=== PATIENT | male | born 1935 | race Caucasian/White ===

== ENCOUNTER 2020-02-13 20:36 | Inpatient (IN) | payer MEDICARE, BC ==
--- NOTE | 2020-02-13 21:15 | EDM.PDOC ---
ED HPI GENERAL MEDICAL PROBLEM - General Chief Complaint: Gastrointestinal Problem Stated Complaint: ABD PAIN,CONSTIPATED Time Seen by Provider: 02/13/20 21:15 Source of Information: Reports: Patient History Limitations: Reports: No Limitations - History of Present Illness INITIAL COMMENTS - FREE TEXT/NARRATIVE: pt has not had a bm for 4 days. Pt feels very distended. He did try a fleets enema and this was not succeassful. He is uncomfortable. Onset: Gradual Duration: Day(s): Location: Reports: Abdomen Associated Symptoms: Reports: Loss of Appetite, Other ( distended abdoman. ) abd pain Pain Score (Numeric/FACES): 8 - Related Data Allergies Allergy/AdvReac Type Severity Reaction Status Date / Time No Known Allergies Allergy Verified 02/13/20 21:04 Home Meds: Home Meds Doxazosin Mesylate [Cardura] 8 mg PO DAILY 10/03/14 [History] Finasteride [Proscar] 5 mg PO DAILY 10/03/14 [History] Fluticasone/Salmeterol [Advair 100-50 Diskus] 1 puff INH BID PRN 10/03/14 [ History] Lactulose [Generlac] 2 tbs PO DAILY PRN 10/03/14 [History] Levothyroxine Sodium [Synthroid] 112 mcg PO DAILY 10/03/14 [History] Multivitamins 1 each PO DAILY 10/03/14 [History] Omeprazole [Prilosec] 20 mg PO DAILY 10/03/14 [History] polyethylene glycoL 3350 [Miralax] 17 gm PO DAILY 10/03/14 [History] Past Medical History Cardiovascular History: Reports: High Cholesterol Respiratory History: Reports: Asthma Gastrointestinal History: Reports: GERD Genitourinary History: Reports: Prostate Disorder Musculoskeletal History: Reports: Other (See Below) Other Musculoskeletal History: bilaterl hip pain Endocrine/Metabolic History: Reports: Other (See Below) Other Endocrine/Metabolic History: thyroid disease - Infectious Disease History Infectious Disease History: Reports: Chicken Pox, Measles, Mumps - Past Surgical History HEENT Surgical History: Reports: Tonsillectomy Musculoskeletal Surgical History: Reports: Knee Replacement ED ROS GENERAL - Review of Systems Review Of Systems: See Below Constitutional: Reports: Decreased Appetite HEENT: Reports: No Symptoms Respiratory: Reports: No Symptoms Cardiovascular: Reports: No Symptoms Endocrine: Reports: No Symptoms GI/Abdominal: Reports: Abdominal Pain, Constipation, Decreased Appetite : Reports: No Symptoms Musculoskeletal: Reports: No Symptoms Neurological: Reports: No Symptoms ED EXAM, GI/ABD - Physical Exam Exam: See Below Text/Narrative:: pt arrived with a very distended abdoman. He is not vomiting. He has not had a bm for 4 days. He does have a chronic problem with constipation. Exam Limited By: No Limitations General Appearance: Alert, Moderate Distress Ears: Normal TMs Nose: Normal Inspection Throat/Mouth: Normal Inspection Head: Atraumatic Respiratory/Chest: No Respiratory Distress Cardiovascular: Regular Rate, Rhythm GI/Abdominal Exam: Other (marked distention) (Male) Exam: Deferred Rectal (Males) Exam: Other ( no stool present in rectum. No mass noted. ) Back Exam: Normal Inspection Extremities: Normal Inspection Neurological: Alert, Oriented, Normal Cognition Psychiatric: Normal Affect Course - Vital Signs Last Recorded V/S: Last Vital Signs Temp 36.8 C 02/19/20 07:00 Pulse 88 02/19/20 07:00 Resp 20 02/19/20 07:00 BP 122/58 L 02/19/20 07:00 Pulse Ox 89 L 02/19/20 07:00 - Orders/Labs/Meds Orders: Medication Orders Acetaminophen (Tylenol) 650 mg PO QID [facility] Last Admin: 02/19/20 05:45 Dose: Not Given Admin: 02/18/20 21:59 Dose: 650 mg Admin: 02/18/20 16:05 Dose: 650 mg Admin: 02/18/20 10:01 Dose: 650 mg Admin: 02/18/20 06:24 Dose: 650 mg Admin: 02/17/20 21:09 Dose: 650 mg Admin: 02/17/20 16:24 Dose: 650 mg Admin: 02/17/20 10:10 Dose: 650 mg Admin: 02/17/20 06:08 Dose: 650 mg Admin: 02/16/20 21:05 Dose: 650 mg Admin: 02/16/20 16:24 Dose: 650 mg Admin: 02/16/20 09:58 Dose: 650 mg Albuterol/Ipratropium (Duoneb 3.0-0.5 Mg/3 Ml) 3 ml INH QIDRT [facility] Last Admin: 02/19/20 06:59 Dose: 3 ml Admin: 02/18/20 22:12 Dose: 3 ml Admin: 02/18/20 15:01 Dose: 3 ml Admin: 02/18/20 11:20 Dose: 3 ml Admin: 02/18/20 07:41 Dose: 3 ml Admin: 02/17/20 20:03 Dose: 3 ml Admin: 02/17/20 14:29 Dose: 3 ml Admin: 02/17/20 10:36 Dose: 3 ml Admin: 02/17/20 07:02 Dose: 3 ml Admin: 02/16/20 21:05 Dose: 3 ml Admin: 02/16/20 14:35 Dose: 3 ml Admin: 02/16/20 10:35 Dose: 3 ml Admin: 02/16/20 06:59 Dose: 3 ml Admin: 02/15/20 21:49 Dose: 3 ml Admin: 02/15/20 14:31 Dose: 3 ml Admin: 02/15/20 10:54 Dose: 3 ml Admin: 02/15/20 07:18 Dose: 3 ml Admin: 02/14/20 20:13 Dose: 3 ml Albuterol/Ipratropium (Duoneb 3.0-0.5 Mg/3 Ml) 3 ml INH ASDIRECTED PRN PRN Reason: BREATHING Benzocaine/Menthol (Cepacol Sore Throat) 1 lozenge MUCMEM ASDIRECTED PRN PRN Reason: Sore Throat Last Admin: 02/15/20 07:00 Dose: 1 pack Bisacodyl (Dulcolax) 10 mg PO BID [facility] Last Admin: 02/18/20 22:00 Dose: Admin: 02/18/20 08:23 Dose: 10 mg Admin: 02/17/20 20:04 Dose: 10 mg Admin: 02/17/20 09:37 Dose: 10 mg Diphenhydramine HCl (Benadryl) 25 mg IVPUSH Q6H PRN PRN Reason: ITCHING Last Admin: 02/19/20 00:17 Dose: 25 mg Admin: 02/16/20 23:15 Dose: 25 mg Docusate Sodium (Colace) 100 mg PO BID [facility] Last Admin: 02/18/20 22:01 Dose: Admin: 02/18/20 08:23 Dose: 100 mg Admin: 02/17/20 20:04 Dose: 100 mg Admin: 02/17/20 09:37 Dose: 100 mg Doxazosin Mesylate (Cardura) 8 mg PO DAILY [facility] Last Admin: 02/18/20 08:22 Dose: 8 mg Admin: 02/17/20 08:35 Dose: 8 mg Admin: 02/16/20 09:42 Dose: 8 mg Admin: 02/15/20 08:04 Dose: 8 mg Admin: 02/14/20 10:13 Dose: Not Given Finasteride (Proscar) 5 mg PO DAILY [facility] Last Admin: 02/18/20 08:23 Dose: 5 mg Admin: 02/17/20 08:35 Dose: 5 mg Admin: 02/16/20 09:44 Dose: 5 mg Admin: 02/15/20 08:04 Dose: 5 mg Admin: 02/14/20 10:13 Dose: Not Given Haloperidol Lactate (Haldol) 2.5 mg IVPUSH Q2H PRN PRN Reason: Anxiety Last Admin: 02/18/20 02:38 Dose: 2.5 mg Admin: 02/18/20 01:52 Dose: 2.5 mg Admin: 02/17/20 05:17 Dose: 2.5 mg Admin: 02/16/20 04:13 Dose: 2.5 mg Admin: 02/16/20 01:41 Dose: 2.5 mg Hydromorphone HCl (Dilaudid) 0.5 mg IVPUSH Q1H PRN PRN Reason: Pain Last Admin: 02/19/20 02:59 Dose: 0.5 mg Admin: 02/17/20 08:35 Dose: 0.5 mg Admin: 02/17/20 02:03 Dose: 0.5 mg Admin: 02/16/20 23:46 Dose: 0.5 mg Admin: 02/16/20 21:05 Dose: 0.5 mg Admin: 02/16/20 19:47 Dose: 0.5 mg Admin: 02/16/20 03:22 Dose: 0.5 mg Admin: 02/16/20 02:21 Dose: 0.5 mg Admin: 02/16/20 01:12 Dose: 0.5 mg Admin: 02/16/20 00:15 Dose: 0.5 mg Hydroxyzine HCl (Vistaril) 100 mg IM Q4H PRN PRN Reason: PAIN Dextrose/Lactated Ringer's (Dextrose 5%-Lactated Ringers) 1,000 mls @ 100 mls/ hr IV ASDIRECTED [facility] Levothyroxine Sodium (Levothyroxine) 112 mcg PO ACBREAKFAST [facility] Last Admin: 02/18/20 08:18 Dose: 112 mcg Admin: 02/17/20 07:10 Dose: 112 mcg Admin: 02/16/20 09:43 Dose: 112 mcg Admin: 02/15/20 08:04 Dose: 112 mcg Admin: 02/14/20 07:40 Dose: Not Given Lorazepam (Ativan) 0.5 mg IVPUSH Q4H PRN PRN Reason: Nausea Last Admin: 02/19/20 01:46 Dose: 0.5 mg Admin: 02/15/20 19:12 Dose: 0.5 mg Melatonin (Melatonin) 9 mg PO BEDTIME [facility] Last Admin: 02/18/20 21:58 Dose: 9 mg Admin: 02/17/20 20:04 Dose: 9 mg Ondansetron HCl (Zofran) 4 mg IV Q4H PRN PRN Reason: Nausea/Vomiting Pantoprazole Sodium (Protonix) 40 mg PO BEDTIME [facility] Last Admin: 02/18/20 21:59 Dose: 40 mg Sodium Chloride (Saline Flush) 10 ml FLUSH ASDIRECTED PRN PRN Reason: Keep Vein Open Labs: Laboratory Tests 02/13/20 02/13/20 02/13/20 Range/Units 21:30 21:33 21:33 WBC 9.2 (4.5-11.0) K/uL RBC 4.92 (4.30-5.90) M/uL Hgb 13.9 (12.0-15.0) g/dL Hct 43.4 (40.0-54.0) % MCV 88 (80-98) fL MCH 28 (27-31) pg MCHC 32 (32-36) % Plt Count 209 (150-400) K/uL Neut % (Auto) 77 H (36-66) % Lymph % (Auto) 11 L (24-44) % Parker % (Auto) 10 H (2-6) % Eos % (Auto) 2 (2-4) % Baso % (Auto) 0 (0-1) % Sodium 140 (140-148) mmol/L Potassium 4.2 (3.6-5.2) mmol/L Chloride 103 (100-108) mmol/L Carbon Dioxide 29 (21-32) mmol/L Anion Gap 8.0 (5.0-14.0) mmol/L BUN 15 (7-18) mg/dL Creatinine 1.3 (0.8-1.3) mg/dL Est Cr Clr Drug Dosing 41.65 mL/min Estimated GFR (MDRD) 53 L (>60) Glucose 93 (74-106) mg/dL Calcium 8.8 (8.5-10.1) mg/dL Total Bilirubin 0.5 (0.2-1.0) mg/dL AST 17 (15-37) U/L ALT 26 (12-78) U/L Alkaline Phosphatase 77 (46-116) U/L C-Reactive Protein 0.57 H (0.0-0.3) mg/dL Total Protein 6.6 (6.4-8.2) g/dL Albumin 3.4 (3.4-5.0) g/dL Globulin 3.2 (2.3-3.5) g/dL Albumin/Globulin Ratio 1.1 L (1.2-2.2) Meds: Medications Generic Name Dose Route Start Last Admin Trade Name Freq PRN Reason Stop Dose Admin Acetaminophen 650 mg 02/16/20 10:00 02/19/20 05:45 Tylenol PO Not Given QID [facility] Albuterol/Ipratropium 3 ml 02/14/20 21:00 02/19/20 06:59 Duoneb 3.0-0.5 Mg/3 Ml INH 3 ml QIDRT [facility] Administration Albuterol/Ipratropium 3 ml 02/14/20 15:05 Duoneb 3.0-0.5 Mg/3 Ml INH ASDIRECTED PRN BREATHING Benzocaine/Menthol 1 lozenge 02/15/20 06:30 02/15/20 07:00 Cepacol Sore Throat MUCMEM 1 pack ASDIRECTED PRN Administration Sore Throat Bisacodyl 10 mg 02/17/20 09:00 02/18/20 22:00 Dulcolax PO Not Given BID [facility] Diphenhydramine HCl 25 mg 02/14/20 17:19 05/26/20 00:17 Benadryl IVPUSH 25 mg Q6H PRN Administration ITCHING Docusate Sodium 100 mg 02/17/20 09:00 02/18/20 22:01 Colace PO Not Given BID [facility] Doxazosin Mesylate 8 mg 02/14/20 09:00 02/18/20 08:22 Cardura PO 8 mg DAILY [facility] Administration Finasteride 5 mg 02/14/20 09:00 02/18/20 08:23 Proscar PO 5 mg DAILY [facility] Administration Haloperidol Lactate 2.5 mg 02/15/20 23:37 02/18/20 02:38 Haldol IVPUSH 2.5 mg Q2H PRN Administration Anxiety Hydromorphone HCl 0.5 mg 02/15/20 23:33 02/19/20 02:59 Dilaudid IVPUSH 0.5 mg Q1H PRN Administration Pain Hydroxyzine HCl 100 mg 02/14/20 15:07 Vistaril IM Q4H PRN PAIN Dextrose/Lactated Ringer's 1,000 mls @ 100 mls/hr 02/19/20 07:15 Dextrose 5%-Lactated Ringers IV ASDIRECTED [facility] Levothyroxine Sodium 112 mcg 02/14/20 07:30 02/18/20 08:18 Levothyroxine PO 112 mcg ACBREAKFAST [facility] Administration Lorazepam 0.5 mg 02/14/20 16:00 02/19/20 01:46 Ativan IVPUSH 0.5 mg Q4H PRN Administration Nausea Melatonin 9 mg 02/17/20 21:00 02/18/20 21:58 Melatonin PO 9 mg BEDTIME [facility] Administration Ondansetron HCl 4 mg 02/14/20 01:16 Zofran IV Q4H PRN Nausea/Vomiting Pantoprazole Sodium 40 mg 02/18/20 21:00 02/18/20 21:59 Protonix PO 40 mg BEDTIME [facility] Administration Sodium Chloride 10 ml 02/14/20 01:16 Saline Flush FLUSH ASDIRECTED PRN Keep Vein Open Discontinued Medications Generic Name Dose Route Start Last Admin Trade Name Freq PRN Reason Stop Dose Admin Acetaminophen 650 mg 02/14/20 01:16 Tylenol PO Q4H PRN Pain (Mild 1-3)/fever Albuterol 2.5 mg 02/14/20 01:16 Proventil Neb Soln NEB Q4H PRN Shortness Of Breath/wheezing Albuterol/Ipratropium 3 ml 02/14/20 12:00 02/14/20 12:06 Duoneb 3.0-0.5 Mg/3 Ml INH 02/14/20 12:01 Not Given ONETIME ONE Bupivacaine HCl Confirm 02/16/20 07:35 02/16/20 07:50 Marcaine 0.5% Administered 02/16/20 07:36 17.5 ml Dose Administration 50 ml .ROUTE .STK-MED ONE Ropivacaine 50 ml/ 0 ml 02/16/20 08:00 Dexamethasone 8 mg/ NERVRT Epinephrine HCl 0.4 mg/ Sodium ASDIRECTED [facility] Chloride 27.6 ml Dexamethasone Confirm 02/14/20 09:16 Dexamethasone Administered 02/14/20 09:17 Dose 4 mg .ROUTE .STK-MED ONE Fentanyl Confirm 02/14/20 09:24 Sublimaze Administered 02/14/20 09:25 Dose 250 mcg .ROUTE .STK-MED ONE Fentanyl Confirm 02/14/20 09:28 Sublimaze Administered 02/14/20 09:29 Dose 100 mcg .ROUTE .STK-MED ONE Fentanyl Confirm 02/15/20 12:18 Sublimaze Administered 02/15/20 12:19 Dose 100 mcg .ROUTE .STK-MED ONE Furosemide 20 mg 02/16/20 06:15 02/16/20 06:24 Lasix IVPUSH 02/16/20 06:16 20 mg NOW STA Administration Furosemide 20 mg 02/16/20 16:00 02/16/20 16:23 Lasix IVPUSH 02/16/20 16:01 20 mg ONETIME ONE Administration Furosemide 20 mg 02/17/20 09:00 02/17/20 17:42 Lasix IVPUSH 02/17/20 18:01 20 mg Q9H [facility] Administration Furosemide 20 mg 02/18/20 09:00 02/18/20 18:16 Lasix IVPUSH 02/18/20 18:01 Not Given Q9H [facility] Glycopyrrolate Confirm 02/14/20 09:16 Robinul Administered 02/14/20 09:17 Dose 1 mg .ROUTE .STK-MED ONE Haloperidol Lactate 2.5 mg 02/15/20 21:31 02/15/20 23:35 Haldol IVPUSH 2.5 mg Q3H PRN Administration Anxiety Hydromorphone HCl 0.5 mg 02/13/20 23:37 02/13/20 23:45 Dilaudid IVPUSH 02/13/20 23:38 0.5 mg ONETIME ONE Administration Hydromorphone HCl 0.5 mg 02/14/20 00:35 02/14/20 00:41 Dilaudid IVPUSH 02/14/20 00:36 0.5 mg ONETIME ONE Administration Hydromorphone HCl 0.5 mg 02/14/20 01:16 02/14/20 05:26 Dilaudid IVPUSH 0.5 mg Q2H PRN Administration Pain Sodium Chloride 1,000 mls @ 999 mls/hr 02/13/20 22:00 02/13/20 22:02 Normal Saline IV 999 mls/hr ASDIRECTED [facility] Administration Sodium Chloride 80 mls @ 3 mls/sec 02/13/20 22:15 02/13/20 22:12 Normal Saline IV 3 mls/sec ASDIRECTED [facility] Administration Sodium Chloride 1,000 mls @ 999 mls/hr 02/13/20 23:45 02/14/20 00:44 Normal Saline IV 999 mls/hr ASDIRECTED [facility] Administration Lactated Ringer's 1,000 mls @ 125 mls/hr 02/14/20 01:16 02/14/20 07:57 Ringers, Lactated IV 125 mls/hr ASDIRECTED [facility] Administration Meropenem 500 mg/ Sodium 50 mls @ 100 mls/hr 02/14/20 12:00 02/14/20 12:06 Chloride IV 02/14/20 12:29 Not Given ONETIME ONE Fentanyl 2,500 mcg/ Sodium 250 mls @ 0 mls/hr 02/14/20 11:00 02/15/20 22:30 Chloride EPIDUR 0 ml/hr TITRATE ROMINA 0 mls/hr Titration Protocol Titrate Sodium Chloride Confirm 02/14/20 09:28 Normal Saline Administered 02/14/20 09:29 Dose 10 mls @ as directed .ROUTE .STK-MED ONE Lactated Ringer's Confirm 02/14/20 11:31 Ringers, Lactated Administered 02/14/20 11:32 Dose 1,000 mls @ as directed .ROUTE .STK-MED ONE Lactated Ringer's 1,000 mls @ 100 mls/hr 02/14/20 15:00 02/15/20 00:08 Ringers, Lactated IV 02/15/20 12:00 100 mls/hr ASDIRECTED [facility] Administration Dextrose/Lactated Ringer's 1,000 mls @ 100 mls/hr 02/14/20 15:15 02/15/20 00: 08 Dextrose 5%-Lactated Ringers IV 02/15/20 11:59 100 mls/hr ASDIRECTED [facility] Administration Cefoxitin Sodium 2 gm/ Sodium 50 mls @ 100 mls/hr 02/14/20 16:00 02/15/20 21: 49 Chloride IV 02/15/20 22:29 100 mls/hr Q6H [facility] Administration Dextrose/Lactated Ringer's 1,000 mls @ 150 mls/hr 02/15/20 12:00 02/16/20 04: 48 Dextrose 5%-Lactated Ringers IV 150 mls/hr ASDIRECTED [facility] Administration Sodium Chloride Confirm 02/15/20 12:18 Normal Saline Administered 02/15/20 12:19 Dose 10 mls @ as directed .ROUTE .STK-MED ONE Acetaminophen 1,000 mg/ Premix 100 mls @ 400 mls/hr 02/15/20 23:33 02/15/20 23:46 IV 02/15/20 23:47 400 mls/hr NOW ONE Administration Dextrose/Lactated Ringer's 1,000 mls @ 80 mls/hr 02/16/20 09:45 02/17/20 01: 52 Dextrose 5%-Lactated Ringers IV 80 mls/hr ASDIRECTED [facility] Administration Potassium Phosphate 15 mmole/ 255 mls @ 85 mls/hr 02/16/20 10:00 02/16/20 16: 25 Sodium Chloride IV 02/16/20 18:59 85 mls/hr Q3H [facility] Administration Potassium Phosphate 15 mmole/ 255 mls @ 85 mls/hr 02/17/20 09:00 02/17/20 15: 47 Sodium Chloride IV 02/17/20 17:59 85 mls/hr Q3H [facility] Administration Dextrose/Lactated Ringer's 1,000 mls @ 50 mls/hr 02/17/20 19:00 02/19/20 01: 49 Dextrose 5%-Lactated Ringers IV 50 mls/hr ASDIRECTED [facility] Administration Potassium Phosphate 15 mmole/ 255 mls @ 125 mls/hr 02/18/20 10:00 02/18/20 12 :01 Sodium Chloride IV 02/18/20 13:59 125 mls/hr Q2H [facility] Administration Iopamidol 150 ml 02/13/20 22:15 02/13/20 22:12 Isovue-300 (61%) IV 150 ml . DIRECTED ROMINA Administration Lidocaine/Epinephrine Confirm 02/16/20 07:36 02/16/20 07:50 Xylocaine 1% With Epinephrine 1:100,000 Administered 02/16/20 07:37 17.5 ml Dose Administration 50 ml .ROUTE .STK-MED ONE Lorazepam 0.5 mg 02/14/20 01:16 02/14/20 05:26 Ativan IVPUSH 0.5 mg Q2H PRN Administration Nausea Meropenem Confirm 02/14/20 10:08 02/14/20 11:48 Merrem Administered 02/14/20 10:09 500 mg Dose Administration 500 mg .ROUTE .STK-MED ONE Meropenem Confirm 02/16/20 06:29 02/16/20 07:50 Merrem Administered 02/16/20 06:30 500 mg Dose Administration 500 mg .ROUTE .STK-MED ONE Naloxone HCl 0.1 mg 02/14/20 11:00 02/15/20 20:00 Narcan IVPUSH 0.2 mg Q5M PRN Administration RESP RATE LESS THAN 6/MINUTE Naloxone HCl 0.4 mg 02/14/20 17:19 02/15/20 12:38 Narcan IV 0.4 mg ASDIRECTED PRN Administration ITCHING Naloxone HCl 0.2 mg 02/15/20 14:08 02/15/20 14:18 Narcan IVPUSH 0.2 mg ONETIME PRN Administration Agitation Naloxone HCl 0.4 mg 02/15/20 16:50 02/15/20 17:00 Narcan IVPUSH 02/15/20 16:51 0.4 mg ONETIME PRN Administration Agitation Naloxone HCl 0.8 mg 02/15/20 16:54 02/15/20 19:11 Narcan IV 0.8 mg ASDIRECTED PRN Administration ITCHING Neostigmine Methylsulfate Confirm 02/14/20 09:16 Neostigmine Administered 02/14/20 09:17 Dose 5 mg .ROUTE .STK-MED ONE Scopolamine Patch 1 each 02/14/20 16:00 02/16/20 09:43 Check TOP Not Given DAILY ROMINA Ondansetron HCl 4 mg 02/14/20 00:06 02/14/20 00:21 Zofran IVPUSH 02/14/20 00:07 4 mg ONETIME ONE Administration Ondansetron HCl Confirm 02/14/20 09:16 Zofran Administered 02/14/20 09:17 Dose 4 mg .ROUTE .STK-MED ONE Pantoprazole Sodium 40 mg 02/14/20 21:00 02/17/20 20:03 Protonix Iv IVPUSH 40 mg Q24H [facility] Administration Pantoprazole Sodium 40 mg 02/14/20 01:45 02/14/20 01:59 Protonix Iv IVPUSH 02/14/20 01:46 40 mg ONETIME ONE Administration Propofol Confirm 02/14/20 09:16 Diprivan 20 Ml Administered 02/14/20 09:17 Dose 200 mg .ROUTE .STK-MED ONE Propofol Confirm 02/16/20 06:46 Diprivan 20 Ml Administered 02/16/20 06:47 Dose 200 mg .ROUTE .STK-MED ONE Rocuronium [place] Confirm 02/14/20 09:16 Zemuron Administered 02/14/20 09:17 Dose 50 mg .ROUTE .STK-MED ONE Rocuronium [place] Confirm 02/14/20 12:09 Zemuron Administered 02/14/20 12:10 Dose 50 mg .ROUTE .STK-MED ONE Fluticasone/Salmeterol 1 puff 02/14/20 07:30 02/14/20 09:32 Fluticasone-Salmeterol 55-14 Mcg Powder Inh INH 1 puff BIDRT [facility]INA Administration Scopolamine Confirm 02/14/20 10:22 Transderm-Scop Administered 02/14/20 10:23 Dose 1.5 mg .ROUTE .STK-MED ONE Sodium Chloride 10 ml 02/13/20 22:03 02/13/20 22:12 Saline Flush FLUSH 10 ml ASDIRECTED PRN Administration Keep Vein Open Succinylcholine Chloride Confirm 02/14/20 09:16 Quelicin Administered 02/14/20 09:17 Dose 200 mg .ROUTE .[facility] ONE - Re-Assessments/Exams Free Text/Narrative Re-Assessment/Exam: 02/13/20 23:13 pt had a flat and upright of the abdoman which shows marked distention of the transverse colon. He had some distention of the stomach with some fluid present in the stomach. A cat scan of the abdoman was done which showed a napkin ring type lesion in the tranverse colon. It also showed a fluid filled stomach. There were some questionable lesions in the liver. 02/14/20 00:36 pt had a ng tube inserted and he shortly developed a bp in te 90s. He became very diaphoretic and his pain increased markedly. He appeared more distended. A repeat cat scan of the abdoman was done to rule out a perforation. The cat scan was neg. for any acute change 02/14/20 01:00 02/19/20 07:47 Departure - Departure Time of Disposition: 23:16 Disposition: Admitted As Inpatient 67 Condition: Fair Clinical Impression: Colonic mass, Partial gastric outlet obstruction, Renal cyst - Discharge Information Sepsis Event Note - Evaluation Sepsis Screening Result: No Definite Risk - Focused Exam Date Exam was Performed: 02/19/20 Time Exam was Performed: 07:48
[2020-02-13] MEDS ORDERED: Sodium Chloride 0.9% 1,000 ML IV SCH ×2 (22:00→23:45)
[2020-02-13] MEDS ORDERED: Sodium Chloride 0.9% 10 ML Syringe FLUSH PRN (22:03)
[2020-02-13] MEDS ORDERED: Iopamidol 612 MG/ML 150 ML Bottle IV SCH (22:15)
[2020-02-13] MEDS ORDERED: Sodium Chloride 0.9% 80 ML IV SCH (22:15)
--- NOTE | 2020-02-13 22:28 | CRLCR ---
INDICATION: Distended abdomen TECHNIQUE: Chest and Abdominal radiograph 5 views COMPARISON: 12/16/2017 FINDINGS: CHEST: Severe degradation of image quality noted due to body habitus. Mediastinum: The mediastinum is normal in appearance. The heart silhouette is normal in size and morphology. Severe elevation of left hemidiaphragm is noted which may be due to diaphragmatic paralysis or weakness. Lung: Left basilar atelectasis is present. No sign of pleural effusion seen. No pneumothorax is identified. ABDOMEN: Bowel: Severe gaseous distension the stomach is present. Mild gaseous distention of the transverse colon is noted. Soft tissue: No evidence of pneumoperitoneum present. No suspicious calcifications noted. Bone: Unremarkable for age. IMPRESSION: 1. Severe gaseous distension the stomach is present. Gastric outlet obstruction should be considered. Dictated by Moreno Dennis MD @ 02/13/2020 10:26:44 PM Dictated by: Moreno Dennis MD @ 02/13/2020 22:26:52 (Electronically Signed)
--- NOTE | 2020-02-13 22:42 | CRLCT ---
INDICATION: Distended abdomen TECHNIQUE: CT Abdomen and pelvis with i.v. contrast. Coronal and sagittal reformats were obtained. CONTRAST: 150 mL Isovue 300 COMPARISON: 12/19/2017, radiograph today FINDINGS: Lower chest: Moderate to severe elevation of the left hemidiaphragm is present with mild compressive atelectasis of the left lung base. Liver: There is a hypodense lesion in the left medial segment of the liver measuring 1.4 cm on image 32 and 2 small hypodense lesions in the right lobe of the liver are noted in image 52. There is a hypodense lesion in the right lobe of the liver on image 65 measuring 1.7 cm. Spleen: Unremarkable. Pancreas: Unremarkable. Gallbladder: Unremarkable. Kidney: There is a 5 cm cyst in the mid zone of the right kidney. Mild left renal pelviectasis is present and likely related to the degree of bladder distention. Adrenal: Unremarkable. Bowel: Severe gaseous distention of the cecum and proximal transverse colon is noted with the cecum measuring 11.2 cm in diameter. On coronal image 24, there is a concentric napkin ring lesion in the transverse colon with shouldering present. Mild to moderate fluid distention of the stomach is noted with gradual transition point seen. Severe diverticulosis of the descending and sigmoid colon is seen. The appendix is not identified. Vascular: Unremarkable. Lymph: Unremarkable. Peritoneum: Unremarkable. No pneumoperitoneum is seen. No significant ascites is noted. Pelvis: Mild enlargement of the prostate gland is present. Soft tissue: Unremarkable. Bone: Unremarkable for age. IMPRESSIONS: 1. Severe gaseous distention of the cecum and proximal transverse colon is noted with the cecum measuring 11.2 cm in diameter. On coronal image 24, there is a concentric napkin ring lesion in the transverse colon with shouldering present. 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 2. Multiple ill-defined hypodense liver lesions are present, likely due to metastatic disease. Dictated by Moreno Dennis MD @ 02/13/2020 10:41:25 PM Please note that all CT scans at this facility use dose modulation, iterative reconstruction, and/or weight-based dosing when appropriate to reduce radiation dose to as low as reasonably achievable. Dictated by: Moreno Dennis MD @ 02/13/2020 22:41:30 (Electronically Signed)
[2020-02-13] MEDS ORDERED: HYDROmorphone 0.5 MG/0.5 ML Syringe IVPUSH ONE (23:37)
--- NOTE | 2020-02-13 23:54 | PCM.HP.2 ---
H&P History of Present Illness - General Date of Service: 02/13/20 Admit Problem/Dx: Admission Diagnosis/Problem Admission Diagnosis/Problem Obstruction of colon Source of Information: Patient, Provider, RN Notes Reviewed History Limitations: Reports: No Limitations - History of Present Illness Initial Comments - Free Text/Narative: Mr. Cohen is an 84-year-old gentleman who was admitted through the emergency department with abdominal pain and distention. He reported a 3-day history of progressive abdominal distention and pain, felt as though were secondary to constipation and that he had not had a bowel movement in 4 days. White blood cell count is within normal range and only a modest elevation in CRP. Abdominal flatplate upright x-ray showed distention of the stomach as well as marked distention of the cecum and transverse colon. CT scan of the abdomen shows severe distention of the cecum and proximal transverse colon with a apple core lesion consistent with malignancy. In addition there are lesions noted in the liver that could also be consistent with metastatic disease. He was noted to have gaseous and fluid distention of the stomach which tapered to a transition point. NG tube was placed and he quickly became very diaphoretic with hypotension and bradycardia consistent with a vagal episode. Repeat CT scan was obtained because of increased distention and marked increase in pain. Repeat CT scans showed no significant change from the original scan obtained earlier in the emergency department abd pain Pain Score (Numeric/FACES): 8 - Related Data Allergies/Adverse Reactions: Allergies Allergy/AdvReac Type Severity Reaction Status Date / Time No Known Allergies Allergy Verified 02/13/20 21:04 Home Medications: Home Meds Doxazosin Mesylate [Cardura] 8 mg PO DAILY 10/03/14 [History] Finasteride [Proscar] 5 mg PO DAILY 10/03/14 [History] Fluticasone/Salmeterol [Advair 100-50 Diskus] 1 puff INH BID PRN 10/03/14 [ History] Lactulose [Generlac] 2 tbs PO DAILY PRN 10/03/14 [History] Levothyroxine Sodium [Synthroid] 112 mcg PO DAILY 10/03/14 [History] Multivitamins 1 each PO DAILY 10/03/14 [History] Omeprazole [Prilosec] 20 mg PO DAILY 10/03/14 [History] polyethylene glycoL 3350 [Miralax] 17 gm PO DAILY 10/03/14 [History] Past Medical History HEENT History: Reports: Impaired Vision, Other (See Below) Other HEENT History: glasses Cardiovascular History: Reports: High Cholesterol Respiratory History: Reports: Asthma Other Respiratory History: wood smoke Gastrointestinal History: Reports: GERD Genitourinary History: Reports: Prostate Disorder Musculoskeletal History: Reports: Other (See Below) Other Musculoskeletal History: bilaterl hip pain Endocrine/Metabolic History: Reports: Other (See Below) Other Endocrine/Metabolic History: thyroid disease - Infectious Disease History Infectious Disease History: Reports: Chicken Pox, Measles, Mumps - Past Surgical History HEENT Surgical History: Reports: Tonsillectomy Musculoskeletal Surgical History: Reports: Knee Replacement Social & Family History - Tobacco Use Smoking Status *Q: Never Smoker - Caffeine Use Caffeine Use: Reports: Coffee, Soda - Recreational Drug Use Recreational Drug Use: No H&P Review of Systems - Review of Systems: Review Of Systems: See Below General: Reports: Weakness, Fatigue, Decreased Appetite. Denies: Fever, Chills HEENT: Reports: No Symptoms Pulmonary: Reports: No Symptoms Cardiovascular: Reports: No Symptoms Gastrointestinal: Reports: Abdominal Pain, Constipation, Distension, Nausea. Denies: Diarrhea, Difficulty Swallowing, Hematemesis, Hematochezia, Melena, Vomiting Genitourinary: Reports: No Symptoms Musculoskeletal: Reports: No Symptoms Skin: Reports: No Symptoms Psychiatric: Reports: No Symptoms Neurological: Reports: No Symptoms Hematologic/Lymphatic: Reports: No Symptoms Immunologic: Reports: No Symptoms Exam - Exam Exam: See Below - Vital Signs Vital Signs: Last Vital Signs Temp 96.9 F 02/13/20 21:00 Pulse 84 02/13/20 21:00 Resp 16 02/13/20 21:00 BP 174/89 H 02/13/20 21:00 Pulse Ox 94 L 02/13/20 21:00 Weight: 218 lb 4.122 oz - Exam Quality Assessment: DVT Prophylaxis General: Alert, Oriented, Cooperative, Severe Distress HEENT: Conjunctiva Clear, Hearing Intact, Normal Nasal Septum, Posterior Pharynx Clear, Pupils Equal. No: Mucosa Moist & [place] Neck: Supple, Trachea Midline, +2 Carotid Pulse wo Bruit Lungs: Clear to Auscultation, Normal Respiratory Effort Cardiovascular: Regular Rate, Regular Rhythm, Normal S1, Normal S2. No: Systolic Murmur, Diastolic Murmur GI/Abdominal Exam: No Organomegaly, Distended, Guarding, Tender. No: Rigid, Rebound Back Exam: Normal Inspection, Full Range of Motion Extremities: Non-Tender, No Pedal Edema Skin: Warm, Dry, Intact Neurological: Cranial Nerves Intact, Strength Equal Bilateral, Normal Speech, Normal Tone, Sensation Intact. No: Focal Deficit Neuro Extensive - Mental Status: Alert, Oriented x3, Normal Mood/Affect, Normal Cognition, Memory Intact - Patient Data Lab Results Last 24 hrs: Laboratory Results - last 24 hr 02/13/20 02/13/20 02/13/20 Range/Units 21:30 21:33 21:33 WBC 9.2 (4.5-11.0) K/uL RBC 4.92 (4.30-5.90) M/uL Hgb 13.9 (12.0-15.0) g/dL Hct 43.4 (40.0-54.0) % MCV 88 (80-98) fL MCH 28 (27-31) pg MCHC 32 (32-36) % Plt Count 209 (150-400) K/uL Neut % (Auto) 77 H (36-66) % Lymph % (Auto) 11 L (24-44) % [place] % (Auto) 10 H (2-6) % Eos % (Auto) 2 (2-4) % Baso % (Auto) 0 (0-1) % Sodium 140 (140-148) mmol/L Potassium 4.2 (3.6-5.2) mmol/L Chloride 103 (100-108) mmol/L Carbon Dioxide 29 (21-32) mmol/L Anion Gap 8.0 (5.0-14.0) mmol/L BUN 15 (7-18) mg/dL Creatinine 1.3 (0.8-1.3) mg/dL Est Cr Clr Drug Dosing 41.65 mL/min Estimated GFR (MDRD) 53 L (>60) Glucose 93 (74-106) mg/dL Calcium 8.8 (8.5-10.1) mg/dL Total Bilirubin 0.5 (0.2-1.0) mg/dL AST 17 (15-37) U/L ALT 26 (12-78) U/L Alkaline Phosphatase 77 (46-116) U/L C-Reactive Protein 0.57 H (0.0-0.3) mg/dL Total Protein 6.6 (6.4-8.2) g/dL Albumin 3.4 (3.4-5.0) g/dL Globulin 3.2 (2.3-3.5) g/dL Albumin/Globulin Ratio 1.1 L (1.2-2.2) Result Diagrams: 02/13/20 21:33 02/13/20 21:33 Sepsis Event Note - Evaluation Sepsis Screening Result: No Definite Risk - Focused Exam Vital Signs: Vital Signs Temp Pulse Resp BP Pulse Ox 02/13/20 21:00 96.9 F 84 16 174/89 H 94 L 02/13/20 20:56 96.9 F 84 16 174/89 H 94 L Date Exam was Performed: 02/14/20 Time Exam was Performed: 01:12 *Q Meaningful Use (ADM) - VTE *Q VTE Pharmacological Contraindications *Q: Patient Scheduled Surgery - VTE Risk Assess *Q Each Risk Factor Represents 1 Point: Obesity ( BMI > 25 kg/m2) Total Score 1 Point Risk Factors: 1 Each Risk Factor Represents 2 Points: None Total Score 2 Point Risk Factors: 0 Each Risk Factor Represents 3 Points: Age 75 Years or Greater Total Score 3 Point Risk Factors: 3 Each Risk Factor Represents 5 Points: None Total Score 5 Point Risk Factors: 0 Venous Thromboembolism Risk Factor Score *Q: 4 Problem List Initiated/Reviewed/Updated: Yes Orders Last 24hrs: Active Orders 24 hr Category Date Time Status Patient Status Manage Transfer [TRANSFER] Routine ADT 02/13/20 23:46 Ordered Iopamidol [Isovue-300 (61%)] Med 02/13/20 22:15 Active 150 ml IV . DIRECTED Sodium Chloride 0.9% [Normal Saline] 1,000 ml Med 02/13/20 22:00 Active IV ASDIRECTED Sodium Chloride 0.9% [Normal Saline] 80 ml Med 02/13/20 22:15 Active IV ASDIRECTED Sodium Chloride 0.9% [Saline Flush] Med 02/13/20 22:03 Active 10 ml FLUSH ASDIRECTED PRN NG [Nasogastric Orogastric Tube Insertion] [OM.PC] Oth 02/13/20 23:09 Ordered Routine Resuscitation Status Routine Resus Stat 02/13/20 23:49 Ordered Medication Orders Sodium Chloride (Normal Saline) 1,000 mls @ 999 mls/hr IV ASDIRECTED [facility] Last Admin: 02/13/20 22:02 Dose: 999 mls/hr Sodium Chloride (Normal Saline) 80 mls @ 3 mls/sec IV ASDIRECTED [facility] Last Admin: 02/13/20 22:12 Dose: 3 mls/sec Iopamidol (Isovue-300 (61%)) 150 ml IV . DIRECTED [facility] Last Admin: 02/13/20 22:12 Dose: 150 ml Sodium Chloride (Saline Flush) 10 ml FLUSH ASDIRECTED PRN PRN Reason: Keep Vein Open Last Admin: 02/13/20 22:12 Dose: 10 ml Assessment/Plan Comment:: ASSESSMENT AND PLAN TRANSVERSE COLON OBSTRUCTION-CT scan shows evidence of obstructing lesion, probable underlying malignancy. Also evidence of probable liver mets. In addition he is noted to have gastric distention with fluid and air. Developed increased pain after NG tube placement and a follow-up CT scan was obtained. Second CT scan showed no significant change from the first scan. -NG tube to low intermittent suction -IV fluids for hydration -Pain and nausea medication as needed -Surgical consult Dr. Cantrell -N.p.o. BPH -Continue outpatient medications HYPOTHYROIDISM -Continue outpatient thyroid replacement MAINTENANCE ISSUES -DVT prophylaxis; SCUDs -GI prophylaxis; Protonix 40 mg IV every 24 hours -Goss catheter; not indicated -Nutrition; n.p.o. -Nicotine dependence; not required CODE STATUS-FULL CODE ADMISSION STATUS-patient will be admitted to inpatient status, expect at least a 2 night hospital stay for evaluation and management of problems as outlined above. At the time of this admission I do not reasonably expected evaluation and management of this problem will require more than a 96 hour hospital stay. DISPOSITION-anticipate discharge to home after the hospital stay. PRIMARY CARE PROVIDER-Dr. Cavanaugh - Mortality Measure Prognosis:: Good
[2020-02-14] MEDS ORDERED: Ondansetron 4 MG/2 ML SDV IVPUSH ONE (00:06)
[2020-02-14] MEDS ORDERED: HYDROmorphone 0.5 MG/0.5 ML Syringe IVPUSH ONE (00:35)
--- NOTE | 2020-02-14 00:43 | CRLCR ---
INDICATION: Increased distention and abdomen pain TECHNIQUE: Abdomen/Pelvis radiograph 2 view COMPARISON: 02/13/2020 FINDINGS: Severe degradation of image quality noted due to body habitus. Bowel: Severe gases and stool distention the cecum and proximal transverse colon noted without significant change. Soft tissue: No evidence of pneumoperitoneum present. No suspicious calcifications noted. Excreted contrast is seen within the renal collecting systems and bladder. Bone: Unremarkable for age. IMPRESSION: 1. Severe gases and stool distention the cecum and proximal transverse colon noted without significant change. Findings likely due to an obstructing colonic malignancy within the mid transverse colon seen on recent CT. Dictated by Moreno Dennis MD @ 02/14/2020 12:41:26 AM Dictated by: Moreno Dennis MD @ 02/14/2020 00:41:28 (Electronically Signed)
--- NOTE | 2020-02-14 00:55 | CRLCT ---
INDICATION: Increased abdominal pain and distention TECHNIQUE: CT Abdomen and pelvis without i.v. contrast. Coronal and sagittal reformats were obtained. COMPARISON: 02/13/2020 FINDINGS: Lower chest: Elevation of left hemidiaphragm and compressive atelectasis of the left lung base noted without significant interval change. Liver: The hypodense liver lesion seen on prior examination are less conspicuous on delayed phase imaging. Spleen: Unremarkable. Pancreas: Unremarkable. Gallbladder: Several tiny layering gallstones are noted. Kidney: Right renal and left perirenal cysts are present without interval change. Adrenal: Unremarkable. Bowel: On image 53, there is a concentric napkin ring lesion measuring 5 cm in length within the distal transverse colon causing severe obstruction of the colon with the cecum measuring 11.7 cm in length, not significantly changed from prior exam. The appendix is not identified. Vascular: Unremarkable. Lymph: On image 44, there is several small pericolonic lymph nodes present measuring up to 1.2 cm, likely harboring metastatic disease. Peritoneum: No pneumoperitoneum is seen. No significant ascites is noted. Pelvis: Excreted contrast is seen within a moderately distended bladder. Mild enlargement of the prostate gland is noted. Soft tissue: Unremarkable. Bone: Unremarkable for age. IMPRESSIONS: 1. On image 53, there is a concentric napkin ring lesion measuring 5 cm in length within the distal transverse colon causing severe obstruction of the colon with the cecum measuring 11.7 cm in length, not significantly changed from prior exam. 2. The suspected metastatic liver lesions are not as well demonstrated as on prior portal venous phase scan. 3. On image 44, there is several small pericolonic lymph nodes present measuring up to 1.2 cm, likely harboring metastatic disease. Dictated by Moreno Dennis MD @ 02/14/2020 12:53:36 AM Please note that all CT scans at this facility use dose modulation, iterative reconstruction, and/or weight-based dosing when appropriate to reduce radiation dose to as low as reasonably achievable. Dictated by: Moreno Dennis MD @ 02/14/2020 00:54:10 (Electronically Signed)
[2020-02-14] MEDS ORDERED: HYDROmorphone 0.5 MG/0.5 ML Syringe IVPUSH PRN (01:16)
[2020-02-14] MEDS ORDERED: Non-Formulary Medication 1 Each (Fluticasone/Salmeterol [Advair 100-50] 1 PUFF) INH PRN (01:16)
[2020-02-14] MEDS ORDERED: Acetaminophen 325 MG Tab PO PRN (01:16)
[2020-02-14] MEDS ORDERED: Albuterol 0.083% 2.5 MG/3 ML Neb Soln NEB PRN (01:16)
[2020-02-14] MEDS ORDERED: Sodium Chloride 0.9% 10 ML Syringe FLUSH PRN (01:16)
[2020-02-14] MEDS: LORazepam 2 MG/ML SDV IVPUSH PRN ×2 (01:29→05:26)
[2020-02-14] MEDS: Lactated Ringers 1,000 ML IV SCH ×3 (01:35→18:13)
[2020-02-14] MEDS ORDERED: Pantoprazole 40 MG Vial IVPUSH ONE (01:45)
[2020-02-14] MEDS ORDERED: Fluticasone-Salmeterol 55-14 MCG Powder Inhalent INH SCH (07:30)
[2020-02-14] MEDS: Levothyroxine 112 MCG Tab PO SCH (07:40)
[2020-02-14] MEDS ORDERED: Dexamethasone 4 MG/ML SDV ONE (09:16)
[2020-02-14] MEDS ORDERED: Glycopyrrolate 0.2 MG/ML 5 ML MDV ONE (09:16)
[2020-02-14] MEDS ORDERED: Ondansetron 4 MG/2 ML SDV ONE (09:16)
[2020-02-14] MEDS ORDERED: Propofol 200 MG/20 ML SDV ONE (09:16)
[2020-02-14] MEDS ORDERED: Rocuronium 50 MG/5 ML Vial ONE ×2 (09:16→12:09)
[2020-02-14] MEDS ORDERED: Succinylcholine 200 MG/10 ML MDV ONE (09:16)
[2020-02-14] MEDS ORDERED: Neostigmine Methylsulfate 1 MG/ML 5 ML Syringe ONE (09:16)
[2020-02-14] MEDS ORDERED: fentaNYL 250 MCG/5 ML SDV ONE (09:24)
[2020-02-14] MEDS ORDERED: fentaNYL 100 MCG/2 ML SDV ONE (09:28)
[2020-02-14] MEDS ORDERED: Sodium Chloride 0.9% 10 ML ONE (09:28)
[2020-02-14] MEDS ORDERED: Meropenem 500 MG SDV ONE (10:08)
[2020-02-14] MEDS: Doxazosin 4 MG Tab PO SCH (10:13)
[2020-02-14] MEDS: Finasteride 5 MG Tab PO SCH (10:13)
[2020-02-14] MEDS: Meropenem 500 MG in Sodium Chloride 0.9% 50 ML IV ONE ×2 (10:13→12:06)
[2020-02-14] MEDS: Albuterol/Ipratropium 3.0-0.5 MG/3 ML Neb Soln INH ONE ×2 (10:16→12:06)
[2020-02-14] MEDS ORDERED: Scopolamine 1.5 MG Transdermal Patch ONE (10:22)
[2020-02-14] MEDS ORDERED: Naloxone 0.4 MG/ML SDV IVPUSH PRN (11:00)
[2020-02-14] MEDS ORDERED: Lactated Ringers 1,000 ML ONE (11:31)
[2020-02-14] MEDS ORDERED: Albuterol/Ipratropium 3.0-0.5 MG/3 ML Neb Soln INH PRN (15:05)
[2020-02-14] MEDS ORDERED: hydrOXYzine HCL 100 MG/2 ML SDV IM PRN (15:07)
[2020-02-14] MEDS: Dextrose 5%-Lactated Ringers 1,000 ML IV SCH (15:34)
[2020-02-14] MEDS: cefOXitin 2 GM in Sodium Chloride 0.9% 50 ML IV SCH ×2 (15:48→21:12)
[2020-02-14] MEDS: fentaNYL 2,500 MCG in Sodium Chloride 0.9% 200 ML EPIDUR SCH (15:51)
[2020-02-14] MEDS: SCOPOLAMINE PATCH CHECK TOP SCH (16:38)
[2020-02-14] MEDS ORDERED: Naloxone 0.4 MG/ML SDV IV PRN (17:19)
[2020-02-14] MEDS: Pantoprazole 40 MG Vial IVPUSH SCH (20:13)
[2020-02-14] MEDS: Albuterol/Ipratropium 3.0-0.5 MG/3 ML Neb Soln INH SCH (20:13)
[2020-02-15] MEDS: Dextrose 5%-Lactated Ringers 1,000 ML IV SCH ×4 (00:08→23:41)
[2020-02-15] MEDS: Lactated Ringers 1,000 ML IV SCH (00:08)
[2020-02-15] MEDS: cefOXitin 2 GM in Sodium Chloride 0.9% 50 ML IV SCH ×4 (04:13→21:49)
[2020-02-15] MEDS ORDERED: Benzocaine/Cetylpyridinium/Menthol Lozenge MUCMEM PRN (06:30)
[2020-02-15] MEDS: Albuterol/Ipratropium 3.0-0.5 MG/3 ML Neb Soln INH SCH ×4 (07:18→21:49)
[2020-02-15] MEDS: Doxazosin 4 MG Tab PO SCH (08:04)
[2020-02-15] MEDS: Finasteride 5 MG Tab PO SCH (08:04)
[2020-02-15] MEDS: Levothyroxine 112 MCG Tab PO SCH (08:04)
[2020-02-15] MEDS: SCOPOLAMINE PATCH CHECK TOP SCH (08:04)
[2020-02-15] MEDS ORDERED: Sodium Chloride 0.9% 10 ML ONE (12:18)
[2020-02-15] MEDS ORDERED: fentaNYL 100 MCG/2 ML SDV ONE (12:18)
[2020-02-15] MEDS ORDERED: Naloxone 0.4 MG/ML SDV IVPUSH PRN ×2 (14:08→16:50)
[2020-02-15] MEDS ORDERED: Naloxone 0.4 MG/ML SDV IV PRN (16:54)
[2020-02-15] MEDS: LORazepam 2 MG/ML SDV IVPUSH PRN (19:12)
[2020-02-15] MEDS: fentaNYL 2,500 MCG in Sodium Chloride 0.9% 200 ML EPIDUR SCH (19:59)
[2020-02-15] MEDS: Haloperidol Lactate 5 MG/ML SDV IVPUSH PRN ×2 (21:37→23:35)
[2020-02-15] MEDS: Pantoprazole 40 MG Vial IVPUSH SCH (21:49)
--- NOTE | 2020-02-15 22:35 | ANES ---
DATE OF SERVICE: 02/15/2020 TIME: 12:25. I was called to the intensive care unit by the nurses to evaluate Mr. Cohen for pain control. They just had him up to the chair and he was experiencing quite a bit of pain. I did have him do his incentive spirometer and he could hardly go without having pretty significant pain. His epidural was at 6 and they have been slowly increasing it today, it was at 7. I went ahead and gave him 100 mcg fentanyl bolus and 10 mL of normal saline and then I turned his rate up to 10 mL/hour. I then went ahead and told them to go ahead and add 0.4 mg of Narcan to each bag of IV fluid after that so he does not get too sleepy. We will continue to monitor him throughout his stay. Gorge Alicea CRNA /[id number]
[2020-02-15] MEDS ORDERED: Acetaminophen 1,000 MG in Premix Bag 1 BAG IV ONE (23:33)
[2020-02-16] MEDS: HYDROmorphone 0.5 MG/0.5 ML Syringe IVPUSH PRN ×7 (00:15→23:46)
[2020-02-16] MEDS: Haloperidol Lactate 5 MG/ML SDV IVPUSH PRN ×2 (01:41→04:13)
[2020-02-16] MEDS: Dextrose 5%-Lactated Ringers 1,000 ML IV SCH ×2 (04:48→13:29)
[2020-02-16] MEDS ORDERED: Furosemide 20 MG/2 ML VIAL IVPUSH STA (06:15)
[2020-02-16] MEDS ORDERED: Meropenem 500 MG SDV ONE (06:29)
[2020-02-16] MEDS ORDERED: Propofol 200 MG/20 ML SDV ONE (06:46)
[2020-02-16] MEDS: Albuterol/Ipratropium 3.0-0.5 MG/3 ML Neb Soln INH SCH ×4 (06:59→21:05)
[2020-02-16] MEDS ORDERED: Bupivacaine 0.5% 50 ML MDV ONE (07:35)
[2020-02-16] MEDS ORDERED: Lidocaine 1% with EPINEPHrine 1:100,000 50 ML MDV ONE (07:36)
[2020-02-16] MEDS ORDERED: Ropivacaine 50 ML, dexAMETHasone 8 MG, EPINEPHrine 0.4 MG, Sodium Chloride 0.9% 27.6 ML NERVRT SCH ×4 (08:00)
[2020-02-16] MEDS: Doxazosin 4 MG Tab PO SCH (09:42)
[2020-02-16] MEDS: SCOPOLAMINE PATCH CHECK TOP SCH (09:43)
[2020-02-16] MEDS: Levothyroxine 112 MCG Tab PO SCH (09:43)
[2020-02-16] MEDS: Finasteride 5 MG Tab PO SCH (09:44)
[2020-02-16] MEDS: Potassium Phosphates 15 MMOLE in Sodium Chloride 0.9% 250 ML IV SCH ×3 (09:58→16:25)
[2020-02-16] MEDS: Acetaminophen 325 MG Tab PO SCH ×3 (09:58→21:05)
[2020-02-16] MEDS ORDERED: Furosemide 20 MG/2 ML VIAL IVPUSH ONE (16:00)
[2020-02-16] MEDS: Pantoprazole 40 MG Vial IVPUSH SCH (21:05)
[2020-02-16] MEDS: diphenhydrAMINE 50 MG/ML SDV IVPUSH PRN (23:15)
[2020-02-17] MEDS: Dextrose 5%-Lactated Ringers 1,000 ML IV SCH (01:52)
[2020-02-17] MEDS: HYDROmorphone 0.5 MG/0.5 ML Syringe IVPUSH PRN ×2 (02:03→08:35)
[2020-02-17] MEDS: Haloperidol Lactate 5 MG/ML SDV IVPUSH PRN (05:17)
[2020-02-17] MEDS: Acetaminophen 325 MG Tab PO SCH ×4 (06:08→21:09)
[2020-02-17] MEDS: Albuterol/Ipratropium 3.0-0.5 MG/3 ML Neb Soln INH SCH ×4 (07:02→20:03)
[2020-02-17] MEDS: Levothyroxine 112 MCG Tab PO SCH (07:10)
[2020-02-17] MEDS: Doxazosin 4 MG Tab PO SCH (08:35)
[2020-02-17] MEDS: Finasteride 5 MG Tab PO SCH (08:35)
[2020-02-17] MEDS: Furosemide 20 MG/2 ML VIAL IVPUSH SCH ×2 (09:37→17:42)
[2020-02-17] MEDS: Bisacodyl 5 MG Tab PO SCH ×2 (09:37→20:04)
[2020-02-17] MEDS: Docusate Sodium 100 MG Cap PO SCH ×2 (09:37→20:04)
[2020-02-17] MEDS: Potassium Phosphates 15 MMOLE in Sodium Chloride 0.9% 250 ML IV SCH ×3 (09:40→15:47)
[2020-02-17] MEDS: Pantoprazole 40 MG Vial IVPUSH SCH (20:03)
[2020-02-17] MEDS: Melatonin 3 MG Tab PO SCH (20:04)
[2020-02-18] MEDS: Haloperidol Lactate 5 MG/ML SDV IVPUSH PRN ×2 (01:52→02:38)
[2020-02-18] MEDS: Dextrose 5%-Lactated Ringers 1,000 ML IV SCH (02:38)
[2020-02-18] MEDS: Acetaminophen 325 MG Tab PO SCH ×4 (06:24→21:59)
[2020-02-18] MEDS: Albuterol/Ipratropium 3.0-0.5 MG/3 ML Neb Soln INH SCH ×4 (07:41→22:12)
[2020-02-18] MEDS: Levothyroxine 112 MCG Tab PO SCH (08:18)
[2020-02-18] MEDS: Doxazosin 4 MG Tab PO SCH (08:22)
[2020-02-18] MEDS: Finasteride 5 MG Tab PO SCH (08:23)
[2020-02-18] MEDS: Docusate Sodium 100 MG Cap PO SCH ×3 (08:23→22:01)
[2020-02-18] MEDS: Bisacodyl 5 MG Tab PO SCH ×3 (08:23→22:00)
[2020-02-18] MEDS: Furosemide 20 MG/2 ML VIAL IVPUSH SCH ×2 (08:23→18:16)
[2020-02-18] MEDS: Potassium Phosphates 15 MMOLE in Sodium Chloride 0.9% 250 ML IV SCH ×2 (09:47→12:01)
--- NOTE | 2020-02-18 12:59 | HP ---
HISTORY OF PRESENT ILLNESS: The patient is an 84-year-old, admitted overnight with large bowel obstruction. 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 He also appears to have multiple liver metastases. Plan will be to proceed with an exploratory laparotomy with extended right colectomy. We anticipate delayed primary anastomosis and we will most likely do some biopsies of liver. If by some chance these liver lesions all appear to be resectable, it might be reasonable to do that, if these amount to more wedge resection type approaches rather than more formal resection. Potential risks of the procedure including bleeding, infection, leaks from GI tract closures, as well as possible cardiopulmonary, septic, or hemorrhagic complications leading to were discussed. The patient wishes to proceed. If there is no significant infection ongoing, we will proceed with a general anesthetic/ epidural and he will be given preoperative Advair and DuoNebs with his underlying asthma. We will check a CEA level this morning as well and type and cross for 2 units of packed RBCs. Otilio Cantrell MD /[id number] MTDD
--- NOTE | 2020-02-18 13:11 | PN ---
DATE OF SERVICE: 02/16/2020 The patient has been afebrile with stable vital signs. He became quite confused overnight, and the epidural infusion was turned off. He did require some Haldol and, this morning, he appears to be beginning to clear a little bit. We will leave the epidural out and go with IV and oral pain medicine as tolerated. Otherwise, his BNP is up a little bit. He will receive some Lasix this morning and is having a nice diuresis thus far. Potassium and phosphate are marginally low, and those will be supplemented. Otherwise, he will undergo the delayed primary closure. With the confusion, I do not think we will place a central line, as that would put him at risk for air embolism if he were to disconnect that. Otherwise, we will discontinue his scopolamine patch, as that could be contributing to the confusion, and try getting him up in chair and help clear his head today with increased activity and communication. Otilio Cantrell MD /[id number] MTDD
--- NOTE | 2020-02-18 13:36 | PN ---
DATE OF SERVICE: 02/15/2020 The patient has been afebrile with stable vital signs. He was a little bit slow waking up but appears to be doing well at this point. O2 sats on 3 L nasal cannula are in the 95% range. Urine output has been good around 30 mL an hour. The preoperative creatinine was 1.3, is 1.4 this morning, so we are doing okay there. We will back down the IV rate a little bit later in the day. BNP is fairly low. Otherwise, we will plan to proceed with a delayed primary closure of abdominal incision tomorrow. The Gram stain on the pericolonic abscess shows some gram-positive cocci likely be covered by the meropenem _. Otherwise, we will await for sensitivity to continue present antibiotics and maximize activity and work with pulmonary toilet. Otilio Cantrell MD /[id number] MTDAdria
--- NOTE | 2020-02-18 14:37 | PN ---
DATE OF SERVICE: 02/18/2020 The patient has been afebrile with stable vital signs. Been quite confused, typically at night, and difficult to orient, otherwise grossly somewhat conversant today. No flatus or bowel movement today as well as keep him on more or less n.p.o. and sips of clear liquids. We will try to get the Goss catheter out today. BNP is down to 1200. We will give him some 2 doses of Lasix again today. He is normally on Synthroid, and we will check a TSH to make sure that is not some how contributing to his mental status as far as confusional state. Otilio Cantrell MD /[id number] MTDD
--- NOTE | 2020-02-18 15:05 | PN ---
DATE OF SERVICE: 02/17/2020 The patient has been afebrile with stable vital signs. He also had a somewhat higher pulse pressure today along with a BNP that has gone up to around 1800. Given this, we will give him some Lasix this morning and repeat that this evening. Otherwise, his mental status has cleared remarkably at this point and he could carry on a good conversation. He thinks he had a little bit of flatus, we will begin some bowel stimulation today. Otherwise, potassium and phosphate are marginally low, these will be supplemented and maximize activity and work with pulmonary toilet. The drainage output is becoming serous and we will remove those so as to avoid valuable protein losses. We will continue the present diet with some clear liquids with Ensure clear b.i.d. and advance that once the bowels begin moving. Otilio Cantrell MD /[id number]
[2020-02-18] MEDS: Melatonin 3 MG Tab PO SCH (21:58)
[2020-02-18] MEDS: Pantoprazole 40 MG Tab.CR PO SCH (21:59)
[2020-02-19] MEDS: diphenhydrAMINE 50 MG/ML SDV IVPUSH PRN ×2 (00:17→21:31)
[2020-02-19] MEDS: LORazepam 2 MG/ML SDV IVPUSH PRN (01:46)
[2020-02-19] MEDS: Dextrose 5%-Lactated Ringers 1,000 ML IV SCH (01:49)
[2020-02-19] MEDS: HYDROmorphone 0.5 MG/0.5 ML Syringe IVPUSH PRN (02:59)
[2020-02-19] MEDS: Acetaminophen 325 MG Tab PO SCH ×4 (05:45→21:32)
[2020-02-19] MEDS: Albuterol/Ipratropium 3.0-0.5 MG/3 ML Neb Soln INH SCH ×4 (06:59→21:32)
[2020-02-19] MEDS ORDERED: Dextrose 5%-Lactated Ringers 1,000 ML IV SCH (07:15)
[2020-02-19] MEDS: Ondansetron 4 MG/2 ML SDV IV PRN ×3 (08:00→22:49)
[2020-02-19] MEDS: Docusate Sodium 100 MG Cap PO SCH ×2 (08:05→21:44)
[2020-02-19] MEDS: Bisacodyl 5 MG Tab PO SCH ×2 (08:05→21:32)
[2020-02-19] MEDS: Levothyroxine 112 MCG Tab PO SCH (08:05)
[2020-02-19] MEDS: Doxazosin 4 MG Tab PO SCH ×2 (08:06→08:44)
[2020-02-19] MEDS: Finasteride 5 MG Tab PO SCH (08:06)
--- NOTE | 2020-02-19 09:21 | CR ---
Abdomen 2V AP Flat Upright CLINICAL HISTORY: Rule out ileus FINDINGS: No free air is identified. There is moderate diffuse gaseous distention of small bowel. There is some air in the colon. There is elevation of the left hemidiaphragm. IMPRESSION: Diffuse gaseous distention most consistent with ileus. Clinical correlation necessary
--- NOTE | 2020-02-19 12:17 | PN ---
DATE OF SERVICE: 02/19/2020 SUBJECTIVE: Walter developed a postop ileus, had some emesis. G-tube did put out 600 mL. Goss catheter was replaced due to inability to urinate and 700 was returned immediately with replacement. Afebrile, vital signs have been stable. LABS: White count is up at 11.6, hemoglobin is 13.3, creatinine 1.4, estimated GFR is 48. REVIEW OF SYSTEMS: Remainder of review of systems negative for any pertinent positives and negatives. OBJECTIVE: GENERAL: Walter Cohen is an 84-year-old male. VITAL SIGNS: TPR at 0700 is 98.2, 88, 20, blood pressure 122/58. HEENT: Negative. NECK: Supple. HEART: Regular rate and rhythm. LUNGS: Clear. ABDOMEN: Dressing is dry and intact. Abdominal binder is on. Gastrostomy tube to drainage. EXTREMITIES: Without peripheral edema. ASSESSMENT: Exploratory laparotomy with: 1. Total abdominal colectomy and ileorectal anastomosis. 2. Drainage of pericolonic abscess. 3. Resection of peritoneal implants and omentum x2. 4. Resection of abdominal wall metastatic tumor. 5. Partial left hepatic lobectomy, section 3. 6. Placement of gastrostomy tube. 7. Placement of Interceed mesh x2. POSTOPERATIVE DIAGNOSES: 1. Obstructing transverse colon carcinoma with: a. Peritoneal implants in omentum x2 (6 cm, 4 cm). b. Multiple liver metastases. c. Metastatic implant abdominal wall, 6 cm, and pericolonic abscess. d. Pericolonic abscess. e. Marked distention, decompensation of sigmoid colon. Date of surgery: 02/14/2020. Surgeon: Otilio Cantrell MD. Delayed primary closure for open abdominal incision, 02/16/2020. Surgeon: Otilio Cantrell MD. PLAN: 1. Place central PICC line. Call Otilio Cantrell MD, when PICC line has been placed. 2. Start TPN therapy. 3. Increase IV to 100 mL per hour. 4. Check CBC, CMP, mag, phos, BNP in a.m. Continue use of incentive spirometer. We will evaluate p.r.n. or in a.m. Michelle Casanova PA-C /[id number]
[2020-02-19] MEDS: 1: AA 5%/Calcium/D15W/Lytes 1,000 ML with MVI, Adult with Vitamin K 10 ML, Chromium/Copp IV SCH ×3 (16:13)
[2020-02-19] MEDS: Pantoprazole 40 MG Tab.CR PO SCH (21:32)
[2020-02-19] MEDS: Melatonin 3 MG Tab PO SCH (21:32)
[2020-02-20] MEDS: Ondansetron 4 MG/2 ML SDV IV PRN (02:37)
[2020-02-20] MEDS: 1: AA 5%/Calcium/D15W/Lytes 1,000 ML with MVI, Adult with Vitamin K 10 ML, Chromium/Copp IV SCH ×6 (04:15→16:56)
[2020-02-20] MEDS: Acetaminophen 325 MG Tab PO SCH ×4 (06:56→21:45)
[2020-02-20] MEDS ORDERED: Central Total Parenteral Nutrition Bag SCH (07:30)
[2020-02-20] MEDS: Albuterol/Ipratropium 3.0-0.5 MG/3 ML Neb Soln INH SCH ×4 (07:32→21:46)
[2020-02-20] MEDS: Levothyroxine 112 MCG Tab PO SCH (07:50)
[2020-02-20] MEDS: Doxazosin 4 MG Tab PO SCH (08:00)
[2020-02-20] MEDS: Finasteride 5 MG Tab PO SCH (08:00)
[2020-02-20] MEDS: Docusate Sodium 100 MG Cap PO SCH ×2 (08:00→21:44)
[2020-02-20] MEDS: Bisacodyl 5 MG Tab PO SCH ×2 (08:01→21:45)
[2020-02-20] MEDS: Azithromycin 125 MG in Sodium Chloride 0.9% 100 ML IV SCH ×2 (08:37→21:45)
[2020-02-20] MEDS ORDERED: Potassium Chloride Riders 40 MEQ in Premix Bag 1 BAG IV ONE (09:00)
--- NOTE | 2020-02-20 11:15 | PN ---
DATE OF SERVICE: 02/20/2020 SUBJECTIVE: Walter states his pain is controlled. He did have a 350 mL emesis. G tube put out 750. Oral intake is sips of liquid and ice chips only, and he add 290 mL in. Goss catheter urine output 750. He has been afebrile. Vital signs have been stable. REVIEW OF SYSTEMS: Remainder of review of systems negative for any pertinent positives and negatives. OBJECTIVE: GENERAL: Walter Cohen is an 84-year-old male. He is alert and orientated, sitting up in the chair. VITAL SIGNS: TPR at 0625, 96.9, 80, 16, blood pressure 129/58. HEENT: Negative. NECK: Supple. HEART: Regular rate and rhythm. LUNGS: Clear. ABDOMEN: There is some clear yellow leakage out of right ANDREA drain site. Incision itself is clean and dry. Jesús intact. EXTREMITIES: Without peripheral edema. ASSESSMENT: Exploratory laparotomy with: 1. Total abdominal colectomy and ileorectal anastomosis. 2. Drainage of pericolonic abscess. 3. Resection of peritoneal implants in omentum x2. 4. Resection of abdominal wall metastatic tumor. 5. Partial left hepatic lobectomy, section 3. 6. Placement of gastrostomy tube. 7. Placement of Interceed mesh x2. POSTOPERATIVE DIAGNOSES: 1. Obstructing transverse colon carcinoma with: a. Peritoneal implants in omentum x2 (6 cm, 4 cm). b. Multiple liver metastasis. c. Metastatic implant abdominal wall 6 cm and pericolonic abscess. d. Pericolonic abscess. e. Marked distention and decompensation of sigmoid colon. 2. Date of surgery: 02/14/2020. Surgeon: Otilio Cantrell MD. 3. Delayed primary closure for open abdominal incision on 02/16/2020. Surgeon: Otilio Cantrell MD. PLAN: 1. Continue n.p.o. with sips of clear liquids with medication and ice chips. 2. Home health care consultation. 3. Continue same TPN rate and content. 4. Check CBC, CMP, mag, phos, and BNP in a.m. 5. Zithromax 125 mg IV q.12 hours scheduled. 6. KCl 40 mEq IV to mix in as little IV solution as possible to avoid fluid overload. 7. Discontinue Haldol. 8. Reminder to build up with rolled gauze under gastrostomy tube to prevent it from getting kinked off. 9. We will evaluate p.r.n. or in a.m. Michelle Casanova PA-C /[id number]
--- NOTE | 2020-02-20 15:26 | OR ---
DATE OF PROCEDURE: 02/16/2020 SURGEON: Otilio Cantrell MD PREOPERATIVE DIAGNOSIS: Open abdominal incision. POSTOPERATIVE DIAGNOSIS: Open abdominal incision. OPERATIVE PROCEDURE: Delayed primary closure of abdominal incision. ANESTHESIA: Local plus IV sedation. INDICATIONS FOR PROCEDURE: The patient is status post a complicated intraabdominal procedure with some contamination of the abdominal wall. Given this, the skin and subcutaneous tissue were packed open for a planned delayed primary closure at this time. Potential risks including bleeding and infection were reviewed, and the patient wishes to proceed. DETAILS OF PROCEDURE: The patient was taken to the operating room and placed in a supine position. IV sedation was administered, after which the abdominal dressing was taken down, the wound inspected and found to be clean. The wound was then prepped and draped and anesthetized with 1% lidocaine mixed with Marcaine and irrigated with meropenem-containing saline solution. Bilateral transversus abdominis plane blocks were then placed using ultrasound guidance. The incision was then closed with 2 layers of 3-0 and 4-0 Vicryl stitch deep and cale for the skin. Dressing was applied. The patient was taken to the recovery room in satisfactory condition. Otilio Cantrell MD /[id number]
[2020-02-20] MEDS: Dextrose 5%-Lactated Ringers 1,000 ML IV SCH (20:18)
[2020-02-20] MEDS: Melatonin 3 MG Tab PO SCH (21:44)
[2020-02-20] MEDS: Pantoprazole 40 MG Tab.CR PO SCH (21:45)
[2020-02-20] MEDS: diphenhydrAMINE 50 MG/ML SDV IVPUSH PRN (21:49)
[2020-02-21] MEDS: Ondansetron 4 MG/2 ML SDV IV PRN (02:33)
[2020-02-21] MEDS: 1: AA 5%/Calcium/D15W/Lytes 1,000 ML with MVI, Adult with Vitamin K 10 ML, Chromium/Copp IV SCH ×6 (04:31→17:07)
[2020-02-21] MEDS: LORazepam 2 MG/ML SDV IVPUSH PRN (06:09)
[2020-02-21] MEDS: Acetaminophen 325 MG Tab PO SCH ×4 (06:31→23:45)
[2020-02-21] MEDS: Albuterol/Ipratropium 3.0-0.5 MG/3 ML Neb Soln INH SCH ×4 (06:57→21:24)
[2020-02-21] MEDS: Levothyroxine 112 MCG Tab PO SCH (07:11)
[2020-02-21] MEDS ORDERED: Central Total Parenteral Nutrition Bag SCH (08:00)
[2020-02-21] MEDS: Finasteride 5 MG Tab PO SCH (08:05)
[2020-02-21] MEDS: Bisacodyl 5 MG Tab PO SCH ×2 (08:05→21:24)
[2020-02-21] MEDS: Azithromycin 125 MG in Sodium Chloride 0.9% 100 ML IV SCH ×2 (08:05→21:23)
[2020-02-21] MEDS: Doxazosin 4 MG Tab PO SCH (08:05)
[2020-02-21] MEDS: Docusate Sodium 100 MG Cap PO SCH ×2 (08:05→21:24)
[2020-02-21] MEDS: Magnesium Sulfate/Water 2 GM in Premix Bag 1 BAG IV SCH ×3 (09:33→21:41)
--- NOTE | 2020-02-21 11:02 | CR ---
Abdomen 2V AP Flat Upright CLINICAL HISTORY: Ileus FINDINGS: There is persistent small bowel distention of a few scattered air-fluid levels. There is also gas throughout the colon with mild distention. This has improved when compared to the 02/19/2020 study. IMPRESSION: Postoperative ileus. There may be some minimal improvement.
--- NOTE | 2020-02-21 11:49 | PN ---
DATE OF SERVICE: 02/21/2020 SUBJECTIVE: Walter is tolerating his TPN without any problems. One episode of nausea, but no emesis. Afebrile. Pain has been controlled. Oral intake, ice chips and sips of water with medications, 590. Urine output via Goss catheter is 1130, gastrostomy tube 575, and he has an ileostomy bag over his former ANDREA drain site and past 24 hours had drained 100 mL of a clear drainage and only drops within the last 12 hours. Walter reports that he did pass flatus once. He also reports he has an empty feeling in the top part of his stomach and is requesting some Tums. Remainder of review of systems negative for any pertinent positives and negatives. OBJECTIVE: GENERAL: Walter Cohen is a pleasant 84-year-old male. He is alert and orientated. VITAL SIGNS: TPR at 0730; 96.9, 91,16. Blood pressure 111/60. HEENT: Negative. NECK: Supple. HEART: Regular rate and rhythm. LUNGS: Clear. ABDOMEN: Dressing dry and intact. There is a small amount of clear yellow drainage in the ileostomy bag. Gastrostomy tube is in place, and it is not kinked. Dressing dry and intact. EXTREMITIES: Without peripheral edema. ASSESSMENT: 1. Postop ileus. 2. Exploratory laparotomy with: a. Total abdominal colectomy and ileorectal anastomosis. b. Drainage of pericolonic abscess. c. Resection of peritoneal implants in omentum x2. d. Resection of abdominal wall metastatic tumor. e. Partial left hepatic lobectomy, section 3. f. Placement of gastrostomy tube. g. Placement of Interceed mesh x2. POSTOPERATIVE DIAGNOSES: 1. Obstructing transverse colon carcinoma with: a. Peritoneal implants in omentum x2; 6 cm, 4 cm. b. Multiple liver metastases. c. Metastatic implant abdominal wall 6 cm and pericolonic abscess. d. Pericolonic abscess. e. Marked distention and decompensation of sigmoid colon. f. Date of surgery: 02/14/2020. Surgeon: Otilio Cantrell MD. 2. Delayed primary closure for open abdominal incision, 02/16/2020. Surgeon: Otilio Cantrell MD. PLAN: 1. Continue same TPN rate and content. 2. Check CBC, CMP, phos, BNP, and CBC. 3. Magnesium 2 g IV q.6 hours x72 hours. 4. Tums at bedside every 2 hours p.r.n. heartburn. 5. We will evaluate p.r.n. or in a.m. Michelle Casanova PA-C /[id number]
[2020-02-21] MEDS: Calcium Carbonate 500 MG Tab.Chew PO PRN ×2 (16:03→19:41)
[2020-02-21] MEDS: Pantoprazole 40 MG Tab.CR PO SCH (21:24)
[2020-02-21] MEDS: Melatonin 3 MG Tab PO SCH (21:24)
[2020-02-22] MEDS: Calcium Carbonate 500 MG Tab.Chew PO PRN ×3 (02:45→21:51)
[2020-02-22] MEDS: diphenhydrAMINE 50 MG/ML SDV IVPUSH PRN (02:46)
[2020-02-22] MEDS: Magnesium Sulfate/Water 2 GM in Premix Bag 1 BAG IV SCH ×4 (05:26→23:12)
[2020-02-22] MEDS: Ondansetron 4 MG/2 ML SDV IV PRN ×2 (05:33→20:00)
[2020-02-22] MEDS: 1: AA 5%/Calcium/D15W/Lytes 1,000 ML with MVI, Adult with Vitamin K 10 ML, Chromium/Copp IV SCH ×9 (05:40→22:09)
[2020-02-22] MEDS: Albuterol/Ipratropium 3.0-0.5 MG/3 ML Neb Soln INH SCH ×4 (07:00→21:44)
[2020-02-22] MEDS ORDERED: Central Total Parenteral Nutrition Bag SCH (08:00)
[2020-02-22] MEDS: Finasteride 5 MG Tab PO SCH (08:23)
[2020-02-22] MEDS: Levothyroxine 112 MCG Tab PO SCH (08:23)
[2020-02-22] MEDS: Docusate Sodium 100 MG Cap PO SCH ×2 (08:24→21:40)
[2020-02-22] MEDS: Bisacodyl 5 MG Tab PO SCH ×2 (08:24→21:40)
[2020-02-22] MEDS: Doxazosin 4 MG Tab PO SCH (08:24)
[2020-02-22] MEDS: Azithromycin 125 MG in Sodium Chloride 0.9% 100 ML IV SCH ×2 (08:27→21:51)
--- NOTE | 2020-02-22 11:03 | PN ---
DATE OF SERVICE: 02/22/2020 SUBJECTIVE: Walter had a small loose stool yesterday and a large loose stool early this a.m. He is still having some bouts of nausea, states it will come and go. Afebrile. Vital signs have been stable. Oral intakes have been just sips of clear liquids. He had 720 in. Goss catheter output was 1175. Gastric tube put out 450. REVIEW OF SYSTEMS: Remainder of review of systems negative for any pertinent positives and negatives. OBJECTIVE: GENERAL: Walter Cohen is a pleasant 84-year-old male, alert, orientated. VITAL SIGNS: TPR at 0700, 95, 82, 16. Blood pressure 121/67. HEENT: Negative. NECK: Supple. HEART: Regular rate and rhythm. LUNGS: Clear. ABDOMEN: Dressings dry and intact. Gastrostomy tube to dependent drainage at bedside. He still has a colostomy bag on for the drainage from the ANDREA drain site, and there is minimal drainage in that. EXTREMITIES: Without peripheral edema. ASSESSMENT: 1. Postoperative ileus. 2. TPN nutritional therapy. 3. Exploratory laparotomy with: a. Total abdominal colectomy and ileorectal anastomosis. b. Drainage of pericolonic abscess. c. Resection of peritoneal implants in omentum x2. d. Resection of abdominal wall metastatic tumor. e. Partial left hepatic lobectomy section 3. f. Placement of gastrostomy tube. g. Placement of Interceed mesh x2. POSTOPERATIVE DIAGNOSES: 1. Obstructing transverse colon carcinoma with: a. Peritoneal implants in omentum x2, 6 cm and 4 cm. b. Multiple liver metastases. c. Metastatic implant abdominal wall 6 cm and pericolonic abscess. d. Pericolonic abscess. e. Marked distention, decompression of sigmoid colon. 2. Date of surgery, 02/14/2020. Surgeon: Otilio Cantrell MD. 3. Delayed primary closure for open abdominal incision, 02/16/2020. Surgeon: Otilio Cantrell MD. PLAN: 1. Full liquid diet. 2. Clamp gastrostomy tube 5 hours, unclamp 1 hour, to coordinate the clamping with meals and to unclamp if needed for nausea. 3. Abdominal flat and upright x-ray in a.m. 0400 on 02/23/2020. 4. Continue same TPN content. Decrease rate to 40 mL per hour. 5. Discontinue Goss catheter on 02/23/2020 at 0500. 6. Continue use of incentive spirometer. 7. We will evaluate p.r.n. or in a.m. Michelle Casanova PA-C /[id number]
[2020-02-22] MEDS: Acetaminophen 325 MG Tab PO SCH ×4 (11:56→23:27)
[2020-02-22] MEDS: Melatonin 3 MG Tab PO SCH (21:45)
[2020-02-22] MEDS: Pantoprazole 40 MG Tab.CR PO SCH (21:45)
[2020-02-23] MEDS: Ondansetron 4 MG/2 ML SDV IV PRN (01:51)
[2020-02-23] MEDS: diphenhydrAMINE 50 MG/ML SDV IVPUSH PRN (01:57)
[2020-02-23] MEDS: 1: AA 5%/Calcium/D15W/Lytes 1,000 ML with MVI, Adult with Vitamin K 10 ML, Chromium/Copp IV SCH ×3 (03:08)
[2020-02-23] MEDS: Magnesium Sulfate/Water 2 GM in Premix Bag 1 BAG IV SCH ×4 (03:15→21:18)
[2020-02-23] MEDS: Acetaminophen 325 MG Tab PO SCH ×4 (05:26→21:05)
--- NOTE | 2020-02-23 05:27 | CRLCR ---
INDICATION: Post-op ileus status post colectomy TECHNIQUE: Abdomen 2 view. COMPARISON: 02/21/2020 FINDINGS: Bowel: Air distended small bowel loops in the upper abdomen with air-fluid levels not significant change compared to 02/21/2020. Soft tissues: No sign of free air. No sign of soft tissue mass. No suspicious calcifications. Bones: Unremarkable for age. IMPRESSION: Air distended small bowel loops in the upper abdomen with air fluid levels no significant change compared to 02/13/2020. Findings consistent with the patient`s known ileus. Small-bowel obstruction cannot be excluded. Dictated by Brain Beltrán MD @ 02/23/2020 5:26:28 AM Dictated by: Brain Beltrán MD @ 02/23/2020 05:26:36 (Electronically Signed)
[2020-02-23] MEDS ORDERED: 1: AA 5%/Calcium/D15W/Lytes 1,000 ML with MVI, Adult with Vitamin K 10 ML, Chromium/Copp IV SCH ×3 (07:00)
[2020-02-23] MEDS: Albuterol/Ipratropium 3.0-0.5 MG/3 ML Neb Soln INH SCH ×4 (07:17→21:09)
[2020-02-23] MEDS: Levothyroxine 112 MCG Tab PO SCH (08:09)
[2020-02-23] MEDS: Finasteride 5 MG Tab PO SCH (08:09)
[2020-02-23] MEDS: Docusate Sodium 100 MG Cap PO SCH ×2 (08:10→21:05)
[2020-02-23] MEDS: Bisacodyl 5 MG Tab PO SCH ×2 (08:10→21:05)
[2020-02-23] MEDS: Azithromycin 125 MG in Sodium Chloride 0.9% 100 ML IV SCH ×2 (08:10→21:13)
[2020-02-23] MEDS: Doxazosin 4 MG Tab PO SCH (08:11)
[2020-02-23] MEDS ORDERED: Levothyroxine 25 MCG Tab PO ONE (11:30)
[2020-02-23] MEDS: Pantoprazole 40 MG Tab.CR PO SCH (21:05)
[2020-02-23] MEDS: Melatonin 3 MG Tab PO SCH (21:06)
[2020-02-24] MEDS: diphenhydrAMINE 50 MG/ML SDV IVPUSH PRN ×2 (01:33→22:31)
[2020-02-24] MEDS ORDERED: Lidocaine 2% Jelly 10 ML Urojet MUCMEM ONE (02:50)
[2020-02-24] MEDS: Dextrose 5%-Lactated Ringers 1,000 ML IV SCH (02:55)
[2020-02-24] MEDS: Magnesium Sulfate/Water 2 GM in Premix Bag 1 BAG IV SCH (03:50)
[2020-02-24] MEDS: Acetaminophen 325 MG Tab PO SCH ×4 (05:40→21:18)
[2020-02-24] MEDS: 1: AA 5%/Calcium/D15W/Lytes 1,000 ML with MVI, Adult with Vitamin K 10 ML, Chromium/Copp IV SCH ×3 (05:51)
[2020-02-24] MEDS: Albuterol/Ipratropium 3.0-0.5 MG/3 ML Neb Soln INH SCH ×3 (08:00→16:31)
[2020-02-24] MEDS: Azithromycin 125 MG in Sodium Chloride 0.9% 100 ML IV SCH ×2 (08:04→21:20)
[2020-02-24] MEDS: Doxazosin 4 MG Tab PO SCH (08:05)
[2020-02-24] MEDS: Finasteride 5 MG Tab PO SCH (08:05)
[2020-02-24] MEDS: Bisacodyl 5 MG Tab PO SCH ×2 (08:16→21:16)
[2020-02-24] MEDS: Docusate Sodium 100 MG Cap PO SCH ×2 (08:16→21:16)
[2020-02-24] MEDS ORDERED: Tamsulosin 0.4 MG Cap.ER PO ONE (09:00)
--- NOTE | 2020-02-24 10:42 | PN ---
DATE OF SERVICE: 02/24/2020 The patient has been afebrile with stable vital signs. He did retain urine last night and was complaining of full bladder and on bladder scan had up to around 600 mL. Goss catheter was inserted. He feels better now. He is already on Cardura and Proscar, and we will add Flomax one dose this morning, then at bedtime, starting tonight, to see if we can get his bladder to empty better, leave the Goss in for now, probably try getting that out Tuesday. Otherwise, oral intake remains somewhat marginal around 675, so we will keep the TPN going at 40 mL/h, and we will go up to more of a solid diet and the patient was instructed to be sure to have the nurses record all the oral intake, so we know when we are ready to get him off the TPN and subsequently home. Otherwise, continue to maximize activity and work with pulmonary toilet. He is not complaining much of nausea and has little out of the G-tube, so we will try the G-tube clamped for 5 hours, unclamped for 1 hour around the clock, and if that works we will try leaving the G-tube clamped starting tomorrow. Otilio Cantrell MD /[id number] MTDD
--- NOTE | 2020-02-24 11:27 | PN ---
DATE OF SERVICE: 02/23/2020 The patient has been afebrile with stable vital signs. His oral intake has been around 760 mL. G-tube output has only been around 160, but he had emesis earlier in the day yesterday. Overall, the abdominal x-ray appears to be gradually improving, but still has way to go. He is moving his bowels fairly frequently. We will continue on the present full liquid diet and continue giving the Zithromax to augment GI tract motility. I think for now we will leave the G-tube unclamped as it is not putting out much and clamping that seemed to have resulted in some increased nausea. Of note, his TSH was somewhat elevated during the hospitalization. We will move up his Synthroid dose to 150 mcg a day. However, labs show white count 9,300, hemoglobin 11.7. Electrolytes are unremarkable. Albumin is somewhat low at 2.2, and I think we will give him some albumin over the next 2 days to bring that up a little bit, that may help with the GI function as well. Otilio Cantrell MD /[id number]
[2020-02-24] MEDS: Tamsulosin 0.4 MG Cap.ER PO SCH (21:18)
[2020-02-24] MEDS: Melatonin 3 MG Tab PO SCH (21:19)
[2020-02-24] MEDS: Pantoprazole 40 MG Tab.CR PO SCH (21:19)
[2020-02-25] MEDS: 1: AA 5%/Calcium/D15W/Lytes 1,000 ML with MVI, Adult with Vitamin K 10 ML, Chromium/Copp IV SCH ×3 (05:32)
[2020-02-25] MEDS: Acetaminophen 325 MG Tab PO SCH ×4 (05:40→21:18)
[2020-02-25] MEDS ORDERED: Central Total Parenteral Nutrition Bag SCH (07:15)
--- NOTE | 2020-02-25 08:47 | PN ---
DATE OF SERVICE: 02/25/2020 SUBJECTIVE: Walter was unable to urinate over the weekend. Goss was replaced. He was started on Flomax. He still has an ileus according to his abdominal flat and upright x-ray. Continues on a soft diet. Vital signs have been stable. He continues TPN at 40 mL/h. He has no questions or concerns. REVIEW OF SYSTEMS: Remainder of review of systems negative for any pertinent positives and negatives. OBJECTIVE: GENERAL: Walter Cohen is an 84-year-old male. He is alert and orientated. VITAL SIGNS: TPR at 0712 is 97.2; 62; 20; blood pressure 116/58. HEENT: Negative. NECK: Supple. HEART: Regular rate and rhythm. LUNGS: Clear. ABDOMEN: Dressings dry and intact. Aquacel dressings on. Gastrostomy tube is intact and clamped. EXTREMITIES: Without peripheral edema. ASSESSMENT: 1. Postop ileus. 2. Postop urinary retention history. 3. Exploratory laparotomy with: a. Total abdominal colectomy and ileorectal anastomosis. b. Drainage of pericolonic abscess. c. Drainage of peritoneal implants in omentum x2. d. Resection of abdominal wall metastatic tumor. e. Partial left hepatic lobectomy, section 3. f. Placement of gastrostomy tube. g. Placement of Interceed mesh. POSTOPERATIVE DIAGNOSES: 1. Obstructing transverse colon carcinoma with: a. Peritoneal implants in omentum x2, 6 cm, 4 cm. b. Multiple liver metastasis. c. Metastatic implant abdominal wall 6 cm and pericolonic abscess. d. Pericolonic abscess. e. Marked distention and decompensation of sigmoid colon. f. Date of surgery: 02/14/2020. Surgeon: Otilio Cantrell MD. 2. Delayed primary closure for open abdominal incision on 02/16/2020. Surgeon: Otilio Cantrell MD. PLAN: 1. Remove Goss catheter today. 2. Continue same TPN rate and content. When this bag has been completely infused, discontinue. 3. Continue Zithromax and bowel stimulation due to ileus. 4. Continue use of incentive spirometer. 5. We will evaluate p.r.n. or in a.m. Michelle Casanova PA-C /[id number]
[2020-02-25] MEDS: Doxazosin 4 MG Tab PO SCH (09:05)
[2020-02-25] MEDS: Finasteride 5 MG Tab PO SCH (09:05)
[2020-02-25] MEDS ORDERED: Azithromycin 250 MG Tab PO SCH (09:15)
--- NOTE | 2020-02-25 10:02 | CR ---
Abdomen 2V AP Flat Upright CLINICAL HISTORY: Follow-up ileus FINDINGS: There is persistent diffuse small bowel distention with scattered air-fluid levels. Pattern is similar to the 02/23/2020 study. There is chronic elevation left hemidiaphragm. IMPRESSION: Persistent small bowel distention with scattered air-fluid levels similar to prior study. This is most consistent with postoperative ileus.
[2020-02-25] MEDS: Docusate Sodium 100 MG Cap PO SCH (10:19)
[2020-02-25] MEDS: Bisacodyl 5 MG Tab PO SCH (10:19)
[2020-02-25] MEDS: Azithromycin 125 MG in Sodium Chloride 0.9% 100 ML IV SCH (10:19)
[2020-02-25] MEDS: Lactobacillus Rhamnosus GG (Probiotic) Cap PO SCH ×2 (10:24→21:19)
[2020-02-25] MEDS: Azithromycin 250 MG Tab PO SCH ×2 (10:24→21:18)
[2020-02-25] MEDS ORDERED: Lidocaine 2% Jelly 10 ML Urojet MUCMEM ONE (20:45)
[2020-02-25] MEDS: Tamsulosin 0.4 MG Cap.ER PO SCH (21:18)
[2020-02-25] MEDS: Pantoprazole 40 MG Tab.CR PO SCH (21:18)
[2020-02-25] MEDS: Melatonin 3 MG Tab PO SCH (21:19)
[2020-02-25] MEDS: diphenhydrAMINE 50 MG/ML SDV IVPUSH PRN (21:23)
[2020-02-26] MEDS: Acetaminophen 325 MG Tab PO SCH (06:03)
[2020-02-26 07:20] VITALS: PULSE 79
[2020-02-26] MEDS ORDERED: Simethicone 80 MG Tab.Chew PO PRN (07:47)
[2020-02-26] MEDS: Doxazosin 4 MG Tab PO SCH (08:16)
[2020-02-26] MEDS: Lactobacillus Rhamnosus GG (Probiotic) Cap PO SCH (08:16)
[2020-02-26] MEDS: Finasteride 5 MG Tab PO SCH (08:20)
[2020-02-26] MEDS: Azithromycin 250 MG Tab PO SCH (08:20)
[2020-02-26 08:21] VITALS: BP 111/58
--- NOTE | 2020-02-26 15:34 | DISCH ---
ADMISSION DIAGNOSIS: Obstructing transverse colon carcinoma. DISCHARGE DIAGNOSES: Exploratory laparotomy with, 1. Total abdominal colectomy and ileorectal anastomosis. 2. Drainage of pericolonic abscess. 3. Drainage of peritoneal implants and omentum x2. 4. Resection of abdominal wall metastatic tumor. 5. Partial left hepatic lobectomy, section III. 6. Placement of gastrostomy tube. 7. Placement of Interceed mesh. POSTOPERATIVE DIAGNOSES: 1. Obstructing transverse colon carcinoma with. a. Peritoneal implants in omentum x2, 6 cm and 4 cm. b. Multiple liver metastases. c. Metastatic implant, abdominal wall, 6 cm, pericolonic abscess. d. Pericolonic abscess. e. Marked distention and decompensation of the sigmoid colon. Date of surgery, 02/14/2020; surgeon, Otilio Cantrell MD. 2. Delayed primary closure for open abdominal incision, 02/16/2020. Surgeon, Otilio Cantrell MD. 3. Postoperative ileus. 4. Postoperative urinary retention. HISTORY: Walter Cohen is an 84-year-old male, who presented to the emergency room with abdominal pain. After preoperative evaluation and discussion of possible risks and possible complications, he wished to proceed with surgical procedure. HOSPITAL COURSE: Walter had his surgery on 02/14/2020. He had no operative complications. He had delayed primary closure on 02/16/2020. He did develop a postoperative ileus and was started on Zithromax, and he did receive TPN for nutritional supplementation. With the bowel stimulation, Walter started having bowel movements. The postop ileus was slow to resolve, but did resolve at the time of discharge. He did have some problems with nausea, which was treated with Zofran. Also, he has a gastrostomy tube, which was open to drainage and then clamped 5 hours and off 1 hour, and was opened p.r.n. for any nausea. Bowel movements started on 02/22/2020, and have been loose, but maintained. On 02/26/2020, Walter was able to be discharged to home. His is at home, and he will be getting home health care. Walter had postop urinary retention. The catheter trial was twice, and he failed to urinate each time, so will be going home with a Goss catheter. PHYSICAL EXAMINATION: GENERAL: Walter Cohen is a pleasant 84-year-old male, alert and orientated. VITAL SIGNS: Height is 5 feet 7.5 inches and weight is 205 pounds. BMI is 31. TPR at 0700; 96.6, 79, 18, and blood pressure 104/59. HEENT: Negative. NECK: Supple. HEART: Regular rate and rhythm. LUNGS: Clear. ABDOMEN: Aquacel dressing is on and will be replaced before discharge. Gastrostomy tube is intact. EXTREMITIES: Without peripheral edema and Goss catheter in place. FOLLOWUP APPOINTMENTS: 1. With Michelle Casanova PA-C, on 02/29/2020, at 9 a.m. PICC line to be flushed at time of Tuesday's appointment with Michelle Casanova PA-C. 2. Otilio Cantrell MD, followup on 03/05/2020, at 11 a.m. He is to have a CT scan of abdomen and pelvis with IV contrast only, stat read. To see Dr. Cantrell after CT scan in clinic. DISCHARGE MEDICATIONS: New Prescriptions; 1. Tylenol 650 oral every 4 hours p.r.n. pain. 2. Zithromax 250 mg oral daily for 30 days. 3. Tums 1000 mg oral every 2 hours p.r.n. heartburn. 4. Culturelle two capsules oral twice daily. 5. Levothyroxine 150 mcg oral daily, #90. 6. Zofran ODT 4 mg every 4 hours p.r.n. nausea, #30. 7. Simethicone, Gas-X, 160 mg every 2 hours p.r.n. gas and bloating. 8. Flomax 0.4 mg p.o. daily. He is to resume home medications of; 1. Cardura 8 mg daily. 2. Proscar 5 mg oral daily. 3. Advair 100/50 one inhalation twice daily p.r.n. shortness of breath. 4. Multivitamin one daily. 5. Prilosec 20 mg oral daily. To stop taking his, 1. Lactulose. 2. Synthroid 112 mcg daily. 3. MiraLAX. DISCHARGE DIET: Regular diet as tolerated. Drink 8 to 10 glasses of water a day. ACTIVITY: No lifting greater than 10 pounds for 4 weeks. Other activity: Walk at least 6 times daily inside your home. Driving, do not drive for 1 week. Shower/Bathing: May shower. DISCHARGE INSTRUCTIONS: 1. Notify provider if any fever, increased pain, nausea, or vomiting. Keep site clean and dry. Wound incision care. To leave Aquacel dressing on until Tuesday appointment. 2. Keep gauze around gastrostomy tube. 3. Abdominal binder if tolerated. Special Instructions: 1. Keep gastrostomy tube clamped and unclamp if you feel nauseated or bloated. Stand either by the waste basket, toilet, sink, mud or drain to relieve the pressure in your abdomen and then re-clamp. You can unclamp as many times a day as you need to. 2. Remove Goss catheter night. 3. Any questions, call the clinic Surgery Department at [phone] during clinic hours or hospital at [phone] and ask for surgery nurse, Dr. Cantrell or Michelle. 4. Use incentive spirometer 10 times every hour while awake.
--- NOTE | 2020-02-28 09:21 | OR ---
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 2. Peritoneal implants in omentum x2. 3. Multiple liver metastases bilaterally. 4. Metastatic implant in periumbilical abdominal wall. 5. Pericolonic abscess. 6. Marked dilation and decompensation of sigmoid colon. OPERATIVE PROCEDURES: Exploratory laparotomy with: 1. Total abdominal colectomy with ileorectal anastomosis (02120). 2. Drainage of pericolonic abscess (41661). 3. Resection of peritoneal implants in omentum x2 (96141, 43814). 4. Wide excision of abdominal wall metastatic tumor (23948). 5. Partial left hepatic lobectomy (15623). 6. Placement of tube gastrostomy (04810). 7. Placement of Interceed mesh x2 to limit recurrent adhesion formation between pelvic and abdominal wall and underlying viscera. ANESTHESIA: General plus epidural. FACILITY MAINTENANCE TECHNICIAN: Michelle Casanova PA-C INDICATIONS FOR PROCEDURE: This is an 84-year-old presenting with what appeared to be an obstructing colon carcinoma with marked distention of the proximal bowel. This also was associated with what appeared to be bilateral liver metastases. Plan is to proceed with exploratory laparotomy with colon resection. At a minimum, this would involve an extended right colectomy and intraoperatively, if it appears appropriate to resect some or all of the liver metastases, that might be entertained. Potential risks of the procedure including bleeding, infection, injury to underlying viscera, leaks from GI tract closures, possibility that the tumor may not be resectable, as well as the possibility of cardiopulmonary, septic, or hemorrhagic complications leading to were discussed, and the patient wishes to proceed. DETAILS OF PROCEDURE: The patient was taken to the operating room and placed in a supine position. After general endotracheal anesthesia was induced, a Goss catheter was inserted and the abdomen prepped and draped. A midline incision, which eventually extended from the xiphoid to roughly a handsbreadth below the umbilicus, was made and carried down through the full-thickness abdominal wall. Upon entering the abdomen, the patient was noted to have a cecal volvulus, which was strikingly distended. This had some thin purulent material around it consistent with a pericolonic abscess. Cultures were obtained. Gram stain did show some gram-positive cocci, confirming infected fluid collection. The patient's additional findings included easily accessible liver metastases in the medial aspect of the left lobe of liver, hepatic segment III, but there were some smaller metastases palpable more within the depths of the right lobe of liver that were not easily accessible to excision. Patient had 2 well-defined separate metastatic foci in the omentum, one of these measuring 6 cm and the other measuring 4 cm. Additionally, there was some metastatic tumor in the abdominal wall in the periumbilical area infiltrating up into the level of fascia level. Finally, the patient did not have any obvious ascites, and apart from the above-noted intraperitoneal tumor, no additional evident intraperitoneal tumor was present. One additional finding leading us to do a total abdominal colectomy was marked decompensation of the sigmoid colon, this being a chronic problem, as the patient recounts quite a bit in the way of chronic constipation. The sigmoid colon was distended up to around 10 to 12 cm for its length before becoming more normal in the area of the rectum. Decision making this morning was therefore to proceed with a total abdominal colectomy with ileorectal anastomosis. A large portion of the omentum was removed after the separate metastatic sites were separately resected, and the abdominal wall was also debrided at the area of the metastatic growth into the periumbilical abdominal wall. With regard to liver, we decided to resect the lesion in the left lobe of liver. This was easily resected with what appeared to be clear margins. The other metastatic foci were smaller but were deeper into the central aspect of the right lobe of liver, which would have required major liver resection, which would be inappropriate in this setting, both due to the magnitude of the procedure, as well as other metastatic disease. We decided to resect the easily resectable lesion in the left lobe, in the event that over time, if there is stability in terms of tumor control by chemotherapy but the liver lesions persist in the right lobe, those might be easily treated by something like radiofrequency ablation technique, rather than a major surgical approach. Given the patient is likely to have a protracted postoperative ileus, given the extent of the dissection, as well as his history of constipation, tube gastrostomy was placed so as to avoid protracted use of nasogastric tube. At this point, the distal small bowel was divided with a ZAY stapler. The peritoneal reflection of the cecum and ascending colon and then hepatic flexure were then divided and those areas retracted medially with care to avoid injury to the underlying right ureter and duodenum. Two sites of the omental metastases were then resected with ZAY cale and sent as a separate specimen. At this point, the upper rectum was divided with a ZAY stapler as well, and the peritoneal reflection of the sigmoid colon, descending colon, and splenic flexure were then all divided and those areas likewise mobilized medially. The omentum was divided to a large extent flush with the stomach, and at that point, the underlying mesentery between the two points of bowel division was divided with a combination of vascular and mesenteric cale and this specimen then delivered from the field. The patient was noted to have a thin purulent fluid collection around the area involving the cecal volvulus, and cultures of that had been obtained after that area was drained. At this point, the abdominal wall was debrided to remove the gross tumor from that area with a margin of what appeared to be normal tissue around it, and the metastatic tumor in the medial aspect of the segment III was then resected with a ZAY cale, and all surfaces were cauterized for hemostasis, and some fibrin sealant was applied to those areas. GI tract continuity was then re-established with an EEA stapler. A 31 mm EEA stapler was selected as the distal small bowel was fairly dilated, and the anvil easily fit into the rectum. Rectal staple line was opened, and the anvil was then placed. Rectal staple line was then restapled, and the anvil brought out through the end of the new staple line. The divided end of the small bowel was then opened, and the main body of EEA stapler passed a few centimeters into the lumen to connect to the anvil and fired, thus creating the coloproctostomy. Upon removal of the stapler, double donuts of mucosa were noted within it. The open end of the small bowel was divided with the ZAY stapler as well, and the anastomosis was reinforced with some 3-0 Vicryl seromuscular stitch. The mesenteric defect was then closed with a 2-0 silk stitch. At this point, attention was taken to the formation of the gastrostomy tube. In the mid greater curvature, a small gastrotomy was made and pursestring stitch placed around it with 2-0 Vicryl stitch through the abdominal wall in the left subcostal area. An 18-Qatari Goss catheter-type tube was brought through the abdominal wall and inflated after being placed into the lumen of the stomach. Pursestring stitch was then tied and fixed to the abdominal wall as well. Some additional sutures between the stomach and the anterior abdominal wall were also then placed, and the gastrostomy tube at the skin level was held in position with a 2-0 nylon stitch. At this point, abdomen was irrigated with antibiotic-containing saline solution. Water was used for the first irrigation to provide some tumor lysis, at least theoretically. Most of the patient's omentum was absent at this point, so to avoid adhesions between the small bowel and anterior abdominal and pelvic porter, two Interceed meshes were then placed. The midline fascia was then approximated with #2 Vicryl stitch. The skin and subcutaneous tissue were felt to be at high risk for wound infection, should there be a primary closure; therefore, it was packed open for a planned delayed primary closure in 48 to 72 hours. The patient was taken to the recovery room in satisfactory condition. Physician music assistant, Michelle Casanova, played an essential role in assisting in this case, helping me to position the patient, retract structures as needed, as well as suturing and cutting sutures when indicated. Her presence improved patient safety and decreased operative time. Otilio Cantrell MD /[id number]
== END 2020-02-26 11:15 | disposition home health service (06) | DRG 326 ==
LOC: JP.ED 20:36 → JP.ICU 23:46 → JP.MS 02-18 15:30
PROVIDERS: ADMIT Hospitalist; ATTEND Hospitalist
PROC: 0D960ZZ Drainage of Stomach, Open Approach (ICD-10-PCS; principal; 2020-02-14)
PROC: 0WQFXZZ Repair Abdominal Wall, External Approach (ICD-10-PCS; 2020-02-14)
PROC: 0DTN0ZZ Resection of Sigmoid Colon, Open Approach (ICD-10-PCS; 2020-02-14)
PROC: 0FB20ZZ Excision of Left Lobe Liver, Open Approach (ICD-10-PCS; 2020-02-14)
PROC: 0D1N0ZP Bypass Sigmoid Colon to Rectum, Open Approach (ICD-10-PCS; 2020-02-14)
PROC: 0D9L0ZZ Drainage of Transverse Colon, Open Approach (ICD-10-PCS; 2020-02-14)
PROC: 0WBF0ZZ Excision of Abdominal Wall, Open Approach (ICD-10-PCS; 2020-02-14)
PROC: 3E0M05Z Introduction of Adhesion Barrier into Peritoneal Cavity, Open Approach (ICD-10-PCS; 2020-02-14)
DX: K31.1 Adult hypertrophic pyloric stenosis (principal); K63.9 Disease of intestine, unspecified; N28.1 Cyst of kidney, acquired; E78.00 Pure hypercholesterolemia, unspecified; J45.909 Unspecified asthma, uncomplicated; K21.9 Gastro-esophageal reflux disease without esophagitis; N42.9 Disorder of prostate, unspecified; E07.9 Disorder of thyroid, unspecified; Z96.643 Presence of artificial hip joint, bilateral; Z79.890 Hormone replacement therapy; Z79.899 Other long term (current) drug therapy; C18.4 Malignant neoplasm of transverse colon; K56.2 Volvulus; C78.7 Secondary malignant neoplasm of liver and intrahepatic bile duct; K63.0 Abscess of intestine; K31.5 Obstruction of duodenum
CPT/HCPCS: 36415; 43752; 74022; 74177; 80053; 85025; 86140; 96374; 99285 ×2; J1170; J7030; J7050; Q9967; 51702; 51798; 74018; 74019; 74019-26; 74176; 80048; 82378; 83735; 83880; 84100; 84443; 85027; 86850; 86900; 86901; 86920; 86922; 87070; 87075; 87205; 88305; 88307; 88309; 88341; 88342; 93005; 94640; A9270-GY; C1751; C9113; J0131; J0171; J0330; J0456; J0694; J1100; J1200; J1630; J1940; J2060; J2185; J2310; J2405; J2704; J2710; J2795; J3010; J3410; J3475; J3480; J3490; J7120; J7121; J7620-GY; P9047

== ENCOUNTER 2020-02-28 06:29 | Emergency (ER) | payer MEDICARE, BC ==
[2020-02-28] MEDS ORDERED: Lactated Ringers 1,000 ML IV ONE ×2 (07:03→08:04)
--- NOTE | 2020-02-28 07:15 | EDM.PDOC ---
ED HPI GENERAL MEDICAL PROBLEM - General Chief Complaint: Syncope Stated Complaint: MEDICAL VIA [facility] Time Seen by Provider: 02/28/20 07:00 Source of Information: Reports: Patient, Old Records, RN History Limitations: Reports: No Limitations - History of Present Illness INITIAL COMMENTS - FREE TEXT/NARRATIVE: 84 yo male recently discharged from [facility] after surgery per Dr. Cantrell for colon CA. Stools have been loose since his surgery. Both the day he got home and again this morning he passed out while standing. He states that he recalls the entire event and denies injury from his fall. No fever or vomiting. States that his mouth feels dry and his urine is dark. Onset: Today, Sudden Onset Date: 02/28/20 Duration: Minutes:, Resolved Prior to Arrival Location: Reports: Generalized Quality: Reports: Other (no new pain) Severity: Moderate Improves with: Reports: Other (horizontal posture) Worsens with: Reports: Other (standing) Context: Reports: Other (See HPI) Associated Symptoms: Reports: No Other Symptoms Treatments SURVEY RESEARCH PROFESSOR: Reports: Other (see below) (none) - Related Data Allergies Allergy/AdvReac Type Severity Reaction Status Date / Time No Known Allergies Allergy Verified 02/28/20 06:30 Home Meds: Home Meds Doxazosin Mesylate [Cardura] 8 mg PO DAILY 10/03/14 [History] Finasteride [Proscar] 5 mg PO DAILY 10/03/14 [History] Fluticasone/Salmeterol [Advair 100-50] 1 puff INH BID PRN 10/03/14 [History] Multivitamins 1 each PO DAILY 10/03/14 [History] Acetaminophen [Tylenol] 650 mg PO QID tablet 02/26/20 [Rx] Azithromycin [Zithromax] 250 mg PO DAILY #30 tablet 02/26/20 [Rx] Calcium Carbonate [Tums] 1,000 mg PO Q2H PRN tab.chew 02/26/20 [Rx] Lactobacillus Rhamnosus GG [Culturelle] 2 cap PO BID #120 cap 02/26/20 [Rx] Levothyroxine Sodium [Synthroid] 150 mcg PO DAILY #90 tablet 02/26/20 [Rx] Ondansetron [Zofran ODT] 4 mg PO Q4H PRN #30 tab.dis 02/26/20 [Rx] Simethicone 160 mg PO Q2H PRN tab.chew 02/26/20 [Rx] Tamsulosin [Flomax] 0.4 mg PO BEDTIME #30 cap.er 02/26/20 [Rx] Past Medical History HEENT History: Reports: Impaired Vision Other HEENT History: glasses Cardiovascular History: Reports: High Cholesterol Respiratory History: Reports: Asthma Other Respiratory History: wood smoke Gastrointestinal History: Reports: Bowel Obstruction, GERD, Other (See Below) Other Gastrointestinal History: currently has gt clamped Genitourinary History: Reports: Prostate Disorder, Retention, Urinary Other Genitourinary History: current singh cath was discharged with Musculoskeletal History: Reports: Other (See Below) Other Musculoskeletal History: bilaterl hip pain Endocrine/Metabolic History: Reports: Other (See Below) Other Endocrine/Metabolic History: thyroid disease Oncologic (Cancer) History: Reports: Colon, Liver - Infectious Disease History Infectious Disease History: Reports: Chicken Pox, Measles, Mumps, Shingles - Past Surgical History HEENT Surgical History: Reports: Tonsillectomy GI Surgical History: Reports: Other (See Below) Other GI Surgeries/Procedures: 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/12 Neurological Surgical History: Reports: Discectomy Musculoskeletal Surgical History: Reports: Knee Replacement Social & Family History - Family History Family Medical History: Noncontributory - Tobacco Use Smoking Status *Q: Never Smoker - Caffeine Use Caffeine Use: Reports: Coffee - Recreational Drug Use Recreational Drug Use: No ED ROS GENERAL - Review of Systems Review Of Systems: See Below Constitutional: Reports: Malaise HEENT: Reports: Other (dry mouth) Respiratory: Reports: No Symptoms Cardiovascular: Reports: Lightheadedness (with standing) Endocrine: Reports: No Symptoms GI/Abdominal: Reports: Diarrhea. Denies: Black Stool, Bloody Stool, Constipation, Distension, Hematemesis, Hematochezia, Nausea, Vomiting : Reports: No Symptoms Musculoskeletal: Reports: No Symptoms Skin: Reports: No Symptoms Neurological: Reports: No Symptoms Psychiatric: Reports: No Symptoms - Physical Exam Exam: See Below Exam Limited By: No Limitations General Appearance: Alert, WD/WN, No Apparent Distress Eye Exam: Bilateral Eye: Normal Inspection Ears: Normal External Exam, Normal Canal, Hearing Grossly Normal Nose: Normal Inspection, No Blood Throat/Mouth: Normal Lips, Normal Oropharynx, Normal Voice, No Airway Compromise , Other (dry tongue) Head Exam: Atraumatic, Normocephalic Neck: Normal Inspection Respiratory/Chest: No Respiratory Distress, Lungs Clear, Normal Breath Sounds, No Accessory Muscle Use Cardiovascular: Regular Rate, Rhythm, No Edema GI/Abdominal: Normal Bowel Sounds, Soft, Non-Tender, No Distention Neuro Exam (Abbreviated): Alert, Oriented, CN II-XII Intact, Normal Cognition, No Motor/Sensory Deficits Extremities: Normal Inspection, Normal Range of Motion, Non-Tender, No Pedal Edema Psychiatric: Normal Affect, Normal Mood Skin Exam: Warm, Dry, Intact, Normal Color, No Rash Course - Vital Signs Last Recorded V/S: Last Vital Signs Temp 36.2 C 02/28/20 06:39 Pulse 81 02/28/20 06:39 Resp 21 H 02/28/20 06:39 BP 106/71 02/28/20 06:39 Pulse Ox 92 L 02/28/20 06:39 Orthostatic Blood Pressure [ 80/45 Standing] Orthostatic Blood Pressure [ 79/48 Sitting] Orthostatic Blood Pressure [ 110/63 Supine] - Orders/Labs/Meds Orders: Active Orders 24 hr Category Date Time Status Cardiac Monitoring [RC] .As Directed Care 02/28/20 07:04 Active Lactated Ringers [Ringers, Lactated] 1,000 ml Med 02/28/20 08:04 Active IV BOLUS Medication Orders Lactated Ringer's (Ringers, Lactated) 1,000 mls @ 1,000 mls/hr IV BOLUS ONE Stop: 02/28/20 09:03 Last Admin: 02/28/20 08:09 Dose: 1,000 mls/hr Labs: Laboratory Tests 02/28/20 Range/Units 07:03 Sodium 135 L (140-148) mmol/L Potassium 4.6 (3.6-5.2) mmol/L Chloride 102 (100-108) mmol/L Carbon Dioxide 23 (21-32) mmol/L Anion Gap 14.6 H (5.0-14.0) mmol/L BUN 31 H (7-18) mg/dL Creatinine 1.4 H (0.8-1.3) mg/dL Est Cr Clr Drug Dosing 37.38 mL/min Estimated GFR (MDRD) 48 L (>60) Glucose 103 (74-106) mg/dL Calcium 8.1 L (8.5-10.1) mg/dL Meds: Medications Generic Name Dose Route Start Last Admin Trade Name Lizbeth PRN Reason Stop Dose Admin Lactated Ringer's 1,000 mls @ 1,000 mls/hr 02/28/20 08:04 02/28/20 08:09 Ringers, Lactated IV 02/28/20 09:03 1,000 mls/hr BOLUS ONE Administration Discontinued Medications Generic Name Dose Route Start Last Admin Trade Name Lizbeth PRN Reason Stop Dose Admin Lactated Ringer's 1,000 mls @ 1,000 mls/hr 02/28/20 07:03 02/28/20 07:14 Ringers, Lactated IV 02/28/20 08:02 1,000 mls/hr BOLUS ONE Administration Departure - Departure Time of Disposition: 09:15 Disposition: Home, Self-Care 01 Condition: Good Clinical Impression: Orthostatic hypotension, Mild dehydration - Discharge Information *PRESCRIPTION DRUG MONITORING PROGRAM REVIEWED*: Not Applicable *COPY OF PRESCRIPTION DRUG MONITORING REPORT IN PATIENT STEPHY: Not Applicable Instructions: Dehydration, Elderly, [id number] Referrals: PCP,None [Primary Care Provider] - Forms: ED Department Discharge Additional Instructions: Drink more fluids so that your urine is light yellow in color. Recheck as needed. If you feel light headed when you stand sit down immediately so that you don't pass out and injure yourself. Sepsis Event Note - Evaluation Sepsis Screening Result: No Definite Risk - Focused Exam Vital Signs: Vital Signs Temp Pulse Resp BP Pulse Ox 02/28/20 06:39 36.2 C 81 21 H 106/71 92 L Date Exam was Performed: 02/28/20 Time Exam was Performed: 08:58 - My Orders Last 24 Hours: My Active Orders 02/28/20 07:04 Cardiac Monitoring [RC] .As Directed 02/28/20 08:04 Lactated Ringers [Ringers, Lactated] 1,000 ml IV BOLUS - Assessment/Plan Last 24 Hours: My Active Orders 02/28/20 07:04 Cardiac Monitoring [RC] .As Directed 02/28/20 08:04 Lactated Ringers [Ringers, Lactated] 1,000 ml IV BOLUS
[2020-02-28 09:00] VITALS: BP 134/67; PULSE 69
== END 2020-02-28 09:37 | disposition home or self-care (01) ==
LOC: JP.ED 06:29
DX: I95.1 Orthostatic hypotension (principal); E87.6 Hypokalemia; E07.9 Disorder of thyroid, unspecified; J45.909 Unspecified asthma, uncomplicated; Z79.899 Other long term (current) drug therapy
CPT/HCPCS: 36415; 80048; 96360; 96361; 99284; J7120

== ENCOUNTER 2020-03-02 03:28 | Emergency (ER) | payer MEDICARE, BC ==
[2020-03-02 03:46] VITALS: BP 115/76
--- NOTE | 2020-03-02 04:27 | EDM.PDOC ---
ED HPI GENERAL MEDICAL PROBLEM - General Chief Complaint: General Stated Complaint: FEVER, ABD WOUND BLEEDING Time Seen by Provider: 03/02/20 04:20 Source of Information: Reports: Patient History Limitations: Reports: No Limitations - History of Present Illness INITIAL COMMENTS - FREE TEXT/NARRATIVE: Told by home health nurse to come in for eval of temp 100+ @ 0300. Pt. has had no NEW symptoms (cough, rhinorrhea, worsening abd pain, sore throat) last 24H. 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 Is on azithromycin. Onset: Today Onset Date: 03/02/20 Onset Time: 03:00 Associated Symptoms: Reports: Fever/Chills. Denies: Cough, Nausea/Vomiting, Rash, Shortness of Breath - Related Data Allergies Allergy/AdvReac Type Severity Reaction Status Date / Time No Known Allergies Allergy Verified 03/02/20 03:42 Home Meds: Home Meds Doxazosin Mesylate [Cardura] 8 mg PO DAILY 10/03/14 [History] Finasteride [Proscar] 5 mg PO DAILY 10/03/14 [History] Fluticasone/Salmeterol [Advair 100-50] 1 puff INH BID PRN 10/03/14 [History] Azithromycin [Zithromax] 250 mg PO DAILY #30 tablet 02/26/20 [Rx] Lactobacillus Rhamnosus GG [Culturelle] 2 cap PO BID #120 cap 02/26/20 [Rx] Levothyroxine Sodium [Synthroid] 150 mcg PO DAILY #90 tablet 02/26/20 [Rx] Simethicone 160 mg PO Q2H PRN tab.chew 02/26/20 [Rx] Tamsulosin [Flomax] 0.4 mg PO BEDTIME #30 cap.er 02/26/20 [Rx] Levothyroxine Sodium [Euthyrox] 150 mcg PO DAILY 03/02/20 [History] Sulfamethoxazole/Trimethoprim [Septra DS] 1 each PO BID 5 Days #10 tab 03/02/20 [Rx] Past Medical History HEENT History: Reports: Impaired Vision Other HEENT History: glasses Cardiovascular History: Reports: High Cholesterol Respiratory History: Reports: Asthma Other Respiratory History: wood smoke Gastrointestinal History: Reports: Bowel Obstruction, GERD, Other (See Below) Other Gastrointestinal History: currently has gt clamped Genitourinary History: Reports: Prostate Disorder, Retention, Urinary Other Genitourinary History: current singh cath was discharged with Musculoskeletal History: Reports: Other (See Below) Other Musculoskeletal History: bilaterl hip pain Endocrine/Metabolic History: Reports: Other (See Below) Other Endocrine/Metabolic History: thyroid disease Oncologic (Cancer) History: Reports: Colon, Liver - Infectious Disease History Infectious Disease History: Reports: Chicken Pox, Measles, Mumps - Past Surgical History HEENT Surgical History: Reports: Tonsillectomy GI Surgical History: Reports: Other (See Below) Other GI Surgeries/Procedures: 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/12 G tube Neurological Surgical History: Reports: Discectomy Musculoskeletal Surgical History: Reports: Knee Replacement Social & Family History - Family History Family Medical History: Noncontributory - Tobacco Use Smoking Status *Q: Never Smoker Second Hand Smoke Exposure: No - Caffeine Use Caffeine Use: Reports: Coffee - Alcohol Use Days Per Week of Alcohol Use: 0 - Recreational Drug Use Recreational Drug Use: No ED ROS GENERAL - Review of Systems Review Of Systems: See Below Constitutional: Reports: Fever HEENT: Reports: No Symptoms. Denies: Ear Pain, Rhinitis Respiratory: Reports: No Symptoms. Denies: Cough Cardiovascular: Reports: No Symptoms GI/Abdominal: Reports: Abdominal Pain (generalized, mild, off/on since he had laparotomy and placement of g-tube.), Diarrhea (Loose stool since surgery). Denies: Nausea, Vomiting : Reports: Other (inswelling urinary catheter) Musculoskeletal: Reports: No Symptoms Skin: Reports: No Symptoms Neurological: Denies: Confusion, Headache, Trouble Speaking Hematologic/Lymphatic: Denies: Swollen Glands ED EXAM, GENERAL - Physical Exam Exam: See Below Exam Limited By: No Limitations General Appearance: Alert, WD/WN, No Apparent Distress Eye Exam: Bilateral Eye: PERRL Ears: Normal External Exam, Normal Canal, Normal TMs Nose: Normal Inspection, Normal Mucosa. No: Nasal Drainage Throat/Mouth: Normal Inspection, Normal Oropharynx, Normal Voice Head: Atraumatic, Normocephalic Neck: Normal Inspection, Supple, Non-Tender. No: Lymphadenopathy (R), Lymphadenopathy (L) Respiratory/Chest: No Respiratory Distress, Lungs Clear, Normal Breath Sounds, No Accessory Muscle Use Cardiovascular: Normal Peripheral Pulses, Regular Rate, Rhythm GI/Abdominal: Normal Bowel Sounds, Other (midline surgical incision approximated and not draining. g-tube in place) Extremities: Normal Inspection, Normal Range of Motion Course - Vital Signs Last Recorded V/S: Last Vital Signs Temp 37.7 C 03/02/20 04:48 Pulse 94 03/02/20 04:48 Resp 16 03/02/20 04:48 BP 115/76 03/02/20 04:48 Pulse Ox 97 03/02/20 04:48 - Orders/Labs/Meds Labs: Laboratory Tests 03/02/20 Range/Units 04:11 Urine Color Yellow (YELLOW) Urine Appearance Cloudy A (CLEAR) Urine pH 6.0 (5.0-8.0) Ur Specific [place] 1.025 (1.008-1.030) Urine Protein 100 H (NEGATIVE) mg/dL Urine Glucose (UA) Negative (NEGATIVE) mg/dL Urine Ketones Negative (NEGATIVE) mg/dL Urine Occult Blood Moderate H (NEGATIVE) Urine Nitrite Negative (NEGATIVE) Urine Bilirubin Small H (NEGATIVE) Urine Urobilinogen 0.2 (0.2-1.0) EU/dL Ur Leukocyte Esterase Small H (NEGATIVE) Urine RBC 75-100 H (0-5) Urine WBC >100 H (0-5) Ur Epithelial Cells Few Amorphous Sediment Not seen Urine Bacteria Many Urine Mucus Not seen Meds: Medications Discontinued Medications Generic Name Dose Route Start Last Admin Trade Name Freq PRN Reason Stop Dose Admin Trimethoprim/Sulfamethoxazole 1 tab 03/02/20 04:38 03/02/20 04:45 Septra Ds PO 03/02/20 04:39 1 tab ONETIME ONE Administration Departure - Departure Time of Disposition: 05:12 Disposition: Home, Self-Care 01 Clinical Impression: UTI, Urinary tract infectious disease - Discharge Information Prescriptions: Sulfamethoxazole/Trimethoprim [Septra DS] 1 each PO BID 5 Days #10 tab Instructions: Urinary Tract Infection, Adult, [id number] Referrals: PCP,None [Primary Care Provider] - Forms: ED Department Discharge Sepsis Event Note - Evaluation Sepsis Screening Result: No Definite Risk - Focused Exam Date Exam was Performed: 03/03/20 Time Exam was Performed: 13:42
[2020-03-02] MEDS ORDERED: Sulfamethoxazole/Trimethoprim 800-160 MG Tab PO ONE (04:38)
[2020-03-02 04:49] VITALS: PULSE 94
== END 2020-03-02 05:12 | disposition home or self-care (01) ==
LOC: JP.ED 03:28
DX: N39.0 Urinary tract infection, site not specified (principal); J45.909 Unspecified asthma, uncomplicated
CPT/HCPCS: 81001; 99284; A9270; 99283

== ENCOUNTER 2020-03-03 19:09 | Observation (INO) | payer MEDICARE, BC ==
--- NOTE | 2020-03-03 20:24 | EDM.PDOC ---
ED HPI GENERAL MEDICAL PROBLEM - General Chief Complaint: Neuro Symptoms/Deficits Time Seen by Provider: 03/03/20 19:31 Source of Information: Reports: Patient, Old Records, RN Notes Reviewed History Limitations: Reports: No Limitations - History of Present Illness INITIAL COMMENTS - FREE TEXT/NARRATIVE: 84-year-old gentleman presents emergency department today for syncopal event, he is postoperative total Colectomy 10 days, recent resection reveals a moderately differentiated adenocarcinoma with metastases to the abdominal wall and liver 3 out of 47 lymph nodes positive. He has a follow-up appointment with general surgery in 2 days has not met with oncology. He is also having difficulty with urination did have a Singh catheter placed for the surgery has had this removed a couple of times unfortunately he has failed with urinary retention. He does have a known history of BPH takes combination of Flomax, Cardura and Proscar. He states he will sense these symptoms when they come on he will get warm and flushed he noticed that it is positional like when he sits up or gets out of bed he will then get very lightheaded and passes out for a moment. Middle Abdomen Pain Score (Numeric/FACES): 5 - Related Data Allergies Allergy/AdvReac Type Severity Reaction Status Date / Time No Known Allergies Allergy Verified 03/03/20 19:36 Home Meds: Home Meds Doxazosin Mesylate [Cardura] 8 mg PO DAILY 10/03/14 [History] Finasteride [Proscar] 5 mg PO DAILY 10/03/14 [History] Fluticasone/Salmeterol [Advair 100-50] 1 puff INH BID PRN 10/03/14 [History] Lactobacillus Rhamnosus GG [Culturelle] 2 cap PO BID #120 cap 02/26/20 [Rx] Simethicone 160 mg PO Q2H PRN tab.chew 02/26/20 [Rx] Tamsulosin [Flomax] 0.4 mg PO BEDTIME #30 cap.er 02/26/20 [Rx] Levothyroxine Sodium [Euthyrox] 150 mcg PO DAILY 03/02/20 [History] Sulfamethoxazole/Trimethoprim [Septra DS] 1 each PO BID 5 Days #10 tab 03/02/20 [Rx] Past Medical History HEENT History: Reports: Impaired Vision Other HEENT History: glasses Cardiovascular History: Reports: High Cholesterol Respiratory History: Reports: Asthma Other Respiratory History: wood smoke Gastrointestinal History: Reports: Bowel Obstruction, GERD, Other (See Below) Other Gastrointestinal History: currently has gt clamped Genitourinary History: Reports: Prostate Disorder, Retention, Urinary Other Genitourinary History: current singh cath was discharged with Musculoskeletal History: Reports: Other (See Below) Other Musculoskeletal History: bilaterl hip pain Endocrine/Metabolic History: Reports: Other (See Below) Other Endocrine/Metabolic History: thyroid disease Oncologic (Cancer) History: Reports: Colon, Liver - Infectious Disease History Infectious Disease History: Reports: Chicken Pox, Measles, Mumps - Past Surgical History HEENT Surgical History: Reports: Tonsillectomy GI Surgical History: Reports: Other (See Below) Other GI Surgeries/Procedures: 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/12 G tube Neurological Surgical History: Reports: Discectomy Musculoskeletal Surgical History: Reports: Knee Replacement Social & Family History - Family History Family Medical History: Noncontributory - Tobacco Use Smoking Status *Q: Never Smoker Second Hand Smoke Exposure: No - Caffeine Use Caffeine Use: Reports: Coffee, Other Other Caffeine Use: protien drinks - Recreational Drug Use Recreational Drug Use: No ED ROS GENERAL - Review of Systems Review Of Systems: See Below Constitutional: Reports: No Symptoms HEENT: Reports: No Symptoms Respiratory: Reports: No Symptoms Cardiovascular: Reports: Syncope GI/Abdominal: Reports: No Symptoms ED EXAM, DIZZINESS - Physical Exam Exam: See Below Exam Limited By: No Limitations General Appearance: Alert, WD/WN, No Apparent Distress Vertigo: reproducible Respiratory/Chest: No Respiratory Distress, Lungs Clear, Normal Breath Sounds, No Accessory Muscle Use, Chest Non-Tender Cardiovascular: Regular Rate, Rhythm, No Murmur Course - Vital Signs Last Recorded V/S: Last Vital Signs Temp 97.1 F 03/03/20 19:35 Pulse 83 03/03/20 22:37 Resp 15 03/03/20 22:37 BP 129/77 03/03/20 22:37 Pulse Ox 94 L 03/03/20 22:37 Orthostatic Blood Pressure [ 77/35 Standing] Orthostatic Blood Pressure [ 98/48 Sitting] Orthostatic Blood Pressure [ 123/73 Supine] - Orders/Labs/Meds Orders: Active Orders 24 hr Category Date Time Status EKG Documentation Completion [RC] ASDIRECTED Care 03/03/20 20:19 Active Sodium Chloride 0.9% [Normal Saline] 1,000 ml Med 03/03/20 21:30 Active IV ASDIRECTED Sodium Chloride 0.9% [Normal Saline] 1,000 ml Med 03/03/20 23:45 Active IV ASDIRECTED EKG 12 Lead [EK] Stat Ther 03/03/20 20:18 Ordered Medication Orders Sodium Chloride (Normal Saline) 1,000 mls @ 500 mls/hr IV ASDIRECTED ROMINA Last Admin: 03/03/20 21:28 Dose: 500 mls/hr Sodium Chloride (Normal Saline) 1,000 mls @ 250 mls/hr IV ASDIRECTED ROMINA Last Admin: 03/03/20 23:44 Dose: 250 mls/hr Labs: Laboratory Tests 03/03/20 03/03/20 03/03/20 Range/Units 20:30 20:30 20:30 WBC 11.7 H (4.5-11.0) K/uL RBC 4.46 (4.30-5.90) M/uL Hgb 12.6 (12.0-15.0) g/dL Hct 37.8 L (40.0-54.0) % MCV 85 (80-98) fL MCH 28 (27-31) pg MCHC 33 (32-36) % Plt Count 334 (150-400) K/uL Neut % (Auto) 84 H (36-66) % Lymph % (Auto) 6 L (24-44) % [place] % (Auto) 9 H (2-6) % Eos % (Auto) 1 L (2-4) % Baso % (Auto) 0 (0-1) % Sodium 132 L (140-148) mmol/L Potassium 4.1 (3.6-5.2) mmol/L Chloride 95 L (100-108) mmol/L Carbon Dioxide 26 (21-32) mmol/L Anion Gap 15.1 H (5.0-14.0) mmol/L BUN 29 H (7-18) mg/dL Creatinine 1.7 H (0.8-1.3) mg/dL Est Cr Clr Drug Dosing 31.85 mL/min Estimated GFR (MDRD) 39 L (>60) Glucose 116 H (74-106) mg/dL Calcium 9.0 (8.5-10.1) mg/dL Troponin I < 0.017 (0.000-0.056) ng/mL Meds: Medications Generic Name Dose Route Start Last Admin Trade Name Daniq PRN Reason Stop Dose Admin Sodium Chloride 1,000 mls @ 500 mls/hr 03/03/20 21:30 03/03/20 21:28 Normal Saline IV 500 mls/hr ASDIRECTED ROMINA Administration Sodium Chloride 1,000 mls @ 250 mls/hr 03/03/20 23:45 03/03/20 23:44 Normal Saline IV 250 mls/hr ASDIRECTED ROMINA Administration Departure - Departure Time of Disposition: 23:58 Disposition: Admitted As Inpatient 67 Condition: Poor Clinical Impression: Adenocarcinoma of colon metastatic to liver, Orthostatic hypotension, UTI, Urinary tract infectious disease - Discharge Information Referrals: Sharif Cavanaugh MD [Primary Care Provider] - Forms: ED Department Discharge Sepsis Event Note - Evaluation Sepsis Screening Result: No Definite Risk - Focused Exam Vital Signs: Vital Signs Temp Pulse Resp BP Pulse Ox 03/03/20 22:37 83 15 129/77 94 L 03/03/20 22:10 81 19 140/79 90 L 03/03/20 21:39 81 16 134/82 92 L 03/03/20 20:58 87 22 H 135/80 92 L 03/03/20 20:33 84 20 131/85 93 L 03/03/20 20:22 87 18 123/76 92 L 03/03/20 19:35 97.1 F 95 18 130/85 93 L Date Exam was Performed: 03/03/20 Time Exam was Performed: 23:56 - My Orders Last 24 Hours: My Active Orders 03/03/20 20:18 EKG 12 Lead [EK] Stat 03/03/20 20:19 EKG Documentation Completion [RC] ASDIRECTED 03/03/20 21:30 Sodium Chloride 0.9% [Normal Saline] 1,000 ml IV ASDIRECTED 03/03/20 23:45 Sodium Chloride 0.9% [Normal Saline] 1,000 ml IV ASDIRECTED - Assessment/Plan Last 24 Hours: My Active Orders 03/03/20 20:18 EKG 12 Lead [EK] Stat 03/03/20 20:19 EKG Documentation Completion [RC] ASDIRECTED 03/03/20 21:30 Sodium Chloride 0.9% [Normal Saline] 1,000 ml IV ASDIRECTED 03/03/20 23:45 Sodium Chloride 0.9% [Normal Saline] 1,000 ml IV ASDIRECTED Plan: Assessment Acuity = acute Site and laterality = orthostatic hypotension complicated patient with known history adenocarcinoma moderately differentiated with metastases to the liver and abdominal wall, also history of BPH on 3 prostate medications current urinary tract infection Etiology = unknown suspicious for contribution of prostate medications Manifestations = hypotensive with standing Location of injury = Home Lab values = CBC unremarkable sodium revealed 132 consistent hyponatremia creatinine elevated 1.7 consistent with acute renal failure stage G3 B troponin was negative EKG demonstrates a sinus rhythm no ST changes Plan He remains hypotensive upon standing despite oral intake and 1 L fluids: Discussed case with hospitalist on-call at [phone] currently agreed to come and evaluate patient emergency department for admission This note was dictated using [employer] voice recognition software please call with any questions on syntax or grammar.
[2020-03-03] MEDS ORDERED: Sodium Chloride 0.9% 1,000 ML IV SCH ×2 (21:30→23:45)
--- NOTE | 2020-03-04 00:21 | PCM.HP.2 ---
H&P History of Present Illness - General Date of Service: 03/04/20 Admit Problem/Dx: Orthostatic hypotension, syncope Source of Information: Patient History Limitations: Reports: No Limitations - History of Present Illness Initial Comments - Free Text/Narative: Patient is an 84yo male recently dx with metastatic adenocarcinoma of the colon and is post-op day 19 from a total colectomy. Patient was DC on 02/25 from hospital. Patient developed syncope today that was about the 4th time since he went home from his surgery, per his 's count. He says he feels like it has been getting worse. He did vomit today and has not eaten very much food, he says he had a piece of fruit but vomited, but did eat an egg without issue. He says overall he's been doing okay and feeling well. No fevers, chills, Nausea, diarrhea, or other issues. Denies any pain besides what he identifies as post surgical. Onset of Symptoms: Reports: Gradual, Unknown/Unsure Symptom Onset Date: 02/27/20 Duration of Symptoms: Reports: Getting Worse Middle Abdomen Pain Score (Numeric/FACES): 5 - Related Data Allergies/Adverse Reactions: Allergies Allergy/AdvReac Type Severity Reaction Status Date / Time No Known Allergies Allergy Verified 03/03/20 19:36 Home Medications: Home Meds Doxazosin Mesylate [Cardura] 8 mg PO DAILY 10/03/14 [History] Finasteride [Proscar] 5 mg PO DAILY 10/03/14 [History] Fluticasone/Salmeterol [Advair 100-50] 1 puff INH BID PRN 10/03/14 [History] Lactobacillus Rhamnosus GG [Culturelle] 2 cap PO BID #120 cap 02/26/20 [Rx] Simethicone 160 mg PO Q2H PRN tab.chew 02/26/20 [Rx] Tamsulosin [Flomax] 0.4 mg PO BEDTIME #30 cap.er 02/26/20 [Rx] Levothyroxine Sodium [Euthyrox] 150 mcg PO DAILY 03/02/20 [History] Sulfamethoxazole/Trimethoprim [Septra DS] 1 each PO BID 5 Days #10 tab 03/02/20 [Rx] Past Medical History HEENT History: Reports: Impaired Vision Other HEENT History: glasses Cardiovascular History: Reports: High Cholesterol Respiratory History: Reports: Asthma Other Respiratory History: wood smoke Gastrointestinal History: Reports: Bowel Obstruction, GERD, Other (See Below) Other Gastrointestinal History: currently has gt clamped Genitourinary History: Reports: Prostate Disorder, Retention, Urinary Other Genitourinary History: current singh cath was discharged with Musculoskeletal History: Reports: Other (See Below) Other Musculoskeletal History: bilaterl hip pain Endocrine/Metabolic History: Reports: Other (See Below) Other Endocrine/Metabolic History: thyroid disease Oncologic (Cancer) History: Reports: Colon, Liver - Infectious Disease History Infectious Disease History: Reports: Chicken Pox, Measles, Mumps - Past Surgical History HEENT Surgical History: Reports: Tonsillectomy GI Surgical History: Reports: Other (See Below) Other GI Surgeries/Procedures: 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/12 G tube Neurological Surgical History: Reports: Discectomy Musculoskeletal Surgical History: Reports: Knee Replacement Social & Family History - Family History Family Medical History: Noncontributory - Tobacco Use Smoking Status *Q: Never Smoker Second Hand Smoke Exposure: No - Caffeine Use Caffeine Use: Reports: Coffee, Other Other Caffeine Use: protien drinks - Recreational Drug Use Recreational Drug Use: No H&P Review of Systems - Review of Systems: Review Of Systems: See Below General: Reports: Fatigue, Diaphoresis HEENT: Reports: No Symptoms Pulmonary: Reports: No Symptoms Cardiovascular: Reports: Syncope Gastrointestinal: Reports: Abdominal Pain (Post op from colectomy), Decreased Appetite, Vomiting. Denies: Diarrhea Genitourinary: Reports: No Symptoms Musculoskeletal: Reports: No Symptoms Skin: Reports: No Symptoms Psychiatric: Reports: No Symptoms Neurological: Reports: Syncope Hematologic/Lymphatic: Reports: No Symptoms Immunologic: Reports: No Symptoms Exam - Exam Exam: See Below - Vital Signs Vital Signs: Last Vital Signs Temp 36.2 C 03/03/20 19:35 Pulse 83 03/03/20 22:37 Resp 15 03/03/20 22:37 BP 129/77 03/03/20 22:37 Pulse Ox 94 L 03/03/20 22:37 Orthostatic Blood Pressure [ 77/35 Standing] Orthostatic Blood Pressure [ 98/48 Sitting] Orthostatic Blood Pressure [ 123/73 Supine] Weight: 90.718 kg - Exam General: Alert, Oriented, Cooperative HEENT: PERRLA, Hearing Intact, Mucosa Moist & [place], Nares Patent, Normal Nasal Septum, Posterior Pharynx Clear, Conjunctiva Clear, EOMI, EACs Clear, TMs Clear Neck: Supple, Trachea Midline, 2 Lungs: Clear to Auscultation, Normal Respiratory Effort Cardiovascular: Regular Rate, Regular Rhythm GI/Abdominal Exam: Normal Bowel Sounds, Soft, Non-Tender, No Organomegaly, No Distention, No Abnormal Bruit, No Mass, Pelvis Stable (Male) Exam: Deferred Rectal (Males) Exam: Deferred Back Exam: Normal Inspection, Full Range of Motion, NT Extremities: Normal Inspection, Normal Range of Motion, Non-Tender, No Pedal Edema, Normal Capillary Refill Skin: Warm, Dry, Intact Neurological: Cranial Nerves Intact, Reflexes Equal Bilateral Neuro Extensive - Mental Status: Alert, Oriented x3, Normal Mood/Affect, Normal Cognition Neuro Extensive - Motor, Sensory, Reflexes: CN II-XII Intact, Normal Gait, Normal Reflexes Psychiatric: Alert, Normal Affect, Normal Mood - Patient Data Lab Results Last 24 hrs: Laboratory Results - last 24 hr 03/03/20 03/03/20 03/03/20 Range/Units 20:30 20:30 20:30 WBC 11.7 H (4.5-11.0) K/uL RBC 4.46 (4.30-5.90) M/uL Hgb 12.6 (12.0-15.0) g/dL Hct 37.8 L (40.0-54.0) % MCV 85 (80-98) fL MCH 28 (27-31) pg MCHC 33 (32-36) % Plt Count 334 (150-400) K/uL Neut % (Auto) 84 H (36-66) % Lymph % (Auto) 6 L (24-44) % [place] % (Auto) 9 H (2-6) % Eos % (Auto) 1 L (2-4) % Baso % (Auto) 0 (0-1) % Sodium 132 L (140-148) mmol/L Potassium 4.1 (3.6-5.2) mmol/L Chloride 95 L (100-108) mmol/L Carbon Dioxide 26 (21-32) mmol/L Anion Gap 15.1 H (5.0-14.0) mmol/L BUN 29 H (7-18) mg/dL Creatinine 1.7 H (0.8-1.3) mg/dL Est Cr Clr Drug Dosing 31.85 mL/min Estimated GFR (MDRD) 39 L (>60) Glucose 116 H (74-106) mg/dL Calcium 9.0 (8.5-10.1) mg/dL Troponin I < 0.017 (0.000-0.056) ng/mL Result Diagrams: 03/03/20 20:30 03/03/20 20:30 Sepsis Event Note - Evaluation Sepsis Screening Result: No Definite Risk - Focused Exam Vital Signs: Vital Signs Temp Pulse Resp BP Pulse Ox 03/03/20 22:37 83 15 129/77 94 L 03/03/20 22:10 81 19 140/79 90 L 03/03/20 21:39 81 16 134/82 92 L 03/03/20 20:58 87 22 H 135/80 92 L 03/03/20 20:33 84 20 131/85 93 L 03/03/20 20:22 87 18 123/76 92 L 03/03/20 19:35 36.2 C 95 18 130/85 93 L Date Exam was Performed: 03/04/20 Time Exam was Performed: 00:30 - Problem List (1) Orthostatic hypotension SNOMED Code(s): 33913435 ICD Code: I95.1 - ORTHOSTATIC HYPOTENSION Status: Acute Current Visit: Yes Onset Date: ~02/26/20 Problem Details: Will aminister fluids, IV dextrose 5% with 1/2 normal saline, and hold alpha-1 blocking agents over night. Could consider imaging if these interventions are not successful. (2) Adenocarcinoma of colon metastatic to liver SNOMED Code(s): 9049319438468, 0332546114349 ICD Code: C18.9 - MALIGNANT NEOPLASM OF COLON, UNSPECIFIED; C78.7 - SECONDARY MALIG NEOPLASM OF LIVER AND INTRAHEPATIC BILE DUCT Status: Acute Current Visit: Yes Onset Date: Unknown Problem Details: Patient has active adenocarcinoma of the colon with metastatic disease. Could consider imaging if patient does not improve with fluids and holding of alpha-blockers (3) Mild dehydration SNOMED Code(s): 4773474549729 ICD Code: E86.0 - DEHYDRATION Status: Acute Current Visit: No Problem Details: Will continue fluids overnight to help with dehydration and syncope (4) BPH (benign prostatic hyperplasia) SNOMED Code(s): 187102028 ICD Code: N40.0 - BENIGN PROSTATIC HYPERPLASIA WITHOUT LOWER URINRY TRACT SYMP Status: Acute Current Visit: Yes Onset Date: Unknown Problem Details: Will hold patient's alpha-blockers as he has a singh catheter present at this time and the medications could be contributing to orthostatic hypotension Qualifiers: Lower urinary tract symptom presence: symptoms present Lower urinary tract symptom detail: urinary retention Qualified Code(s): N40.1 - Benign prostatic hyperplasia with lower urinary tract symptoms; R33.8 - Other retention of urine (5) Hypothyroidism SNOMED Code(s): 67562682 ICD Code: E03.9 - HYPOTHYROIDISM, UNSPECIFIED Status: Chronic Current Visit: No Problem Details: Will continue levothyroxine Qualifiers: Hypothyroidism type: unspecified Qualified Code(s): E03.9 - Hypothyroidism , unspecified (6) Mild asthma SNOMED Code(s): 195952763 ICD Code: J45.909 - UNSPECIFIED ASTHMA, UNCOMPLICATED Status: Chronic Current Visit: No Onset Date: Unknown Problem Details: Will order albuterol neb PRN Qualifiers: Asthma persistence: intermittent Asthma complication type: uncomplicated Qualified Code(s): J45.20 - Mild intermittent asthma, uncomplicated Problem List Initiated/Reviewed/Updated: Yes Orders Last 24hrs: Active Orders 24 hr Category Date Time Status EKG Documentation Completion [RC] ASDIRECTED Care 03/03/20 20:19 Active Sodium Chloride 0.9% [Normal Saline] 1,000 ml Med 03/03/20 21:30 Active IV ASDIRECTED Sodium Chloride 0.9% [Normal Saline] 1,000 ml Med 03/03/20 23:45 Active IV ASDIRECTED EKG 12 Lead [EK] Stat Ther 03/03/20 20:18 Ordered Medication Orders Sodium Chloride (Normal Saline) 1,000 mls @ 500 mls/hr IV ASDIRECTED ROMINA Last Admin: 03/03/20 21:28 Dose: 500 mls/hr Sodium Chloride (Normal Saline) 1,000 mls @ 250 mls/hr IV ASDIRECTED ROMINA Last Admin: 03/03/20 23:44 Dose: 250 mls/hr - Mortality Measure Prognosis:: Good
[2020-03-04] MEDS ORDERED: Ondansetron 4 MG Tab.DIS PO PRN (00:32)
[2020-03-04] MEDS ORDERED: Docusate Sodium 100 MG Cap PO PRN (00:32)
[2020-03-04] MEDS ORDERED: Albuterol 0.083% 2.5 MG/3 ML Neb Soln NEB PRN (00:32)
[2020-03-04] MEDS ORDERED: Morphine 2 MG/ML Syringe IVPUSH PRN (00:32)
[2020-03-04] MEDS ORDERED: Promethazine 6.25 MG in Sodium Chloride 0.9% 50 ML IV PRN (00:32)
[2020-03-04] MEDS ORDERED: oxyCODONE 5 MG Tab PO PRN (00:32)
[2020-03-04] MEDS ORDERED: Ondansetron 4 MG/2 ML SDV IV PRN (00:32)
[2020-03-04] MEDS ORDERED: Dextrose 5%-0.45% NaCl 1,000 ML IV SCH (00:45)
[2020-03-04] MEDS: Sulfamethoxazole/Trimethoprim 800-160 MG Tab PO SCH ×3 (01:52→20:43)
[2020-03-04] MEDS: diphenhydrAMINE 25 MG Cap PO PRN ×2 (01:52→21:47)
[2020-03-04] MEDS: Levothyroxine 50 MCG Tab PO SCH (08:06)
[2020-03-04] MEDS: Levothyroxine 100 MCG Tab PO SCH (08:06)
--- NOTE | 2020-03-04 13:22 | PCM.PN ---
- General Info Date of Service: 03/04/20 Subjective Update: Mr. Cohen has felt somewhat improved since admission with hydration. Denies weakness and lightheadedness, orthostatic vital signs continue to show a drop with standing. Some of his recent difficulty I think is secondary to poor oral intake of liquids. Functional Status: Reports: Pain Controlled, Tolerating Diet, Ambulating, Urinating - Review of Systems General: Reports: Weakness. Denies: Fever, Chills Pulmonary: Reports: No Symptoms Cardiovascular: Reports: No Symptoms. Denies: Lightheadedness Gastrointestinal: Reports: Nausea. Denies: Abdominal Pain, Diarrhea, Difficulty Swallowing, Vomiting - Patient Data Vitals - Most Recent: Last Vital Signs Temp 97.6 F 03/04/20 11:03 Pulse 83 03/04/20 11:03 Resp 18 03/04/20 11:03 BP 127/64 03/04/20 11:03 Pulse Ox 96 03/04/20 11:03 Orthostatic Blood Pressure [ 77/35 Standing] Orthostatic Blood Pressure [ 98/48 Sitting] Orthostatic Blood Pressure [ 123/73 Supine] Weight - Most Recent: 189 lb I&O - Last 24 Hours: Intake & Output 03/03/20 03/04/20 03/04/20 22:59 06:59 14:59 Intake Total 2667 Output Total 850 Balance 1817 Lab Results Last 24 Hours: Laboratory Results - last 24 hr 03/03/20 03/03/20 03/03/20 Range/Units 20:30 20:30 20:30 WBC 11.7 H (4.5-11.0) K/uL RBC 4.46 (4.30-5.90) M/uL Hgb 12.6 (12.0-15.0) g/dL Hct 37.8 L (40.0-54.0) % MCV 85 (80-98) fL MCH 28 (27-31) pg MCHC 33 (32-36) % Plt Count 334 (150-400) K/uL Neut % (Auto) 84 H (36-66) % Lymph % (Auto) 6 L (24-44) % [place] % (Auto) 9 H (2-6) % Eos % (Auto) 1 L (2-4) % Baso % (Auto) 0 (0-1) % Sodium 132 L (140-148) mmol/L Potassium 4.1 (3.6-5.2) mmol/L Chloride 95 L (100-108) mmol/L Carbon Dioxide 26 (21-32) mmol/L Anion Gap 15.1 H (5.0-14.0) mmol/L BUN 29 H (7-18) mg/dL Creatinine 1.7 H (0.8-1.3) mg/dL Est Cr Clr Drug Dosing 31.85 mL/min Estimated GFR (MDRD) 39 L (>60) Glucose 116 H (74-106) mg/dL Calcium 9.0 (8.5-10.1) mg/dL Total Bilirubin (0.2-1.0) mg/dL AST (15-37) U/L ALT (12-78) U/L Alkaline Phosphatase (46-116) U/L Troponin I < 0.017 (0.000-0.056) ng/mL Total Protein (6.4-8.2) g/dL Albumin (3.4-5.0) g/dL Globulin (2.3-3.5) g/dL Albumin/Globulin Ratio (1.2-2.2) 03/04/20 03/04/20 Range/Units 08:16 08:16 WBC 8.1 (4.5-11.0) K/uL RBC 4.12 L (4.30-5.90) M/uL Hgb 11.5 L (12.0-15.0) g/dL Hct 35.5 L (40.0-54.0) % MCV 86 (80-98) fL MCH 28 (27-31) pg MCHC 32 (32-36) % Plt Count 315 (150-400) K/uL Neut % (Auto) 79 H (36-66) % Lymph % (Auto) 9 L (24-44) % [place] % (Auto) 10 H (2-6) % Eos % (Auto) 2 (2-4) % Baso % (Auto) 0 (0-1) % Sodium 135 L (140-148) mmol/L Potassium 3.9 (3.6-5.2) mmol/L Chloride 100 (100-108) mmol/L Carbon Dioxide 27 (21-32) mmol/L Anion Gap 11.9 (5.0-14.0) mmol/L BUN 22 H (7-18) mg/dL Creatinine 1.4 H (0.8-1.3) mg/dL Est Cr Clr Drug Dosing 38.68 mL/min Estimated GFR (MDRD) 48 L (>60) Glucose 107 H (74-106) mg/dL Calcium 8.0 L (8.5-10.1) mg/dL Total Bilirubin 0.5 (0.2-1.0) mg/dL AST 35 (15-37) U/L ALT 96 H (12-78) U/L Alkaline Phosphatase 96 (46-116) U/L Troponin I (0.000-0.056) ng/mL Total Protein 5.7 L (6.4-8.2) g/dL Albumin 2.6 L (3.4-5.0) g/dL Globulin 3.1 (2.3-3.5) g/dL Albumin/Globulin Ratio 0.8 L (1.2-2.2) Med Orders - Current: Current Medications Acetaminophen (Tylenol) 650 mg PO Q4H PRN PRN Reason: Pain (Mild 1-3)/fever Albuterol (Proventil Neb Soln) 2.5 mg NEB Q4H PRN PRN Reason: Shortness Of Breath/wheezing Diphenhydramine HCl (Benadryl) 25 - 50 mg PO Q4H PRN PRN Reason: Insomnia Last Admin: 03/04/20 01:52 Dose: 50 mg Docusate Sodium (Colace) 100 mg PO BID PRN PRN Reason: Constipation Finasteride (Proscar) 5 mg PO BEDTIME [facility] Dextrose/Sodium Chloride (Dextrose 5%-1/2 Ns) 1,000 mls @ 75 mls/hr IV ASDIRECTED [facility] Last Admin: 03/04/20 01:32 Dose: 125 mls/hr Promethazine HCl 6.25 mg/ (Sodium Chloride) 50.25 mls @ 200 mls/hr IV Q6H PRN PRN Reason: Nausea/Vomiting Levothyroxine Sodium (Synthroid) 50 mcg PO ACBREAKFAST [facility] Last Admin: 03/04/20 08:06 Dose: 50 mcg Levothyroxine Sodium (Synthroid) 100 mcg PO ACBREAKFAST [facility] Last Admin: 03/04/20 08:06 Dose: 100 mcg Morphine Sulfate (Morphine) 2 mg IVPUSH Q2H PRN PRN Reason: Pain (severe 7-10) Ondansetron HCl (Zofran Odt) 4 mg PO Q6H PRN PRN Reason: Nausea able to take PO Ondansetron HCl (Zofran) 4 mg IV Q4H PRN PRN Reason: Nausea/Vomiting Last Admin: 03/04/20 02:01 Dose: 4 mg Oxycodone HCl (Oxycodone) 5 mg PO Q4H PRN PRN Reason: Pain (moderate 4-6) Trimethoprim/Sulfamethoxazole (Septra Ds) 1 tab PO BID [facility] Last Admin: 03/04/20 08:09 Dose: 1 tab Discontinued Medications Sodium Chloride (Normal Saline) 1,000 mls @ 500 mls/hr IV ASDIRECTED [facility] Last Admin: 03/03/20 21:28 Dose: 500 mls/hr Sodium Chloride (Normal Saline) 1,000 mls @ 250 mls/hr IV ASDIRECTED [facility] Last Admin: 03/03/20 23:44 Dose: 250 mls/hr - Exam Quality Assessment: DVT Prophylaxis General: Alert, Oriented, Cooperative, Mild Distress Lungs: Clear to Auscultation, Normal Respiratory Effort Cardiovascular: Regular Rate, Regular Rhythm, No Murmurs GI/Abdominal Exam: Soft, Non-Tender, No Organomegaly, No Distention Back Exam: Normal Inspection, Full Range of Motion Extremities: Non-Tender, No Pedal Edema Sepsis Event Note - Evaluation Sepsis Screening Result: No Definite Risk - Focused Exam Vital Signs: Vital Signs Temp Pulse Resp BP Pulse Ox 03/04/20 11:03 97.6 F 83 18 127/64 96 03/04/20 08:07 98.2 F 77 16 98/62 93 L 03/04/20 07:55 96 03/04/20 04:16 97.4 F 77 16 118/65 95 03/04/20 01:25 94 L Date Exam was Performed: 03/04/20 Time Exam was Performed: 17:59 - Problem List Review Problem List Initiated/Reviewed/Updated: Yes - My Orders Last 24 Hours: My Active Orders 03/04/20 13:04 Communication Order [RC] ASDIRECTED Orthostatic Vital Signs [RC] Q6HR 03/04/20 13:17 Consult to Physician [CONS] Routine 06/09/20 13:18 Notify Provider Consults [RC] ASDIRECTED 03/04/20 16:00 Abdomen Pelvis w Cont [CT] Stat 03/05/20 05:00 BASIC METABOLIC PANEL,BMP [CHEM] Timed 03/05/20 Breakfast NPO After Midnight [Nothing per Oral After Midnight Diet] [DIET] - Plan Plan:: ASSESSMENT AND PLAN ORTHOSTATIC HYPOTENSION-exacerbated by recent poor oral intake of liquids -IV fluids for hydration -Keep head of bed elevated at 45 degrees at all times -High sodium diet -Continue to monitor orthostatic vitals -Thigh-high support hose STATUS POST SURGICAL RESECTION OF COLON CANCER-poor oral intake secondary to ongoing symptoms of nausea. CT scan shows possible stricture at the anastomosis with dilated small bowel -Surgical follow-up per Dr. Cantrell -Central line placement, consider home TPN, as well as further use for chemotherapy DEHYDRATION-secondary to poor oral intake -Management as above MAINTENANCE ISSUES -DVT prophylaxis; SCUDs, hold on anticoagulation pending surgery tomorrow -GI prophylaxis; continue outpatient PPI therapy -Goss catheter; not indicated -Nutrition; soft diet, n.p.o. after midnight -Nicotinic dependence; not required CODE STATUS-FULL CODE ADMISSION STATUS-this patient will be admitted to observation status, expect no more than a one night hospital stay for evaluation and management of problems as outlined above. DISPOSITION-anticipate discharge to home after the hospital stay. PRIMARY CARE PROVIDER-Dr. Cavanaugh
[2020-03-04] MEDS ORDERED: Sodium Chloride 0.9% 10 ML Syringe FLUSH ONE (15:33)
[2020-03-04] MEDS ORDERED: Iopamidol 612 MG/ML 150 ML Bottle IV SCH (15:45)
--- NOTE | 2020-03-04 17:06 | CRLCT ---
INDICATION: Colon cancer. Postop nausea and ileus. TECHNIQUE: CT abdomen and pelvis acquired with 125 cc Isovue-300 IV contrast. COMPARISON: 02/14/2020. FINDINGS: Lower chest: Unremarkable. Liver: There are at least 2 nodules consistent with metastatic disease. Largest such nodule in the inferior right lobe series 2, image 65 measures 2 cm. Gallbladder and bile ducts: Multiple small gallbladder stones without evidence of inflammation or biliary dilatation. Pancreas: Unremarkable. No mass or inflammation. Spleen: Unremarkable. Normal in size. No masses. Adrenal glands: Unremarkable. No nodules. Kidneys: Stable benign-appearing cystic lesions. No hydronephrosis. Otherwise unremarkable kidneys. GI tract: There are postoperative changes from a subtotal colectomy. A suture line is in the left lower quadrant on series 2, image 103. The GI tract is diffusely distended with fluid levels proximal to the suture line. Percutaneous gastrostomy tube is in satisfactory position. Vasculature: Unremarkable. Mesenteric arteries are patent. Lymph nodes: No lymphadenopathy. Omentum/Peritoneum/Abdominal Wall: Unremarkable. No sign of mass or infiltration. No free air or significant free fluid. Pelvis: Goss catheter is within a decompressed bladder. Otherwise unremarkable. Bones: Unremarkable for age. IMPRESSION: 1. Diffuse distension of the small bowel proximal to the suture line in the left lower quadrant. Adynamic ileus or obstruction secondary to anastomotic stricture are both possible. 2. Metastatic disease present in the liver. 3. Cholelithiasis. Please note that all CT scans at this facility use dose modulation, iterative reconstruction, and/or weight-based dosing when appropriate to reduce radiation dose to as low as reasonably achievable. Dictated by Gui Schneider MD @ Mar 04 2020 4:50PM Signed by: Gui Schneider MD @03/04/2020 5:04:54 PM (Electronic Signature) Please note that all CT scans at this facility use dose modulation, iterative reconstruction, and/or weight-based dosing when appropriate to reduce radiation dose to as low as reasonably achievable. Dictated by: Gui Schneider MD @ 03/04/2020 17:05:53 (Electronically Signed)
[2020-03-04] MEDS ORDERED: Sodium Chloride 0.9% 1,000 ML IV SCH (17:45)
[2020-03-04] MEDS: Finasteride 5 MG Tab PO SCH (20:43)
[2020-03-04] MEDS: Acetaminophen 325 MG Tab PO PRN (21:47)
[2020-03-05] MEDS: diphenhydrAMINE 25 MG Cap PO PRN ×2 (02:39→21:34)
[2020-03-05] MEDS ORDERED: Linezolid 600 MG in Premix Bag 1 BAG IV ONE (06:22)
[2020-03-05] MEDS ORDERED: Bupivacaine 0.5% 50 ML MDV ONE (06:45)
[2020-03-05] MEDS ORDERED: Lidocaine 1% with EPINEPHrine 1:100,000 50 ML MDV ONE (06:46)
[2020-03-05] MEDS ORDERED: Midazolam 1 MG/ML 2 ML SDV ONE (06:59)
[2020-03-05] MEDS ORDERED: fentaNYL 100 MCG/2 ML SDV ONE (06:59)
[2020-03-05] MEDS ORDERED: Propofol 200 MG/20 ML SDV ONE (06:59)
[2020-03-05] MEDS ORDERED: Lactated Ringers 1,000 ML IV ONE (08:02)
[2020-03-05] MEDS: Sulfamethoxazole/Trimethoprim 800-160 MG Tab PO SCH ×2 (08:41→21:33)
[2020-03-05] MEDS: Levothyroxine 50 MCG Tab PO SCH (08:41)
[2020-03-05] MEDS: Levothyroxine 100 MCG Tab PO SCH (08:41)
--- NOTE | 2020-03-05 09:06 | PN ---
DATE OF SERVICE: 03/05/2020 SUBJECTIVE: Walter is n.p.o. He will be having a Baez catheter in, and he remains to have severe orthostatic hypotension. He will be starting TPN tonight and restarting Zithromax for gastroparesis, and hopefully that will aid in absorbing medications. He denies any pain. REVIEW OF SYSTEMS: Remainder of review of systems negative for any pertinent positives and negatives. OBJECTIVE: GENERAL: Walter Cohen is a pleasant 84-year-old male. He is alert and orientated. VITAL SIGNS: TPR at 0241, 97.7; 77; 16; blood pressure 119/68. HEENT: Negative. NECK: Supple. HEART: Regular rate and rhythm. ABDOMEN: Soft and nontender. Incision healing well. Gastrostomy tube in place. EXTREMITIES: Without peripheral edema. ASSESSMENT: 1. Orthostatic hypotension. 2. Status post surgical resection of colon cancer. 3. Dehydration, resolved. PLAN: 1. Zithromax 125 mg IV q.12 hours. Orders to be written post Baez catheter, as well as TPN orders will be written. 2. We will evaluate p.r.n. or in a.m. Michelle Casanova PA-C /[phone]
[2020-03-05] MEDS: Azithromycin 125 MG in Sodium Chloride 0.9% 150 ML IV SCH ×2 (10:41→21:34)
[2020-03-05] MEDS ORDERED: Sodium Chloride 0.9% 1,000 ML IV SCH (12:00)
[2020-03-05] MEDS: 1: AA 5%/Calcium/D15W/Lytes 1,000 ML with MVI, Adult with Vitamin K 10 ML, Chromium/Copp IV SCH ×6 (12:38→22:58)
--- NOTE | 2020-03-05 14:54 | PCM.PN ---
- General Info Date of Service: 03/05/20 Subjective Update: Mr. Cohen is felt further improved over the last 24 hours. Tolerating oral intake better than he had been previously. Continues to experience significant orthostatic drop in blood pressure, denies significant symptoms. He is status post Baez catheter placement earlier today by Dr. Cantrell. Functional Status: Reports: Tolerating Diet, Ambulating, Urinating - Review of Systems General: Reports: Weakness. Denies: Fever, Chills Pulmonary: Reports: No Symptoms Cardiovascular: Reports: No Symptoms Gastrointestinal: Reports: No Symptoms - Patient Data Vitals - Most Recent: Last Vital Signs Temp 98.2 F 03/05/20 10:49 Pulse 82 03/05/20 10:49 Resp 16 03/05/20 10:49 BP 114/58 L 03/05/20 10:49 Pulse Ox 96 03/05/20 10:49 Orthostatic Blood Pressure [ 81/54 Standing] Orthostatic Blood Pressure [ 88/46 Sitting] Orthostatic Blood Pressure [ 122/66 Supine] Weight - Most Recent: 189 lb I&O - Last 24 Hours: Intake & Output 03/04/20 03/05/20 03/05/20 22:59 06:59 14:59 Intake Total 500 2567 579 Output Total 1445 100 Balance 500 1122 479 Lab Results Last 24 Hours: Laboratory Results - last 24 hr 03/05/20 Range/Units 04:00 Sodium 135 L (140-148) mmol/L Potassium 3.8 (3.6-5.2) mmol/L Chloride 102 (100-108) mmol/L Carbon Dioxide 25 (21-32) mmol/L Anion Gap 11.8 (5.0-14.0) mmol/L BUN 16 (7-18) mg/dL Creatinine 1.3 (0.8-1.3) mg/dL Est Cr Clr Drug Dosing 41.65 mL/min Estimated GFR (MDRD) 53 L (>60) Glucose 83 (74-106) mg/dL Calcium 8.3 L (8.5-10.1) mg/dL Med Orders - Current: Current Medications Acetaminophen (Tylenol) 650 mg PO Q4H PRN PRN Reason: Pain (Mild 1-3)/fever Last Admin: 03/04/20 21:47 Dose: 650 mg Albuterol (Proventil Neb Soln) 2.5 mg NEB Q4H PRN PRN Reason: Shortness Of Breath/wheezing Diphenhydramine HCl (Benadryl) 25 - 50 mg PO Q4H PRN PRN Reason: Insomnia Last Admin: 03/05/20 02:39 Dose: 50 mg Docusate Sodium (Colace) 100 mg PO BID PRN PRN Reason: Constipation Finasteride (Proscar) 5 mg PO BEDTIME [facility] Last Admin: 03/04/20 20:43 Dose: 5 mg Promethazine HCl 6.25 mg/ (Sodium Chloride) 50.25 mls @ 200 mls/hr IV Q6H PRN PRN Reason: Nausea/Vomiting Azithromycin 125 mg/ Sodium (Chloride) 150 mls @ 150 mls/hr IV Q12H [facility] Last Admin: 03/05/20 10:41 Dose: 150 mls/hr Multivitamins/Minerals 10 ml/Chromium/Copper/Manganese/Seleni/Zn 1 ml/ Amino Ac/ Electrol/Dextrose/Calcium 1,011 mls @ 100 mls/hr IV .BY DURATION [facility] Last Admin: 03/05/20 12:38 Dose: 100 mls/hr Amino Ac/Electrol/Dextrose/Calcium (Clinimix E 5/15) 1,000 mls @ 100 mls/hr IV .BY DURATION [facility] Sodium Chloride (Normal Saline) 1,000 mls @ 40 mls/hr IV ASDIRECTED [facility] Last Admin: 03/05/20 12:49 Dose: 40 mls/hr Levothyroxine Sodium (Synthroid) 50 mcg PO ACBREAKFAST [facility] Last Admin: 03/05/20 08:41 Dose: 50 mcg Levothyroxine Sodium (Synthroid) 100 mcg PO ACBREAKFAST [facility] Last Admin: 03/05/20 08:41 Dose: 100 mcg Ondansetron HCl (Zofran Odt) 4 mg PO Q6H PRN PRN Reason: Nausea able to take PO Ondansetron HCl (Zofran) 4 mg IV Q4H PRN PRN Reason: Nausea/Vomiting Last Admin: 03/04/20 02:01 Dose: 4 mg Oxycodone HCl (Oxycodone) 5 mg PO Q4H PRN PRN Reason: Pain (moderate 4-6) Trimethoprim/Sulfamethoxazole (Septra Ds) 1 tab PO BID [facility] Last Admin: 03/05/20 08:41 Dose: 1 tab Discontinued Medications Bupivacaine HCl (Marcaine 0.5%) Confirm Administered Dose 50 ml .ROUTE .STK-MED ONE Stop: 03/05/20 06:46 Last Admin: 03/05/20 07:32 Dose: 5.5 ml Fentanyl (Sublimaze) Confirm Administered Dose 100 mcg .ROUTE .STK-MED ONE Stop: 03/05/20 07:00 Heparin Sodium (Porcine) (Heparin Lock Flush 100 Units/Ml) Confirm Administered Dose 1,500 units .ROUTE .STK-MED ONE Stop: 03/05/20 06:46 Last Admin: 03/05/20 07:30 Dose: 1,500 units Sodium Chloride (Normal Saline) 1,000 mls @ 500 mls/hr IV ASDIRECTED [facility] Last Admin: 03/03/20 21:28 Dose: 500 mls/hr Sodium Chloride (Normal Saline) 1,000 mls @ 250 mls/hr IV ASDIRECTED [facility] Last Admin: 03/03/20 23:44 Dose: 250 mls/hr Dextrose/Sodium Chloride (Dextrose 5%-1/2 Ns) 1,000 mls @ 75 mls/hr IV ASDIRECTED [facility] Last Admin: 03/04/20 01:32 Dose: 125 mls/hr Sodium Chloride (Normal Saline) 1,000 mls @ 75 mls/hr IV ASDIRECTED [facility] Stop: 03/05/20 11:59 Last Admin: 03/05/20 10:42 Dose: 75 mls/hr Linezolid 600 mg/ Premix 300 mls @ 300 mls/hr IV ONETIME ONE Stop: 03/05/20 07:21 Last Admin: 03/05/20 07:15 Dose: 300 mls/hr Lactated Ringer's (Ringers, Lactated) 1,000 mls @ 999 mls/hr IV BOLUS ONE Stop: 03/05/20 09:02 Last Admin: 03/05/20 08:16 Dose: 999 mls/hr Iopamidol (Isovue-300 (61%)) 125 ml IV . DIRECTED [facility] Stop: 03/04/20 17:00 Last Admin: 03/04/20 16:10 Dose: 125 ml Lidocaine/Epinephrine (Xylocaine 1% With Epinephrine 1:100,000) Confirm Administered Dose 50 ml .ROUTE .STK-MED ONE Stop: 03/05/20 06:47 Last Admin: 03/05/20 07:32 Dose: 5.5 ml Midazolam HCl (Versed 1 Mg/Ml) Confirm Administered Dose 2 mg .ROUTE .STK-MED ONE Stop: 03/05/20 07:00 Morphine Sulfate (Morphine) 2 mg IVPUSH Q2H PRN PRN Reason: Pain (severe 7-10) Propofol (Diprivan 20 Ml) Confirm Administered Dose 200 mg .ROUTE .STK-MED ONE Stop: 03/05/20 07:00 Sodium Chloride (Saline Flush) 10 ml FLUSH ONETIME ONE Stop: 03/04/20 15:34 Last Admin: 03/04/20 16:09 Dose: 10 ml - Exam Quality Assessment: DVT Prophylaxis General: Alert, Oriented, Cooperative, Mild Distress Lungs: Clear to Auscultation, Normal Respiratory Effort Cardiovascular: Regular Rate, Regular Rhythm, No Murmurs GI/Abdominal Exam: Soft, Non-Tender, No Organomegaly, No Distention Extremities: Non-Tender, No Pedal Edema Sepsis Event Note - Evaluation Sepsis Screening Result: No Definite Risk - Focused Exam Vital Signs: Vital Signs Temp Pulse Resp BP Pulse Ox 03/05/20 10:49 98.2 F 82 16 114/58 L 96 03/05/20 09:07 70 18 117/61 95 03/05/20 08:32 96.7 F L 74 18 122/66 93 L 03/05/20 08:10 15 115/62 99 03/05/20 08:05 15 126/61 98 03/05/20 08:00 16 122/62 97 03/05/20 07:55 17 118/62 96 03/05/20 07:50 97.0 F 14 119/59 L 96 Date Exam was Performed: 03/05/20 Time Exam was Performed: 14:51 - Problem List Review Problem List Initiated/Reviewed/Updated: Yes - My Orders Last 24 Hours: My Active Orders 03/04/20 17:52 Antiembolic Devices [RC] .Routine Sequential Compression Device [OM.PC] Routine - Plan Plan:: ASSESSMENT AND PLAN ORTHOSTATIC HYPOTENSION-he is to experience significant drop in blood pressure with change in position, denies significant symptoms -IV fluids for hydration -Keep head of bed elevated at 45 degrees at all times -High sodium diet -Continue to monitor orthostatic vitals -Thigh-high support hose STATUS POST SURGICAL RESECTION OF COLON CANCER-poor oral intake secondary to ongoing symptoms of nausea. CT scan shows possible stricture at the anastomosis with dilated small bowel. Status post Baez catheter placement -Surgical follow-up per Dr. Cantrell -Start TPN tonight DEHYDRATION-resolved -Management as above MAINTENANCE ISSUES -DVT prophylaxis; SCUDs, hold on anticoagulation pending surgery tomorrow -GI prophylaxis; continue outpatient PPI therapy -Goss catheter; not indicated -Nutrition; soft diet, n.p.o. after midnight -Nicotinic dependence; not required CODE STATUS-FULL CODE ADMISSION STATUS-this patient will be admitted to observation status, expect no more than a one night hospital stay for evaluation and management of problems as outlined above. DISPOSITION-anticipate discharge to home after the hospital stay. PRIMARY CARE PROVIDER-Dr. Cavanaugh
[2020-03-05] MEDS ORDERED: Lidocaine 2% Jelly 10 ML Urojet MUCMEM PRN (20:22)
[2020-03-05] MEDS: Finasteride 5 MG Tab PO SCH (21:33)
[2020-03-05] MEDS: Acetaminophen 325 MG Tab PO PRN (21:33)
[2020-03-05] MEDS: Melatonin 3 MG Tab PO PRN (23:22)
[2020-03-06] MEDS: diphenhydrAMINE 25 MG Cap PO PRN (02:25)
[2020-03-06] MEDS ORDERED: Central Total Parenteral Nutrition Bag SCH (07:30)
[2020-03-06] MEDS: Levothyroxine 100 MCG Tab PO SCH (08:38)
[2020-03-06] MEDS: Sulfamethoxazole/Trimethoprim 800-160 MG Tab PO SCH ×2 (08:39→20:58)
[2020-03-06] MEDS: Levothyroxine 50 MCG Tab PO SCH (08:39)
[2020-03-06] MEDS: 1: AA 5%/Calcium/D15W/Lytes 1,000 ML with MVI, Adult with Vitamin K 10 ML, Chromium/Copp IV SCH ×3 (09:24)
[2020-03-06] MEDS: Azithromycin 250 MG Tab PO SCH ×2 (10:01→20:58)
--- NOTE | 2020-03-06 10:54 | PN ---
DATE OF SERVICE: 03/06/2020 SUBJECTIVE: Walter had an insertion of a Baez cath, left subclavian, for inadequate central vein access, put in yesterday 03/05/2020. TPN was started, and he tolerated that well. Gastrostomy tube total output is 175. He does tolerate the G-tube to dependent drainage during the night. Goss catheter output was 950. He is having some swelling, firmness, and redness noted around the insertion of Goss catheter. Appropriate nursing care is being done. No further episodes of orthostatic hypotension. Blood pressure has been stable. Denies any abdominal pain. Occasional nausea. REVIEW OF SYSTEMS: Remainder of review of systems negative for any pertinent positives or negatives. OBJECTIVE: GENERAL: Walter Cohen is a pleasant 84-year-old male. VITAL SIGNS: TPR at 0733 is 96.3, 74, 16. Blood pressure 115/56. HEENT: Negative. NECK: Supple. HEART: Regular rate and rhythm. LUNGS: Clear. ABDOMEN: Gastrostomy tube in place. There is redness noted around the gastrostomy tube. As before, it does leak around that tube. EXTREMITIES: Without peripheral edema. ASSESSMENT: 1. Orthostatic hypotension. 2. Severe dehydration, resolving. 3. Status post colon resection. 4. Adenocarcinoma of colon, metastatic to liver. 5. Urinary tract infection. 6. Hypothyroidism. 7. Mild asthma. 8. Benign prostatic hyperplasia. 9. Gastroparesis. PLAN: 1. Continue same TPN rate and content. 2. Decrease TPN rate to 84 mL per hour and continue at 84 mL per hour until 5:00 a.m., turn the rate to 40 mL per hour; at 6:00 a.m., turn the TPN off. Plan to run TPN 84 mL per hour for 12 hours. 3. Zithromax 125 mg oral b.i.d. for gastroparesis. 4. Add 8 mL of saline to the bulb of the gastrostomy tube to avoid leaking around the tube. 5. Leave gastrostomy tube to drainage during the night to prevent excessive gas, bloating, nausea. 6. Discontinue Goss catheter. 7. To check CBC, CMP, mag, phos, and BNP in a.m. Walter Cohen is an 84-year-old male with recent diagnosis of adenocarcinoma of colon, metastatic to liver. He has been unable to maintain adequate oral fluid and nutritional intake at home, which resulted in orthostatic hypotension, nausea, vomiting, and 2 evaluations in the emergency department. A CT was obtained on 03/04/2020 and impression; 1. Diffuse distention of small bowel proximal to the suture line in the left lower quadrant. Adynamic ileus or obstruction secondary to anatomic stricture are both possible. 2. Metastatic disease present in liver. 3. Cholelithiasis. The liver did show at least 2 nodules consistent with metastatic disease. Due to the status of his abdominal ileus, metastatic cancer, Walter requires TPN. Length of time is unknown pending his diagnosis and upcoming chemotherapy and/or radiation. He has an appointment coming up with Oncology. The G-tube that is present is for poor gastric emptying and he needs to empty that gastrostomy tube frequently during the day and he needs to leave it to dependent drainage at night. Labs today; hemoglobin is 10.4. Sodium 132, albumin 2.3, globulin 2.9, and albumin-globulin ratio is 0.8. Calcium 8.1. We will evaluate the patient p.r.n. or in a.m. Michelle Casanova PA-C /[id number]
--- NOTE | 2020-03-06 13:23 | PCM.PN ---
- General Info Date of Service: 03/06/20 Subjective Update: Mr. Cohen has been stable since yesterday, tolerating TPN. Continues to experience some orthostasis but improved from admission. Denies significant lightheadedness or weakness with standing. Currently in the process of titrating TPN and setting it up for infusion at night. Functional Status: Reports: Tolerating Diet, Ambulating - Review of Systems General: Denies: Fever, Weakness, Chills Pulmonary: Reports: No Symptoms Cardiovascular: Reports: No Symptoms Gastrointestinal: Reports: No Symptoms - Patient Data Vitals - Most Recent: Last Vital Signs Temp 97.5 F 03/06/20 10:46 Pulse 70 03/06/20 10:46 Resp 16 03/06/20 10:46 BP 111/60 03/06/20 10:46 Pulse Ox 96 03/06/20 10:46 Orthostatic Blood Pressure [ 89/48 Standing] Orthostatic Blood Pressure [ 95/60 Sitting] Orthostatic Blood Pressure [ 113/65 Supine] Weight - Most Recent: 189 lb I&O - Last 24 Hours: Intake & Output 03/05/20 03/06/20 03/06/20 22:59 06:59 14:59 Intake Total 1393 1216 Output Total 1250 575 Balance 143 641 Lab Results Last 24 Hours: Laboratory Results - last 24 hr 03/06/20 03/06/20 Range/Units 04:05 04:05 WBC 6.5 (4.5-11.0) K/uL RBC 3.75 L (4.30-5.90) M/uL Hgb 10.4 L (12.0-15.0) g/dL Hct 32.5 L (40.0-54.0) % MCV 87 (80-98) fL MCH 28 (27-31) pg MCHC 32 (32-36) % Plt Count 263 (150-400) K/uL Sodium 132 L (140-148) mmol/L Potassium 4.0 (3.6-5.2) mmol/L Chloride 103 (100-108) mmol/L Carbon Dioxide 23 (21-32) mmol/L Anion Gap 10.0 (5.0-14.0) mmol/L BUN 19 H (7-18) mg/dL Creatinine 1.1 (0.8-1.3) mg/dL Est Cr Clr Drug Dosing 49.23 mL/min Estimated GFR (MDRD) > 60 (>60) Glucose 134 H (74-106) mg/dL Calcium 8.1 L (8.5-10.1) mg/dL Phosphorus 3.6 (2.5-4.9) mg/dL Magnesium 1.6 L D (1.8-2.4) mg/dL Total Bilirubin 0.2 D (0.2-1.0) mg/dL AST 23 (15-37) U/L ALT 63 (12-78) U/L Alkaline Phosphatase 83 (46-116) U/L NT-Pro-B Natriuret Pep 37 (5-450) pg/mL Total Protein 5.2 L (6.4-8.2) g/dL Albumin 2.3 L (3.4-5.0) g/dL Globulin 2.9 (2.3-3.5) g/dL Albumin/Globulin Ratio 0.8 L (1.2-2.2) Med Orders - Current: Current Medications Acetaminophen (Tylenol) 650 mg PO Q4H PRN PRN Reason: Pain (Mild 1-3)/fever Last Admin: 03/05/20 21:33 Dose: 650 mg Albuterol (Proventil Neb Soln) 2.5 mg NEB Q4H PRN PRN Reason: Shortness Of Breath/wheezing Azithromycin (Zithromax) 125 mg PO BID [facility] Last Admin: 03/06/20 10:01 Dose: 125 mg Diphenhydramine HCl (Benadryl) 25 - 50 mg PO Q4H PRN PRN Reason: Insomnia Last Admin: 03/06/20 02:25 Dose: 50 mg Docusate Sodium (Colace) 100 mg PO BID PRN PRN Reason: Constipation Finasteride (Proscar) 5 mg PO BEDTIME [facility] Last Admin: 03/05/20 21:33 Dose: 5 mg Promethazine HCl 6.25 mg/ (Sodium Chloride) 50.25 mls @ 200 mls/hr IV Q6H PRN PRN Reason: Nausea/Vomiting Multivitamins/Minerals 10 ml/Chromium/Copper/Manganese/Seleni/Zn 1 ml/ Amino Ac/ Electrol/Dextrose/Calcium 1,011 mls @ 100 mls/hr IV .BY DURATION [facility] Stop: 03/06/20 17:55 Last Admin: 03/06/20 09:24 Dose: 100 mls/hr Amino Ac/Electrol/Dextrose/Calcium (Clinimix E 5/15) 1,000 mls @ 100 mls/hr IV .BY DURATION [facility] Stop: 03/06/20 17:55 Last Admin: 03/05/20 22:58 Dose: 100 mls/hr Multivitamins/Minerals 10 ml/Chromium/Copper/Manganese/Seleni/Zn 1 ml/ Amino Ac/ Electrol/Dextrose/Calcium 1,011 mls @ 84 mls/hr IV .BY DURATION [facility] Amino Ac/Electrol/Dextrose/Calcium (Clinimix E 5/15) 1,000 mls @ 84 mls/hr IV .BY DURATION [facility] Magnesium Sulfate 2 gm/ Premix 50 mls @ 25 mls/hr IV Q6H [facility] Stop: 03/06/20 21:29 Levothyroxine Sodium (Synthroid) 50 mcg PO ACBREAKFAST [facility] Last Admin: 03/06/20 08:39 Dose: 50 mcg Levothyroxine Sodium (Synthroid) 100 mcg PO ACBREAKFAST [facility] Last Admin: 03/06/20 08:38 Dose: 100 mcg Lidocaine HCl (Xylocaine 2% Jelly) 2 ml MUCMEM DAILY PRN PRN Reason: Pain Last Admin: 03/05/20 21:18 Dose: 2 ml Magnesium Oxide (Magnesium Oxide) 400 mg PO BID [facility] Melatonin (Melatonin) 6 mg PO BEDTIME PRN PRN Reason: Insomnia Last Admin: 03/05/20 23:22 Dose: 6 mg Ondansetron HCl (Zofran Odt) 4 mg PO Q6H PRN PRN Reason: Nausea able to take PO Ondansetron HCl (Zofran) 4 mg IV Q4H PRN PRN Reason: Nausea/Vomiting Last Admin: 03/04/20 02:01 Dose: 4 mg Oxycodone HCl (Oxycodone) 5 mg PO Q4H PRN PRN Reason: Pain (moderate 4-6) Trimethoprim/Sulfamethoxazole (Septra Ds) 1 tab PO BID [facility] Last Admin: 03/06/20 08:39 Dose: 1 tab Discontinued Medications Bupivacaine HCl (Marcaine 0.5%) Confirm Administered Dose 50 ml .ROUTE .STK-MED ONE Stop: 03/05/20 06:46 Last Admin: 03/05/20 07:32 Dose: 5.5 ml Fentanyl (Sublimaze) Confirm Administered Dose 100 mcg .ROUTE .STK-MED ONE Stop: 03/05/20 07:00 Heparin Sodium (Porcine) (Heparin Lock Flush 100 Units/Ml) Confirm Administered Dose 1,500 units .ROUTE .STK-MED ONE Stop: 03/05/20 06:46 Last Admin: 03/05/20 07:30 Dose: 1,500 units Sodium Chloride (Normal Saline) 1,000 mls @ 500 mls/hr IV ASDIRECTED [facility] Last Admin: 03/03/20 21:28 Dose: 500 mls/hr Sodium Chloride (Normal Saline) 1,000 mls @ 250 mls/hr IV ASDIRECTED [facility] Last Admin: 03/03/20 23:44 Dose: 250 mls/hr Dextrose/Sodium Chloride (Dextrose 5%-1/2 Ns) 1,000 mls @ 75 mls/hr IV ASDIRECTED [facility] Last Admin: 03/04/20 01:32 Dose: 125 mls/hr Sodium Chloride (Normal Saline) 1,000 mls @ 75 mls/hr IV ASDIRECTED [facility] Stop: 03/05/20 11:59 Last Admin: 03/05/20 10:42 Dose: 75 mls/hr Linezolid 600 mg/ Premix 300 mls @ 300 mls/hr IV ONETIME ONE Stop: 03/05/20 07:21 Last Admin: 03/05/20 07:15 Dose: 300 mls/hr Azithromycin 125 mg/ Sodium (Chloride) 150 mls @ 150 mls/hr IV Q12H [facility] Last Admin: 03/05/20 21:34 Dose: 150 mls/hr Lactated Ringer's (Ringers, Lactated) 1,000 mls @ 999 mls/hr IV BOLUS ONE Stop: 03/05/20 09:02 Last Admin: 03/05/20 08:16 Dose: 999 mls/hr Sodium Chloride (Normal Saline) 1,000 mls @ 40 mls/hr IV ASDIRECTED [facility] Last Admin: 03/05/20 12:49 Dose: 40 mls/hr Iopamidol (Isovue-300 (61%)) 125 ml IV . DIRECTED [facility] Stop: 03/04/20 17:00 Last Admin: 03/04/20 16:10 Dose: 125 ml Lidocaine/Epinephrine (Xylocaine 1% With Epinephrine 1:100,000) Confirm Administered Dose 50 ml .ROUTE .STK-MED ONE Stop: 03/05/20 06:47 Last Admin: 03/05/20 07:32 Dose: 5.5 ml Midazolam HCl (Versed 1 Mg/Ml) Confirm Administered Dose 2 mg .ROUTE .STK-MED ONE Stop: 03/05/20 07:00 Morphine Sulfate (Morphine) 2 mg IVPUSH Q2H PRN PRN Reason: Pain (severe 7-10) Non-Formulary Medication (Total Parenteral Nutrition, Central) 1,000 ml .XX .Continue Order [facility] Stop: 03/06/20 12:00 Propofol (Diprivan 20 Ml) Confirm Administered Dose 200 mg .ROUTE .STK-MED ONE Stop: 03/05/20 07:00 Sodium Chloride (Saline Flush) 10 ml FLUSH ONETIME ONE Stop: 03/04/20 15:34 Last Admin: 03/04/20 16:09 Dose: 10 ml - Exam General: Alert, Oriented, Cooperative, Mild Distress Lungs: Clear to Auscultation, Normal Respiratory Effort Cardiovascular: Regular Rate, Regular Rhythm, No Murmurs GI/Abdominal Exam: Soft, Non-Tender, No Organomegaly, No Distention Extremities: Non-Tender, No Pedal Edema Sepsis Event Note - Evaluation Sepsis Screening Result: No Definite Risk - Focused Exam Vital Signs: Vital Signs Temp Pulse Resp BP Pulse Ox 03/06/20 10:46 97.5 F 70 16 111/60 96 03/06/20 07:33 96.3 F L 74 16 115/56 L 97 Date Exam was Performed: 03/06/20 Time Exam was Performed: 13:24 - Problem List Review Problem List Initiated/Reviewed/Updated: Yes - My Orders Last 24 Hours: My Active Orders 03/05/20 23:09 Melatonin 6 mg PO BEDTIME PRN 03/06/20 13:21 Discontinue Telemetry Monitoring [Cardiac Monitoring Discontinue] [RC] Click to Edit 03/06/20 13:30 Magnesium Oxide 400 mg PO BID Magnesium Sulfate/Water [Magnesium Sulfate in Water Premix] 2 gm Premix Bag 1 bag IV Q6H - Plan Plan:: ASSESSMENT AND PLAN ORTHOSTATIC HYPOTENSION-improved with current management -Saline lock IV -Keep head of bed elevated at 45 degrees at all times -High sodium diet -Continue to monitor orthostatic vitals -Thigh-high support hose STATUS POST SURGICAL RESECTION OF COLON CANCER-poor oral intake secondary to ongoing symptoms of nausea. CT scan shows possible stricture at the anastomosis with dilated small bowel. Status post Baez catheter placement -Surgical follow-up per Dr. Cantrell -Start TPN tonight DEHYDRATION-resolved -Management as above URINARY RETENTION SECONDARY TO BPH-trial of Goss catheter removal today MAINTENANCE ISSUES -DVT prophylaxis; SCUDs, hold on anticoagulation pending surgery tomorrow -GI prophylaxis; continue outpatient PPI therapy -Goss catheter; not indicated -Nutrition; soft diet, n.p.o. after midnight -Nicotinic dependence; not required CODE STATUS-FULL CODE ADMISSION STATUS-this patient will be admitted to observation status, expect no more than a one night hospital stay for evaluation and management of problems as outlined above. DISPOSITION-anticipate discharge to home after the hospital stay. PRIMARY CARE PROVIDER-Dr. Cavanaugh
[2020-03-06] MEDS ORDERED: Magnesium Oxide 400 MG Tab PO SCH (14:00)
[2020-03-06] MEDS: Magnesium Sulfate/Water 2 GM in Premix Bag 1 BAG IV SCH ×2 (14:54→19:31)
[2020-03-06] MEDS: Magnesium Oxide 400 MG Tab PO SCH ×2 (16:30→20:58)
[2020-03-06] MEDS ORDERED: 1: AA 5%/Calcium/D15W/Lytes 1,000 ML with MVI, Adult with Vitamin K 10 ML, Chromium/Copp IV SCH ×3 (20:00)
[2020-03-06] MEDS: Finasteride 5 MG Tab PO SCH (20:58)
[2020-03-06] MEDS: Tamsulosin 0.4 MG Cap.ER PO SCH (20:59)
[2020-03-06] MEDS: Acetaminophen 325 MG Tab PO PRN (21:06)
[2020-03-06] MEDS: Melatonin 3 MG Tab PO PRN (21:07)
[2020-03-07] MEDS: diphenhydrAMINE 25 MG Cap PO PRN ×2 (00:27→22:02)
[2020-03-07] MEDS ORDERED: Aluminum Sulf/Calcium Acetate 5 EACH, Water For Injection,Sterile 75 ML, Petrolatum,Whi... TOP PRN ×5 (06:45)
[2020-03-07] MEDS: Levothyroxine 50 MCG Tab PO SCH (08:21)
[2020-03-07] MEDS: Levothyroxine 100 MCG Tab PO SCH (08:21)
[2020-03-07] MEDS: Azithromycin 250 MG Tab PO SCH ×2 (08:22→19:59)
[2020-03-07] MEDS: Magnesium Oxide 400 MG Tab PO SCH ×2 (08:22→19:59)
--- NOTE | 2020-03-07 08:55 | PCM.SN.2 ---
- Free Text/Narrative Note: Walter Cohen is a 84 year old who was recently diagnosed with adenocarcinoma of the colon with metastasis to the liver. A Gastrostomy Tube was placed at the time of surgery for the intention of using it to help empty the stomach and for possible feedings. Due to a complication of Gastroparesis the G Tube was not able to be used for feedings. He has the gastrostomy tube to empty the stomach and is at bedside drainage at night. A J tube was not used because of the colon cancer and impending chemotherapy and radiation. J tube vs G tube was the medical decision that occurred during the surgical procedure by Otilio Cantrell MD surgeon and before the final pathology report was available. Due to the nature of the surgery and post operative ileus and gastroparesis TPN is the best medical nutritional therapy for the patient. Adding anything to the G Tube with the stomach not emptying is contraindicated. Absorption is better accomplished with TPN. Length of TPN expected 99 months or longer.
--- NOTE | 2020-03-07 09:27 | PCM.PN ---
- General Info Date of Service: 03/07/20 Subjective Update: Mr. Cohen has been stable over the last 24 hours and has been tolerating his TPN without significant difficulty. Lightheadedness and weakness has resolved. Goss catheter removed yesterday, he continues to have relatively high postvoid residuals. Functional Status: Reports: Tolerating Diet, Ambulating - Review of Systems General: Denies: Fever, Weakness, Chills Pulmonary: Reports: No Symptoms Cardiovascular: Reports: No Symptoms Gastrointestinal: Reports: No Symptoms - Patient Data Vitals - Most Recent: Last Vital Signs Temp 96.5 F L 03/07/20 07:00 Pulse 94 03/07/20 07:00 Resp 16 03/07/20 07:00 BP 122/72 03/07/20 07:00 Pulse Ox 97 03/07/20 07:00 Orthostatic Blood Pressure [ 100/51 Standing] Orthostatic Blood Pressure [ 109/62 Sitting] Orthostatic Blood Pressure [ 127/57 Supine] Weight - Most Recent: 196 lb 6.4 oz I&O - Last 24 Hours: Intake & Output 03/06/20 03/07/20 03/07/20 22:59 06:59 14:59 Intake Total 1787 1362 120 Output Total 170 500 Balance 1617 862 120 Lab Results Last 24 Hours: Laboratory Results - last 24 hr 03/07/20 03/07/20 Range/Units 05:05 05:05 WBC 6.3 (4.5-11.0) K/uL RBC 4.12 L (4.30-5.90) M/uL Hgb 11.3 L (12.0-15.0) g/dL Hct 35.6 L (40.0-54.0) % MCV 86 (80-98) fL MCH 27 (27-31) pg MCHC 32 (32-36) % Plt Count 252 (150-400) K/uL Sodium 134 L (140-148) mmol/L Potassium 4.0 (3.6-5.2) mmol/L Chloride 102 (100-108) mmol/L Carbon Dioxide 24 (21-32) mmol/L Anion Gap 12.0 (5.0-14.0) mmol/L BUN 20 H (7-18) mg/dL Creatinine 1.0 (0.8-1.3) mg/dL Est Cr Clr Drug Dosing 54.15 mL/min Estimated GFR (MDRD) > 60 (>60) Glucose 118 H (74-106) mg/dL Calcium 8.3 L (8.5-10.1) mg/dL Phosphorus 3.2 (2.5-4.9) mg/dL Magnesium 2.3 (1.8-2.4) mg/dL Total Bilirubin 0.3 (0.2-1.0) mg/dL AST 36 (15-37) U/L ALT 74 (12-78) U/L Alkaline Phosphatase 91 (46-116) U/L NT-Pro-B Natriuret Pep 27 (5-450) pg/mL Total Protein 5.9 L (6.4-8.2) g/dL Albumin 2.6 L (3.4-5.0) g/dL Globulin 3.3 (2.3-3.5) g/dL Albumin/Globulin Ratio 0.8 L (1.2-2.2) Med Orders - Current: Current Medications Acetaminophen (Tylenol) 650 mg PO Q4H PRN PRN Reason: Pain (Mild 1-3)/fever Last Admin: 03/06/20 21:06 Dose: 650 mg Albuterol (Proventil Neb Soln) 2.5 mg NEB Q4H PRN PRN Reason: Shortness Of Breath/wheezing Azithromycin (Zithromax) 125 mg PO BID [facility] Last Admin: 03/07/20 08:22 Dose: 125 mg Aluminum Sulfate/Calcium Acetate 5 each/ Sterile Water 75 ml/ Petrolatum 75 gm/ Mineral Oil/White Petrolatum 75 gm/ Multi-Ingred Cream/Lotion/Oil/Oint 225 gm 0 each TOP ASDIRECTED PRN PRN Reason: Other Aluminum Sulfate/Calcium Acetate 5 each/ Sterile Water 75 ml/ Petrolatum 75 gm/ Mineral Oil/White Petrolatum 75 gm/ Multi-Ingred Cream/Lotion/Oil/Oint 225 gm 0 each TOP BID [facility] Diphenhydramine HCl (Benadryl) 25 - 50 mg PO Q4H PRN PRN Reason: Insomnia Last Admin: 03/07/20 00:27 Dose: 50 mg Docusate Sodium (Colace) 100 mg PO BID PRN PRN Reason: Constipation Finasteride (Proscar) 5 mg PO BEDTIME [facility] Last Admin: 03/06/20 20:58 Dose: 5 mg Heparin Sodium (Porcine) (Heparin Lock Flush 100 Units/Ml) 500 units FLUSH ASDIRECTED PRN PRN Reason: Keep Vein Open Last Admin: 03/07/20 08:22 Dose: 500 units Promethazine HCl 6.25 mg/ (Sodium Chloride) 50.25 mls @ 200 mls/hr IV Q6H PRN PRN Reason: Nausea/Vomiting Multivitamins/Minerals 10 ml/Chromium/Copper/Manganese/Seleni/Zn 1 ml/ Amino Ac/ Electrol/Dextrose/Calcium 1,011 mls @ 84 mls/hr IV Q24H [facility] Levothyroxine Sodium (Synthroid) 50 mcg PO ACBREAKFAST [facility] Last Admin: 03/07/20 08:21 Dose: 50 mcg Levothyroxine Sodium (Synthroid) 100 mcg PO ACBREAKFAST [facility] Last Admin: 03/07/20 08:21 Dose: 100 mcg Lidocaine HCl (Xylocaine 2% Jelly) 2 ml MUCMEM DAILY PRN PRN Reason: Pain Last Admin: 03/05/20 21:18 Dose: 2 ml Magnesium Oxide (Magnesium Oxide) 400 mg PO BID [facility] Last Admin: 03/07/20 08:22 Dose: 400 mg Melatonin (Melatonin) 6 mg PO BEDTIME PRN PRN Reason: Insomnia Last Admin: 03/06/20 21:07 Dose: 6 mg Ondansetron HCl (Zofran Odt) 4 mg PO Q6H PRN PRN Reason: Nausea able to take PO Ondansetron HCl (Zofran) 4 mg IV Q4H PRN PRN Reason: Nausea/Vomiting Last Admin: 03/04/20 02:01 Dose: 4 mg Oxycodone HCl (Oxycodone) 5 mg PO Q4H PRN PRN Reason: Pain (moderate 4-6) Tamsulosin HCl (Flomax) 0.4 mg PO BEDTIME [facility] Last Admin: 03/06/20 20:59 Dose: 0.4 mg Trimethoprim/Sulfamethoxazole (Septra Ds) 1 tab PO BID [facility] Last Admin: 03/06/20 20:58 Dose: 1 tab Discontinued Medications Bupivacaine HCl (Marcaine 0.5%) Confirm Administered Dose 50 ml .ROUTE .STK-MED ONE Stop: 03/05/20 06:46 Last Admin: 03/05/20 07:32 Dose: 5.5 ml Fentanyl (Sublimaze) Confirm Administered Dose 100 mcg .ROUTE .STK-MED ONE Stop: 03/05/20 07:00 Heparin Sodium (Porcine) (Heparin Lock Flush 100 Units/Ml) Confirm Administered Dose 1,500 units .ROUTE .STK-MED ONE Stop: 03/05/20 06:46 Last Admin: 03/05/20 07:30 Dose: 1,500 units Sodium Chloride (Normal Saline) 1,000 mls @ 500 mls/hr IV ASDIRECTED [facility] Last Admin: 03/03/20 21:28 Dose: 500 mls/hr Sodium Chloride (Normal Saline) 1,000 mls @ 250 mls/hr IV ASDIRECTED [facility] Last Admin: 03/03/20 23:44 Dose: 250 mls/hr Dextrose/Sodium Chloride (Dextrose 5%-1/2 Ns) 1,000 mls @ 75 mls/hr IV ASDIRECTED [facility] Last Admin: 03/04/20 01:32 Dose: 125 mls/hr Sodium Chloride (Normal Saline) 1,000 mls @ 75 mls/hr IV ASDIRECTED [facility] Stop: 03/05/20 11:59 Last Admin: 03/05/20 10:42 Dose: 75 mls/hr Linezolid 600 mg/ Premix 300 mls @ 300 mls/hr IV ONETIME ONE Stop: 03/05/20 07:21 Last Admin: 03/05/20 07:15 Dose: 300 mls/hr Azithromycin 125 mg/ Sodium (Chloride) 150 mls @ 150 mls/hr IV Q12H [facility] Last Admin: 03/05/20 21:34 Dose: 150 mls/hr Lactated Ringer's (Ringers, Lactated) 1,000 mls @ 999 mls/hr IV BOLUS ONE Stop: 03/05/20 09:02 Last Admin: 03/05/20 08:16 Dose: 999 mls/hr Multivitamins/Minerals 10 ml/Chromium/Copper/Manganese/Seleni/Zn 1 ml/ Amino Ac/ Electrol/Dextrose/Calcium 1,011 mls @ 100 mls/hr IV .BY DURATION [facility] Stop: 03/06/20 17:55 Last Admin: 03/06/20 09:24 Dose: 100 mls/hr Amino Ac/Electrol/Dextrose/Calcium (Clinimix E 5/15) 1,000 mls @ 100 mls/hr IV .BY DURATION [facility] Stop: 03/06/20 17:55 Last Admin: 03/05/20 22:58 Dose: 100 mls/hr Sodium Chloride (Normal Saline) 1,000 mls @ 40 mls/hr IV ASDIRECTED [facility] Last Admin: 03/05/20 12:49 Dose: 40 mls/hr Multivitamins/Minerals 10 ml/Chromium/Copper/Manganese/Seleni/Zn 1 ml/ Amino Ac/ Electrol/Dextrose/Calcium 1,011 mls @ 84 mls/hr IV .BY DURATION [facility] Amino Ac/Electrol/Dextrose/Calcium (Clinimix E 15) 1,000 mls @ 84 mls/hr IV .BY DURATION [facility] Last Admin: 03/06/20 19:30 Dose: 84 mls/hr Magnesium Sulfate 2 gm/ Premix 50 mls @ 25 mls/hr IV Q6H [facility] Stop: 03/06/20 21:59 Last Admin: 03/06/20 19:31 Dose: 25 mls/hr Iopamidol (Isovue-300 (61%)) 125 ml IV . DIRECTED [facility] Stop: 03/04/20 17:00 Last Admin: 03/04/20 16:10 Dose: 125 ml Lidocaine/Epinephrine (Xylocaine 1% With Epinephrine 1:100,000) Confirm Administered Dose 50 ml .ROUTE .STK-MED ONE Stop: 03/05/20 06:47 Last Admin: 03/05/20 07:32 Dose: 5.5 ml Magnesium Oxide (Magnesium Oxide) 400 mg PO BID [facility] Midazolam HCl (Versed 1 Mg/Ml) Confirm Administered Dose 2 mg .ROUTE .STK-MED ONE Stop: 03/05/20 07:00 Morphine Sulfate (Morphine) 2 mg IVPUSH Q2H PRN PRN Reason: Pain (severe 7-10) Non-Formulary Medication (Total Parenteral Nutrition, Central) 1,000 ml .XX .Continue Order [facility] Stop: 03/06/20 12:00 Propofol (Diprivan 20 Ml) Confirm Administered Dose 200 mg .ROUTE .STK-MED ONE Stop: 03/05/20 07:00 Sodium Chloride (Saline Flush) 10 ml FLUSH ONETIME ONE Stop: 03/04/20 15:34 Last Admin: 03/04/20 16:09 Dose: 10 ml - Exam General: Alert, Oriented, Cooperative, No Acute Distress Lungs: Clear to Auscultation, Normal Respiratory Effort Cardiovascular: Regular Rate, Regular Rhythm, No Murmurs GI/Abdominal Exam: Soft, Non-Tender, No Organomegaly, No Distention Extremities: Non-Tender, No Pedal Edema Sepsis Event Note - Evaluation Sepsis Screening Result: No Definite Risk - Focused Exam Vital Signs: Vital Signs Temp Pulse Resp BP Pulse Ox 03/07/20 07:00 96.5 F L 94 16 122/72 97 03/07/20 03:09 96.4 F L 73 18 122/67 97 03/06/20 22:31 96.4 F L 73 15 120/62 95 Date Exam was Performed: 03/07/20 Time Exam was Performed: 09:25 - Problem List Review Problem List Initiated/Reviewed/Updated: Yes - My Orders Last 24 Hours: My Active Orders 03/06/20 16:00 Magnesium Oxide 400 mg PO BID 03/06/20 21:00 Tamsulosin [Flomax] 0.4 mg PO BEDTIME 03/07/20 03:19 Heparin Sodium [Heparin Lock Flush 100 Units/ML] 500 units FLUSH ASDIRECTED PRN - Plan Plan:: ASSESSMENT AND PLAN ORTHOSTATIC HYPOTENSION-improved with current management -Saline lock IV -Keep head of bed elevated at 45 degrees at all times -High sodium diet -Continue to monitor orthostatic vitals -Thigh-high support hose STATUS POST SURGICAL RESECTION OF COLON CANCER-poor oral intake secondary to ongoing symptoms of nausea. CT scan shows possible stricture at the anastomosis with dilated small bowel. Status post Baez catheter placement. Rating current infusion of TPN -Surgical follow-up per Dr. Cantrell -Start TPN tonight DEHYDRATION-resolved -Management as above URINARY RETENTION SECONDARY TO BPH-trial of Goss catheter removal, is to experience high post void residuals. Patient would like to leave the catheter out today and see how urination goes through the day. MAINTENANCE ISSUES -DVT prophylaxis; SCUDs, hold on anticoagulation pending surgery tomorrow -GI prophylaxis; continue outpatient PPI therapy -Goss catheter; not indicated -Nutrition; soft diet, n.p.o. after midnight -Nicotinic dependence; not required CODE STATUS-FULL CODE ADMISSION STATUS-this patient will be admitted to observation status, expect no more than a one night hospital stay for evaluation and management of problems as outlined above. DISPOSITION-anticipate discharge to home after the hospital stay. PRIMARY CARE PROVIDER-Dr. Cavanaugh
[2020-03-07] MEDS: Sulfamethoxazole/Trimethoprim 800-160 MG Tab PO SCH ×2 (10:18→19:59)
[2020-03-07] MEDS: Aluminum Sulf/Calcium Acetate 5 EACH, Water For Injection,Sterile 75 ML, Petrolatum,Whi... TOP SCH ×10 (10:19→19:59)
[2020-03-07] MEDS: Acetaminophen 325 MG Tab PO PRN ×2 (13:29→19:56)
[2020-03-07] MEDS ORDERED: CHROMIUM IV SCH ×3 (18:00)
[2020-03-07] MEDS ORDERED: [UNRECOGNIZED DRUG - OTHER] IV SCH ×3 (18:00)
[2020-03-07] MEDS ORDERED: COPPER IV SCH ×3 (18:00)
[2020-03-07] MEDS ORDERED: MANG IV SCH ×3 (18:00)
[2020-03-07] MEDS ORDERED: VITAMIN K IV SCH ×3 (18:00)
[2020-03-07] MEDS ORDERED: MVI IV SCH ×3 (18:00)
[2020-03-07] MEDS ORDERED: SELEN IV SCH ×3 (18:00)
[2020-03-07] MEDS: Finasteride 5 MG Tab PO SCH (20:00)
[2020-03-07] MEDS: Tamsulosin 0.4 MG Cap.ER PO SCH (20:01)
[2020-03-08 03:32] VITALS: BP 128/63; PULSE 83
[2020-03-08] MEDS: Levothyroxine 50 MCG Tab PO SCH (08:13)
[2020-03-08] MEDS: Levothyroxine 100 MCG Tab PO SCH (08:13)
[2020-03-08] MEDS: Azithromycin 250 MG Tab PO SCH (08:13)
[2020-03-08] MEDS: Aluminum Sulf/Calcium Acetate 5 EACH, Water For Injection,Sterile 75 ML, Petrolatum,Whi... TOP SCH ×5 (08:13)
[2020-03-08] MEDS: Magnesium Oxide 400 MG Tab PO SCH (08:13)
[2020-03-08] MEDS: Sulfamethoxazole/Trimethoprim 800-160 MG Tab PO SCH (08:13)
--- NOTE | 2020-03-09 12:21 | PN ---
DATE OF SERVICE: 03/07/2020 The patient has been afebrile with stable vital signs. No major problems were noted overnight. He is still leaking some urine, around 400 mL, but is fairly comfortable with that. We will, at this point, hold off on placing the Goss catheter back in. Oral intake remains moderate, and he continues to move his bowels fairly frequently. He tolerated the overnight TPN satisfactorily, and will begin that tonight, over a 12-hour period, and tentatively plan to be discharged home tomorrow to continue the nighttime TPN. He is having some excoriation around the G-tube site, and we will apply some 1,2,3 Paste there; and then set him up for Medical Oncology appointment regarding the colon cancer next week. Otilio Cantrell MD /[id number]
--- NOTE | 2020-03-10 08:43 | DISCH ---
FINAL DIAGNOSES: 1. Syncopal episodes associated with severe orthostatic hypotension associated with element of dehydration. 2. Recently diagnosed stage 4 colon carcinoma status post complete surgical excision, other than for two liver metastases in right lobe of the liver. 3. History of prostatism and urinary retention. 4. Treated hypothyroidism. OPERATIVE PROCEDURE: Done on 03/05/2020, insertion of double-lumen Baez catheter. SUMMARY: This is an 84-year-old recently status post subtotal colectomy for stage 4 colon carcinoma. The patient had 2 liver metastases deep within the depths of the right lobe of the liver, which are still in place, but did have an easily resectable lesion in the left lobe taken out. He did have some free intraperitoneal disease involving the omental implants, as well as the peritoneal surface underlying the umbilicus at the time of resection. Grossly all of the tumor was otherwise resected. A followup CT scan during this hospitalization to provide a baseline was obtained which did show the 2 liver metastases in the right lobe of liver, but no other persistent disease. The patient's biggest problem was that of orthostatic hypotension. This appeared to be related to some dehydration, as his oral intake and GI tract function was still somewhat marginal. This has now largely ameliorated, such that his blood pressure has fallen to the 80 systolic range for standing up, but these are just minimally symptomatic, whereas previously the blood pressures had been falling to 50. He will be sent home with 1 L of nighttime TPN. With this, his oral intake has also been improving over the last 24 hours with 1200 mL. The overall GI tract function appears to be improving. He will be going home with a G-tube replaced, which he will have unclamped for drainage at night and then clamped during the day. He did have some excoriation around the G-tube, and he will have 1,2,3 Paste around the tube t.i.d. p.r.n., and otherwise Home Care will be assisting with the nighttime TPN. He will be following up with Dr. Cantrell at [facility], as well as Medical Oncology this coming 03/12/2020.
--- NOTE | 2020-03-10 14:04 | OR ---
DATE OF PROCEDURE: 03/05/2020 SURGEON: Otilio Cantrell MD PREOPERATIVE DIAGNOSIS: Poor oral intake secondary to gastroparesis and impaired gastrointestinal tract motility. POSTOPERATIVE DIAGNOSIS: Poor oral intake secondary to gastroparesis and impaired gastrointestinal tract motility. PROCEDURE: Insertion of double-lumen Baez catheter via left subclavian vein approach ([id number]). ANESTHESIA: Local plus IV sedation. INDICATION FOR PROCEDURE: An 84-year-old male status post a subtotal colectomy for an advanced colon carcinoma. He has been struggling with maintaining adequate oral intake, does have a gastrostomy tube in place, which has needed to be vented periodically, and by history and intraoperative examination appeared to have generalized poor GI tract motility. Given this the GI tract has been relatively poor in terms of our ability to maintain adequate nutrition and hydration, and the plan is to proceed with a Baez catheter to provide some supplementation of his oral intake both nutritionally from a hydration standpoint until more adequate oral intake has resumed. A Baez catheter will be placed. This may also facilitate any chemotherapy given via IV route over the next period of weeks and months. Potential risks of procedure including bleeding, infection, pneumohemothorax, injury to vasculature and such were reviewed, and the patient wishes to proceed. DETAILS OF PROCEDURE: The patient was taken to the operating room and placed in a supine position. IV sedation was administered, after which the upper chest and neck areas were prepped and draped. The left subclavian area was then anesthetized with 1% lidocaine. Left subclavian vein cannulated. Guidewire passed and manipulated into the superior vena cava. Some additional local was then injected and an incision was made roughly 4 fingerbreadths below the original skin puncture site, and from that point to the original skin puncture site, a double-lumen Baez catheter was tunneled and fibrinous button placed just below the lower skin margin. The catheter was cut such that the tip would lie in the area of the right atrial vena cava junction and over the introducer and peel-away catheter, the Baez catheter was delivered without difficulty. Good in and outflow were noted through the catheter and ports were flushed with heparinized saline. The skin exit site was then approximated to the catheter with 2-0 nylon stitch and the original skin puncture site closed with a 4-0 Vicryl subcuticular stitch. Dressing was applied. The patient was taken to the recovery room in satisfactory condition. There were no evident complications. Otilio Cantrell MD /[id number]
== END 2020-03-08 09:55 | disposition home or self-care (01) ==
LOC: JP.ED 19:09 → INTOOBSV 03-04 00:32 → JP.MS 03-04 00:32
PROVIDERS: ADMIT Family Medicine; ATTEND Hospitalist
DX: I95.1 Orthostatic hypotension (principal); N39.0 Urinary tract infection, site not specified; Z93.6 Other artificial openings of urinary tract status; N40.1 Benign prostatic hyperplasia with lower urinary tract symptoms; R33.8 Other retention of urine; C18.9 Malignant neoplasm of colon, unspecified; C78.7 Secondary malignant neoplasm of liver and intrahepatic bile duct; C79.2 Secondary malignant neoplasm of skin; H54.7 Unspecified visual loss; E78.00 Pure hypercholesterolemia, unspecified; J45.909 Unspecified asthma, uncomplicated; K21.9 Gastro-esophageal reflux disease without esophagitis; E07.9 Disorder of thyroid, unspecified; Z79.890 Hormone replacement therapy; Z79.899 Other long term (current) drug therapy
CPT/HCPCS: 36415; 51798; 74177; 80048; 80053; 83735; 83880; 84100; 84484; 85025; 85027; 93005; 93010; 94762; 96361; 96365; 96366; 96367; 96368; 96375; 99285; A9270; G0378; J0456; J1642; J2020; J2250; J2405; J2704; J3010; J3475; J3490; J7030; J7042; J7050; J7120; Q9967; 96360

== ENCOUNTER 2020-03-13 05:53 | Emergency (ER) | payer MEDICARE, BC ==
[2020-03-13 06:36] VITALS: BP 65/40; PULSE 98
--- NOTE | 2020-03-13 06:37 | EDM.PDOC ---
ED HPI GENERAL MEDICAL PROBLEM - General Chief Complaint: General Stated Complaint: VIA [facility] Time Seen by Provider: 03/13/20 06:05 Source of Information: Reports: Patient, EMS, Family History Limitations: Reports: No Limitations - History of Present Illness INITIAL COMMENTS - FREE TEXT/NARRATIVE: 84-year-old male with significant orthostatic hypotension got up this morning and fell hitting his left hip onto a bedside dresser and then onto the floor. It scared his so she called the ambulance and they brought him in. His blood pressure was normal while lying down but at sitting it dropped to 80/50. On arrival to the emergency room he still had some left hip discomfort but was able to move the hip with minimal pain. No other complaints while lying down. No shortness of breath. He has been getting 1 L of TPN per Baez catheter at home nightly to castillo suspected dehydration and help with the hypotension. Onset: Unknown/Unsure Associated Symptoms: Reports: Weakness. Denies: Chest Pain, Cough, Loss of Appetite, Malaise, Shortness of Breath Left Hip Pain Score (Numeric/FACES): 3 - Related Data Allergies Allergy/AdvReac Type Severity Reaction Status Date / Time No Known Allergies Allergy Verified 03/13/20 06:03 Home Meds: Home Meds Fluticasone/Salmeterol [Advair 100-50] 1 puff INH BID PRN 10/03/14 [History] Lactobacillus Rhamnosus GG [Culturelle] 2 cap PO BID #120 cap 02/26/20 [Rx] Simethicone 160 mg PO Q2H PRN tab.chew 02/26/20 [Rx] Tamsulosin [Flomax] 0.4 mg PO BEDTIME #30 cap.er 02/26/20 [Rx] Levothyroxine Sodium [Euthyrox] 150 mcg PO DAILY 03/02/20 [History] Acetaminophen [Tylenol] 650 mg PO Q4H PRN 30 Days tab 03/08/20 [Rx] Azithromycin [Zithromax] 125 mg PO DAILY #30 tab 03/08/20 [Rx] Finasteride 5 mg PO DAILY 03/08/20 [History] Past Medical History HEENT History: Reports: Impaired Vision Other HEENT History: glasses Cardiovascular History: Reports: High Cholesterol Respiratory History: Reports: Asthma Other Respiratory History: wood smoke Gastrointestinal History: Reports: Bowel Obstruction, GERD, Other (See Below) Other Gastrointestinal History: currently has gt clamped Genitourinary History: Reports: Prostate Disorder, Retention, Urinary Other Genitourinary History: current singh cath was discharged with Musculoskeletal History: Reports: Other (See Below) Other Musculoskeletal History: bilaterl hip pain Endocrine/Metabolic History: Reports: Other (See Below) Other Endocrine/Metabolic History: thyroid disease Oncologic (Cancer) History: Reports: Colon, Liver, Lung - Infectious Disease History Infectious Disease History: Reports: Chicken Pox, Measles, Mumps - Past Surgical History HEENT Surgical History: Reports: Tonsillectomy GI Surgical History: Reports: Other (See Below) Other GI Surgeries/Procedures: 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/13/2020 G tube Neurological Surgical History: Reports: Discectomy Musculoskeletal Surgical History: Reports: Knee Replacement Social & Family History - Family History Family Medical History: Noncontributory - Tobacco Use Smoking Status *Q: Unknown Ever Smoked - Caffeine Use Caffeine Use: Reports: Coffee Other Caffeine Use: protien drinks ED ROS GENERAL - Review of Systems Review Of Systems: See Below Constitutional: Reports: Decreased Appetite. Denies: Fever, Chills HEENT: Reports: No Symptoms Respiratory: Denies: Shortness of Breath Cardiovascular: Denies: Chest Pain GI/Abdominal: Denies: Diarrhea, Nausea, Vomiting : Reports: No Symptoms Skin: Reports: No Symptoms Neurological: Reports: Difficulty Walking, Other (Near syncope when walking) Psychiatric: Reports: No Symptoms ED EXAM, GENERAL - Physical Exam Exam: See Below Exam Limited By: No Limitations General Appearance: Alert, No Apparent Distress Eye Exam: Bilateral Eye: EOMI (Good hydration) Head: Atraumatic Respiratory/Chest: No Respiratory Distress, Lungs Clear Cardiovascular: Regular Rate, Rhythm Extremities: Other (Some mild tenderness to palpation over the lateral left hip but no crepitus). No: Pedal Edema Skin Exam: Warm, Dry Course - Vital Signs Last Recorded V/S: Last Vital Signs Temp 96.4 F L 03/13/20 06:20 Pulse 98 03/13/20 06:34 Resp 20 03/13/20 06:34 BP 65/40 L 03/13/20 06:34 Pulse Ox 94 L 03/13/20 06:34 - Re-Assessments/Exams Free Text/Narrative Re-Assessment/Exam: 03/13/20 06:49 Hip x-ray was negative, blood pressure was normal while lying down but sitting up and standing he became hypotensive. He is not dehydrated. My only recommendation and this was concurred by Dr. Cantrell, was stopping the Flomax which was started recently in the hospital. Departure - Departure Time of Disposition: 07:00 Disposition: Home, Self-Care 01 Clinical Impression: Orthostatic hypotension Contusion of left hip Qualifiers: Encounter type: initial encounter Qualified Code(s): S70.02XA - Contusion of left hip, initial encounter - Discharge Information Instructions: Orthostatic Hypotension, Contusion, [id number] Referrals: PCP,None [Primary Care Provider] - Forms: ED Department Discharge Care Plan Goals: Continue activity as tolerated with assistance, encourage salt in your foods, and stop your tamsulosin. Return anytime if worsening or concerns. Sepsis Event Note (ED) - Evaluation Sepsis Screening Result: No Definite Risk - Focused Exam Vital Signs: Vital Signs Temp Pulse Resp BP Pulse Ox 03/13/20 06:34 98 20 65/40 L 94 L 03/13/20 06:33 91 18 72/42 L 95 03/13/20 06:31 83 18 114/67 94 L 03/13/20 06:20 96.4 F L 79 17 111/65 96
--- NOTE | 2020-03-13 10:10 | CR ---
Hip Min 2V or 3V Lt CLINICAL HISTORY: Pain FINDINGS: There is joint space narrowing. There is some acetabular spurring. No fracture is seen. IMPRESSION: Osteoarthritic changes No fracture
== END 2020-03-13 07:01 | disposition home or self-care (01) ==
LOC: JP.ED 05:53
DX: S70.02XA Contusion of left hip, initial encounter (principal); I95.1 Orthostatic hypotension; J45.909 Unspecified asthma, uncomplicated; W22.8XXA Striking against or struck by other objects, initial encounter
CPT/HCPCS: 73502-26-LT; 73502-LT; 99283; 99285

== ENCOUNTER 2020-03-26 12:00 | Inpatient (IN) | payer MEDICARE, BC ==
[2020-03-26] MEDS ORDERED: Albuterol 8 GM Inhaler INH PRN (12:24)
[2020-03-26] MEDS ORDERED: Lactated Ringers 1,000 ML IV ONE (12:30)
[2020-03-26] MEDS: Megestrol Susp 40 MG/ML ML (240 ML Bottle) PO SCH (15:17)
[2020-03-26] MEDS ORDERED: Dextrose 5%-Lactated Ringers 1,000 ML IV SCH (16:30)
[2020-03-26] MEDS: 1: AA 5%/Calcium/D15W/Lytes 1,000 ML with MVI, Adult with Vitamin K 10 ML, Chromium/Copp IV SCH ×3 (16:40)
[2020-03-26] MEDS: Fat Emulsion 100 ML IV SCH (16:43)
[2020-03-26] MEDS: Ondansetron 4 MG/2 ML SDV IVPUSH SCH (16:56)
[2020-03-26] MEDS: Metoclopramide 10 MG/2 ML SDV IVPUSH SCH ×2 (16:56→22:16)
[2020-03-26] MEDS: Acetaminophen 325 MG Tab PO PRN ×2 (19:36→23:24)
[2020-03-26] MEDS: Tamsulosin 0.4 MG Cap.ER PO SCH ×2 (22:16→22:37)
[2020-03-26] MEDS: Fluticasone-Salmeterol 113-14 MCG Powder Inhalant INH SCH (22:16)
[2020-03-26] MEDS: diphenhydrAMINE 25 MG Cap PO PRN (23:23)
[2020-03-27] MEDS: 1: AA 5%/Calcium/D15W/Lytes 1,000 ML with MVI, Adult with Vitamin K 10 ML, Chromium/Copp IV SCH ×6 (02:59→14:56)
[2020-03-27] MEDS: Metoclopramide 10 MG/2 ML SDV IVPUSH SCH ×4 (04:09→21:42)
[2020-03-27] MEDS: Acetaminophen 325 MG Tab PO PRN ×3 (05:23→19:42)
[2020-03-27] MEDS: Ondansetron 4 MG/2 ML SDV IVPUSH SCH ×3 (07:08→15:19)
[2020-03-27] MEDS: Fluticasone-Salmeterol 113-14 MCG Powder Inhalant INH SCH ×2 (07:08→20:50)
[2020-03-27] MEDS: Megestrol Susp 40 MG/ML ML (240 ML Bottle) PO SCH (07:08)
[2020-03-27] MEDS ORDERED: Levothyroxine 50 MCG Tab PO SCH (07:30)
[2020-03-27] MEDS ORDERED: Loperamide 2 MG Cap PO PRN (07:48)
[2020-03-27] MEDS: Doxazosin 4 MG Tab PO SCH (08:26)
[2020-03-27] MEDS: Finasteride 5 MG Tab PO SCH (08:27)
[2020-03-27] MEDS: Aspirin 81 MG Tab.EC PO SCH (08:27)
[2020-03-27] MEDS: Atropine/Diphenoxylate 0.025-2.5 MG Tab PO SCH ×4 (08:29→21:42)
--- NOTE | 2020-03-27 12:05 | CR ---
CHEST: Portable 03/27/2020 11:52 AM CLINICAL HISTORY:Line placement COMPARISON:02/13/2020 FINDINGS: There is chronic elevation left hemidiaphragm. Mediastinum shifted to the right slightly. Patient has a PICC line from the left upper extremity. The tip is in the upper portion of the right atrium. There is no pneumothorax. There are atherosclerotic changes in the aorta.. Impression: Left upper extremity PICC line is in the upper portion of the right atrium
[2020-03-27] MEDS: Piperacillin/Tazobactam/Dext 3.375 GM in Premix Bag 1 BAG IV SCH ×2 (14:56→19:43)
--- NOTE | 2020-03-27 15:46 | HP ---
ADMISSION DIAGNOSES: 1. Dehydration. 2. Malnutrition. 3. Total parenteral nutrition. 4. 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 5. Diarrhea. 6. Urinary tract infection. 7. Hypothyroidism. 8. Pure hypercholesterolemia. 9. Benign prostatic hypertrophy. 10.Mild intermittent asthma. 11.Status post lumbar surgery. 12.Anorexia (loss of appetite). HISTORY OF PRESENT ILLNESS: Walter Cohen is a pleasant 84-year-old male who had the above surgery on 02/14/2020 with delayed primary closure on 02/16/2020. He has been getting TPN nutritional therapy at home and getting home health care. He presented yesterday to the clinic with dehydration, 10-pound weight loss, and anorexia (not feeling hungry). He also has been having some urinary tract infection and was recently on Septra DS and has currently finished that medication. He was admitted from the clinic. Labs were drawn on admission. White count 12, hemoglobin 11.4. Creatinine 1.6. Liver function tests: AST 38, ALT 88, alkaline phosphatase is 153. Throughout the night, he developed a temp max of 101.8. It does come down a little bit with Tylenol. C. diff was checked, and it was negative. PAST SURGICAL HISTORY: Appendectomy, hernia repair, knee arthroplasty, lumbar disk surgery. CURRENT MEDICATIONS: See EMR. SOCIAL HISTORY: , employed, retired. Alcohol, 3 per week. Caffeine, 1 to 2 cups. FAMILY HISTORY: See EMR. OBJECTIVE: GENERAL: Walter Cohen is a pleasant 84-year-old male. Height is 5 feet 8 inches, weight is 174 pounds. BMI is 26. VITAL SIGNS: TPR at 0523, temp was 101.5. The rest of the vitals were taken at 0700. TPR is 95.3, 84, 18, blood pressure 122/63. HEENT: Negative. NECK: Supple. HEART: Regular rate and rhythm. LUNGS: Clear. ABDOMEN: Soft and nontender. EXTREMITIES: Without peripheral edema. NEUROLOGIC: Intact. PSYCHIATRIC: Mood and affect appropriate. ASSESSMENT: 1. Dehydration. 2. Malnutrition. 3. Fever up to 101.8. 4. Colon cancer with metastasis to liver. 5. Hypothyroidism. 6. Mild intermittent asthma. 7. Hypercholesterolemia. PLAN: 1. Lomotil 0.025/2.5 mg 2 tabs p.o. q.i.d. scheduled. 2. Imodium 4 mg p.o. q.6 hours p[address]r.n. diarrhea. 3. Place central PICC line stat. 4. Call Dr. Cantrell right away when the PICC line is in, to remove the Baez catheter. 5. Do culture and sensitivities on both lines of the Baez catheter. 6. Synthroid 0.125 mg. Decrease dose p.o. daily and check CBC, CMP, mag, and phos in a.m. 7. We will evaluate p.r.n. or in a.m. Michelle Casanova PA-C /[id number]
[2020-03-27] MEDS: Linezolid 600 MG in Premix Bag 1 BAG IV SCH (16:09)
[2020-03-27] MEDS: Fat Emulsion 100 ML IV SCH (16:11)
[2020-03-27] MEDS ORDERED: Ibuprofen 600 MG Tab PO ONE (20:32)
[2020-03-27] MEDS: Tamsulosin 0.4 MG Cap.ER PO SCH ×2 (20:50→20:56)
[2020-03-27] MEDS: diphenhydrAMINE 25 MG Cap PO PRN (22:01)
[2020-03-28] MEDS: Piperacillin/Tazobactam/Dext 3.375 GM in Premix Bag 1 BAG IV SCH ×4 (02:24→19:58)
[2020-03-28] MEDS: Acetaminophen 325 MG Tab PO PRN ×2 (02:24→09:41)
[2020-03-28] MEDS: 1: AA 5%/Calcium/D15W/Lytes 1,000 ML with MVI, Adult with Vitamin K 10 ML, Chromium/Copp IV SCH ×9 (02:24→22:23)
[2020-03-28] MEDS: Metoclopramide 10 MG/2 ML SDV IVPUSH SCH ×4 (03:40→20:59)
[2020-03-28] MEDS: Linezolid 600 MG in Premix Bag 1 BAG IV SCH ×2 (03:40→15:10)
[2020-03-28] MEDS: Atropine/Diphenoxylate 0.025-2.5 MG Tab PO SCH ×4 (06:13→22:38)
[2020-03-28] MEDS: Fluticasone-Salmeterol 113-14 MCG Powder Inhalant INH SCH ×2 (07:29→20:07)
[2020-03-28] MEDS ORDERED: Levothyroxine 100 MCG, Levothyroxine 25 MCG PO SCH ×2 (07:30)
[2020-03-28] MEDS ORDERED: Levothyroxine 100 MCG Tab PO SCH (07:30)
[2020-03-28] MEDS: Ondansetron 4 MG/2 ML SDV IVPUSH SCH ×3 (07:30→16:59)
[2020-03-28] MEDS: Megestrol Susp 40 MG/ML ML (240 ML Bottle) PO SCH (07:37)
[2020-03-28] MEDS ORDERED: Sodium Chloride 0.9% 10 ML Syringe FLUSH ONE ×2 (07:57→08:04)
[2020-03-28] MEDS ORDERED: Sodium Chloride 0.9% 100 ML IV SCH (08:00)
[2020-03-28] MEDS ORDERED: Iopamidol 612 MG/ML 100 ML Bottle IV SCH ×2 (08:00→08:15)
[2020-03-28] MEDS: Doxazosin 4 MG Tab PO SCH (09:42)
[2020-03-28] MEDS: Aspirin 81 MG Tab.EC PO SCH (09:42)
[2020-03-28] MEDS: Finasteride 5 MG Tab PO SCH (09:43)
--- NOTE | 2020-03-28 09:46 | CRLCT ---
INDICATION: persistent evening spike in temps HISTORY: Fever. COMPARISON: CT of the abdomen and pelvis, 03/04/2020. TECHNIQUE: CT of the chest, abdomen, and pelvis. Coronal/sagittal reconstruction images. 100 cc of Isovue-300 IV. FINDINGS: Chest: There is a left upper extremity PICC line. There is DVT associated with the line in the brachiocephalic vein, which is seen best on image 24, series 2. Coronary artery calcifications. There is no thoracic lymphadenopathy. The main pulmonary artery and thoracic aorta are normal in caliber. There is no pleural or pericardial effusion. The lung windows demonstrate no endobronchial mass. There is elevation of the left hemidiaphragm. There are thin walled cysts present at the left lung base, which may represent honeycomb formation. This is seen well on image 76 of series 4. These findings were present previously. There also present on a CT from 12/16/2017. There is no pneumothorax or suspicious pulmonary nodule. Abdomen/pelvis: Low-density liver lesions are compatible with metastatic disease. Lesions are new when compared with 12/16/2017. The largest is seen in segment 6, which measures 2.2 cm, image 107, series 2. Cholelithiasis, without associated inflammatory changes. Atrophy of the left hepatic lobe. Spleen size is normal. No adrenal mass. There is no hydronephrosis. There is a benign right renal cyst. There is no pancreatic mass or pancreatic duct dilation. There is no glandular atrophy. There is gas present in the urinary bladder. The extraperitoneal space of Retzius is clear. Prostatic calcifications. Postoperative changes of a subtotal colectomy. Anastomotic sutures in the left lower quadrant. Dilated loops is small bowel without a specific transition point. The visceral artery branches are patent. Nonaneurysmal abdominal aorta. No pelvic sidewall lymphadenopathy. There is a fat containing mass in the left upper quadrant, which may represent a region of fat necrosis. This is unchanged from previous. This measures 38 mm in dimension. The bone windows demonstrate gene osteophytes at both SI joints. The vertebral body heights are maintained on sagittal reconstruction images. Impression: 1. Catheter associated DVT, related to the left upper extremity PICC line. This is seen well on image 25, series 2 in the brachiocephalic vein. 2. No thoracic lymphadenopathy or acute airspace disease. 3. Stable elevation of the left hemidiaphragm. Honeycomb formation in the lungs, which suggests a usual interstitial pneumonitis type pattern. 4. Dilated small bowel persists. The patient is post subtotal colectomy. The anastomosis appears patent on today`s exam. There is no drainable fluid collection or free air. 5. Low-density liver lesions are stable from 03/04/2020, and new from 12/21/2017, consistent with metastases. Similarly, the patient has undergone a left hepatic lobe resection. 6. Case reviewed with Dr. Cantrell, referring clinical service, 03/28/20, 0943 hours. Dictated by Griffin Richard MD @ 03/28/2020 9:44:24 AM Please note that all CT scans at this facility use dose modulation, iterative reconstruction, and/or weight-based dosing when appropriate to reduce radiation dose to as low as reasonably achievable. Dictated by: Griffin Richard MD @ 03/28/2020 09:44:35 (Electronically Signed)
--- NOTE | 2020-03-28 14:50 | PCM.CONS ---
H&P History of Present Illness - General Date of Service: 03/28/20 Admit Problem/Dx: Admission Diagnosis/Problem Admission Diagnosis/Problem Malnutrition Source of Information: Patient, Provider History Limitations: Reports: No Limitations - History of Present Illness Initial Comments - Free Text/Narative: CC: fever HPI: Walter was admitted for management of fever, weakness and malnutrition. I was asked to see him today by Dr. Cantrell regarding left brachiocephalic DVT and fever. He reports some off-and-on difficulty with fever. Overall he is feeling better today. No complaints of pain in the left arm where the DVT is present. Minimal abdominal pain at this time. No shortness of breath or cough. He is feeling better today than yesterday. Not much of an appetite. No significant nausea. He had been having loose stools but none today. He has been having fev ers during the hospital stay but none since last night. His Baez catheter has been removed. Multiple blood cultures have been obtained but none of these have been positive. He does admit to feeling some level of depression after his cancer diagnosis. He does have an upcoming oncology visit. Abdomen Pain Score (Numeric/FACES): 4 - Related Data Allergies/Adverse Reactions: Allergies Allergy/AdvReac Type Severity Reaction Status Date / Time No Known Allergies Allergy Verified 03/13/20 06:03 Home Medications: Home Meds Fluticasone/Salmeterol [Advair 100-50] 1 puff INH BID PRN 10/03/14 [History] Lactobacillus Rhamnosus GG [Culturelle] 2 cap PO BID #120 cap 02/26/20 [Rx] Simethicone 160 mg PO Q2H PRN tab.chew 02/26/20 [Rx] Levothyroxine Sodium [Euthyrox] 150 mcg PO DAILY 03/02/20 [History] Acetaminophen [Tylenol] 650 mg PO Q4H PRN 30 Days tab 03/08/20 [Rx] Finasteride 5 mg PO DAILY 03/08/20 [History] Albuterol [Proventil HFA] 1 puff INH QID PRN 03/26/20 [History] Multivitamin [Multi-Vitamin Daily] 1 each PO 03/26/20 [History] Permethrin [Permethrin 5% Cream] 60 gm TP QID PRN 03/26/20 [History] Past Medical History HEENT History: Reports: Impaired Vision Other HEENT History: glasses Cardiovascular History: Reports: High Cholesterol Respiratory History: Reports: Asthma Other Respiratory History: wood smoke Gastrointestinal History: Reports: Bowel Obstruction, GERD, Other (See Below) Other Gastrointestinal History: currently has gt clamped Genitourinary History: Reports: Prostate Disorder, Retention, Urinary Other Genitourinary History: current singh cath was discharged with Musculoskeletal History: Reports: Other (See Below) Other Musculoskeletal History: bilaterl hip pain Endocrine/Metabolic History: Reports: Other (See Below) Other Endocrine/Metabolic History: thyroid disease Oncologic (Cancer) History: Reports: Colon, Liver, Lung - Infectious Disease History Infectious Disease History: Reports: Chicken Pox, Measles, Mumps - Past Surgical History HEENT Surgical History: Reports: Tonsillectomy GI Surgical History: Reports: Other (See Below) Other GI Surgeries/Procedures: 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/13/2020 G tube Neurological Surgical History: Reports: Discectomy Musculoskeletal Surgical History: Reports: Knee Replacement Social & Family History - Family History Family Medical History: Noncontributory - Tobacco Use Smoking Status *Q: Former Smoker Years of Tobacco use: 20 Used Tobacco, but Quit: Yes Month/Year Tobacco Last Used: 1974 - Caffeine Use Caffeine Use: Reports: Coffee Other Caffeine Use: protien drinks - Alcohol Use Alcohol Use History: No - Recreational Drug Use Recreational Drug Use: No H&P Review of Systems - Review of Systems: Review Of Systems: See Below Free Text/Narrative: A complete 12 point review of systems was obtained. Pertinent positives and negatives are noted in the history of present illness. All other systems were reviewed and were negative except as noted. Exam - Exam Exam: See Below - Vital Signs Vital Signs: Last Vital Signs Temp 35.4 C L 03/28/20 10:49 Pulse 78 03/28/20 10:49 Resp 18 03/28/20 10:49 BP 116/55 L 03/28/20 10:49 Pulse Ox 99 03/28/20 10:49 Weight: 79.107 kg - Exam Quality Assessment: No: Supplemental Oxygen General: Alert, Oriented, Cooperative. No: Mild Distress HEENT: Conjunctiva Clear, Mucosa Moist & [place] Neck: Supple, Trachea Midline. No: Lymphadenopathy Lungs: Clear to Auscultation, Normal Respiratory Effort Cardiovascular: Regular Rate, Regular Rhythm, Systolic Murmur GI/Abdominal Exam: Normal Bowel Sounds, Soft, No Distention, Tender Extremities: No Pedal Edema. No: Increased Warmth Skin: Warm, Dry, Other (left chest Baez site covered with dressing. Picc line site in left AC fossa with no erythema ) Neuro Extensive - Mental Status: Alert, Oriented x3, Nl Response to Commands Neuro Extensive - Motor, Sensory, Reflexes: No: Dysarthria, Abnormal Motor, Tremor Psychiatric: Alert, Normal Affect - Patient Data Lab Results Last 24 hrs: Laboratory Results - last 24 hr 03/28/20 03/28/20 Range/Units 03:40 03:40 WBC 8.2 (4.5-11.0) K/uL RBC 3.28 L (4.30-5.90) M/uL Hgb 8.7 L D (12.0-15.0) g/dL Hct 27.7 L (40.0-54.0) % MCV 85 (80-98) fL MCH 27 (27-31) pg MCHC 31 L (32-36) % Plt Count 241 (150-400) K/uL Sodium 137 L (140-148) mmol/L Potassium 3.7 (3.6-5.2) mmol/L Chloride 104 (100-108) mmol/L Carbon Dioxide 23 (21-32) mmol/L Anion Gap 13.7 (5.0-14.0) mmol/L BUN 38 H (7-18) mg/dL Creatinine 1.2 (0.8-1.3) mg/dL Est Cr Clr Drug Dosing 45.29 mL/min Estimated GFR (MDRD) 58 L (>60) Glucose 140 H (74-106) mg/dL Calcium 8.0 L (8.5-10.1) mg/dL Phosphorus 3.3 (2.5-4.9) mg/dL Magnesium 2.2 (1.8-2.4) mg/dL Total Bilirubin 0.4 (0.2-1.0) mg/dL AST 19 (15-37) U/L ALT 46 (12-78) U/L Alkaline Phosphatase 85 (46-116) U/L NT-Pro-B Natriuret Pep 111 (5-450) pg/mL Total Protein 5.2 L (6.4-8.2) g/dL Albumin 1.6 L (3.4-5.0) g/dL Globulin 3.6 H (2.3-3.5) g/dL Albumin/Globulin Ratio 0.4 L (1.2-2.2) Result Diagrams: 03/28/20 03:40 03/28/20 03:40 Steve Results Last 24 hrs: Microbiology 03/27/20 08:15 Aerobic Blood Culture - Preliminary Blood - Central Line NO GROWTH AFTER 1 DAY Anaerobic Blood Culture - Preliminary NO GROWTH AFTER 1 DAY 03/27/20 08:17 Aerobic Blood Culture - Preliminary Blood - Central Line NO GROWTH AFTER 1 DAY Anaerobic Blood Culture - Preliminary NO GROWTH AFTER 1 DAY 03/26/20 14:06 Urine Culture - Final Urine, Clean Catch MIXED POSITIVE KARELY DAY 2 03/26/20 23:04 Aerobic Blood Culture - Preliminary Blood - Arm, Right NO GROWTH AFTER 1 DAY Anaerobic Blood Culture - Preliminary NO GROWTH AFTER 1 DAY 03/26/20 22:58 Aerobic Blood Culture - Preliminary Blood - Central Line NO GROWTH AFTER 1 DAY Anaerobic Blood Culture - Preliminary NO GROWTH AFTER 1 DAY Imaging Impressions Last 24 hrs: CT scan chest abdomen and pelvis-images personally reviewed and the radiologist interpretation was noted-he has some lesions in the liver that appear to be consistent with metastases. The radiologist reports that some of these are new compared to previous. No obvious acute pathology in the abdomen. The chest portion of the CT did suggest there was a thrombus in the brachiocephalic vein around the PICC catheter. May be a small amount of pneumonitis in the very inferior portion of the lungs. No obvious pneumonia. Sepsis Event Note - Evaluation Sepsis Screening Result: No Definite Risk - Focused Exam Vital Signs: Vital Signs Temp Temp Pulse Resp BP BP Pulse Ox 03/28/20 10:49 35.4 C L 78 18 116/55 L 99 03/28/20 09:42 124/59 L 03/28/20 07:00 35.3 C L 76 18 96/50 L 97 03/28/20 02:54 35.4 C L Date Exam was Performed: 03/28/20 Time Exam was Performed: 16:36 Consult PN Assessment/Plan Procedures: Procedures AIRWAY INHALATION TREATMENT (02/13/20) ASSAY OF MAGNESIUM (03/04/20) ASSAY OF NATRIURETIC PEPTIDE (03/04/20) ASSAY OF PHOSPHORUS (03/04/20) ASSAY OF TROPONIN QUANT (03/04/20) ASSAY THYROID STIM HORMONE (02/13/20) BLOOD TYPING SEROLOGIC ABO (02/13/20) BLOOD TYPING SEROLOGIC RH(D) (02/13/20) C-REACTIVE PROTEIN (02/13/20) CARCINOEMBRYONIC ANTIGEN (02/13/20) COMPATIBILITY TEST ANTIGLOB (02/13/20) COMPATIBILITY TEST SPIN (02/13/20) COMPLETE CBC AUTOMATED (03/04/20) COMPLETE CBC W/AUTO DIFF WBC (03/04/20) COMPREHEN METABOLIC PANEL (03/04/20) CT ABD & PELV W/CONTRAST (03/04/20) CT ABD & PELVIS W/O CONTRAST (02/13/20) CULTR BACTERIA EXCEPT BLOOD (02/13/20) CULTURE OTHR SPECIMN AEROBIC (02/13/20) ELECTROCARDIOGRAM REPORT (03/04/20) ELECTROCARDIOGRAM TRACING (03/04/20) EMERGENCY DEPT VISIT (03/13/20) EMERGENCY DEPT VISIT (03/02/20) EMERGENCY DEPT VISIT (02/13/20) EMERGENCY DEPT VISIT (05/30/16) HOT OR COLD PACKS THERAPY (11/29/19) HYDRATE IV INFUSION ADD-ON (03/04/20) HYDRATION IV INFUSION INIT (02/28/20) IMMUNOHISTO ANTB 1ST STAIN (02/13/20) IMMUNOHISTO ANTB ADDL SLIDE (02/13/20) INSERT TEMP BLADDER CATH (02/13/20) INSERT TUNNELED CV CATH (03/04/20) MANUAL THERAPY 1/> REGIONS (11/29/19) MEASURE BLOOD OXYGEN LEVEL (03/04/20) METABOLIC PANEL TOTAL CA (03/04/20) MRI LUMBAR SPINE W/O DYE (05/09/19) NASAL/OROGASTRIC W/TUBE PLMT (02/13/20) OT EVALUATION (11/16/13) PT EVAL LOW COMPLEX 20 MIN (11/29/19) PT EVALUATION (03/25/16) RBC ANTIBODY SCREEN (02/13/20) ROUTINE VENIPUNCTURE (03/04/20) SMEAR GRAM STAIN (02/13/20) THER/DIAG CONCURRENT INF (03/04/20) THER/PROPH/DIAG INJ IV PUSH (02/13/20) THER/PROPH/DIAG IV INF ADDON (03/04/20) THER/PROPH/DIAG IV INF INIT (03/04/20) THERAPEUTIC EXERCISES (11/29/19) TISSUE EXAM BY PATHOLOGIST (02/13/20) TISSUE EXAM BY PATHOLOGIST (02/13/20) TISSUE EXAM BY PATHOLOGIST (02/13/20) TX/PRO/DX INJ NEW DRUG ADDON (03/04/20) TX/PROPH/DG ADDL SEQ IV INF (03/04/20) ULTRASOUND THERAPY (03/25/16) URINALYSIS AUTO W/SCOPE (03/02/20) US URINE CAPACITY MEASURE (03/04/20) X-RAY EXAM ABDOMEN 1 VIEW (02/13/20) X-RAY EXAM ABDOMEN 2 VIEWS (02/13/20) X-RAY EXAM COMPLETE ABDOMEN (02/13/20) X-RAY EXAM HIP UNI 2-3 VIEWS (03/13/20) Problem List Initiated/Reviewed/Updated: Yes My Orders Last 24 Hours: My Active Orders 03/28/20 14:48 Warfarin [Coumadin] 5 mg PO ONETIME ONE 03/28/20 15:00 Enoxaparin [Lovenox] 120 mg SUBCUT Q24H 03/29/20 04:00 INR,PT,PROTHROMBIN TIME [COAG] Timed 03/29/20 13:00 Warfarin [Coumadin] 5 mg PO DAILY@1300 Plan: ASSESSMENT AND PLAN - 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 Probably had some level of endothelial injury when the catheter was placed and has developed a DVT in his hypercoagulable state with active cancer. I think he would benefit from anticoagulation for 3 months. -Enoxaparin 1.5 mg/kg daily until INR therapeutic -Initiate warfarin -INR in the morning -Anticipate 3 months of treatment Fever-no obvious source as of yet. He was having fevers before the PICC line was placed so I doubt this was the source. Cultures are negative so far. Baez catheter was removed. No impressive findings on the CT of the chest, abdomen or pelvis to explain his fever. Does not seem to have a significant tumor burden that would cause fevers. No fever since last night. -Follow-up cultures -Continue current antibiotics with de-escalation as able Metastatic colon cancer-metastases to the liver visible on CT scan. Oncology appointment is coming up soon. He does continue to suffer from weakness and malnutrition following his colon surgery. He is on TPN. -Management per surgical team Situational depression-patient reports feeling down since his diagnosis of cancer. He feels that he has good family support at this time. Thank you for the interesting consultation. I will continue to follow along with the patient. Prashant Jansen MD Requesting Provider: Dr. Cantrell Date Consult Requested: 03/28/20 Reason for Consult: Fever, left arm DVT Patient History Reviewed: Yes Admission H&P Reviewed: Yes Notified Requestor: No Time Spent (in minutes): 60
[2020-03-28] MEDS ORDERED: Warfarin 5 MG Tab PO ONE (15:00)
[2020-03-28] MEDS: Enoxaparin 120 MG/0.8 ML Syringe SUBCUT SCH (15:10)
[2020-03-28] MEDS: Fat Emulsion 100 ML IV SCH (16:58)
[2020-03-28] MEDS: Calcium Carbonate 500 MG Tab.Chew PO PRN (20:03)
[2020-03-28] MEDS: Ondansetron 4 MG/2 ML SDV IVPUSH PRN (20:50)
[2020-03-28] MEDS: Ibuprofen 600 MG Tab PO PRN (20:54)
[2020-03-28] MEDS: diphenhydrAMINE 25 MG Cap PO PRN (20:55)
[2020-03-28] MEDS: LORazepam 2 MG/ML SDV IVPUSH PRN (22:32)
[2020-03-29] MEDS: Piperacillin/Tazobactam/Dext 3.375 GM in Premix Bag 1 BAG IV SCH ×2 (01:56→07:50)
[2020-03-29] MEDS: Linezolid 600 MG in Premix Bag 1 BAG IV SCH (02:46)
[2020-03-29] MEDS: LORazepam 2 MG/ML SDV IVPUSH PRN (02:46)
[2020-03-29] MEDS ORDERED: Lidocaine 2% Viscous Solution 15 ML Cup PO ONE (03:52)
[2020-03-29] MEDS: Metoclopramide 10 MG/2 ML SDV IVPUSH SCH ×4 (04:19→22:42)
--- NOTE | 2020-03-29 05:11 | CRLCR ---
INDICATION: Abdominal pain, check nasogastric placement TECHNIQUE: Abdominal radiograph 4 views COMPARISON: 02/25/2020 FINDINGS: Severe degradation of image quality noted due to body habitus. Bowel: Severe diffuse gaseous distention of small bowel loops are present without significant interval change. Gaseous distention of the colon is also seen to the level of the rectal sigmoid. Most of the lower abdomen and pelvis is excluded. NG tube is present with the tip just beyond the GE junction. Soft tissue: No evidence of pneumoperitoneum present. No suspicious calcifications noted. Bone: Unremarkable for age. IMPRESSIONS: 1. Severe diffuse gaseous distention of small bowel loops are present without significant interval change. Gaseous distention of the colon is also seen to the level of the rectal sigmoid. Findings may be due to adynamic ileus or small-bowel obstruction. 2. NG tube is present with the tip just beyond the GE junction. Dictated by Moreno Dennis MD @ 03/29/2020 5:11:09 AM Dictated by: Moreno Dennis MD @ 03/29/2020 05:11:13 (Electronically Signed)
[2020-03-29] MEDS: Atropine/Diphenoxylate 0.025-2.5 MG Tab PO SCH (05:40)
[2020-03-29] MEDS: Ondansetron 4 MG/2 ML SDV IVPUSH SCH ×3 (07:51→15:25)
[2020-03-29] MEDS: 1: AA 5%/Calcium/D15W/Lytes 1,000 ML with MVI, Adult with Vitamin K 10 ML, Chromium/Copp IV SCH ×6 (07:58→18:06)
[2020-03-29] MEDS: Megestrol Susp 40 MG/ML ML (240 ML Bottle) PO SCH (10:21)
[2020-03-29] MEDS: Fluticasone-Salmeterol 113-14 MCG Powder Inhalant INH SCH ×2 (10:22→21:11)
[2020-03-29] MEDS: Azithromycin 125 MG in Sodium Chloride 0.9% 100 ML IV SCH ×2 (11:12→23:30)
--- NOTE | 2020-03-29 11:12 | PCM.CONSN ---
- General Info Date of Service: 03/29/20 Subjective Update: Overnight the patient had difficulty with increasing abdominal distention as well as nausea and vomiting. An abdominal x-ray was obtained and did show evidence for ileus versus small bowel obstruction. An NG tube has been placed. He did receive a dose of lorazepam to help with the nausea and is somewhat somnolent this morning. Abdomen has less pain following the placement of the NG tube. Not passing gas or having bowel movements. He has not had any fevers overnight. Functional Status: Reports: Pain Controlled. Denies: Tolerating Diet - Review of Systems Gastrointestinal: Reports: Abdominal Pain, Vomiting - Patient Data Vitals - Most Recent: Last Vital Signs Temp 36.1 C 03/29/20 07:32 Pulse 108 H 03/29/20 07:32 Resp 20 03/29/20 07:32 BP 116/76 03/29/20 07:32 Pulse Ox 97 03/29/20 07:32 Weight - Most Recent: 79.107 kg I&O - Last 24 Hours: Intake & Output 03/28/20 03/29/20 03/29/20 22:59 06:59 14:59 Intake Total 1963 1966 150 Output Total 550 525 Balance 1413 1441 150 Lab Results Last 24 Hours: Laboratory Results - last 24 hr 03/29/20 03/29/20 03/29/20 Range/Units 04:05 04:05 04:05 WBC 8.0 (4.5-11.0) K/uL RBC 3.56 L (4.30-5.90) M/uL Hgb 9.4 L (12.0-15.0) g/dL Hct 30.0 L (40.0-54.0) % MCV 84 (80-98) fL MCH 26 L (27-31) pg MCHC 31 L (32-36) % Plt Count 286 (150-400) K/uL PT (9.5-12.0) sec INR (0.80-1.20) Sodium 132 L (140-148) mmol/L Potassium 3.3 L (3.6-5.2) mmol/L Chloride 102 (100-108) mmol/L Carbon Dioxide 26 (21-32) mmol/L Anion Gap 7.3 (5.0-14.0) mmol/L BUN 31 H (7-18) mg/dL Creatinine 1.1 (0.8-1.3) mg/dL Est Cr Clr Drug Dosing 49.41 mL/min Estimated GFR (MDRD) > 60 (>60) Glucose 204 H (74-106) mg/dL Calcium 8.3 L (8.5-10.1) mg/dL Phosphorus 2.7 (2.5-4.9) mg/dL Magnesium 2.1 (1.8-2.4) mg/dL Total Bilirubin 0.4 (0.2-1.0) mg/dL AST 21 (15-37) U/L ALT 39 (12-78) U/L Alkaline Phosphatase 97 (46-116) U/L NT-Pro-B Natriuret Pep 225 (5-450) pg/mL Total Protein 5.6 L (6.4-8.2) g/dL Albumin 1.9 L (3.4-5.0) g/dL Globulin 3.7 H (2.3-3.5) g/dL Albumin/Globulin Ratio 0.5 L (1.2-2.2) Blood Type O POSITIVE Gel Antibody Screen Negative Crossmatch See Detail 03/29/20 Range/Units 04:05 WBC (4.5-11.0) K/uL RBC (4.30-5.90) M/uL Hgb (12.0-15.0) g/dL Hct (40.0-54.0) % MCV (80-98) fL MCH (27-31) pg MCHC (32-36) % Plt Count (150-400) K/uL PT 11.5 (9.5-12.0) sec INR 1.07 (0.80-1.20) Sodium (140-148) mmol/L Potassium (3.6-5.2) mmol/L Chloride (100-108) mmol/L Carbon Dioxide (21-32) mmol/L Anion Gap (5.0-14.0) mmol/L BUN (7-18) mg/dL Creatinine (0.8-1.3) mg/dL Est Cr Clr Drug Dosing mL/min Estimated GFR (MDRD) (>60) Glucose (74-106) mg/dL Calcium (8.5-10.1) mg/dL Phosphorus (2.5-4.9) mg/dL Magnesium (1.8-2.4) mg/dL Total Bilirubin (0.2-1.0) mg/dL AST (15-37) U/L ALT (12-78) U/L Alkaline Phosphatase (46-116) U/L NT-Pro-B Natriuret Pep (5-450) pg/mL Total Protein (6.4-8.2) g/dL Albumin (3.4-5.0) g/dL Globulin (2.3-3.5) g/dL Albumin/Globulin Ratio (1.2-2.2) Blood Type Gel Antibody Screen Crossmatch Steve Results Last 24 Hours: Microbiology 03/27/20 08:15 Aerobic Blood Culture - Preliminary Blood - Central Line NO GROWTH AFTER 2 DAYS Anaerobic Blood Culture - Preliminary NO GROWTH AFTER 2 DAYS 03/27/20 08:17 Aerobic Blood Culture - Preliminary Blood - Central Line NO GROWTH AFTER 2 DAYS Anaerobic Blood Culture - Preliminary NO GROWTH AFTER 2 DAYS 03/26/20 22:58 Aerobic Blood Culture - Preliminary Blood - Central Line NO GROWTH AFTER 2 DAYS Anaerobic Blood Culture - Preliminary NO GROWTH AFTER 2 DAYS 03/26/20 23:04 Aerobic Blood Culture - Preliminary Blood - Arm, Right NO GROWTH AFTER 2 DAYS Anaerobic Blood Culture - Preliminary NO GROWTH AFTER 2 DAYS 03/27/20 21:40 Aerobic Blood Culture - Preliminary Blood - Arm, Right NO GROWTH AFTER 1 DAY Anaerobic Blood Culture - Preliminary NO GROWTH AFTER 1 DAY 03/27/20 21:35 Aerobic Blood Culture - Preliminary Blood - Arm, Right NO GROWTH AFTER 1 DAY Anaerobic Blood Culture - Preliminary NO GROWTH AFTER 1 DAY 03/26/20 14:06 Urine Culture - Final Urine, Clean Catch MIXED POSITIVE KARELY DAY 2 Med Orders - Current: Current Medications Acetaminophen (Tylenol) 650 mg PO Q4H PRN PRN Reason: Fever Last Admin: 03/28/20 09:41 Dose: 650 mg Documented by: Albuterol (Ventolin Hfa) 0 gm INH Q4H PRN PRN Reason: BREATHING Aspirin (Halfprin) 81 mg PO DAILY [facility] Last Admin: 03/28/20 09:42 Dose: 81 mg Documented by: Calcium Carbonate/Glycine (Tums) 1,000 mg PO Q2H PRN PRN Reason: Indigestion Last Admin: 03/28/20 20:03 Dose: 1,000 mg Documented by: Diphenhydramine HCl (Benadryl) 25 - 50 mg PO BEDTIME PRN PRN Reason: Insomnia Last Admin: 03/28/20 20:55 Dose: 50 mg Documented by: Diphenoxylate HCl/Atropine (Lomotil 0.025-2.5 Mg) 2 tab PO QID [facility] Last Admin: 03/29/20 05:40 Dose: Not Given Documented by: Doxazosin Mesylate (Cardura) 8 mg PO DAILY [facility] Last Admin: 03/28/20 09:42 Dose: 8 mg Documented by: Enoxaparin Sodium (Lovenox) 120 mg SUBCUT Q24H [facility] Last Admin: 03/28/20 15:10 Dose: 120 mg Documented by: Finasteride (Proscar) 5 mg PO DAILY [facility] Last Admin: 03/28/20 09:43 Dose: 5 mg Documented by: Heparin Sodium (Porcine) (Heparin Lock Flush 100 Units/Ml) 500 units FLUSH ASDIRECTED PRN PRN Reason: Other Last Admin: 03/26/20 17:18 Dose: 500 units Documented by: Dextrose/Lactated Ringer's (Dextrose 5%-Lactated Ringers) 1,000 mls @ 25 mls/hr IV ASDIRECTED [facility] Last Admin: 03/26/20 22:23 Dose: 25 mls/hr Documented by: Fat Emulsion Intravenous (Intralipid 20%) 100 mls @ 8.3 mls/hr IV Q24H [facility] Last Admin: 03/28/20 16:58 Dose: 8.3 mls/hr Documented by: Multivitamins/Minerals 10 ml/Chromium/Copper/Manganese/Seleni/Zn 1 ml/ Amino Ac/Electrol/Dextrose/Calcium 1,011 mls @ 100 mls/hr IV .BY DURATION [facility] Stop: 03/29/20 14:15 Last Admin: 03/29/20 07:58 Dose: 100 mls/hr Documented by: Amino Ac/Electrol/Dextrose/Calcium (Clinimix E 02/07) 1,000 mls @ 100 mls/hr IV .BY DURATION [facility] Stop: 03/29/20 14:15 Last Admin: 03/28/20 22:23 Dose: 100 mls/hr Documented by: Albumin Human (Albumin 25%) 25 gm in 100 mls @ 25 mls/hr IV Q24H [facility] Stop: 03/31/20 13:59 Last Admin: 03/29/20 10:32 Dose: 25 mls/hr Documented by: Azithromycin 125 mg/ Sodium (Chloride) 100 mls @ 100 mls/hr IV Q12H [facility] Multivitamins/Minerals 10 ml/Chromium/Copper/Manganese/Seleni/Zn 1 ml/ Amino Ac/Electrol/Dextrose/Calcium 1,011 mls @ 100 mls/hr IV .BY DURATION [facility] Amino Ac/Electrol/Dextrose/Calcium (Clinimix E 02/07) 1,000 mls @ 100 mls/hr IV .BY DURATION [facility] Potassium Phosphate 20 mmole/ (Sodium Chloride) 106.6667 mls @ 35 mls/hr IV Q3H [facility] Stop: 03/29/20 20:59 Ibuprofen (Motrin) 600 mg PO Q6H PRN PRN Reason: Pain/Fever Last Admin: 03/28/20 20:54 Dose: 600 mg Documented by: Levothyroxine Sodium 100 mcg/ (Levothyroxine Sodium 25 mcg) 125 mcg PO ACBREAKFAST [facility] Last Admin: 03/28/20 07:29 Dose: 125 mcg Documented by: Loperamide HCl (Imodium) 4 mg PO Q6H PRN PRN Reason: Diarrhea Lorazepam (Ativan) 0.5 - 1 mg IVPUSH Q4H PRN PRN Reason: Nausea Last Admin: 03/29/20 02:46 Dose: 1 mg Documented by: Megestrol Acetate (Megace 40 Mg/Ml Susp) 625 mg PO DAILY@0800 [facility] Last Admin: 03/29/20 10:21 Dose: Not Given Documented by: Metoclopramide HCl (Reglan) 5 mg IVPUSH Q6H [facility] Last Admin: 03/29/20 10:37 Dose: 5 mg Documented by: Ondansetron HCl (Zofran) 4 mg IVPUSH Q4H PRN PRN Reason: Nausea Last Admin: 03/28/20 20:50 Dose: 4 mg Documented by: Ondansetron HCl (Zofran) 4 mg IVPUSH TIDAC [facility] Last Admin: 03/29/20 07:51 Dose: 4 mg Documented by: Fluticasone/Salmeterol (Fluticasone-Salmeterol 113-14 Mcg Powder Inh) 1 puff INH BIDRT [facility] Last Admin: 03/29/20 10:22 Dose: 1 puff Documented by: Warfarin Sodium (Coumadin) 5 mg PO DAILY@1300 [facility] Discontinued Medications Lactated Ringer's (Ringers, Lactated) 1,000 mls @ 250 mls/hr IV ONETIME ONE Stop: 03/26/20 16:29 Last Admin: 03/26/20 13:05 Dose: 250 mls/hr Documented by: Linezolid 600 mg/ Premix 300 mls @ 300 mls/hr IV Q12H [facility] Last Admin: 03/29/20 02:46 Dose: 300 mls/hr Documented by: Piperacillin/Tazobactam/ (Dextrose 3.375 gm/ Premix) 50 mls @ 100 mls/hr IV Q6H [facility] Last Admin: 03/29/20 07:50 Dose: 100 mls/hr Documented by: Sodium Chloride (Normal Saline) 100 mls @ 3 mls/sec IV ASDIRECTED [facility] Stop: 03/28/20 12:00 Sodium Chloride (Normal Saline) 79 mls @ 3 mls/sec IV ASDIRECTED [facility] Stop: 03/28/20 12:00 Last Admin: 03/28/20 08:32 Dose: 3 mls/sec Documented by: Ibuprofen (Motrin) 600 mg PO ONETIME ONE Stop: 03/27/20 20:33 Last Admin: 03/27/20 20:50 Dose: 600 mg Documented by: Iopamidol (Isovue-300 (61%)) 100 ml IV . DIRECTED [facility] Last Admin: 03/28/20 08:34 Dose: 100 ml Documented by: Iopamidol (Isovue-300 (61%)) 100 ml IV . DIRECTED [facility] Levothyroxine Sodium (Synthroid) 150 mcg PO ACBREAKFAST [facility] Last Admin: 03/27/20 07:07 Dose: 150 mcg Documented by: Levothyroxine Sodium (Synthroid) 125 mcg PO ACBREAKFAST [facility] Lidocaine HCl (Xylocaine-Mpf 1%) 5 ml INJECT ONETIME ONE Stop: 03/27/20 13:01 Last Admin: 03/27/20 14:06 Dose: 5 ml Documented by: Lidocaine HCl (Xylocaine 2% Viscous) 15 ml PO ASDIRECTED ONE Stop: 03/29/20 03:53 Last Admin: 03/29/20 04:19 Dose: 15 ml Documented by: Sodium Chloride (Saline Flush) 10 ml FLUSH ONETIME ONE Stop: 03/28/20 07:58 Last Admin: 03/28/20 08:32 Dose: 10 ml Documented by: Sodium Chloride (Saline Flush) 10 ml FLUSH ONETIME ONE Stop: 03/28/20 08:05 Last Admin: 03/28/20 09:47 Dose: 10 ml Documented by: Tamsulosin HCl (Flomax) 0.4 mg PO BEDTIME [facility] Last Admin: 03/27/20 20:56 Dose: Not Given Documented by: Warfarin Sodium (Coumadin) 5 mg PO ONETIME ONE Stop: 03/28/20 15:01 Last Admin: 03/28/20 14:58 Dose: 5 mg Documented by: - Exam Quality Assessment: No: Supplemental Oxygen General: Alert, Oriented, Cooperative, No Acute Distress Lungs: Clear to Auscultation, Normal Respiratory Effort Cardiovascular: Regular Rate, Regular Rhythm GI/Abdominal Exam: Soft, Distended, Abnormal Bowel Sounds Extremities: No Pedal Edema. No: Increased Warmth Skin: Warm, Dry Psy/Mental Status: Alert, Normal Affect Sepsis Event Note - Evaluation Sepsis Screening Result: No Definite Risk - Focused Exam Vital Signs: Vital Signs Temp Pulse Resp BP Pulse Ox 03/29/20 07:32 36.1 C 108 H 20 116/76 97 03/29/20 05:05 110 H 20 122/75 95 03/29/20 02:43 36.1 C 101 H 18 163/79 H Date Exam was Performed: 03/29/20 Time Exam was Performed: 13:06 Consult PN Assessment/Plan Procedures: Procedures AIRWAY INHALATION TREATMENT (02/13/20) ASSAY OF MAGNESIUM (03/04/20) ASSAY OF NATRIURETIC PEPTIDE (03/04/20) ASSAY OF PHOSPHORUS (03/04/20) ASSAY OF TROPONIN QUANT (03/04/20) ASSAY THYROID STIM HORMONE (02/13/20) BLOOD TYPING SEROLOGIC ABO (02/13/20) BLOOD TYPING SEROLOGIC RH(D) (02/13/20) C-REACTIVE PROTEIN (02/13/20) CARCINOEMBRYONIC ANTIGEN (02/13/20) COMPATIBILITY TEST ANTIGLOB (02/13/20) COMPATIBILITY TEST SPIN (02/13/20) COMPLETE CBC AUTOMATED (03/04/20) COMPLETE CBC W/AUTO DIFF WBC (03/04/20) COMPREHEN METABOLIC PANEL (03/04/20) CT ABD & PELV W/CONTRAST (03/04/20) CT ABD & PELVIS W/O CONTRAST (02/13/20) CULTR BACTERIA EXCEPT BLOOD (02/13/20) CULTURE OTHR SPECIMN AEROBIC (02/13/20) ELECTROCARDIOGRAM REPORT (03/04/20) ELECTROCARDIOGRAM TRACING (03/04/20) EMERGENCY DEPT VISIT (03/13/20) EMERGENCY DEPT VISIT (03/02/20) EMERGENCY DEPT VISIT (02/13/20) EMERGENCY DEPT VISIT (05/30/16) HOT OR COLD PACKS THERAPY (11/29/19) HYDRATE IV INFUSION ADD-ON (03/04/20) HYDRATION IV INFUSION INIT (02/28/20) IMMUNOHISTO ANTB 1ST STAIN (02/13/20) IMMUNOHISTO ANTB ADDL SLIDE (02/13/20) INSERT TEMP BLADDER CATH (02/13/20) INSERT TUNNELED CV CATH (03/04/20) MANUAL THERAPY 1/> REGIONS (11/29/19) MEASURE BLOOD OXYGEN LEVEL (03/04/20) METABOLIC PANEL TOTAL CA (03/04/20) MRI LUMBAR SPINE W/O DYE (05/09/19) NASAL/OROGASTRIC W/TUBE PLMT (02/13/20) OT EVALUATION (11/16/13) PT EVAL LOW COMPLEX 20 MIN (11/29/19) PT EVALUATION (03/25/16) RBC ANTIBODY SCREEN (02/13/20) ROUTINE VENIPUNCTURE (03/04/20) SMEAR GRAM STAIN (02/13/20) THER/DIAG CONCURRENT INF (03/04/20) THER/PROPH/DIAG INJ IV PUSH (02/13/20) THER/PROPH/DIAG IV INF ADDON (03/04/20) THER/PROPH/DIAG IV INF INIT (03/04/20) THERAPEUTIC EXERCISES (11/29/19) TISSUE EXAM BY PATHOLOGIST (02/13/20) TISSUE EXAM BY PATHOLOGIST (02/13/20) TISSUE EXAM BY PATHOLOGIST (02/13/20) TX/PRO/DX INJ NEW DRUG ADDON (03/04/20) TX/PROPH/DG ADDL SEQ IV INF (03/04/20) ULTRASOUND THERAPY (03/25/16) URINALYSIS AUTO W/SCOPE (03/02/20) US URINE CAPACITY MEASURE (03/04/20) X-RAY EXAM ABDOMEN 1 VIEW (02/13/20) X-RAY EXAM ABDOMEN 2 VIEWS (02/13/20) X-RAY EXAM COMPLETE ABDOMEN (02/13/20) X-RAY EXAM HIP UNI 2-3 VIEWS (03/13/20) Problem List Initiated/Reviewed/Updated: Yes My Orders Last 24 Hours: My Active Orders 03/28/20 15:00 Enoxaparin [Lovenox] 120 mg SUBCUT Q24H 03/29/20 11:15 Meropenem [Merrem] 1 gm Sodium Chloride 0.9% [Normal Saline] 100 ml IV Q8H 03/29/20 13:00 Warfarin [Coumadin] 5 mg PO DAILY@1300 Plan: ASSESSMENT AND PLAN - 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 Probably had some level of endothelial injury when the catheter was placed and has developed a DVT in his hypercoagulable state with active cancer. Tolerating anticoagulation so far. -Enoxaparin 1.5 mg/kg daily until INR therapeutic -Hold warfarin until taking pills again -INR in the morning -Anticipate 3 months of treatment Ileus versus small bowel obstruction-increasing abdominal distention with nausea and vomiting. X-ray suggested ileus versus obstruction. NG tube has been placed. -Care as per surgical team Fever-no obvious source as of yet. He was having fevers before the PICC line was placed so I doubt this was the source. Cultures are negative so far. No fevers and 2 nights. -Follow-up cultures -Change antibiotic coverage to meropenem Metastatic colon cancer-metastases to the liver visible on CT scan. Oncology appointment is coming up soon. He does continue to suffer from weakness and malnutrition following his colon surgery. He is on TPN. -Management per surgical team Situational depression-patient reports feeling down since his diagnosis of cancer. He feels that he has good family support at this time. Thank you for the interesting consultation. I will continue to follow along with the patient. Prashant Jansen MD
[2020-03-29] MEDS: Potassium Phosphates 20 MMOLE in Sodium Chloride 0.9% 100 ML IV SCH ×3 (12:18→19:34)
[2020-03-29] MEDS ORDERED: Warfarin 5 MG Tab PO SCH (13:00)
[2020-03-29] MEDS: Meropenem 1 GM in Sodium Chloride 0.9% 100 ML IV SCH ×2 (13:33→22:46)
[2020-03-29] MEDS: Enoxaparin 120 MG/0.8 ML Syringe SUBCUT SCH (14:54)
[2020-03-29] MEDS: Fat Emulsion 100 ML IV SCH (15:25)
[2020-03-30] MEDS: Metoclopramide 10 MG/2 ML SDV IVPUSH SCH ×4 (03:24→21:33)
[2020-03-30] MEDS: 1: AA 5%/Calcium/D15W/Lytes 1,000 ML with MVI, Adult with Vitamin K 10 ML, Chromium/Copp IV SCH ×6 (04:23→14:03)
--- NOTE | 2020-03-30 04:45 | CRLCR ---
INDICATION: Ileus TECHNIQUE: Abdomen/Pelvis radiograph 4 views COMPARISON: 03/29/2020 FINDINGS: Moderate degradation of image quality noted due to body habitus. Bowel: Moderate to severe gases distention of small-bowel loops are noted without change. NG tube is coiled in the region of the gastric cardia and fundus. Soft tissue: No evidence of pneumoperitoneum present. No suspicious calcifications noted. Bone: Unremarkable for age. IMPRESSIONS: 1. NG tube is coiled in the region of the gastric cardia and fundus. 2. Moderate to severe gases distention of small-bowel loops are noted without change. Dictated by Moreno Dennis MD @ 03/30/2020 4:42:55 AM Dictated by: Moreno Dennis MD @ 03/30/2020 04:43:01 (Electronically Signed)
[2020-03-30] MEDS: Meropenem 1 GM in Sodium Chloride 0.9% 100 ML IV SCH ×3 (05:37→21:33)
[2020-03-30] MEDS: Ondansetron 4 MG/2 ML SDV IVPUSH SCH ×3 (09:16→15:18)
[2020-03-30] MEDS: Fluticasone-Salmeterol 113-14 MCG Powder Inhalant INH SCH ×2 (09:17→21:33)
[2020-03-30] MEDS: Azithromycin 125 MG in Sodium Chloride 0.9% 100 ML IV SCH ×2 (11:42→22:54)
--- NOTE | 2020-03-30 13:15 | PCM.CONSN ---
- General Info Date of Service: 03/30/20 Subjective Update: Low-grade temperature elevations overnight but no significant fevers or acute issues. NG tube continues to sump out a greenish fluid. Abdominal distention is slightly better today. Abdominal x-ray stable with dilated loops of small bowel. Cultures remain negative. Plan is for PEG tube placement tomorrow. Tolerating anticoagulation with no bleeding issues. He is passing some gas and did have a liquid bowel movement this morning. Functional Status: Reports: Pain Controlled - Review of Systems General: Denies: Fever Gastrointestinal: Reports: Abdominal Pain - Patient Data Vitals - Most Recent: Last Vital Signs Temp 36.8 C 03/30/20 11:45 Pulse 67 03/30/20 11:45 Resp 14 03/30/20 11:45 BP 149/67 H 03/30/20 11:45 Pulse Ox 95 03/30/20 11:45 Weight - Most Recent: 85.729 kg I&O - Last 24 Hours: Intake & Output 03/29/20 03/30/20 03/30/20 22:59 06:59 14:59 Intake Total 1955 1578 496 Output Total 425 250 Balance 1530 1328 496 Lab Results Last 24 Hours: Laboratory Results - last 24 hr 03/29/20 03/30/20 03/30/20 Range/Units 04:05 04:10 04:10 WBC 9.8 (4.5-11.0) K/uL RBC 3.14 L (4.30-5.90) M/uL Hgb 8.5 L (12.0-15.0) g/dL Hct 26.7 L (40.0-54.0) % MCV 85 (80-98) fL MCH 27 (27-31) pg MCHC 32 (32-36) % Plt Count 331 (150-400) K/uL Neut % (Auto) 67 H (36-66) % Lymph % (Auto) 17 L (24-44) % [place] % (Auto) 14 H (2-6) % Eos % (Auto) 2 (2-4) % Baso % (Auto) 0 (0-1) % Sodium 145 (140-148) mmol/L Potassium 4.3 (3.6-5.2) mmol/L Chloride 112 H (100-108) mmol/L Carbon Dioxide 27 (21-32) mmol/L Anion Gap 10.3 (5.0-14.0) mmol/L BUN 24 H (7-18) mg/dL Creatinine 0.9 (0.8-1.3) mg/dL Est Cr Clr Drug Dosing 60.39 mL/min Estimated GFR (MDRD) > 60 (>60) Glucose 94 (74-106) mg/dL Calcium 8.1 L (8.5-10.1) mg/dL Phosphorus 3.4 (2.5-4.9) mg/dL Magnesium 2.2 (1.8-2.4) mg/dL Total Bilirubin 0.4 (0.2-1.0) mg/dL AST 35 (15-37) U/L ALT 42 (12-78) U/L Alkaline Phosphatase 89 (46-116) U/L NT-Pro-B Natriuret Pep 135 (5-450) pg/mL Total Protein 5.4 L (6.4-8.2) g/dL Albumin 1.9 L (3.4-5.0) g/dL Globulin 3.5 (2.3-3.5) g/dL Albumin/Globulin Ratio 0.5 L (1.2-2.2) Blood Type O POSITIVE Gel Antibody Screen Negative Crossmatch See Detail Steve Results Last 24 Hours: Microbiology 03/27/20 08:17 Aerobic Blood Culture - Preliminary Blood - Central Line NO GROWTH AFTER 3 DAYS Anaerobic Blood Culture - Preliminary NO GROWTH AFTER 3 DAYS 03/27/20 08:15 Aerobic Blood Culture - Preliminary Blood - Central Line NO GROWTH AFTER 3 DAYS Anaerobic Blood Culture - Preliminary NO GROWTH AFTER 3 DAYS 03/26/20 22:58 Aerobic Blood Culture - Preliminary Blood - Central Line NO GROWTH AFTER 3 DAYS Anaerobic Blood Culture - Preliminary NO GROWTH AFTER 3 DAYS 03/26/20 23:04 Aerobic Blood Culture - Preliminary Blood - Arm, Right NO GROWTH AFTER 3 DAYS Anaerobic Blood Culture - Preliminary NO GROWTH AFTER 3 DAYS 03/27/20 21:40 Aerobic Blood Culture - Preliminary Blood - Arm, Right NO GROWTH AFTER 2 DAYS Anaerobic Blood Culture - Preliminary NO GROWTH AFTER 2 DAYS 03/27/20 21:35 Aerobic Blood Culture - Preliminary Blood - Arm, Right NO GROWTH AFTER 2 DAYS Anaerobic Blood Culture - Preliminary NO GROWTH AFTER 2 DAYS Med Orders - Current: Current Medications Acetaminophen (Tylenol) 650 mg PO Q4H PRN PRN Reason: Fever Last Admin: 03/28/20 09:41 Dose: 650 mg Documented by: Albuterol (Ventolin Hfa) 0 gm INH Q4H PRN PRN Reason: BREATHING Aspirin (Halfprin) 81 mg PO DAILY ON LICENSE OF [facility] Last Admin: 03/28/20 09:42 Dose: 81 mg Documented by: Calcium Carbonate/Glycine (Tums) 1,000 mg PO Q2H PRN PRN Reason: Indigestion Last Admin: 03/28/20 20:03 Dose: 1,000 mg Documented by: Diphenhydramine HCl (Benadryl) 25 - 50 mg PO BEDTIME PRN PRN Reason: Insomnia Last Admin: 03/28/20 20:55 Dose: 50 mg Documented by: Diphenoxylate HCl/Atropine (Lomotil 0.025-2.5 Mg) 2 tab PO QID ON LICENSE OF [facility] Last Admin: 03/29/20 05:40 Dose: Not Given Documented by: Doxazosin Mesylate (Cardura) 8 mg PO DAILY ON LICENSE OF [facility] Last Admin: 03/28/20 09:42 Dose: 8 mg Documented by: Enoxaparin Sodium (Lovenox) 120 mg SUBCUT Q24H ON LICENSE OF [facility] Last Admin: 03/29/20 14:54 Dose: 120 mg Documented by: Finasteride (Proscar) 5 mg PO DAILY ON LICENSE OF [facility] Last Admin: 03/28/20 09:43 Dose: 5 mg Documented by: Heparin Sodium (Porcine) (Heparin Lock Flush 100 Units/Ml) 500 units FLUSH ASDIRECTED PRN PRN Reason: Other Last Admin: 03/26/20 17:18 Dose: 500 units Documented by: Dextrose/Lactated Ringer's (Dextrose 5%-Lactated Ringers) 1,000 mls @ 25 mls/hr IV ASDIRECTED ON LICENSE OF [facility] Last Admin: 03/26/20 22:23 Dose: 25 mls/hr Documented by: Fat Emulsion Intravenous (Intralipid 20%) 100 mls @ 8.3 mls/hr IV Q24H ON LICENSE OF [facility] Last Admin: 03/29/20 15:25 Dose: 8.3 mls/hr Documented by: Albumin Human (Albumin 25%) 25 gm in 100 mls @ 25 mls/hr IV Q24H ON LICENSE OF [facility] Stop: 03/31/20 13:59 Last Admin: 03/30/20 11:32 Dose: 25 mls/hr Documented by: Azithromycin 125 mg/ Sodium (Chloride) 100 mls @ 100 mls/hr IV Q12H ON LICENSE OF [facility] Last Admin: 03/30/20 11:42 Dose: 100 mls/hr Documented by: Multivitamins/Minerals 10 ml/Chromium/Copper/Manganese/Seleni/Zn 1 ml/ Amino A c/Electrol/Dextrose/Calcium 1,011 mls @ 100 mls/hr IV .BY DURATION ON LICENSE OF [facility] Stop: 03/30/20 14:00 Last Admin: 03/30/20 04:23 Dose: 100 mls/hr Documented by: Amino Ac/Electrol/Dextrose/Calcium (Clinimix E 5/15) 1,000 mls @ 100 mls/hr IV .BY DURATION ON LICENSE OF [facility] Stop: 03/30/20 14:00 Last Admin: 03/29/20 18:06 Dose: 100 mls/hr Documented by: Meropenem 1 gm/ Sodium (Chloride) 100 mls @ 200 mls/hr IV Q8H ON LICENSE OF [facility] Last Admin: 03/30/20 05:37 Dose: 200 mls/hr Documented by: Multivitamins/Minerals 10 ml/Chromium/Copper/Manganese/Seleni/Zn 1 ml/ Amino Ac/Electrol/Dextrose/Calcium 1,011 mls @ 100 mls/hr IV .BY DURATION ON LICENSE OF [facility] Amino Ac/Electrol/Dextrose/Calcium (Clinimix E 5/15) 1,000 mls @ 100 mls/hr IV .BY DURATION ON LICENSE OF [facility] Ibuprofen (Motrin) 600 mg PO Q6H PRN PRN Reason: Pain/Fever Last Admin: 03/28/20 20:54 Dose: 600 mg Documented by: Levothyroxine Sodium 100 mcg/ (Levothyroxine Sodium 25 mcg) 125 mcg PO ACBREAKFAST ON LICENSE OF [facility] Last Admin: 03/28/20 07:29 Dose: 125 mcg Documented by: Loperamide HCl (Imodium) 4 mg PO Q6H PRN PRN Reason: Diarrhea Lorazepam (Ativan) 0.5 - 1 mg IVPUSH Q4H PRN PRN Reason: Nausea Last Admin: 03/29/20 02:46 Dose: 1 mg Documented by: Megestrol Acetate (Megace 40 Mg/Ml Susp) 625 mg PO DAILY@0800 ON LICENSE OF [facility] Last Admin: 03/29/20 10:21 Dose: Not Given Documented by: Metoclopramide HCl (Reglan) 5 mg IVPUSH Q6H ON LICENSE OF [facility] Last Admin: 03/30/20 11:32 Dose: 5 mg Documented by: Ondansetron HCl (Zofran) 4 mg IVPUSH Q4H PRN PRN Reason: Nausea Last Admin: 03/28/20 20:50 Dose: 4 mg Documented by: Ondansetron HCl (Zofran) 4 mg IVPUSH TIDAC ON LICENSE OF [facility] Last Admin: 03/30/20 11:32 Dose: 4 mg Documented by: Fluticasone/Salmeterol (Fluticasone-Salmeterol 113-14 Mcg Powder Inh) 1 puff INH BIDRT ON LICENSE OF [facility] Last Admin: 03/30/20 09:17 Dose: 1 puff Documented by: Warfarin Sodium (Coumadin) 5 mg PO DAILY@1300 ON LICENSE OF [facility] Discontinued Medications Lactated Ringer's (Ringers, Lactated) 1,000 mls @ 250 mls/hr IV ONETIME ONE Stop: 03/26/20 16:29 Last Admin: 03/26/20 13:05 Dose: 250 mls/hr Documented by: Multivitamins/Minerals 10 ml/Chromium/Copper/Manganese/Seleni/Zn 1 ml/ Amino Ac/Electrol/Dextrose/Calcium 1,011 mls @ 100 mls/hr IV .BY DURATION ON LICENSE OF [facility] Stop: 03/29/20 14:15 Last Admin: 03/29/20 07:58 Dose: 100 mls/hr Documented by: Amino Ac/Electrol/Dextrose/Calcium (Clinimix E 5/15) 1,000 mls @ 100 mls/hr IV .BY DURATION ON LICENSE OF [facility] Stop: 03/29/20 14:15 Last Admin: 03/28/20 22:23 Dose: 100 mls/hr Documented by: Linezolid 600 mg/ Premix 300 mls @ 300 mls/hr IV Q12H ON LICENSE OF [facility] Last Admin: 03/29/20 02:46 Dose: 300 mls/hr Documented by: Piperacillin/Tazobactam/ (Dextrose 3.375 gm/ Premix) 50 mls @ 100 mls/hr IV Q6H ON LICENSE OF [facility] Last Admin: 03/29/20 07:50 Dose: 100 mls/hr Documented by: Sodium Chloride (Normal Saline) 100 mls @ 3 mls/sec IV ASDIRECTED ON LICENSE OF [facility] Stop: 03/28/20 12:00 Sodium Chloride (Normal Saline) 79 mls @ 3 mls/sec IV ASDIRECTED [facility] Stop: 03/28/20 12:00 Last Admin: 03/28/20 08:32 Dose: 3 mls/sec Documented by: Potassium Phosphate 20 mmole/ (Sodium Chloride) 106.6667 mls @ 35 mls/hr IV Q3H [facility] Stop: 03/29/20 20:59 Last Admin: 03/29/20 19:34 Dose: 35 mls/hr Documented by: Ibuprofen (Motrin) 600 mg PO ONETIME ONE Stop: 03/27/20 20:33 Last Admin: 03/27/20 20:50 Dose: 600 mg Documented by: Iopamidol (Isovue-300 (61%)) 100 ml IV . DIRECTED ON LICENSE OF [facility] Last Admin: 03/28/20 08:34 Dose: 100 ml Documented by: Iopamidol (Isovue-300 (61%)) 100 ml IV . DIRECTED ON LICENSE OF [facility] Levothyroxine Sodium (Synthroid) 150 mcg PO ACBREAKFAST ON LICENSE OF [facility] Last Admin: 03/27/20 07:07 Dose: 150 mcg Documented by: Levothyroxine Sodium (Synthroid) 125 mcg PO ACBREAKFAST ON LICENSE OF [facility] Lidocaine HCl (Xylocaine-Mpf 1%) 5 ml INJECT ONETIME ONE Stop: 03/27/20 13:01 Last Admin: 03/27/20 14:06 Dose: 5 ml Documented by: Lidocaine HCl (Xylocaine 2% Viscous) 15 ml PO ASDIRECTED ONE Stop: 03/29/20 03:53 Last Admin: 03/29/20 04:19 Dose: 15 ml Documented by: Sodium Chloride (Saline Flush) 10 ml FLUSH ONETIME ONE Stop: 03/28/20 07:58 Last Admin: 03/28/20 08:32 Dose: 10 ml Documented by: Sodium Chloride (Saline Flush) 10 ml FLUSH ONETIME ONE Stop: 03/28/20 08:05 Last Admin: 03/28/20 09:47 Dose: 10 ml Documented by: Tamsulosin HCl (Flomax) 0.4 mg PO BEDTIME ON LICENSE OF [facility] Last Admin: 03/27/20 20:56 Dose: Not Given Documented by: Warfarin Sodium (Coumadin) 5 mg PO ONETIME ONE Stop: 03/28/20 15:01 Last Admin: 03/28/20 14:58 Dose: 5 mg Documented by: - Exam Quality Assessment: No: Supplemental Oxygen General: Alert, Oriented, Cooperative, No Acute Distress Lungs: Normal Respiratory Effort Cardiovascular: Regular Rate, Regular Rhythm GI/Abdominal Exam: Soft, Distended Extremities: No Pedal Edema Psy/Mental Status: Alert, Normal Affect Sepsis Event Note - Evaluation Sepsis Screening Result: No Definite Risk - Focused Exam Vital Signs: Vital Signs Temp Temp Pulse Resp BP Pulse Ox 03/30/20 11:45 36.8 C 67 14 149/67 H 95 03/30/20 11:39 36.8 C 67 14 149/67 H 95 03/30/20 11:25 36.7 C 69 16 149/62 H 95 03/30/20 11:00 36.7 C 74 16 146/64 H 91 L 03/30/20 10:30 36.9 C 72 16 164/66 H 94 L 03/30/20 09:55 36.6 C 75 14 146/61 H 94 L 03/30/20 09:36 36.6 C 73 16 141/62 H 95 03/30/20 09:25 36.6 C 73 16 144/62 H 95 03/30/20 09:10 36.7 C 74 16 140/63 94 L 03/30/20 07:03 37.4 C 86 18 138/62 95 03/30/20 03:13 37.7 C 98 16 142/60 H 94 L Date Exam was Performed: 03/30/20 Time Exam was Performed: 14:11 Consult PN Assessment/Plan Procedures: Procedures AIRWAY INHALATION TREATMENT (02/13/20) ASSAY OF MAGNESIUM (03/04/20) ASSAY OF NATRIURETIC PEPTIDE (03/04/20) ASSAY OF PHOSPHORUS (03/04/20) ASSAY OF TROPONIN QUANT (03/04/20) ASSAY THYROID STIM HORMONE (02/13/20) BLOOD TYPING SEROLOGIC ABO (02/13/20) BLOOD TYPING SEROLOGIC RH(D) (02/13/20) C-REACTIVE PROTEIN (02/13/20) CARCINOEMBRYONIC ANTIGEN (02/13/20) COMPATIBILITY TEST ANTIGLOB (02/13/20) COMPATIBILITY TEST SPIN (02/13/20) COMPLETE CBC AUTOMATED (03/04/20) COMPLETE CBC W/AUTO DIFF WBC (03/04/20) COMPREHEN METABOLIC PANEL (03/04/20) CT ABD & PELV W/CONTRAST (03/04/20) CT ABD & PELVIS W/O CONTRAST (02/13/20) CULTR BACTERIA EXCEPT BLOOD (02/13/20) CULTURE OTHR SPECIMN AEROBIC (02/13/20) ELECTROCARDIOGRAM REPORT (03/04/20) ELECTROCARDIOGRAM TRACING (03/04/20) EMERGENCY DEPT VISIT (03/13/20) EMERGENCY DEPT VISIT (03/02/20) EMERGENCY DEPT VISIT (02/13/20) EMERGENCY DEPT VISIT (05/30/16) HOT OR COLD PACKS THERAPY (11/29/19) HYDRATE IV INFUSION ADD-ON (03/04/20) HYDRATION IV INFUSION INIT (02/28/20) IMMUNOHISTO ANTB 1ST STAIN (02/13/20) IMMUNOHISTO ANTB ADDL SLIDE (02/13/20) INSERT TEMP BLADDER CATH (02/13/20) INSERT TUNNELED CV CATH (03/04/20) MANUAL THERAPY 1/> REGIONS (11/29/19) MEASURE BLOOD OXYGEN LEVEL (03/04/20) METABOLIC PANEL TOTAL CA (03/04/20) MRI LUMBAR SPINE W/O DYE (05/09/19) NASAL/OROGASTRIC W/TUBE PLMT (02/13/20) OT EVALUATION (11/16/13) PT EVAL LOW COMPLEX 20 MIN (11/29/19) PT EVALUATION (03/25/16) RBC ANTIBODY SCREEN (02/13/20) ROUTINE VENIPUNCTURE (03/04/20) SMEAR GRAM STAIN (02/13/20) THER/DIAG CONCURRENT INF (03/04/20) THER/PROPH/DIAG INJ IV PUSH (02/13/20) THER/PROPH/DIAG IV INF ADDON (03/04/20) THER/PROPH/DIAG IV INF INIT (03/04/20) THERAPEUTIC EXERCISES (11/29/19) TISSUE EXAM BY PATHOLOGIST (02/13/20) TISSUE EXAM BY PATHOLOGIST (02/13/20) TISSUE EXAM BY PATHOLOGIST (02/13/20) TX/PRO/DX INJ NEW DRUG ADDON (03/04/20) TX/PROPH/DG ADDL SEQ IV INF (03/04/20) ULTRASOUND THERAPY (03/25/16) URINALYSIS AUTO W/SCOPE (03/02/20) US URINE CAPACITY MEASURE (03/04/20) X-RAY EXAM ABDOMEN 1 VIEW (02/13/20) X-RAY EXAM ABDOMEN 2 VIEWS (02/13/20) X-RAY EXAM COMPLETE ABDOMEN (02/13/20) X-RAY EXAM HIP UNI 2-3 VIEWS (03/13/20) Problem List Initiated/Reviewed/Updated: Yes My Orders Last 24 Hours: My Active Orders 03/29/20 13:00 Warfarin [Coumadin] 5 mg PO DAILY@1300 03/29/20 14:00 Meropenem [Merrem] 1 gm Sodium Chloride 0.9% [Normal Saline] 100 ml IV Q8H Plan: ASSESSMENT AND PLAN - 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 Probably had some level of endothelial injury when the catheter was placed and has developed a DVT in his hypercoagulable state with active cancer. Tolerating anticoagulation so far. -Enoxaparin 1.5 mg/kg daily until INR therapeutic -Hold warfarin until taking pills again -Anticipate 3 months of treatment Ileus versus small bowel obstruction-stable but not much improvement. He did have some flatus and small bowel movements today. Still has significant dilation of the small intestine on x-ray. -Care as per surgical team Fever-no obvious source as of yet. He was having fevers before the PICC line was placed so I doubt this was the source. Cultures remain negative. Low-grade temperature elevations overnight. -Follow-up cultures -Continue meropenem Metastatic colon cancer-metastases to the liver visible on CT scan. Oncology appointment is coming up soon. He does continue to suffer from weakness and malnutrition following his colon surgery. He is on TPN. -Management per surgical team Situational depression-patient reports feeling down since his diagnosis of cancer. He feels that he has good family support at this time. Prashant Jansen MD
[2020-03-30] MEDS: Enoxaparin 120 MG/0.8 ML Syringe SUBCUT SCH (14:46)
[2020-03-30] MEDS: Fat Emulsion 100 ML IV SCH (15:17)
[2020-03-30] MEDS: diphenhydrAMINE 50 MG/ML SDV IVPUSH PRN (21:32)
[2020-03-31] MEDS: 1: AA 5%/Calcium/D15W/Lytes 1,000 ML with MVI, Adult with Vitamin K 10 ML, Chromium/Copp IV SCH ×12 (00:10→20:31)
[2020-03-31] MEDS: Metoclopramide 10 MG/2 ML SDV IVPUSH SCH ×4 (04:12→22:20)
[2020-03-31] MEDS: Meropenem 1 GM in Sodium Chloride 0.9% 100 ML IV SCH ×3 (06:04→22:17)
[2020-03-31] MEDS: Ondansetron 4 MG/2 ML SDV IVPUSH SCH ×3 (07:27→16:29)
[2020-03-31] MEDS ORDERED: Central Total Parenteral Nutrition Bag SCH (07:45)
--- NOTE | 2020-03-31 09:26 | PN ---
DATE OF SERVICE: 03/31/2020 SUBJECTIVE: Walter's vital signs have been stable. He did get a unit of blood yesterday. Hemoglobin this morning is 8.7, white count 8.8. TPN was changed a little bit over the weekend. Liver function tests; AST 129, ALT 131, and alkaline phosphatase is 150. NG remains patent and he has had 425 out of his NG. Currently n.p.o. for surgical procedure. Case to follow. REVIEW OF SYSTEMS: Remainder of review of systems negative for any pertinent positives and negatives. OBJECTIVE: GENERAL: Walter Cohen is a pleasant 84-year-old male. Color pale. VITAL SIGNS: TPR at 0600, 99; 55; 16; blood pressure 138/56. HEENT: Negative. NECK: Supple. HEART: Regular rate and rhythm. LUNGS: Clear. ABDOMEN: Soft, nontender. EXTREMITIES: Without peripheral edema. ASSESSMENT: 1. Ileus. 2. Catheter-associated deep vein thrombosis related to left upper extremity PICC line. 3. Dehydration, resolving. 4. Malnutrition. 5. Total parenteral nutrition. 6. Colon cancer with metastasis to the liver. 7. Hypothyroidism. PLAN: Remain n.p.o. for placement of gastrostomy tube, flexible sigmoidoscopy with possible dilation of the ileocolic anastomosis. Local and IV sedation. Case to follow today. Orders to be written postoperatively. Continue same TPN rate and content and labs to be drawn in a.m., CBC, CMP, mag, phos, and BNP. We will evaluate p.r.n. or in a.m. Michelle Casanova PA-C /[id number]
[2020-03-31] MEDS: Azithromycin 125 MG in Sodium Chloride 0.9% 100 ML IV SCH ×2 (10:02→23:29)
[2020-03-31] MEDS ORDERED: Propofol 200 MG/20 ML SDV ONE (10:31)
[2020-03-31] MEDS ORDERED: fentaNYL 100 MCG/2 ML SDV ONE (10:31)
[2020-03-31] MEDS ORDERED: Midazolam 1 MG/ML 2 ML SDV ONE (10:31)
[2020-03-31] MEDS ORDERED: Sodium Chloride 0.9% 10 ML ONE (10:51)
[2020-03-31] MEDS ORDERED: fentaNYL 100 MCG/2 ML SDV IVPUSH ONE (11:30)
[2020-03-31] MEDS ORDERED: HYDROmorphone 1 MG/ML Syringe IV PRN (12:57)
[2020-03-31] MEDS: HYDROmorphone 0.5 MG/0.5 ML Syringe IVPUSH PRN ×3 (13:01→19:21)
--- NOTE | 2020-03-31 13:22 | PN ---
DATE OF SERVICE: 03/28/2020 The patient developed a temperature of 102, last night. He did have some shaking chills with that. Additional blood cultures were obtained. None of the blood cultures from the lines have otherwise come back positive as of yet. This morning, his temperature was 97. He looks and feels fairly good. The patient was able to get a fair bit in orally yesterday. We will continue the present TPN, and we will begin backing down on that if the Megace is becoming effective as far as increasing the oral intake. Otherwise, the hemoglobin was down to 8.7. I think that is probably related to some hydration, and we will get the type and cross match for 2 units of packed RBCs tomorrow morning, assuming that it stays on the low end. Although, his albumin is quite low at 1.6, and that will be supplemented. We will continue the present antibiotics pending C and S results, and obtain a CT chest, abdomen and pelvis today to make sure we are not missing any occult infection in those areas. Otilio Cantrell MD /[id number]
--- NOTE | 2020-03-31 13:46 | PN ---
DATE OF SERVICE: 03/29/2020 The patient has now been afebrile with stable vital signs. He did, however, develop a marked ileus overnight and marked distention of the small bowel. NG tube is in the stomach. There was also marked distention of the remaining colon and rectum with overall picture consistent with a paralytic ileus. If this situation persists, we may need to think in terms of getting gastrostomy tube back in as well as possibly considering a flexible sigmoidoscopy to make sure there is not any stricturing at the ileocolic anastomosis. Otherwise, Dr. Prashant Jansen is seeing the patient along with us. He did start the patient on some Lovenox. At this point, we will not be able to give him any oral medications per se. Blood cultures have all come out negative thus far, and given this, we need to continue the present antibiotic without there being otherwise guidance as far as antibiotic selection with the cultures being negative. His potassium and phosphate are marginally low, these will be supplemented today. Otherwise, continue the NG tube and check some abdominal x-rays tomorrow and continuing the TPN. We will start some Zithromax IV just to augment GI tract motility. If things do not improve in the next day or so from a comfort standpoint, he may be best treated with placement of a gastrostomy tube which should be able to be done percutaneously with a gastroscopic approach. Otilio Cantrell MD /[id number]
--- NOTE | 2020-03-31 14:02 | PN ---
DATE OF SERVICE: 03/30/2020 The patient has been afebrile with stable vital signs. No major problems were noted. He is a little bit more alert and oriented this morning. He is passing flatus, and the rectum appears to be more decompressed, but the small bowel is still massively dilated. Given this, he would be likely better served with percutaneous gastrostomy tube replaced, which we will plan to do tomorrow. We will also do a flexible sigmoidoscopy and dilate the ileocolic anastomosis and a stricture noted there. The potential risks of this were reviewed with the patient and , and they wished to proceed. It will be set up for tomorrow. Otherwise, we will continue the TPN. He is getting somewhat hyperchloremic, so we will back down on the sodium and chloride levels on the TPN. Otherwise, maximize activity and work on pulmonary toilet. Otilio Cantrell MD /[id number]
[2020-03-31] MEDS ORDERED: Fluconazole/Normal Saline 200 MG in Premix Bag 1 BAG IV SCH (15:00)
--- NOTE | 2020-03-31 16:26 | PCM.CONSN ---
- General Info Date of Service: 03/31/20 Subjective Update: There were no acute events overnight. Patient is reporting mild to moderate abdominal pain but is comfortable. He is not passing any gas. He did have a venting PEG tube placed today. No significant nausea. Feels much better now that the NG tube is out. Low-grade temperature elevation again last night but no significant fevers. Functional Status: Reports: Pain Controlled - Review of Systems General: Denies: Fever Gastrointestinal: Reports: Abdominal Pain - Patient Data Vitals - Most Recent: Last Vital Signs Temp 36.1 C 03/31/20 14:00 Pulse 55 L 03/31/20 14:00 Resp 18 03/31/20 14:00 BP 160/80 H 03/31/20 14:00 Pulse Ox 96 03/31/20 14:00 Weight - Most Recent: 83.869 kg I&O - Last 24 Hours: Intake & Output 03/31/20 03/31/20 03/31/20 06:59 14:59 22:59 Intake Total 87 Output Total 50 Balance 37 Lab Results Last 24 Hours: Laboratory Results - last 24 hr 03/31/20 03/31/20 Range/Units 04:10 04:10 WBC 8.8 (4.5-11.0) K/uL RBC 3.23 L (4.30-5.90) M/uL Hgb 8.7 L (12.0-15.0) g/dL Hct 28.2 L (40.0-54.0) % MCV 87 (80-98) fL MCH 27 (27-31) pg MCHC 31 L (32-36) % Plt Count 282 (150-400) K/uL Neut % (Auto) 66 (36-66) % Lymph % (Auto) 17 L (24-44) % [place] % (Auto) 14 H (2-6) % Eos % (Auto) 3 (2-4) % Baso % (Auto) 1 (0-1) % Sodium 144 (140-148) mmol/L Potassium 4.6 (3.6-5.2) mmol/L Chloride 109 H (100-108) mmol/L Carbon Dioxide 29 (21-32) mmol/L Anion Gap 10.6 (5.0-14.0) mmol/L BUN 23 H (7-18) mg/dL Creatinine 0.8 (0.8-1.3) mg/dL Est Cr Clr Drug Dosing 67.94 mL/min Estimated GFR (MDRD) > 60 (>60) Glucose 122 H (74-106) mg/dL Calcium 8.6 (8.5-10.1) mg/dL Phosphorus 3.3 (2.5-4.9) mg/dL Magnesium 2.3 (1.8-2.4) mg/dL Total Bilirubin 0.5 (0.2-1.0) mg/dL AST 129 H D (15-37) U/L ALT 131 H (12-78) U/L Alkaline Phosphatase 150 H (46-116) U/L NT-Pro-B Natriuret Pep 447 (5-450) pg/mL Total Protein 5.6 L (6.4-8.2) g/dL Albumin 2.0 L (3.4-5.0) g/dL Globulin 3.6 H (2.3-3.5) g/dL Albumin/Globulin Ratio 0.6 L (1.2-2.2) Steve Results Last 24 Hours: Microbiology 03/27/20 08:15 Aerobic Blood Culture - Preliminary Blood - Central Line NO GROWTH AFTER 4 DAYS Anaerobic Blood Culture - Preliminary NO GROWTH AFTER 4 DAYS 03/27/20 08:17 Aerobic Blood Culture - Preliminary Blood - Central Line NO GROWTH AFTER 4 DAYS Anaerobic Blood Culture - Preliminary NO GROWTH AFTER 4 DAYS 03/26/20 23:04 Aerobic Blood Culture - Preliminary Blood - Arm, Right NO GROWTH AFTER 4 DAYS Anaerobic Blood Culture - Preliminary NO GROWTH AFTER 4 DAYS 03/26/20 22:58 Aerobic Blood Culture - Preliminary Blood - Central Line NO GROWTH AFTER 4 DAYS Anaerobic Blood Culture - Preliminary NO GROWTH AFTER 4 DAYS 03/27/20 21:40 Aerobic Blood Culture - Preliminary Blood - Arm, Right NO GROWTH AFTER 3 DAYS Anaerobic Blood Culture - Preliminary NO GROWTH AFTER 3 DAYS 03/27/20 21:35 Aerobic Blood Culture - Preliminary Blood - Arm, Right NO GROWTH AFTER 3 DAYS Anaerobic Blood Culture - Preliminary NO GROWTH AFTER 3 DAYS Med Orders - Current: Current Medications Acetaminophen (Tylenol) 650 mg PO Q4H PRN PRN Reason: Fever Last Admin: 03/28/20 09:41 Dose: 650 mg Documented by: Albuterol (Ventolin Hfa) 0 gm INH Q4H PRN PRN Reason: BREATHING Aspirin (Halfprin) 81 mg PO DAILY [facility] Last Admin: 03/28/20 09:42 Dose: 81 mg Documented by: Calcium Carbonate/Glycine (Tums) 1,000 mg PO Q2H PRN PRN Reason: Indigestion Last Admin: 03/28/20 20:03 Dose: 1,000 mg Documented by: Diphenhydramine HCl (Benadryl) 25 - 50 mg PO BEDTIME PRN PRN Reason: Insomnia Last Admin: 03/28/20 20:55 Dose: 50 mg Documented by: Diphenhydramine HCl (Benadryl) 25 - 50 mg IVPUSH Q6H PRN PRN Reason: sleep Last Admin: 03/30/20 21:32 Dose: 25 mg Documented by: Diphenoxylate HCl/Atropine (Lomotil 0.025-2.5 Mg) 2 tab PO QID [facility] Last Admin: 03/29/20 05:40 Dose: Not Given Documented by: Doxazosin Mesylate (Cardura) 8 mg PO DAILY [facility] Enoxaparin Sodium (Lovenox) 120 mg SUBCUT Q24H [facility] Last Admin: 03/30/20 14:46 Dose: 120 mg Documented by: Finasteride (Proscar) 5 mg PO DAILY [facility] Heparin Sodium (Porcine) (Heparin Lock Flush 100 Units/Ml) 500 units FLUSH ASDIRECTED PRN PRN Reason: Other Last Admin: 03/26/20 17:18 Dose: 500 units Documented by: Hydromorphone HCl (Dilaudid) 0.5 mg IVPUSH Q2H PRN PRN Reason: MODERATE PAIN Last Admin: 03/31/20 13:01 Dose: 0.5 mg Documented by: Hydromorphone HCl (Dilaudid) 1 mg IV Q2H PRN PRN Reason: SEVERE PAIN Dextrose/Lactated Ringer's (Dextrose 5%-Lactated Ringers) 1,000 mls @ 25 mls/hr IV ASDIRECTED [facility] Last Admin: 03/26/20 22:23 Dose: 25 mls/hr Documented by: Fat Emulsion Intravenous (Intralipid 20%) 100 mls @ 8.3 mls/hr IV Q24H [facility] Last Admin: 03/30/20 15:17 Dose: 8.3 mls/hr Documented by: Azithromycin 125 mg/ Sodium (Chloride) 100 mls @ 100 mls/hr IV Q12H [facility] Last Admin: 03/31/20 10:02 Dose: 100 mls/hr Documented by: Meropenem 1 gm/ Sodium (Chloride) 100 mls @ 200 mls/hr IV Q8H [facility] Last Admin: 03/31/20 13:40 Dose: 200 mls/hr Documented by: Multivitamins/Minerals 10 ml/Chromium/Copper/Manganese/Seleni/Zn 1 ml/ Amino Ac/Electrol/Dextrose/Calcium 1,011 mls @ 100 mls/hr IV .BY DURATION [facility] Last Admin: 03/31/20 00:13 Dose: Not Given Documented by: Amino Ac/Electrol/Dextrose/Calcium (Clinimix E 02/07) 1,000 mls @ 100 mls/hr IV .BY DURATION [facility] Last Admin: 03/31/20 10:13 Dose: 100 mls/hr Documented by: Ibuprofen (Motrin) 600 mg PO Q6H PRN PRN Reason: Pain/Fever Last Admin: 03/28/20 20:54 Dose: 600 mg Documented by: Levothyroxine Sodium 100 mcg/ (Levothyroxine Sodium 25 mcg) 125 mcg PO ACBREAKFAST [facility] Loperamide HCl (Imodium) 4 mg PO Q6H PRN PRN Reason: Diarrhea Lorazepam (Ativan) 0.5 - 1 mg IVPUSH Q4H PRN PRN Reason: Nausea Last Admin: 03/29/20 02:46 Dose: 1 mg Documented by: Megestrol Acetate (Megace 40 Mg/Ml Susp) 625 mg PO DAILY@0800 [facility] Metoclopramide HCl (Reglan) 5 mg IVPUSH Q6H [facility] Last Admin: 03/31/20 09:59 Dose: 5 mg Documented by: Nystatin (Mycostatin) 5 ml PO QID [facility] Stop: 04/05/20 10:01 Ondansetron HCl (Zofran) 4 mg IVPUSH Q4H PRN PRN Reason: Nausea Last Admin: 03/28/20 20:50 Dose: 4 mg Documented by: Ondansetron HCl (Zofran) 4 mg IVPUSH TIDAC [facility] Last Admin: 03/31/20 12:07 Dose: 4 mg Documented by: Fluticasone/Salmeterol (Fluticasone-Salmeterol 113-14 Mcg Powder Inh) 1 puff INH BIDRT [facility] Last Admin: 03/30/20 21:33 Dose: 1 puff Documented by: Discontinued Medications Doxazosin Mesylate (Cardura) 8 mg PO DAILY [facility] Last Admin: 03/28/20 09:42 Dose: 8 mg Documented by: Fentanyl (Sublimaze) Confirm Administered Dose 100 mcg .ROUTE .STK-MED ONE Stop: 03/31/20 10:32 Fentanyl (Sublimaze) 50 mcg IVPUSH ONETIME ONE Stop: 03/31/20 11:31 Last Admin: 03/31/20 11:34 Dose: 50 mcg Documented by: Finasteride (Proscar) 5 mg PO DAILY [facility] Last Admin: 03/28/20 09:43 Dose: 5 mg Documented by: Lactated Ringer's (Ringers, Lactated) 1,000 mls @ 250 mls/hr IV ONETIME ONE Stop: 03/26/20 16:29 Last Admin: 03/26/20 13:05 Dose: 250 mls/hr Documented by: Multivitamins/Minerals 10 ml/Chromium/Copper/Manganese/Seleni/Zn 1 ml/ Amino Ac/Electrol/Dextrose/Calcium 1,011 mls @ 100 mls/hr IV .BY DURATION [facility] Stop: 03/29/20 14:15 Last Admin: 03/29/20 07:58 Dose: 100 mls/hr Documented by: Amino Ac/Electrol/Dextrose/Calcium (Clinimix E 02/07) 1,000 mls @ 100 mls/hr IV .BY DURATION [facility] Stop: 03/29/20 14:15 Last Admin: 03/28/20 22:23 Dose: 100 mls/hr Documented by: Linezolid 600 mg/ Premix 300 mls @ 300 mls/hr IV Q12H [facility] Last Admin: 03/29/20 02:46 Dose: 300 mls/hr Documented by: Piperacillin/Tazobactam/ (Dextrose 3.375 gm/ Premix) 50 mls @ 100 mls/hr IV Q6H [facility] Last Admin: 03/29/20 07:50 Dose: 100 mls/hr Documented by: Sodium Chloride (Normal Saline) 100 mls @ 3 mls/sec IV ASDIRECTED [facility] Stop: 07/03/20 12:00 Sodium Chloride (Normal Saline) 79 mls @ 3 mls/sec IV ASDIRECTED [facility] Stop: 03/28/20 12:00 Last Admin: 03/28/20 08:32 Dose: 3 mls/sec Documented by: Albumin Human (Albumin 25%) 25 gm in 100 mls @ 25 mls/hr IV Q24H [facility] Stop: 03/31/20 13:59 Last Admin: 03/31/20 09:59 Dose: 25 mls/hr Documented by: Multivitamins/Minerals 10 ml/Chromium/Copper/Manganese/Seleni/Zn 1 ml/ Amino Ac/Electrol/Dextrose/Calcium 1,011 mls @ 100 mls/hr IV .BY DURATION [facility] Stop: 03/30/20 14:00 Last Admin: 03/30/20 04:23 Dose: 100 mls/hr Documented by: Amino Ac/Electrol/Dextrose/Calcium (Clinimix E 5/15) 1,000 mls @ 100 mls/hr IV .BY DURATION [facility] Stop: 03/30/20 14:00 Last Admin: 03/29/20 18:06 Dose: 100 mls/hr Documented by: Potassium Phosphate 20 mmole/ (Sodium Chloride) 106.6667 mls @ 35 mls/hr IV Q3H [facility] Stop: 03/29/20 20:59 Last Admin: 03/29/20 19:34 Dose: 35 mls/hr Documented by: Sodium Chloride (Normal Saline) Confirm Administered Dose 10 mls @ as directed .ROUTE .STK-MED ONE Stop: 03/31/20 10:52 Ibuprofen (Motrin) 600 mg PO ONETIME ONE Stop: 03/27/20 20:33 Last Admin: 03/27/20 20:50 Dose: 600 mg Documented by: Iopamidol (Isovue-300 (61%)) 100 ml IV . DIRECTED [facility] Last Admin: 03/28/20 08:34 Dose: 100 ml Documented by: Iopamidol (Isovue-300 (61%)) 100 ml IV . DIRECTED [facility] Levothyroxine Sodium (Synthroid) 150 mcg PO ACBREAKFAST [facility] Last Admin: 03/27/20 07:07 Dose: 150 mcg Documented by: Levothyroxine Sodium (Synthroid) 125 mcg PO ACBREAKFAST [facility] Levothyroxine Sodium 100 mcg/ (Levothyroxine Sodium 25 mcg) 125 mcg PO ACBREAKFAST [facility] Last Admin: 03/28/20 07:29 Dose: 125 mcg Documented by: Lidocaine HCl (Xylocaine-Mpf 1%) 5 ml INJECT ONETIME ONE Stop: 03/27/20 13:01 Last Admin: 03/27/20 14:06 Dose: 5 ml Documented by: Lidocaine HCl (Xylocaine 2% Viscous) 15 ml PO ASDIRECTED ONE Stop: 03/29/20 03:53 Last Admin: 03/29/20 04:19 Dose: 15 ml Documented by: Megestrol Acetate (Megace 40 Mg/Ml Susp) 625 mg PO DAILY@0800 [facility] Last Admin: 03/29/20 10:21 Dose: Not Given Documented by: Midazolam HCl (Versed 1 Mg/Ml) Confirm Administered Dose 2 mg .ROUTE .STK-MED ONE Stop: 03/31/20 10:32 Non-Formulary Medication (Total Parenteral Nutrition, Central) 1,000 ml .XX .Continue Order [facility] Stop: 03/31/20 10:00 Propofol (Diprivan 20 Ml) Confirm Administered Dose 200 mg .ROUTE .STK-MED ONE Stop: 03/31/20 10:32 Sodium Chloride (Saline Flush) 10 ml FLUSH ONETIME ONE Stop: 03/28/20 07:58 Last Admin: 03/28/20 08:32 Dose: 10 ml Documented by: Sodium Chloride (Saline Flush) 10 ml FLUSH ONETIME ONE Stop: 03/28/20 08:05 Last Admin: 03/28/20 09:47 Dose: 10 ml Documented by: Tamsulosin HCl (Flomax) 0.4 mg PO BEDTIME [facility] Last Admin: 03/27/20 20:56 Dose: Not Given Documented by: Warfarin Sodium (Coumadin) 5 mg PO DAILY@1300 [facility] Warfarin Sodium (Coumadin) 5 mg PO ONETIME ONE Stop: 03/28/20 15:01 Last Admin: 03/28/20 14:58 Dose: 5 mg Documented by: - Exam Quality Assessment: No: Supplemental Oxygen General: Alert, Oriented, Cooperative, No Acute Distress Lungs: Normal Respiratory Effort GI/Abdominal Exam: Soft, Distended Extremities: No Pedal Edema Psy/Mental Status: Alert, Normal Affect Sepsis Event Note - Evaluation Sepsis Screening Result: No Definite Risk - Focused Exam Vital Signs: Vital Signs Temp Pulse Resp BP Pulse Ox 03/31/20 14:00 36.1 C 55 L 18 160/80 H 96 03/31/20 13:00 36.1 C 52 L 18 144/55 H 97 03/31/20 12:31 48 L 18 144/64 H 94 L 03/31/20 12:12 51 L 16 141/58 H 96 03/31/20 12:02 35.7 C L 62 16 139/68 92 L 03/31/20 11:45 15 135/63 97 03/31/20 11:40 36.1 C 15 141/65 H 94 L 03/31/20 11:35 15 145/66 H 94 L 03/31/20 11:30 15 146/61 H 99 03/31/20 11:25 15 143/68 H 99 03/31/20 11:20 15 133/66 98 03/31/20 11:15 36.3 C 15 130/67 98 03/31/20 06:00 37.2 C 55 L 16 138/56 L 92 L Date Exam was Performed: 03/31/20 Time Exam was Performed: 16:25 Consult PN Assessment/Plan POD#: 0 Procedures: Procedures AIRWAY INHALATION TREATMENT (02/13/20) ASSAY OF MAGNESIUM (03/04/20) ASSAY OF NATRIURETIC PEPTIDE (03/04/20) ASSAY OF PHOSPHORUS (03/04/20) ASSAY OF TROPONIN QUANT (03/04/20) ASSAY THYROID STIM HORMONE (02/13/20) BLOOD TYPING SEROLOGIC ABO (02/13/20) BLOOD TYPING SEROLOGIC RH(D) (02/13/20) C-REACTIVE PROTEIN (02/13/20) CARCINOEMBRYONIC ANTIGEN (02/13/20) COMPATIBILITY TEST ANTIGLOB (02/13/20) COMPATIBILITY TEST SPIN (02/13/20) COMPLETE CBC AUTOMATED (03/04/20) COMPLETE CBC W/AUTO DIFF WBC (03/04/20) COMPREHEN METABOLIC PANEL (03/04/20) CT ABD & PELV W/CONTRAST (03/04/20) CT ABD & PELVIS W/O CONTRAST (02/13/20) CULTR BACTERIA EXCEPT BLOOD (02/13/20) CULTURE OTHR SPECIMN AEROBIC (02/13/20) ELECTROCARDIOGRAM REPORT (03/04/20) ELECTROCARDIOGRAM TRACING (03/04/20) EMERGENCY DEPT VISIT (03/13/20) EMERGENCY DEPT VISIT (03/02/20) EMERGENCY DEPT VISIT (02/13/20) EMERGENCY DEPT VISIT (05/30/16) HOT OR COLD PACKS THERAPY (11/29/19) HYDRATE IV INFUSION ADD-ON (03/04/20) HYDRATION IV INFUSION INIT (02/28/20) IMMUNOHISTO ANTB 1ST STAIN (02/13/20) IMMUNOHISTO ANTB ADDL SLIDE (02/13/20) INSERT TEMP BLADDER CATH (02/13/20) INSERT TUNNELED CV CATH (03/04/20) MANUAL THERAPY 1/> REGIONS (11/29/19) MEASURE BLOOD OXYGEN LEVEL (03/04/20) METABOLIC PANEL TOTAL CA (03/04/20) MRI LUMBAR SPINE W/O DYE (05/09/19) NASAL/OROGASTRIC W/TUBE PLMT (02/13/20) OT EVALUATION (11/16/13) PT EVAL LOW COMPLEX 20 MIN (11/29/19) PT EVALUATION (03/25/16) RBC ANTIBODY SCREEN (02/13/20) ROUTINE VENIPUNCTURE (03/04/20) SMEAR GRAM STAIN (02/13/20) THER/DIAG CONCURRENT INF (03/04/20) THER/PROPH/DIAG INJ IV PUSH (02/13/20) THER/PROPH/DIAG IV INF ADDON (03/04/20) THER/PROPH/DIAG IV INF INIT (03/04/20) THERAPEUTIC EXERCISES (11/29/19) TISSUE EXAM BY PATHOLOGIST (02/13/20) TISSUE EXAM BY PATHOLOGIST (02/13/20) TISSUE EXAM BY PATHOLOGIST (02/13/20) TX/PRO/DX INJ NEW DRUG ADDON (03/04/20) TX/PROPH/DG ADDL SEQ IV INF (03/04/20) ULTRASOUND THERAPY (03/25/16) URINALYSIS AUTO W/SCOPE (03/02/20) US URINE CAPACITY MEASURE (03/04/20) X-RAY EXAM ABDOMEN 1 VIEW (02/13/20) X-RAY EXAM ABDOMEN 2 VIEWS (02/13/20) X-RAY EXAM COMPLETE ABDOMEN (02/13/20) X-RAY EXAM HIP UNI 2-3 VIEWS (03/13/20) Problem List Initiated/Reviewed/Updated: Yes Plan: ASSESSMENT AND PLAN - 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 Probably had some level of endothelial injury when the catheter was placed and has developed a DVT in his hypercoagulable state with active cancer. Tolerating anticoagulation so f ar. -Enoxaparin 1.5 mg/kg daily until INR therapeutic -Hold warfarin until taking pills again -Anticipate 3 months of treatment Ileus versus small bowel obstruction-stable but not much improvement. PEG tube placed today. -Care as per surgical team Fever-no obvious source and all of his cultures have been negative. Clinically he is getting better. -Follow-up cultures -Continue meropenem Metastatic colon cancer-metastases to the liver visible on CT scan. Oncology appointment is coming up soon. He does continue to suffer from weakness and malnutrition following his colon surgery. He is on TPN. -Management per surgical team Situational depression-patient reports feeling down since his diagnosis of cancer. He feels that he has good family support at this time. Prashant Jansen MD
[2020-03-31] MEDS: Fat Emulsion 100 ML IV SCH (16:28)
[2020-03-31] MEDS: Enoxaparin 120 MG/0.8 ML Syringe SUBCUT SCH (16:28)
[2020-03-31] MEDS: Fluticasone-Salmeterol 113-14 MCG Powder Inhalant INH SCH ×2 (16:37→20:59)
[2020-03-31] MEDS: Megestrol Susp 40 MG/ML ML (240 ML Bottle) PO SCH ×2 (16:40→16:49)
[2020-03-31] MEDS: Levothyroxine 100 MCG, Levothyroxine 25 MCG PO SCH ×2 (16:41)
[2020-03-31] MEDS: Finasteride 5 MG Tab PO SCH (16:41)
[2020-03-31] MEDS: Nystatin Susp 100,000 Unit/ML 5 ML UD Cup PO SCH ×2 (16:41→21:00)
[2020-03-31] MEDS: Atropine/Diphenoxylate 0.025-2.5 MG Tab PO SCH ×2 (16:43→22:17)
[2020-03-31] MEDS: Doxazosin 4 MG Tab PO SCH (16:54)
[2020-03-31] MEDS: diphenhydrAMINE 25 MG Cap PO PRN (22:17)
[2020-04-01] MEDS: HYDROmorphone 0.5 MG/0.5 ML Syringe IVPUSH PRN (00:33)
[2020-04-01] MEDS: Metoclopramide 10 MG/2 ML SDV IVPUSH SCH ×4 (04:03→21:11)
[2020-04-01] MEDS: Atropine/Diphenoxylate 0.025-2.5 MG Tab PO SCH ×4 (06:11→21:09)
[2020-04-01] MEDS: Meropenem 1 GM in Sodium Chloride 0.9% 100 ML IV SCH ×3 (06:11→21:10)
[2020-04-01] MEDS: Nystatin Susp 100,000 Unit/ML 5 ML UD Cup PO SCH ×5 (06:11→21:10)
[2020-04-01] MEDS: 1: AA 5%/Calcium/D15W/Lytes 1,000 ML with MVI, Adult with Vitamin K 10 ML, Chromium/Copp IV SCH ×6 (06:17→16:26)
[2020-04-01] MEDS ORDERED: Sodium Chloride 0.9% 1,000 ML IV SCH (07:00)
[2020-04-01] MEDS ORDERED: Central Total Parenteral Nutrition Bag SCH (07:00)
[2020-04-01] MEDS: Fluticasone-Salmeterol 113-14 MCG Powder Inhalant INH SCH ×2 (07:29→21:12)
[2020-04-01] MEDS: Levothyroxine 100 MCG, Levothyroxine 25 MCG PO SCH ×2 (08:24)
[2020-04-01] MEDS: Doxazosin 4 MG Tab PO SCH (08:25)
[2020-04-01] MEDS: Finasteride 5 MG Tab PO SCH (08:25)
[2020-04-01] MEDS: Megestrol Susp 40 MG/ML ML (240 ML Bottle) PO SCH ×2 (08:25→08:27)
[2020-04-01] MEDS: Aspirin 81 MG Tab.EC PO SCH (08:26)
[2020-04-01] MEDS: Ondansetron 4 MG/2 ML SDV IVPUSH SCH ×3 (08:27→15:08)
[2020-04-01] MEDS: Ibuprofen 600 MG Tab PO PRN (08:34)
--- NOTE | 2020-04-01 08:55 | PN ---
DATE OF SERVICE: 04/01/2020 SUBJECTIVE: Walter had a PEG tube placed yesterday and he has had 228 out of that PEG tube. He has had 400 in and 650 out. Hemoglobin this morning 8.6. AST 147, ALT 224, and alkaline phosphatase 161. He does report pain at the PEG tube site and has been given Dilaudid, which helps. Declining to use SCDs. He is on Lovenox for blood clots in the left upper extremity. REVIEW OF SYSTEMS: Remainder of review of systems negative for any pertinent positives and negatives. OBJECTIVE: GENERAL: Walter is a pleasant, 84-year-old male. He is alert and orientated. VITAL SIGNS: TPR from 0342; 96.2, 84, 16, blood pressure 151/74. HEENT: Negative. NECK: Supple. HEART: Regular rate and rhythm. LUNGS: Clear. ABDOMEN: Dressings dry and intact. Abdominal binder is on. EXTREMITIES: Without peripheral edema. ASSESSMENT: 1. Upper GI with PEG tube placement and flexible sigmoidoscopy and small bowel endoscopy for esophageal thrush. 2. Persistent ileus, intolerant to NG. 3. Widely patent ileocolic anastomosis. Date of procedure: 03/31/2020. Surgeon: Otilio Cantrell MD. PLAN: 1. Discontinue SCDs. 2. Discontinue D5 LR. 3. Normal saline at 25 mL per hour. 4. Continue same TPN rate and content. 5. Check CBC, CMP, mag, phos, and BNP. 6. Schedule upper GI with small-bowel follow-through using water-soluble contrast through gastrostomy tube in a.m. with radiologist present, if possible; date 04/02/2020. 7. Communication order written to cancel oncology appointment until the patient is discharged from the hospital. 8. Abdominal flat and upright x-ray shows less small bowel dilation. 9. We will evaluate p.r.n. or in a.m. Michelle Casanova PA-C /[id number]
[2020-04-01] MEDS: Azithromycin 125 MG in Sodium Chloride 0.9% 100 ML IV SCH ×2 (10:01→23:01)
--- NOTE | 2020-04-01 12:00 | CR ---
Abdomen 2V AP Flat Upright CLINICAL HISTORY: Follow-up ileus FINDINGS: There is impression of air being in the right hemidiaphragm. There is persistent moderate diffuse small bowel distention. NG tube is been removed. There is been placement of a gastrostomy tube. There is not a lot of gas or stool in the descending or rectosigmoid colon. IMPRESSION: Recent placement of a gastrostomy tube. There is some free intraperitoneal air likely postoperative Persistent moderate diffuse small bowel and transverse colon distention. There is no significant the gas or feces in the descending or rectosigmoid colon
--- NOTE | 2020-04-01 12:31 | PCM.CONSN ---
- General Info Date of Service: 04/01/20 Subjective Update: No acute events overnight. No significant pain. No significant nausea. Not much of an appetite with his clear liquids. Vitals stable. No fevers. Overall seems to be doing okay. Tolerating the TPN. Functional Status: Reports: Pain Controlled - Review of Systems General: Denies: Fever Gastrointestinal: Reports: Abdominal Pain. Denies: Flatus - Patient Data Vitals - Most Recent: Last Vital Signs Temp 36.3 C 04/01/20 11:00 Pulse 60 04/01/20 11:00 Resp 18 04/01/20 11:00 BP 114/58 L 04/01/20 11:00 Pulse Ox 95 04/01/20 11:00 Weight - Most Recent: 85.729 kg I&O - Last 24 Hours: Intake & Output 03/31/20 04/01/20 04/01/20 22:59 06:59 14:59 Intake Total 1900 1354 Output Total 875 700 Balance 1900 479 -700 Lab Results Last 24 Hours: Laboratory Results - last 24 hr 03/29/20 04/01/20 04/01/20 Range/Units 04:05 04:30 04:30 WBC 9.5 (4.5-11.0) K/uL RBC 3.26 L (4.30-5.90) M/uL Hgb 8.6 L (12.0-15.0) g/dL Hct 28.8 L (40.0-54.0) % MCV 88 (80-98) fL MCH 26 L (27-31) pg MCHC 30 L (32-36) % Plt Count 281 (150-400) K/uL Sodium 139 L (140-148) mmol/L Potassium 4.8 (3.6-5.2) mmol/L Chloride 107 (100-108) mmol/L Carbon Dioxide 29 (21-32) mmol/L Anion Gap 7.8 (5.0-14.0) mmol/L BUN 22 H (7-18) mg/dL Creatinine 0.8 (0.8-1.3) mg/dL Est Cr Clr Drug Dosing 67.94 mL/min Estimated GFR (MDRD) > 60 (>60) Glucose 115 H (74-106) mg/dL Calcium 8.7 (8.5-10.1) mg/dL Phosphorus 3.3 (2.5-4.9) mg/dL Magnesium 2.1 (1.8-2.4) mg/dL Total Bilirubin 0.6 (0.2-1.0) mg/dL AST 147 H (15-37) U/L ALT 224 H (12-78) U/L Alkaline Phosphatase 161 H (46-116) U/L NT-Pro-B Natriuret Pep 420 (5-450) pg/mL Total Protein 5.6 L (6.4-8.2) g/dL Albumin 2.1 L (3.4-5.0) g/dL Globulin 3.5 (2.3-3.5) g/dL Albumin/Globulin Ratio 0.6 L (1.2-2.2) Blood Type Gel Antibody Screen Crossmatch See Detail 04/01/20 Range/Units 04:35 WBC (4.5-11.0) K/uL RBC (4.30-5.90) M/uL Hgb (12.0-15.0) g/dL Hct (40.0-54.0) % MCV (80-98) fL MCH (27-31) pg MCHC (32-36) % Plt Count (150-400) K/uL Sodium (140-148) mmol/L Potassium (3.6-5.2) mmol/L Chloride (100-108) mmol/L Carbon Dioxide (21-32) mmol/L Anion Gap (5.0-14.0) mmol/L BUN (7-18) mg/dL Creatinine (0.8-1.3) mg/dL Est Cr Clr Drug Dosing mL/min Estimated GFR (MDRD) (>60) Glucose (74-106) mg/dL Calcium (8.5-10.1) mg/dL Phosphorus (2.5-4.9) mg/dL Magnesium (1.8-2.4) mg/dL Total Bilirubin (0.2-1.0) mg/dL AST (15-37) U/L ALT (12-78) U/L Alkaline Phosphatase (46-116) U/L NT-Pro-B Natriuret Pep (5-450) pg/mL Total Protein (6.4-8.2) g/dL Albumin (3.4-5.0) g/dL Globulin (2.3-3.5) g/dL Albumin/Globulin Ratio (1.2-2.2) Blood Type O POSITIVE Gel Antibody Screen Negative Crossmatch See Detail Steve Results Last 24 Hours: Microbiology 03/27/20 08:15 Aerobic Blood Culture - Final Blood - Central Line NO GROWTH AFTER 5 DAYS Anaerobic Blood Culture - Final NO GROWTH AFTER 5 DAYS 03/27/20 08:17 Aerobic Blood Culture - Final Blood - Central Line NO GROWTH AFTER 5 DAYS Anaerobic Blood Culture - Final NO GROWTH AFTER 5 DAYS 03/26/20 23:04 Aerobic Blood Culture - Final Blood - Arm, Right NO GROWTH AFTER 5 DAYS Anaerobic Blood Culture - Final NO GROWTH AFTER 5 DAYS 03/26/20 22:58 Aerobic Blood Culture - Final Blood - Central Line NO GROWTH AFTER 5 DAYS Anaerobic Blood Culture - Final NO GROWTH AFTER 5 DAYS 03/27/20 21:35 Aerobic Blood Culture - Preliminary Blood - Arm, Right NO GROWTH AFTER 4 DAYS Anaerobic Blood Culture - Preliminary NO GROWTH AFTER 4 DAYS 03/27/20 21:40 Aerobic Blood Culture - Preliminary Blood - Arm, Right NO GROWTH AFTER 4 DAYS Anaerobic Blood Culture - Preliminary NO GROWTH AFTER 4 DAYS Med Orders - Current: Current Medications Acetaminophen (Tylenol) 650 mg PO Q4H PRN PRN Reason: Fever Last Admin: 03/28/20 09:41 Dose: 650 mg Documented by: Albuterol (Ventolin Hfa) 0 gm INH Q4H PRN PRN Reason: BREATHING Aspirin (Halfprin) 81 mg PO DAILY [facility] Last Admin: 04/01/20 08:26 Dose: 81 mg Documented by: Calcium Carbonate/Glycine (Tums) 1,000 mg PO Q2H PRN PRN Reason: Indigestion Last Admin: 03/28/20 20:03 Dose: 1,000 mg Documented by: Diphenhydramine HCl (Benadryl) 25 - 50 mg PO BEDTIME PRN PRN Reason: Insomnia Last Admin: 03/31/20 22:17 Dose: 50 mg Documented by: Diphenhydramine HCl (Benadryl) 25 - 50 mg IVPUSH Q6H PRN PRN Reason: sleep Last Admin: 03/30/20 21:32 Dose: 25 mg Documented by: Diphenoxylate HCl/Atropine (Lomotil 0.025-2.5 Mg) 2 tab PO QID [facility] Last Admin: 04/01/20 10:00 Dose: Not Given Documented by: Doxazosin Mesylate (Cardura) 8 mg PO DAILY [facility] Last Admin: 04/01/20 08:25 Dose: 8 mg Documented by: Enoxaparin Sodium (Lovenox) 120 mg SUBCUT Q24H [facility] Last Admin: 03/31/20 16:28 Dose: 120 mg Documented by: Finasteride (Proscar) 5 mg PO DAILY [facility] Last Admin: 04/01/20 08:25 Dose: 5 mg Documented by: Heparin Sodium (Porcine) (Heparin Lock Flush 100 Units/Ml) 500 units FLUSH ASDIRECTED PRN PRN Reason: Other Last Admin: 04/01/20 04:13 Dose: 500 units Documented by: Hydromorphone HCl (Dilaudid) 0.5 mg IVPUSH Q2H PRN PRN Reason: MODERATE PAIN Last Admin: 04/01/20 00:33 Dose: 0.5 mg Documented by: Hydromorphone HCl (Dilaudid) 1 mg IV Q2H PRN PRN Reason: SEVERE PAIN Fat Emulsion Intravenous (Intralipid 20%) 100 mls @ 8.3 mls/hr IV Q24H [facility] Last Admin: 03/31/20 16:28 Dose: 8.3 mls/hr Documented by: Azithromycin 125 mg/ Sodium (Chloride) 100 mls @ 100 mls/hr IV Q12H [facility] Last Admin: 04/01/20 10:01 Dose: 100 mls/hr Documented by: Meropenem 1 gm/ Sodium (Chloride) 100 mls @ 200 mls/hr IV Q8H [facility] Last Admin: 04/01/20 06:11 Dose: 200 mls/hr Documented by: Multivitamins/Minerals 10 ml/Chromium/Copper/Manganese/Seleni/Zn 1 ml/ Amino Ac/Electrol/Dextrose/Calcium 1,011 mls @ 100 mls/hr IV .BY DURATION [facility] Last Admin: 03/31/20 20:31 Dose: 100 mls/hr Documented by: Amino Ac/Electrol/Dextrose/Calcium (Clinimix E 5/15) 1,000 mls @ 100 mls/hr IV .BY DURATION [facility] Last Admin: 04/01/20 06:17 Dose: 100 mls/hr Documented by: Sodium Chloride (Normal Saline) 1,000 mls @ 25 mls/hr IV ASDIRECTED [facility] Ibuprofen (Motrin) 600 mg PO Q6H PRN PRN Reason: Pain/Fever Last Admin: 04/01/20 08:34 Dose: 600 mg Documented by: Levothyroxine Sodium 100 mcg/ (Levothyroxine Sodium 25 mcg) 125 mcg PO ACBREAKFAST [facility] Last Admin: 04/01/20 08:24 Dose: 125 mcg Documented by: Loperamide HCl (Imodium) 4 mg PO Q6H PRN PRN Reason: Diarrhea Lorazepam (Ativan) 0.5 - 1 mg IVPUSH Q4H PRN PRN Reason: Nausea Last Admin: 03/29/20 02:46 Dose: 1 mg Documented by: Megestrol Acetate (Megace 40 Mg/Ml Susp) 625 mg PO DAILY@0800 [facility] Last Admin: 04/01/20 08:27 Dose: Not Given Documented by: Metoclopramide HCl (Reglan) 5 mg IVPUSH Q6H [facility] Last Admin: 04/01/20 10:01 Dose: 5 mg Documented by: Nystatin (Mycostatin) 5 ml PO QID [facility] Stop: 04/05/20 10:01 Last Admin: 04/01/20 10:01 Dose: 5 ml Documented by: Ondansetron HCl (Zofran) 4 mg IVPUSH Q4H PRN PRN Reason: Nausea Last Admin: 03/28/20 20:50 Dose: 4 mg Documented by: Ondansetron HCl (Zofran) 4 mg IVPUSH TIDAC [facility] Last Admin: 04/01/20 11:54 Dose: Not Given Documented by: Fluticasone/Salmeterol (Fluticasone-Salmeterol 113-14 Mcg Powder Inh) 1 puff INH BIDRT [facility] Last Admin: 04/01/20 07:29 Dose: 1 puff Documented by: Discontinued Medications Doxazosin Mesylate (Cardura) 8 mg PO DAILY [facility] Last Admin: 03/28/20 09:42 Dose: 8 mg Documented by: Fentanyl (Sublimaze) Confirm Administered Dose 100 mcg .ROUTE .STK-MED ONE Stop: 03/31/20 10:32 Fentanyl (Sublimaze) 50 mcg IVPUSH ONETIME ONE Stop: 03/31/20 11:31 Last Admin: 03/31/20 11:34 Dose: 50 mcg Documented by: Finasteride (Proscar) 5 mg PO DAILY [facility] Last Admin: 03/28/20 09:43 Dose: 5 mg Documented by: Lactated Ringer's (Ringers, Lactated) 1,000 mls @ 250 mls/hr IV ONETIME ONE Stop: 03/26/20 16:29 Last Admin: 03/26/20 13:05 Dose: 250 mls/hr Documented by: Dextrose/Lactated Ringer's (Dextrose 5%-Lactated Ringers) 1,000 mls @ 25 mls/hr IV ASDIRECTED [facility] Last Admin: 03/26/20 22:23 Dose: 25 mls/hr Documented by: Multivitamins/Minerals 10 ml/Chromium/Copper/Manganese/Seleni/Zn 1 ml/ Amino Ac/Electrol/Dextrose/Calcium 1,011 mls @ 100 mls/hr IV .BY DURATION [facility] Stop: 03/29/20 14:15 Last Admin: 03/29/20 07:58 Dose: 100 mls/hr Documented by: Amino Ac/Electrol/Dextrose/Calcium (Clinimix E 02/07) 1,000 mls @ 100 mls/hr IV .BY DURATION [facility] Stop: 03/29/20 14:15 Last Admin: 03/28/20 22:23 Dose: 100 mls/hr Documented by: Linezolid 600 mg/ Premix 300 mls @ 300 mls/hr IV Q12H [facility] Last Admin: 03/29/20 02:46 Dose: 300 mls/hr Documented by: Piperacillin/Tazobactam/ (Dextrose 3.375 gm/ Premix) 50 mls @ 100 mls/hr IV Q6H [facility] Last Admin: 03/29/20 07:50 Dose: 100 mls/hr Documented by: Sodium Chloride (Normal Saline) 100 mls @ 3 mls/sec IV ASDIRECTED [facility] Stop: 03/28/20 12:00 Sodium Chloride (Normal Saline) 79 mls @ 3 mls/sec IV ASDIRECTED [facility] Stop: 03/28/20 12:00 Last Admin: 03/28/20 08:32 Dose: 3 mls/sec Documented by: Albumin Human (Albumin 25%) 25 gm in 100 mls @ 25 mls/hr IV Q24H [facility] Stop: 03/31/20 13:59 Last Admin: 03/31/20 09:59 Dose: 25 mls/hr Documented by: Multivitamins/Minerals 10 ml/Chromium/Copper/Manganese/Seleni/Zn 1 ml/ Amino Ac/Electrol/Dextrose/Calcium 1,011 mls @ 100 mls/hr IV .BY DURATION [facility] Stop: 03/30/20 14:00 Last Admin: 03/30/20 04:23 Dose: 100 mls/hr Documented by: Amino Ac/Electrol/Dextrose/Calcium (Clinimix E 5/15) 1,000 mls @ 100 mls/hr IV .BY DURATION [facility] Stop: 03/30/20 14:00 Last Admin: 03/29/20 18:06 Dose: 100 mls/hr Documented by: Potassium Phosphate 20 mmole/ (Sodium Chloride) 106.6667 mls @ 35 mls/hr IV Q3H [facility] Stop: 03/29/20 20:59 Last Admin: 03/29/20 19:34 Dose: 35 mls/hr Documented by: Sodium Chloride (Normal Saline) Confirm Administered Dose 10 mls @ as directed .ROUTE .STK-MED ONE Stop: 03/31/20 10:52 Ibuprofen (Motrin) 600 mg PO ONETIME ONE Stop: 03/27/20 20:33 Last Admin: 03/27/20 20:50 Dose: 600 mg Documented by: Iopamidol (Isovue-300 (61%)) 100 ml IV . DIRECTED [facility] Last Admin: 03/28/20 08:34 Dose: 100 ml Documented by: Iopamidol (Isovue-300 (61%)) 100 ml IV . DIRECTED [facility] Levothyroxine Sodium (Synthroid) 150 mcg PO ACBREAKFAST [facility] Last Admin: 03/27/20 07:07 Dose: 150 mcg Documented by: Levothyroxine Sodium (Synthroid) 125 mcg PO ACBREAKFAST [facility] Levothyroxine Sodium 100 mcg/ (Levothyroxine Sodium 25 mcg) 125 mcg PO ACBREAKFAST [facility] Last Admin: 03/28/20 07:29 Dose: 125 mcg Documented by: Lidocaine HCl (Xylocaine-Mpf 1%) 5 ml INJECT ONETIME ONE Stop: 03/27/20 13:01 Last Admin: 03/27/20 14:06 Dose: 5 ml Documented by: Lidocaine HCl (Xylocaine 2% Viscous) 15 ml PO ASDIRECTED ONE Stop: 03/29/20 03:53 Last Admin: 03/29/20 04:19 Dose: 15 ml Documented by: Megestrol Acetate (Megace 40 Mg/Ml Susp) 625 mg PO DAILY@0800 [facility] Last Admin: 03/29/20 10:21 Dose: Not Given Documented by: Midazolam HCl (Versed 1 Mg/Ml) Confirm Administered Dose 2 mg .ROUTE .STK-MED ONE Stop: 03/31/20 10:32 Non-Formulary Medication (Total Parenteral Nutrition, Central) 1,000 ml .XX .Continue Order [facility] Stop: 03/31/20 10:00 Non-Formulary Medication (Total Parenteral Nutrition, Central) 1,000 ml .XX .Continue Order [facility] Stop: 04/01/20 10:00 Propofol (Diprivan 20 Ml) Confirm Administered Dose 200 mg .ROUTE .STK-MED ONE Stop: 03/31/20 10:32 Sodium Chloride (Saline Flush) 10 ml FLUSH ONETIME ONE Stop: 03/28/20 07:58 Last Admin: 03/28/20 08:32 Dose: 10 ml Documented by: Sodium Chloride (Saline Flush) 10 ml FLUSH ONETIME ONE Stop: 03/28/20 08:05 Last Admin: 03/28/20 09:47 Dose: 10 ml Documented by: Tamsulosin HCl (Flomax) 0.4 mg PO BEDTIME [facility] Last Admin: 03/27/20 20:56 Dose: Not Given Documented by: Warfarin Sodium (Coumadin) 5 mg PO DAILY@1300 [facility] Warfarin Sodium (Coumadin) 5 mg PO ONETIME ONE Stop: 03/28/20 15:01 Last Admin: 03/28/20 14:58 Dose: 5 mg Documented by: - Exam Quality Assessment: No: Supplemental Oxygen General: Alert, Oriented, Cooperative, No Acute Distress Lungs: Normal Respiratory Effort Cardiovascular: Regular Rate, Regular Rhythm GI/Abdominal Exam: Soft, Distended (mild ) Extremities: No Pedal Edema Psy/Mental Status: Alert, Normal Affect Sepsis Event Note - Evaluation Sepsis Screening Result: No Definite Risk - Focused Exam Vital Signs: Vital Signs Temp Pulse Resp BP BP Pulse Ox 04/01/20 11:00 36.3 C 60 18 114/58 L 95 04/01/20 08:25 141/62 H 04/01/20 07:00 36.5 C 66 18 141/62 H 96 04/01/20 03:42 35.7 C L 84 16 151/74 H 96 Date Exam was Performed: 04/01/20 Time Exam was Performed: 13:39 Consult PN Assessment/Plan Procedures: Procedures AIRWAY INHALATION TREATMENT (02/13/20) ASSAY OF MAGNESIUM (03/04/20) ASSAY OF NATRIURETIC PEPTIDE (03/04/20) ASSAY OF PHOSPHORUS (03/04/20) ASSAY OF TROPONIN QUANT (03/04/20) ASSAY THYROID STIM HORMONE (02/13/20) BLOOD TYPING SEROLOGIC ABO (02/13/20) BLOOD TYPING SEROLOGIC RH(D) (02/13/20) C-REACTIVE PROTEIN (02/13/20) CARCINOEMBRYONIC ANTIGEN (02/13/20) COMPATIBILITY TEST ANTIGLOB (02/13/20) COMPATIBILITY TEST SPIN (02/13/20) COMPLETE CBC AUTOMATED (03/04/20) COMPLETE CBC W/AUTO DIFF WBC (03/04/20) COMPREHEN METABOLIC PANEL (03/04/20) CT ABD & PELV W/CONTRAST (03/04/20) CT ABD & PELVIS W/O CONTRAST (02/13/20) CULTR BACTERIA EXCEPT BLOOD (02/13/20) CULTURE OTHR SPECIMN AEROBIC (02/13/20) ELECTROCARDIOGRAM REPORT (03/04/20) ELECTROCARDIOGRAM TRACING (03/04/20) EMERGENCY DEPT VISIT (03/13/20) EMERGENCY DEPT VISIT (03/02/20) EMERGENCY DEPT VISIT (02/13/20) EMERGENCY DEPT VISIT (05/30/16) HOT OR COLD PACKS THERAPY (11/29/19) HYDRATE IV INFUSION ADD-ON (03/04/20) HYDRATION IV INFUSION INIT (02/28/20) IMMUNOHISTO ANTB 1ST STAIN (02/13/20) IMMUNOHISTO ANTB ADDL SLIDE (02/13/20) INSERT TEMP BLADDER CATH (02/13/20) INSERT TUNNELED CV CATH (03/04/20) MANUAL THERAPY 1/> REGIONS (11/29/19) MEASURE BLOOD OXYGEN LEVEL (03/04/20) METABOLIC PANEL TOTAL CA (03/04/20) MRI LUMBAR SPINE W/O DYE (05/09/19) NASAL/OROGASTRIC W/TUBE PLMT (02/13/20) OT EVALUATION (11/16/13) PT EVAL LOW COMPLEX 20 MIN (11/29/19) PT EVALUATION (03/25/16) RBC ANTIBODY SCREEN (02/13/20) ROUTINE VENIPUNCTURE (03/04/20) SMEAR GRAM STAIN (02/13/20) THER/DIAG CONCURRENT INF (03/04/20) THER/PROPH/DIAG INJ IV PUSH (02/13/20) THER/PROPH/DIAG IV INF ADDON (03/04/20) THER/PROPH/DIAG IV INF INIT (03/04/20) THERAPEUTIC EXERCISES (11/29/19) TISSUE EXAM BY PATHOLOGIST (02/13/20) TISSUE EXAM BY PATHOLOGIST (02/13/20) TISSUE EXAM BY PATHOLOGIST (02/13/20) TX/PRO/DX INJ NEW DRUG ADDON (03/04/20) TX/PROPH/DG ADDL SEQ IV INF (03/04/20) ULTRASOUND THERAPY (03/25/16) URINALYSIS AUTO W/SCOPE (03/02/20) US URINE CAPACITY MEASURE (03/04/20) X-RAY EXAM ABDOMEN 1 VIEW (02/13/20) X-RAY EXAM ABDOMEN 2 VIEWS (02/13/20) X-RAY EXAM COMPLETE ABDOMEN (02/13/20) X-RAY EXAM HIP UNI 2-3 VIEWS (03/13/20) Problem List Initiated/Reviewed/Updated: Yes Plan: ASSESSMENT AND PLAN - 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 Probably had some level of endothelial injury when the catheter was placed and has developed a DVT in his hypercoagulable state with active cancer. Tolerating anticoagulation so far. -Enoxaparin 1.5 mg/kg daily until INR therapeutic -Hold warfarin until taking pills again -Anticipate 3 months of treatment Ileus versus small bowel obstruction-stable but not much improvement. PEG tube placed 03/31. -Care as per surgical team Fever-no obvious source and all of his cultures have been negative. Clinically he is getting better. -Follow-up cultures -Continue meropenem Metastatic colon cancer-metastases to the liver visible on CT scan. Oncology appointment is coming up soon. He does continue to suffer from weakness and malnutrition following his colon surgery. He is on TPN. AST and ALT are mildly elevated and I suspect this is related to the TPN. -Management per surgical team Situational depression-patient reports feeling down since his diagnosis of cancer. He feels that he has good family support at this time. Prashant Jansen MD
--- NOTE | 2020-04-01 12:55 | OR ---
DATE OF PROCEDURE: 03/31/2020 SURGEON: Otilio Cantrell MD PREOPERATIVE DIAGNOSES: 1. Persistent ileus with progressive intolerance to nasogastric tube. 2. Rule out stricture at ileorectal anastomosis. POSTOPERATIVE DIAGNOSES: 1. Persistent ileus with intolerance of nasogastric tube. 2. Esophageal thrush. 3. Widely patent ileorectal anastomosis. OPERATIVE PROCEDURES: 1. Upper gastrointestinal endoscopy with percutaneous endoscopic gastrostomy tube placement (28154). 2. Flexible sigmoidoscopy (14701). ANESTHESIA: Local plus IV sedation. INDICATION FOR PROCEDURE: This is an 84-year-old presenting with recurrent, quite striking ileus. He has had a nasogastric tube through the weekend and is becoming progressively intolerant of that being in place and also having, what appears to be, less than adequate decompression of the GI tract. Given this, the plan is to proceed with a percutaneous gastrostomy tube placement. This was reviewed with the patient and his yesterday as well as today. Potential risks of that procedure including bleeding, infection, malplacement of the tube, injury to the surrounding area were all reviewed as well as possible aspiration of gastric contents. One possible problem we could be looking at would be a stricture at the ileorectal anastomosis and a flexible sigmoidoscopy will be undertaken to ascertain whether or not that was present at all and if so, he would have a dilation of the ileorectal anastomosis. Potential risks of that procedure of primary bleeding and perforation were discussed as well, and he wishes to proceed. DETAILS OF PROCEDURE: The patient was taken to the operating room and placed in a left lateral decubitus position. To be sure that the stomach was empty after removal of the NG tube in that lateral position, the upper GI endoscope was passed orally. Only a small amount of remaining fluid was present in the stomach at this time and that was evacuated. Attention was then taken to the flexible sigmoidoscopy. Initial digital rectal exam was performed and was unremarkable. Colonoscope was then passed up to the level of the ileorectal anastomosis, which was widely patent. Liquid stool was easily passed through that area and the diameter was in the range of 4 to 5 cm. The scope could be passed several centimeters further up into the small bowel as well with no evidence of further problems. The endoscope was then withdrawn and as much fluid evacuated as possible and that phase of the procedure then concluded. The patient was now placed in a supine position with the head up 30 degrees. The abdomen was then prepped and draped. The upper GI endoscope was passed orally through the length of the esophagus, in an area just below the left costal margin and more or less in mid- clavicular line. The light could be seen. This was somewhat superior to the previous gastrostomy site, which should provide a little bit better skin surface, i.e., not one surface where there were distortion and scarring from the previous gastrostomy tube. Needle was then passed under direct visualization, and the guidewire was passed into the stomach and guidewire was then pulled back out through the mouth. 1 cm incision at the skin puncture site was placed prior to the skin puncturing that area, which had been anesthetized with 1% lidocaine. The wire was then affixed to the gastrostomy tube insertion apparatus, which was then pulled down from the mouth and taken out through the abdominal wall, and the gastrostomy pulled up to an appropriate level, where it was affixed to the skin with the button and some 2-0 nylon stitch and placed to dependent drainage. Upper GI endoscopy confirmed good placement of the gastrostomy tube. The patient was taken to the recovery room in satisfactory condition. Otilio Cantrell MD /[id number]
[2020-04-01] MEDS: Fat Emulsion 100 ML IV SCH (15:06)
[2020-04-01] MEDS: Enoxaparin 120 MG/0.8 ML Syringe SUBCUT SCH (15:07)
[2020-04-01] MEDS: diphenhydrAMINE 25 MG Cap PO PRN (21:15)
[2020-04-02] MEDS: Acetaminophen 325 MG Tab PO PRN ×2 (00:58→13:25)
[2020-04-02] MEDS: 1: AA 5%/Calcium/D15W/Lytes 1,000 ML with MVI, Adult with Vitamin K 10 ML, Chromium/Copp IV SCH ×9 (02:40→23:26)
[2020-04-02] MEDS: Metoclopramide 10 MG/2 ML SDV IVPUSH SCH ×4 (03:58→21:25)
[2020-04-02] MEDS: Meropenem 1 GM in Sodium Chloride 0.9% 100 ML IV SCH ×3 (05:51→21:24)
[2020-04-02] MEDS: Atropine/Diphenoxylate 0.025-2.5 MG Tab PO SCH (05:51)
[2020-04-02] MEDS: Nystatin Susp 100,000 Unit/ML 5 ML UD Cup PO SCH ×4 (05:52→21:23)
--- NOTE | 2020-04-02 06:50 | CRLCR ---
Indication: Postop ileus. Technique: Abdomen 5 view Comparison: 04/01/2020 Findings/Impression: Bowel: Percutaneous gastrostomy tube is present, however proper positioning is difficult to verify on this exam. Diffuse severe gaseous distension of the GI tract has worsened since the prior exam and would be consistent with a postop ileus. Soft tissues: No soft tissue mass or suspicious calcifications. Bones: Unremarkable for age. Dictated by Gui Schneider MD @ Apr 02 2020 6:46AM Signed by Dr. Gui Schneider @ Apr 02 2020 6:49AM
[2020-04-02] MEDS ORDERED: Central Total Parenteral Nutrition Bag SCH (07:00)
[2020-04-02] MEDS ORDERED: Atropine/Diphenoxylate 0.025-2.5 MG Tab PO PRN (07:03)
[2020-04-02] MEDS: Fluticasone-Salmeterol 113-14 MCG Powder Inhalant INH SCH ×2 (07:06→20:26)
[2020-04-02] MEDS: Megestrol Susp 40 MG/ML ML (240 ML Bottle) PO SCH (08:45)
[2020-04-02] MEDS: Calcium Carbonate 500 MG Tab.Chew PO PRN ×3 (08:47→16:25)
[2020-04-02] MEDS: Levothyroxine 100 MCG, Levothyroxine 25 MCG PO SCH ×2 (08:47)
[2020-04-02] MEDS: Aspirin 81 MG Tab.EC PO SCH (08:47)
[2020-04-02] MEDS: Doxazosin 4 MG Tab PO SCH (08:47)
[2020-04-02] MEDS: Ondansetron 4 MG/2 ML SDV IVPUSH SCH ×3 (08:48→16:22)
[2020-04-02] MEDS: Finasteride 5 MG Tab PO SCH (08:48)
[2020-04-02] MEDS: HYDROmorphone 2 MG Tab PO PRN ×2 (08:49→16:18)
--- NOTE | 2020-04-02 08:50 | PN ---
DATE OF SERVICE: 04/02/2020 SUBJECTIVE: Walter had an upper GI with small-bowel follow-through through the PEG tube. Radiology report showed percutaneous gastrostomy tube present, however, proper position is difficult to verify. Diffuse severe gaseous distention of the GI tract has worsened since prior exam and would be consistent with a postoperative ileus. Walter states he has no pain. No abdominal distention. He has some soreness he states around the actual gastrostomy tube site, but otherwise states there is no pain. Vital signs have been stable. He has been up ambulating. Oral intake on clear liquids 600 and gastrostomy tube has been at drainage, except clamped 1 hour after medication, and he has had 650 mL out. Last bowel movement was 03/31/2020. REVIEW OF SYSTEMS: Remainder of review of systems negative for any pertinent positives and negatives. OBJECTIVE: GENERAL: Walter Cohen is a pleasant 84-year-old male. He is sitting up in the chair. VITAL SIGNS: TPR at 02:46 is 98.7; 63; 16; blood pressure 154/72. HEENT: Negative. NECK: Supple. HEART: Regular rate and rhythm. LUNGS: Clear. ABDOMEN: Soft, nontender. EXTREMITIES: Without peripheral edema. ASSESSMENT: Postop ileus, upper GI with percutaneous endoscopic gastrostomy tube placement and flexible sigmoidoscopy, and small bowel endoscopy for postop diagnosis of: 1. Esophageal thrush. 2. Persistent ileus, intolerant to NG. 3. Widely patent ileocolic anastomosis. Date of procedure: 03/31/2020. Surgeon: Otilio Cantrell MD. PLAN: 1. Continue same TPN rate and content. 2. Check CBC, CMP, mag, phos, and BNP. 3. Clear liquid diet from kitchen only. 4. We will evaluate p.r.n. or in a.m. Michelle Casanova PA-C /[id number]
[2020-04-02] MEDS: Azithromycin 125 MG in Sodium Chloride 0.9% 100 ML IV SCH ×2 (11:13→23:39)
--- NOTE | 2020-04-02 13:44 | PCM.CONSN ---
- General Info Date of Service: 04/02/20 Subjective Update: Mr. Cohen is been stable over the past 24 hours, oral intake remains somewhat poor. He has experienced some left-sided abdominal pain, denies nausea or vomiting. Energy level seems to be slowly improving and he has been able to walk in the hallway with physical therapy. Functional Status: Reports: Ambulating, Urinating - Review of Systems General: Reports: Weakness, Fatigue, Malaise. Denies: Fever, Chills Pulmonary: Reports: No Symptoms Cardiovascular: Reports: No Symptoms Gastrointestinal: Reports: Abdominal Pain, Decreased Appetite. Denies: Difficulty Swallowing, Nausea, Vomiting - Patient Data Vitals - Most Recent: Last Vital Signs Temp 97.8 F 04/02/20 10:25 Pulse 71 04/02/20 10:25 Resp 18 04/02/20 10:25 BP 117/65 04/02/20 10:25 Pulse Ox 95 04/02/20 10:25 Weight - Most Recent: 188 lb 12.8 oz I&O - Last 24 Hours: Intake & Output 04/01/20 04/02/20 04/02/20 22:59 06:59 14:59 Intake Total 2232 2468 Output Total 1840 2300 200 Balance 392 168 -200 Lab Results Last 24 Hours: Laboratory Results - last 24 hr 03/29/20 04/02/20 04/02/20 Range/Units 04:05 05:47 05:47 WBC 10.5 (4.5-11.0) K/uL RBC 3.74 L (4.30-5.90) M/uL Hgb 9.9 L (12.0-15.0) g/dL Hct 32.6 L (40.0-54.0) % MCV 87 (80-98) fL MCH 27 (27-31) pg MCHC 30 L (32-36) % Plt Count 338 (150-400) K/uL Sodium 137 L (140-148) mmol/L Potassium 4.6 (3.6-5.2) mmol/L Chloride 105 (100-108) mmol/L Carbon Dioxide 25 (21-32) mmol/L Anion Gap 11.6 (5.0-14.0) mmol/L BUN 21 H (7-18) mg/dL Creatinine 0.8 (0.8-1.3) mg/dL Est Cr Clr Drug Dosing 67.94 mL/min Estimated GFR (MDRD) > 60 (>60) Glucose 107 H (74-106) mg/dL Calcium 8.4 L (8.5-10.1) mg/dL Phosphorus 3.4 (2.5-4.9) mg/dL Magnesium 2.0 (1.8-2.4) mg/dL Total Bilirubin 0.6 (0.2-1.0) mg/dL AST 155 H (15-37) U/L ALT 264 H (12-78) U/L Alkaline Phosphatase 188 H (46-116) U/L NT-Pro-B Natriuret Pep 176 (5-450) pg/mL Total Protein 5.8 L (6.4-8.2) g/dL Albumin 2.1 L (3.4-5.0) g/dL Globulin 3.7 H (2.3-3.5) g/dL Albumin/Globulin Ratio 0.6 L (1.2-2.2) Crossmatch See Detail Steve Results Last 24 Hours: Microbiology 03/27/20 21:40 Aerobic Blood Culture - Final Blood - Arm, Right NO GROWTH AFTER 5 DAYS Anaerobic Blood Culture - Final NO GROWTH AFTER 5 DAYS 03/27/20 21:35 Aerobic Blood Culture - Final Blood - Arm, Right NO GROWTH AFTER 5 DAYS Anaerobic Blood Culture - Final NO GROWTH AFTER 5 DAYS Med Orders - Current: Current Medications Acetaminophen (Tylenol) 650 mg PO Q4H PRN PRN Reason: Fever Last Admin: 04/02/20 13:25 Dose: 650 mg Documented by: Albuterol (Ventolin Hfa) 0 gm INH Q4H PRN PRN Reason: BREATHING Aspirin (Halfprin) 81 mg PO DAILY [facility] Last Admin: 04/02/20 08:47 Dose: 81 mg Documented by: Calcium Carbonate/Glycine (Tums) 1,000 mg PO Q2H PRN PRN Reason: Indigestion Last Admin: 04/02/20 13:24 Dose: 1,000 mg Documented by: Diphenhydramine HCl (Benadryl) 25 - 50 mg PO BEDTIME PRN PRN Reason: Insomnia Last Admin: 04/01/20 21:15 Dose: 25 mg Documented by: Diphenhydramine HCl (Benadryl) 25 - 50 mg IVPUSH Q6H PRN PRN Reason: sleep Last Admin: 03/30/20 21:32 Dose: 25 mg Documented by: Diphenoxylate HCl/Atropine (Lomotil 0.025-2.5 Mg) 2 tab PO QID PRN PRN Reason: Diarrhea Doxazosin Mesylate (Cardura) 8 mg PO DAILY [facility] Last Admin: 04/02/20 08:47 Dose: 8 mg Documented by: Enoxaparin Sodium (Lovenox) 120 mg SUBCUT Q24H [facility] Last Admin: 04/01/20 15:07 Dose: 120 mg Documented by: Finasteride (Proscar) 5 mg PO DAILY [facility] Last Admin: 04/02/20 08:48 Dose: 5 mg Documented by: Heparin Sodium (Porcine) (Heparin Lock Flush 100 Units/Ml) 500 units FLUSH ASDIRECTED PRN PRN Reason: Other Last Admin: 04/01/20 04:13 Dose: 500 units Documented by: Hydromorphone HCl (Dilaudid) 2 - 4 mg PO Q4H PRN PRN Reason: Pain Last Admin: 04/02/20 08:49 Dose: 4 mg Documented by: Fat Emulsion Intravenous (Intralipid 20%) 100 mls @ 8.3 mls/hr IV Q24H [facility] Last Admin: 04/01/20 15:06 Dose: 8.3 mls/hr Documented by: Azithromycin 125 mg/ Sodium (Chloride) 100 mls @ 100 mls/hr IV Q12H [facility] Last Admin: 04/02/20 11:13 Dose: 100 mls/hr Documented by: Meropenem 1 gm/ Sodium (Chloride) 100 mls @ 200 mls/hr IV Q8H [facility] Last Admin: 04/02/20 13:25 Dose: 200 mls/hr Documented by: Multivitamins/Minerals 10 ml/Chromium/Copper/Manganese/Seleni/Zn 1 ml/ Amino Ac/Electrol/Dextrose/Calcium 1,011 mls @ 100 mls/hr IV .BY DURATION [facility] Last Admin: 04/02/20 12:26 Dose: 100 mls/hr Documented by: Amino Ac/Electrol/Dextrose/Calcium (Clinimix E 5/15) 1,000 mls @ 100 mls/hr IV .BY DURATION [facility] Last Admin: 04/02/20 02:40 Dose: 100 mls/hr Documented by: Sodium Chloride (Normal Saline) 1,000 mls @ 25 mls/hr IV ASDIRECTED [facility] Ibuprofen (Motrin) 600 mg PO Q6H PRN PRN Reason: Pain/Fever Last Admin: 04/01/20 08:34 Dose: 600 mg Documented by: Levothyroxine Sodium 100 mcg/ (Levothyroxine Sodium 25 mcg) 125 mcg PO ACBREAKFAST [facility] Last Admin: 04/02/20 08:47 Dose: 125 mcg Documented by: Loperamide HCl (Imodium) 4 mg PO Q6H PRN PRN Reason: Diarrhea Lorazepam (Ativan) 0.5 - 1 mg IVPUSH Q4H PRN PRN Reason: Nausea Last Admin: 03/29/20 02:46 Dose: 1 mg Documented by: Megestrol Acetate (Megace 40 Mg/Ml Susp) 625 mg PO DAILY@0800 [facility] Last Admin: 04/02/20 08:45 Dose: Not Given Documented by: Metoclopramide HCl (Reglan) 5 mg IVPUSH Q6H [facility] Last Admin: 04/02/20 11:12 Dose: Not Given Documented by: Non-Formulary Medication (Total Parenteral Nutrition, Central) 1,000 ml .XX .Continue Order [facility] Stop: 04/02/20 18:00 Nystatin (Mycostatin) 5 ml PO QID [facility] Stop: 04/05/20 10:01 Last Admin: 04/02/20 11:13 Dose: 5 ml Documented by: Ondansetron HCl (Zofran) 4 mg IVPUSH Q4H PRN PRN Reason: Nausea Last Admin: 03/28/20 20:50 Dose: 4 mg Documented by: Ondansetron HCl (Zofran) 4 mg IVPUSH TIDAC [facility] Last Admin: 04/02/20 11:12 Dose: Not Given Documented by: Fluticasone/Salmeterol (Fluticasone-Salmeterol 113-14 Mcg Powder Inh) 1 puff INH BIDRT [facility] Last Admin: 04/02/20 07:06 Dose: 1 puff Documented by: Discontinued Medications Diphenoxylate HCl/Atropine (Lomotil 0.025-2.5 Mg) 2 tab PO QID [facility] Last Admin: 04/02/20 05:51 Dose: Not Given Documented by: Doxazosin Mesylate (Cardura) 8 mg PO DAILY [facility] Last Admin: 03/28/20 09:42 Dose: 8 mg Documented by: Fentanyl (Sublimaze) Confirm Administered Dose 100 mcg .ROUTE .STK-MED ONE Stop: 03/31/20 10:32 Fentanyl (Sublimaze) 50 mcg IVPUSH ONETIME ONE Stop: 03/31/20 11:31 Last Admin: 03/31/20 11:34 Dose: 50 mcg Documented by: Finasteride (Proscar) 5 mg PO DAILY [facility] Last Admin: 03/28/20 09:43 Dose: 5 mg Documented by: Hydromorphone HCl (Dilaudid) 0.5 mg IVPUSH Q2H PRN PRN Reason: MODERATE PAIN Last Admin: 04/01/20 00:33 Dose: 0.5 mg Documented by: Hydromorphone HCl (Dilaudid) 1 mg IV Q2H PRN PRN Reason: SEVERE PAIN Lactated Ringer's (Ringers, Lactated) 1,000 mls @ 250 mls/hr IV ONETIME ONE Stop: 03/26/20 16:29 Last Admin: 03/26/20 13:05 Dose: 250 mls/hr Documented by: Dextrose/Lactated Ringer's (Dextrose 5%-Lactated Ringers) 1,000 mls @ 25 mls/hr IV ASDIRECTED [facility] Last Admin: 03/26/20 22:23 Dose: 25 mls/hr Documented by: Multivitamins/Minerals 10 ml/Chromium/Copper/Manganese/Seleni/Zn 1 ml/ Amino Ac/Electrol/Dextrose/Calcium 1,011 mls @ 100 mls/hr IV .BY DURATION [facility] Stop: 03/29/20 14:15 Last Admin: 03/29/20 07:58 Dose: 100 mls/hr Documented by: Amino Ac/Electrol/Dextrose/Calcium (Clinimix E 02/07) 1,000 mls @ 100 mls/hr IV .BY DURATION [facility] Stop: 03/29/20 14:15 Last Admin: 03/28/20 22:23 Dose: 100 mls/hr Documented by: Linezolid 600 mg/ Premix 300 mls @ 300 mls/hr IV Q12H [facility] Last Admin: 03/29/20 02:46 Dose: 300 mls/hr Documented by: Piperacillin/Tazobactam/ (Dextrose 3.375 gm/ Premix) 50 mls @ 100 mls/hr IV Q6H [facility] Last Admin: 03/29/20 07:50 Dose: 100 mls/hr Documented by: Sodium Chloride (Normal Saline) 100 mls @ 3 mls/sec IV ASDIRECTED [facility] Stop: 03/28/20 12:00 Sodium Chloride (Normal Saline) 79 mls @ 3 mls/sec IV ASDIRECTED [facility] Stop: 03/28/20 12:00 Last Admin: 03/28/20 08:32 Dose: 3 mls/sec Documented by: Albumin Human (Albumin 25%) 25 gm in 100 mls @ 25 mls/hr IV Q24H [facility] Stop: 03/31/20 13:59 Last Admin: 03/31/20 09:59 Dose: 25 mls/hr Documented by: Multivitamins/Minerals 10 ml/Chromium/Copper/Manganese/Seleni/Zn 1 ml/ Amino Ac/Electrol/Dextrose/Calcium 1,011 mls @ 100 mls/hr IV .BY DURATION [facility] Stop: 03/30/20 14:00 Last Admin: 03/30/20 04:23 Dose: 100 mls/hr Documented by: Amino Ac/Electrol/Dextrose/Calcium (Clinimix E 02/07) 1,000 mls @ 100 mls/hr IV .BY DURATION [facility] Stop: 03/30/20 14:00 Last Admin: 03/29/20 18:06 Dose: 100 mls/hr Documented by: Potassium Phosphate 20 mmole/ (Sodium Chloride) 106.6667 mls @ 35 mls/hr IV Q3H [facility] Stop: 03/29/20 20:59 Last Admin: 03/29/20 19:34 Dose: 35 mls/hr Documented by: Sodium Chloride (Normal Saline) Confirm Administered Dose 10 mls @ as directed .ROUTE .STK-MED ONE Stop: 03/31/20 10:52 Ibuprofen (Motrin) 600 mg PO ONETIME ONE Stop: 03/27/20 20:33 Last Admin: 03/27/20 20:50 Dose: 600 mg Documented by: Iopamidol (Isovue-300 (61%)) 100 ml IV . DIRECTED [facility] Last Admin: 03/28/20 08:34 Dose: 100 ml Documented by: Iopamidol (Isovue-300 (61%)) 100 ml IV . DIRECTED [facility] Levothyroxine Sodium (Synthroid) 150 mcg PO ACBREAKFAST [facility] Last Admin: 03/27/20 07:07 Dose: 150 mcg Documented by: Levothyroxine Sodium (Synthroid) 125 mcg PO ACBREAKFAST [facility] Levothyroxine Sodium 100 mcg/ (Levothyroxine Sodium 25 mcg) 125 mcg PO ACBREAKFAST [facility] Last Admin: 03/28/20 07:29 Dose: 125 mcg Documented by: Lidocaine HCl (Xylocaine-Mpf 1%) 5 ml INJECT ONETIME ONE Stop: 03/27/20 13:01 Last Admin: 03/27/20 14:06 Dose: 5 ml Documented by: Lidocaine HCl (Xylocaine 2% Viscous) 15 ml PO ASDIRECTED ONE Stop: 03/29/20 03:53 Last Admin: 03/29/20 04:19 Dose: 15 ml Documented by: Megestrol Acetate (Megace 40 Mg/Ml Susp) 625 mg PO DAILY@0800 [facility] Last Admin: 03/29/20 10:21 Dose: Not Given Documented by: Midazolam HCl (Versed 1 Mg/Ml) Confirm Administered Dose 2 mg .ROUTE .STK-MED ONE Stop: 03/31/20 10:32 Non-Formulary Medication (Total Parenteral Nutrition, Central) 1,000 ml .XX .Continue Order [facility] Stop: 03/31/20 10:00 Non-Formulary Medication (Total Parenteral Nutrition, Central) 1,000 ml .XX .Continue Order [facility] Stop: 04/01/20 10:00 Propofol (Diprivan 20 Ml) Confirm Administered Dose 200 mg .ROUTE .STK-MED ONE Stop: 03/31/20 10:32 Sodium Chloride (Saline Flush) 10 ml FLUSH ONETIME ONE Stop: 03/28/20 07:58 Last Admin: 03/28/20 08:32 Dose: 10 ml Documented by: Sodium Chloride (Saline Flush) 10 ml FLUSH ONETIME ONE Stop: 03/28/20 08:05 Last Admin: 03/28/20 09:47 Dose: 10 ml Documented by: Tamsulosin HCl (Flomax) 0.4 mg PO BEDTIME [facility] Last Admin: 03/27/20 20:56 Dose: Not Given Documented by: Warfarin Sodium (Coumadin) 5 mg PO DAILY@1300 [facility] Warfarin Sodium (Coumadin) 5 mg PO ONETIME ONE Stop: 03/28/20 15:01 Last Admin: 03/28/20 14:58 Dose: 5 mg Documented by: - Exam Quality Assessment: DVT Prophylaxis General: Alert, Oriented, Cooperative, Mild Distress Lungs: Clear to Auscultation, Normal Respiratory Effort Cardiovascular: Regular Rate, Regular Rhythm, No Murmurs GI/Abdominal Exam: Soft, No Organomegaly, Tender. No: Distended, Guarding, Rigid, Rebound Extremities: Non-Tender, No Pedal Edema Sepsis Event Note - Evaluation Sepsis Screening Result: No Definite Risk - Focused Exam Vital Signs: Vital Signs Temp Pulse Resp BP BP Pulse Ox 04/02/20 10:25 97.8 F 71 18 117/65 95 04/02/20 08:47 154/72 H 04/02/20 08:00 98.4 F 89 16 134/66 96 04/02/20 02:46 98.7 F 63 16 154/72 H 97 Date Exam was Performed: 04/02/20 Time Exam was Performed: 13:42 Consult PN Assessment/Plan Procedures: Procedures AIRWAY INHALATION TREATMENT (02/13/20) ASSAY OF MAGNESIUM (03/04/20) ASSAY OF NATRIURETIC PEPTIDE (03/04/20) ASSAY OF PHOSPHORUS (03/04/20) ASSAY OF TROPONIN QUANT (03/04/20) ASSAY THYROID STIM HORMONE (02/13/20) BLOOD TYPING SEROLOGIC ABO (02/13/20) BLOOD TYPING SEROLOGIC RH(D) (02/13/20) C-REACTIVE PROTEIN (02/13/20) CARCINOEMBRYONIC ANTIGEN (02/13/20) COMPATIBILITY TEST ANTIGLOB (02/13/20) COMPATIBILITY TEST SPIN (02/13/20) COMPLETE CBC AUTOMATED (03/04/20) COMPLETE CBC W/AUTO DIFF WBC (03/04/20) COMPREHEN METABOLIC PANEL (03/04/20) CT ABD & PELV W/CONTRAST (03/04/20) CT ABD & PELVIS W/O CONTRAST (02/13/20) CULTR BACTERIA EXCEPT BLOOD (02/13/20) CULTURE OTHR SPECIMN AEROBIC (02/13/20) ELECTROCARDIOGRAM REPORT (03/04/20) ELECTROCARDIOGRAM TRACING (03/04/20) EMERGENCY DEPT VISIT (03/13/20) EMERGENCY DEPT VISIT (03/02/20) EMERGENCY DEPT VISIT (02/13/20) EMERGENCY DEPT VISIT (05/30/16) HOT OR COLD PACKS THERAPY (11/29/19) HYDRATE IV INFUSION ADD-ON (03/04/20) HYDRATION IV INFUSION INIT (02/28/20) IMMUNOHISTO ANTB 1ST STAIN (02/13/20) IMMUNOHISTO ANTB ADDL SLIDE (02/13/20) INSERT TEMP BLADDER CATH (02/13/20) INSERT TUNNELED CV CATH (03/04/20) MANUAL THERAPY 1/> REGIONS (11/29/19) MEASURE BLOOD OXYGEN LEVEL (03/04/20) METABOLIC PANEL TOTAL CA (03/04/20) MRI LUMBAR SPINE W/O DYE (05/09/19) NASAL/OROGASTRIC W/TUBE PLMT (02/13/20) OT EVALUATION (11/16/13) PT EVAL LOW COMPLEX 20 MIN (11/29/19) PT EVALUATION (03/25/16) RBC ANTIBODY SCREEN (02/13/20) ROUTINE VENIPUNCTURE (03/04/20) SMEAR GRAM STAIN (02/13/20) THER/DIAG CONCURRENT INF (03/04/20) THER/PROPH/DIAG INJ IV PUSH (02/13/20) THER/PROPH/DIAG IV INF ADDON (03/04/20) THER/PROPH/DIAG IV INF INIT (03/04/20) THERAPEUTIC EXERCISES (11/29/19) TISSUE EXAM BY PATHOLOGIST (02/13/20) TISSUE EXAM BY PATHOLOGIST (02/13/20) TISSUE EXAM BY PATHOLOGIST (02/13/20) TX/PRO/DX INJ NEW DRUG ADDON (03/04/20) TX/PROPH/DG ADDL SEQ IV INF (03/04/20) ULTRASOUND THERAPY (03/25/16) URINALYSIS AUTO W/SCOPE (03/02/20) US URINE CAPACITY MEASURE (03/04/20) X-RAY EXAM ABDOMEN 1 VIEW (02/13/20) X-RAY EXAM ABDOMEN 2 VIEWS (02/13/20) X-RAY EXAM COMPLETE ABDOMEN (02/13/20) X-RAY EXAM HIP UNI 2-3 VIEWS (03/13/20) Problem List Initiated/Reviewed/Updated: Yes Plan: ASSESSMENT AND PLAN - 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 Probably had some level of endothelial injury when the catheter was placed and has developed a DVT in his hypercoagulable state with active cancer. Tolerating anticoagulation so far. -Enoxaparin 1.5 mg/kg daily until INR therapeutic -Hold warfarin until taking pills again -Anticipate 3 months of treatment Ileus versus small bowel obstruction-stable but not much improvement. PEG tube placed 03/31. -Care as per surgical team Fever-no obvious source and all of his cultures have been negative. Lowly feeling better -Follow-up cultures -Continue meropenem Metastatic colon cancer-metastases to the liver visible on CT scan. Oncology appointment is coming up soon. He does continue to suffer from weakness and malnutrition following his colon surgery. He is on TPN. AST and ALT are mildly elevated and I suspect this is related to the TPN. -Management per surgical team Situational depression-patient reports feeling down since his diagnosis of cancer. He feels that he has good family support at this time.
[2020-04-02] MEDS: Enoxaparin 120 MG/0.8 ML Syringe SUBCUT SCH (14:57)
[2020-04-02] MEDS: Fat Emulsion 100 ML IV SCH (16:23)
[2020-04-02] MEDS: diphenhydrAMINE 25 MG Cap PO PRN (21:25)
[2020-04-03] MEDS: LORazepam 2 MG/ML SDV IVPUSH PRN (03:15)
[2020-04-03] MEDS: Metoclopramide 10 MG/2 ML SDV IVPUSH SCH ×4 (04:22→21:24)
[2020-04-03] MEDS: Meropenem 1 GM in Sodium Chloride 0.9% 100 ML IV SCH ×3 (05:51→21:24)
[2020-04-03] MEDS: Nystatin Susp 100,000 Unit/ML 5 ML UD Cup PO SCH ×4 (06:01→21:24)
[2020-04-03] MEDS ORDERED: Central Total Parenteral Nutrition Bag SCH (07:15)
[2020-04-03] MEDS: Calcium Carbonate 500 MG Tab.Chew PO PRN ×3 (07:31→19:33)
[2020-04-03] MEDS: Ondansetron 4 MG/2 ML SDV IVPUSH SCH ×3 (07:36→15:45)
[2020-04-03] MEDS: Megestrol Susp 40 MG/ML ML (240 ML Bottle) PO SCH (07:39)
[2020-04-03] MEDS: Levothyroxine 100 MCG, Levothyroxine 25 MCG PO SCH ×2 (07:50)
[2020-04-03] MEDS: Fluticasone-Salmeterol 113-14 MCG Powder Inhalant INH SCH ×2 (08:29→21:23)
[2020-04-03] MEDS: 1: AA 5%/Calcium/D15W/Lytes 1,000 ML with MVI, Adult with Vitamin K 10 ML, Chromium/Copp IV SCH ×6 (09:14→19:25)
[2020-04-03] MEDS: Docusate Sodium 100 MG Cap PO SCH ×2 (09:19→21:23)
[2020-04-03] MEDS: Finasteride 5 MG Tab PO SCH (09:19)
[2020-04-03] MEDS: Doxazosin 4 MG Tab PO SCH (09:19)
[2020-04-03] MEDS: Aspirin 81 MG Tab.EC PO SCH (09:19)
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
[2020-04-03] MEDS: Azithromycin 125 MG in Sodium Chloride 0.9% 100 ML IV SCH ×2 (12:29→22:50)
[2020-04-03] MEDS: chlorproMAZINE 25 MG Tab PO SCH ×3 (12:33→21:25)
--- NOTE | 2020-04-03 12:47 | PCM.CONSN ---
- General Info Date of Service: 04/03/20 Subjective Update: Mr. Cohen has been stable since yesterday. Unfortunately he has developed intermittent hiccups that are very troubling for him. Otherwise he has been up walking in the hallways and has been tolerating his clear liquid diet. Vital signs have been stable and he has remained afebrile. Functional Status: Reports: Tolerating Diet, Ambulating, Urinating - Review of Systems General: Reports: Weakness, Fatigue. Denies: Fever, Chills Pulmonary: Reports: No Symptoms Cardiovascular: Reports: No Symptoms Gastrointestinal: Reports: Abdominal Pain, Decreased Appetite. Denies: Difficulty Swallowing, Nausea, Vomiting - Patient Data Vitals - Most Recent: Last Vital Signs Temp 96.4 F L 04/03/20 10:42 Pulse 111 H 04/03/20 10:42 Resp 16 04/03/20 10:42 BP 124/74 04/03/20 10:42 Pulse Ox 96 04/03/20 10:42 Weight - Most Recent: 187 lb 3.2 oz I&O - Last 24 Hours: Intake & Output 04/02/20 04/03/20 04/03/20 22:59 06:59 14:59 Intake Total 2220 1630 398 Output Total 850 Balance 2220 780 398 Lab Results Last 24 Hours: Laboratory Results - last 24 hr 04/03/20 04/03/20 Range/Units 04:45 04:45 WBC 12.0 H (4.5-11.0) K/uL RBC 3.89 L (4.30-5.90) M/uL Hgb 10.5 L (12.0-15.0) g/dL Hct 33.8 L (40.0-54.0) % MCV 87 (80-98) fL MCH 27 (27-31) pg MCHC 31 L (32-36) % Plt Count 353 (150-400) K/uL Sodium 137 L (140-148) mmol/L Potassium 4.6 (3.6-5.2) mmol/L Chloride 104 (100-108) mmol/L Carbon Dioxide 27 (21-32) mmol/L Anion Gap 10.6 (5.0-14.0) mmol/L BUN 22 H (7-18) mg/dL Creatinine 1.0 (0.8-1.3) mg/dL Est Cr Clr Drug Dosing 54.35 mL/min Estimated GFR (MDRD) > 60 (>60) Glucose 101 (74-106) mg/dL Calcium 9.4 (8.5-10.1) mg/dL Phosphorus 3.7 (2.5-4.9) mg/dL Magnesium 2.2 (1.8-2.4) mg/dL Total Bilirubin 0.5 (0.2-1.0) mg/dL AST 79 H (15-37) U/L ALT 225 H (12-78) U/L Alkaline Phosphatase 179 H (46-116) U/L NT-Pro-B Natriuret Pep 68 (5-450) pg/mL Total Protein 6.2 L (6.4-8.2) g/dL Albumin 2.2 L (3.4-5.0) g/dL Globulin 4.0 H (2.3-3.5) g/dL Albumin/Globulin Ratio 0.6 L (1.2-2.2) Med Orders - Current: Current Medications Acetaminophen (Tylenol) 650 mg PO Q4H PRN PRN Reason: Fever Last Admin: 04/02/20 13:25 Dose: 650 mg Documented by: Albuterol (Ventolin Hfa) 0 gm INH Q4H PRN PRN Reason: BREATHING Aspirin (Halfprin) 81 mg PO DAILY [facility] Last Admin: 04/03/20 09:19 Dose: 81 mg Documented by: Calcium Carbonate/Glycine (Tums) 1,000 mg PO Q2H PRN PRN Reason: Indigestion Last Admin: 04/03/20 09:44 Dose: 1,000 mg Documented by: Chlorpromazine HCl (Thorazine) 25 mg PO TID [facility] Last Admin: 04/03/20 12:33 Dose: 25 mg Documented by: Diphenhydramine HCl (Benadryl) 25 - 50 mg PO BEDTIME PRN PRN Reason: Insomnia Last Admin: 04/02/20 21:25 Dose: 50 mg Documented by: Diphenhydramine HCl (Benadryl) 25 - 50 mg IVPUSH Q6H PRN PRN Reason: sleep Last Admin: 03/30/20 21:32 Dose: 25 mg Documented by: Diphenoxylate HCl/Atropine (Lomotil 0.025-2.5 Mg) 2 tab PO QID PRN PRN Reason: Diarrhea Docusate Sodium (Colace) 100 mg PO BID [facility] Last Admin: 04/03/20 09:19 Dose: 100 mg Documented by: Doxazosin Mesylate (Cardura) 8 mg PO DAILY [facility] Last Admin: 04/03/20 09:19 Dose: 8 mg Documented by: Enoxaparin Sodium (Lovenox) 120 mg SUBCUT Q24H [facility] Last Admin: 04/02/20 14:57 Dose: 120 mg Documented by: Finasteride (Proscar) 5 mg PO DAILY [facility] Last Admin: 04/03/20 09:19 Dose: 5 mg Documented by: Heparin Sodium (Porcine) (Heparin Lock Flush 100 Units/Ml) 500 units FLUSH ASDIRECTED PRN PRN Reason: Other Last Admin: 04/01/20 04:13 Dose: 500 units Documented by: Hydromorphone HCl (Dilaudid) 2 - 4 mg PO Q4H PRN PRN Reason: Pain Last Admin: 04/02/20 16:18 Dose: 2 mg Documented by: Fat Emulsion Intravenous (Intralipid 20%) 100 mls @ 8.3 mls/hr IV Q24H [facility] Last Admin: 04/02/20 16:23 Dose: 8.3 mls/hr Documented by: Azithromycin 125 mg/ Sodium (Chloride) 100 mls @ 100 mls/hr IV Q12H [facility] Last Admin: 04/03/20 12:29 Dose: 100 mls/hr Documented by: Meropenem 1 gm/ Sodium (Chloride) 100 mls @ 200 mls/hr IV Q8H [facility] Last Admin: 04/03/20 05:51 Dose: 200 mls/hr Documented by: Multivitamins/Minerals 10 ml/Chromium/Copper/Manganese/Seleni/Zn 1 ml/ Amino Ac/Electrol/Dextrose/Calcium 1,011 mls @ 100 mls/hr IV .BY DURATION [facility] Last Admin: 04/03/20 09:14 Dose: 100 mls/hr Documented by: Amino Ac/Electrol/Dextrose/Calcium (Clinimix E /15) 1,000 mls @ 100 mls/hr IV .BY DURATION [facility] Last Admin: 04/02/20 23:26 Dose: 100 mls/hr Documented by: Sodium Chloride (Normal Saline) 1,000 mls @ 25 mls/hr IV ASDIRECTED [facility] Ibuprofen (Motrin) 600 mg PO Q6H PRN PRN Reason: Pain/Fever Last Admin: 04/01/20 08:34 Dose: 600 mg Documented by: Levothyroxine Sodium 100 mcg/ (Levothyroxine Sodium 25 mcg) 125 mcg PO ACBREAKFAST [facility] Last Admin: 04/03/20 07:50 Dose: 125 mcg Documented by: Loperamide HCl (Imodium) 4 mg PO Q6H PRN PRN Reason: Diarrhea Lorazepam (Ativan) 0.5 - 1 mg IVPUSH Q4H PRN PRN Reason: Nausea Last Admin: 04/03/20 03:15 Dose: 1 mg Documented by: Megestrol Acetate (Megace 40 Mg/Ml Susp) 625 mg PO DAILY@0800 [facility] Last Admin: 04/03/20 07:39 Dose: 625 mg Documented by: Metoclopramide HCl (Reglan) 5 mg IVPUSH Q6H [facility] Last Admin: 04/03/20 09:20 Dose: 5 mg Documented by: Nystatin (Mycostatin) 5 ml PO QID [facility] Stop: 04/05/20 10:01 Last Admin: 04/03/20 09:20 Dose: 5 ml Documented by: Ondansetron HCl (Zofran) 4 mg IVPUSH Q4H PRN PRN Reason: Nausea Last Admin: 03/28/20 20:50 Dose: 4 mg Documented by: Ondansetron HCl (Zofran) 4 mg IVPUSH TIDAC [facility] Last Admin: 04/03/20 12:32 Dose: 4 mg Documented by: Fluticasone/Salmeterol (Fluticasone-Salmeterol 113-14 Mcg Powder Inh) 1 puff INH BIDRT [facility] Last Admin: 04/03/20 08:29 Dose: 1 puff Documented by: Discontinued Medications Diphenoxylate HCl/Atropine (Lomotil 0.025-2.5 Mg) 2 tab PO QID [facility] Last Admin: 04/02/20 05:51 Dose: Not Given Documented by: Doxazosin Mesylate (Cardura) 8 mg PO DAILY [facility] Last Admin: 03/28/20 09:42 Dose: 8 mg Documented by: Fentanyl (Sublimaze) Confirm Administered Dose 100 mcg .ROUTE .STK-MED ONE Stop: 03/31/20 10:32 Fentanyl (Sublimaze) 50 mcg IVPUSH ONETIME ONE Stop: 03/31/20 11:31 Last Admin: 03/31/20 11:34 Dose: 50 mcg Documented by: Finasteride (Proscar) 5 mg PO DAILY [facility] Last Admin: 03/28/20 09:43 Dose: 5 mg Documented by: Hydromorphone HCl (Dilaudid) 0.5 mg IVPUSH Q2H PRN PRN Reason: MODERATE PAIN Last Admin: 04/01/20 00:33 Dose: 0.5 mg Documented by: Hydromorphone HCl (Dilaudid) 1 mg IV Q2H PRN PRN Reason: SEVERE PAIN Lactated Ringer's (Ringers, Lactated) 1,000 mls @ 250 mls/hr IV ONETIME ONE Stop: 03/26/20 16:29 Last Admin: 03/26/20 13:05 Dose: 250 mls/hr Documented by: Dextrose/Lactated Ringer's (Dextrose 5%-Lactated Ringers) 1,000 mls @ 25 mls/hr IV ASDIRECTED [facility] Last Admin: 03/26/20 22:23 Dose: 25 mls/hr Documented by: Multivitamins/Minerals 10 ml/Chromium/Copper/Manganese/Seleni/Zn 1 ml/ Amino Ac/Electrol/Dextrose/Calcium 1,011 mls @ 100 mls/hr IV .BY DURATION [facility] Stop: 03/29/20 14:15 Last Admin: 03/29/20 07:58 Dose: 100 mls/hr Documented by: Amino Ac/Electrol/Dextrose/Calcium (Clinimix E /15) 1,000 mls @ 100 mls/hr IV .BY DURATION [facility] Stop: 03/29/20 14:15 Last Admin: 03/28/20 22:23 Dose: 100 mls/hr Documented by: Linezolid 600 mg/ Premix 300 mls @ 300 mls/hr IV Q12H [facility] Last Admin: 03/29/20 02:46 Dose: 300 mls/hr Documented by: Piperacillin/Tazobactam/ (Dextrose 3.375 gm/ Premix) 50 mls @ 100 mls/hr IV Q6H [facility] Last Admin: 03/29/20 07:50 Dose: 100 mls/hr Documented by: Sodium Chloride (Normal Saline) 100 mls @ 3 mls/sec IV ASDIRECTED [facility] Stop: 03/28/20 12:00 Sodium Chloride (Normal Saline) 79 mls @ 3 mls/sec IV ASDIRECTED [facility] Stop: 03/28/20 12:00 Last Admin: 03/28/20 08:32 Dose: 3 mls/sec Documented by: Albumin Human (Albumin 25%) 25 gm in 100 mls @ 25 mls/hr IV Q24H [facility] Stop: 03/31/20 13:59 Last Admin: 03/31/20 09:59 Dose: 25 mls/hr Documented by: Multivitamins/Minerals 10 ml/Chromium/Copper/Manganese/Seleni/Zn 1 ml/ Amino Ac/Electrol/Dextrose/Calcium 1,011 mls @ 100 mls/hr IV .BY DURATION [facility] Stop: 03/30/20 14:00 Last Admin: 03/30/20 04:23 Dose: 100 mls/hr Documented by: Amino Ac/Electrol/Dextrose/Calcium (Clinimix E 5/15) 1,000 mls @ 100 mls/hr IV .BY DURATION [facility] Stop: 03/30/20 14:00 Last Admin: 03/29/20 18:06 Dose: 100 mls/hr Documented by: Potassium Phosphate 20 mmole/ (Sodium Chloride) 106.6667 mls @ 35 mls/hr IV Q3H [facility] Stop: 03/29/20 20:59 Last Admin: 03/29/20 19:34 Dose: 35 mls/hr Documented by: Sodium Chloride (Normal Saline) Confirm Administered Dose 10 mls @ as directed .ROUTE .STK-MED ONE Stop: 03/31/20 10:52 Ibuprofen (Motrin) 600 mg PO ONETIME ONE Stop: 03/27/20 20:33 Last Admin: 03/27/20 20:50 Dose: 600 mg Documented by: Iopamidol (Isovue-300 (61%)) 100 ml IV . DIRECTED [facility] Last Admin: 03/28/20 08:34 Dose: 100 ml Documented by: Iopamidol (Isovue-300 (61%)) 100 ml IV . DIRECTED [facility] Levothyroxine Sodium (Synthroid) 150 mcg PO ACBREAKFAST [facility] Last Admin: 03/27/20 07:07 Dose: 150 mcg Documented by: Levothyroxine Sodium (Synthroid) 125 mcg PO ACBREAKFAST [facility] Levothyroxine Sodium 100 mcg/ (Levothyroxine Sodium 25 mcg) 125 mcg PO ACBREAKFAST [facility] Last Admin: 03/28/20 07:29 Dose: 125 mcg Documented by: Lidocaine HCl (Xylocaine-Mpf 1%) 5 ml INJECT ONETIME ONE Stop: 03/27/20 13:01 Last Admin: 03/27/20 14:06 Dose: 5 ml Documented by: Lidocaine HCl (Xylocaine 2% Viscous) 15 ml PO ASDIRECTED ONE Stop: 03/29/20 03:53 Last Admin: 03/29/20 04:19 Dose: 15 ml Documented by: Megestrol Acetate (Megace 40 Mg/Ml Susp) 625 mg PO DAILY@0800 [facility] Last Admin: 03/29/20 10:21 Dose: Not Given Documented by: Midazolam HCl (Versed 1 Mg/Ml) Confirm Administered Dose 2 mg .ROUTE .STK-MED ONE Stop: 03/31/20 10:32 Non-Formulary Medication (Total Parenteral Nutrition, Central) 1,000 ml .XX .Continue Order [facility] Stop: 03/31/20 10:00 Non-Formulary Medication (Total Parenteral Nutrition, Central) 1,000 ml .XX .Continue Order [facility] Stop: 04/01/20 10:00 Non-Formulary Medication (Total Parenteral Nutrition, Central) 1,000 ml .XX .Continue Order [facility] Stop: 04/02/20 18:00 Non-Formulary Medication (Total Parenteral Nutrition, Central) 1,000 ml .XX .C ontinue Order [facility] Stop: 04/03/20 12:00 Propofol (Diprivan 20 Ml) Confirm Administered Dose 200 mg .ROUTE .STK-MED ONE Stop: 03/31/20 10:32 Sodium Chloride (Saline Flush) 10 ml FLUSH ONETIME ONE Stop: 03/28/20 07:58 Last Admin: 03/28/20 08:32 Dose: 10 ml Documented by: Sodium Chloride (Saline Flush) 10 ml FLUSH ONETIME ONE Stop: 03/28/20 08:05 Last Admin: 03/28/20 09:47 Dose: 10 ml Documented by: Tamsulosin HCl (Flomax) 0.4 mg PO BEDTIME [facility] Last Admin: 03/27/20 20:56 Dose: Not Given Documented by: Warfarin Sodium (Coumadin) 5 mg PO DAILY@1300 [facility] Warfarin Sodium (Coumadin) 5 mg PO ONETIME ONE Stop: 03/28/20 15:01 Last Admin: 03/28/20 14:58 Dose: 5 mg Documented by: - Exam Quality Assessment: DVT Prophylaxis General: Alert, Oriented, Cooperative, Mild Distress Lungs: Clear to Auscultation, Normal Respiratory Effort Cardiovascular: Regular Rate, Regular Rhythm, No Murmurs GI/Abdominal Exam: Soft, No Organomegaly, Tender. No: Distended, Guarding, Rigid, Rebound Extremities: Non-Tender, No Pedal Edema Sepsis Event Note - Evaluation Sepsis Screening Result: No Definite Risk - Focused Exam Vital Signs: Vital Signs Temp Pulse Resp BP BP Pulse Ox 04/03/20 10:42 96.4 F L 111 H 16 124/74 96 04/03/20 09:19 129/70 04/03/20 07:00 98.1 F 81 16 129/70 96 04/03/20 03:00 97.7 F 78 16 110/59 L 94 L Date Exam was Performed: 04/03/20 Time Exam was Performed: 12:45 Consult PN Assessment/Plan Procedures: Procedures AIRWAY INHALATION TREATMENT (02/13/20) ASSAY OF MAGNESIUM (03/04/20) ASSAY OF NATRIURETIC PEPTIDE (03/04/20) ASSAY OF PHOSPHORUS (03/04/20) ASSAY OF TROPONIN QUANT (03/04/20) ASSAY THYROID STIM HORMONE (02/13/20) BLOOD TYPING SEROLOGIC ABO (02/13/20) BLOOD TYPING SEROLOGIC RH(D) (02/13/20) C-REACTIVE PROTEIN (02/13/20) CARCINOEMBRYONIC ANTIGEN (02/13/20) COMPATIBILITY TEST ANTIGLOB (02/13/20) COMPATIBILITY TEST SPIN (02/13/20) COMPLETE CBC AUTOMATED (03/04/20) COMPLETE CBC W/AUTO DIFF WBC (03/04/20) COMPREHEN METABOLIC PANEL (03/04/20) CT ABD & PELV W/CONTRAST (03/04/20) CT ABD & PELVIS W/O CONTRAST (02/13/20) CULTR BACTERIA EXCEPT BLOOD (02/13/20) CULTURE OTHR SPECIMN AEROBIC (02/13/20) ELECTROCARDIOGRAM REPORT (03/04/20) ELECTROCARDIOGRAM TRACING (03/04/20) EMERGENCY DEPT VISIT (03/13/20) EMERGENCY DEPT VISIT (03/02/20) EMERGENCY DEPT VISIT (02/13/20) EMERGENCY DEPT VISIT (05/30/16) HOT OR COLD PACKS THERAPY (11/29/19) HYDRATE IV INFUSION ADD-ON (03/04/20) HYDRATION IV INFUSION INIT (02/28/20) IMMUNOHISTO ANTB 1ST STAIN (02/13/20) IMMUNOHISTO ANTB ADDL SLIDE (02/13/20) INSERT TEMP BLADDER CATH (02/13/20) INSERT TUNNELED CV CATH (03/04/20) MANUAL THERAPY 1/> REGIONS (11/29/19) MEASURE BLOOD OXYGEN LEVEL (03/04/20) METABOLIC PANEL TOTAL CA (03/04/20) MRI LUMBAR SPINE W/O DYE (05/09/19) NASAL/OROGASTRIC W/TUBE PLMT (02/13/20) OT EVALUATION (11/16/13) PT EVAL LOW COMPLEX 20 MIN (11/29/19) PT EVALUATION (03/25/16) RBC ANTIBODY SCREEN (02/13/20) ROUTINE VENIPUNCTURE (03/04/20) SMEAR GRAM STAIN (02/13/20) THER/DIAG CONCURRENT INF (03/04/20) THER/PROPH/DIAG INJ IV PUSH (02/13/20) THER/PROPH/DIAG IV INF ADDON (03/04/20) THER/PROPH/DIAG IV INF INIT (03/04/20) THERAPEUTIC EXERCISES (11/29/19) TISSUE EXAM BY PATHOLOGIST (02/13/20) TISSUE EXAM BY PATHOLOGIST (02/13/20) TISSUE EXAM BY PATHOLOGIST (02/13/20) TX/PRO/DX INJ NEW DRUG ADDON (03/04/20) TX/PROPH/DG ADDL SEQ IV INF (03/04/20) ULTRASOUND THERAPY (03/25/16) URINALYSIS AUTO W/SCOPE (03/02/20) US URINE CAPACITY MEASURE (03/04/20) X-RAY EXAM ABDOMEN 1 VIEW (02/13/20) X-RAY EXAM ABDOMEN 2 VIEWS (02/13/20) X-RAY EXAM COMPLETE ABDOMEN (02/13/20) X-RAY EXAM HIP UNI 2-3 VIEWS (03/13/20) Problem List Initiated/Reviewed/Updated: Yes My Orders Last 24 Hours: My Active Orders 04/03/20 10:32 Dietary Supplements [RC] BIDAC 04/03/20 11:00 chlorproMAZINE [Thorazine] 25 mg PO TID Plan: ASSESSMENT AND PLAN - 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 Probably had some level of endothelial injury when the catheter was placed and has developed a DVT in his hypercoagulable state with active cancer. Tolerating anticoagulation so far. -Enoxaparin 1.5 mg/kg daily until INR therapeutic -Hold warfarin until taking pills again -Anticipate 3 months of treatment Ileus versus small bowel obstruction-stable but not much improvement. PEG tube placed 03/31. -Care as per surgical team Fever-no obvious source and all of his cultures have been negative. Slowly feeling better -Follow-up cultures -Continue meropenem Metastatic colon cancer-metastases to the liver visible on CT scan. Oncology appointment is coming up soon. He does continue to suffer from weakness and malnutrition following his colon surgery. He is on TPN. AST and ALT are mildly elevated and I suspect this is related to the TPN. -Management per surgical team Hiccups -Thorazine 25 mg p.o. 3 times daily Situational depression-patient reports feeling down since his diagnosis of cancer. He feels that he has good family support at this time.
--- NOTE | 2020-04-03 13:30 | CR ---
Abdomen 2V AP Flat Upright CLINICAL HISTORY: Ileus FINDINGS: There is diffuse small bowel and colonic distention similar to prior study. Patient has had previous surgery. There is a gastrostomy tube in place. There may be some minimal persistent free air decreased since prior study. IMPRESSION: Persistent moderate small bowel and colonic gaseous distention
[2020-04-03] MEDS: Enoxaparin 120 MG/0.8 ML Syringe SUBCUT SCH (15:42)
[2020-04-03] MEDS: Fat Emulsion 100 ML IV SCH (15:42)
[2020-04-03] MEDS: Ibuprofen 600 MG Tab PO PRN (15:49)
[2020-04-04] MEDS: Metoclopramide 10 MG/2 ML SDV IVPUSH SCH ×4 (04:47→21:55)
[2020-04-04] MEDS: 1: AA 5%/Calcium/D15W/Lytes 1,000 ML with MVI, Adult with Vitamin K 10 ML, Chromium/Copp IV SCH ×6 (04:48→14:59)
[2020-04-04] MEDS: Meropenem 1 GM in Sodium Chloride 0.9% 100 ML IV SCH ×3 (05:00→21:50)
[2020-04-04] MEDS: Nystatin Susp 100,000 Unit/ML 5 ML UD Cup PO SCH ×5 (05:01→21:33)
--- NOTE | 2020-04-04 05:14 | CRLCR ---
Indication: Ileus Technique: Upright and supine views of the abdomen Comparison: Abdominal radiographs from 04/03/2020 Findings/Impression: Again demonstrated is diffuse air distention of the small bowel. There is also air distention of the colon. Percutaneous gastrostomy is noted on the left. Pneumoperitoneum is difficult to exclude on upright view. Follow-up lateral decubitus view is recommended as a precaution. Dictated by Den Mars MD @ Apr 04 2020 5:08AM Signed by Dr. Den Mars @ Apr 04 2020 5:12AM
[2020-04-04] MEDS ORDERED: Atropine/Diphenoxylate 0.025-2.5 MG Tab PO PRN (06:59)
[2020-04-04] MEDS ORDERED: Central Total Parenteral Nutrition Bag SCH (07:00)
[2020-04-04] MEDS: Fluticasone-Salmeterol 113-14 MCG Powder Inhalant INH SCH ×2 (07:30→21:21)
--- NOTE | 2020-04-04 07:48 | CRLCR ---
Indication: Bowel distension. Possible free air. Technique: Abdomen right lateral decubitus 2 view Comparison: April 04, 2020 Findings/Impression: Bowel: Again demonstrated is diffuse gaseous distention of the GI tract. Soft tissues: Decubitus views show signs of probable free intraperitoneal air raising the suspicion for bowel perforation. CT evaluation is recommended for confirmation of this finding and to further evaluate for the source of bowel perforation. Bones: Unremarkable for age. Dictated by Gui Schneider MD @ Apr 04 2020 7:44AM Signed by Dr. Gui Schneider @ Apr 04 2020 7:47AM
[2020-04-04] MEDS ORDERED: Iopamidol 612 MG/ML 500 ML Multipack Bottle IV ONE (09:10)
[2020-04-04] MEDS: Atropine/Diphenoxylate 0.025-2.5 MG Tab PO SCH ×4 (09:39→21:50)
[2020-04-04] MEDS: Levothyroxine 100 MCG, Levothyroxine 25 MCG PO SCH ×2 (09:39)
[2020-04-04] MEDS: Doxazosin 4 MG Tab PO SCH (09:40)
[2020-04-04] MEDS: Ondansetron 4 MG/2 ML SDV IVPUSH SCH ×3 (09:40→17:33)
[2020-04-04] MEDS: Megestrol Susp 40 MG/ML ML (240 ML Bottle) PO SCH (09:40)
[2020-04-04] MEDS: chlorproMAZINE 25 MG Tab PO SCH ×3 (09:41→21:27)
[2020-04-04] MEDS: Finasteride 5 MG Tab PO SCH (09:41)
[2020-04-04] MEDS: Docusate Sodium 100 MG Cap PO SCH ×2 (09:41→21:27)
[2020-04-04] MEDS: Aspirin 81 MG Tab.EC PO SCH (09:41)
[2020-04-04] MEDS: Sodium Chloride 0.9% 10 ML Syringe FLUSH ONE ×2 (09:43→10:07)
--- NOTE | 2020-04-04 09:48 | PN ---
DATE OF SERVICE: 04/04/2020 SUBJECTIVE: Walter reports that he slept well during the night. He feels like he is getting stronger. He is able to go for more walks. He does report having 7 loose stools from 1000 yesterday until 0054 today. X-ray, abdominal, flat and upright demonstrated diffuse air distention of the small bowel. There is also air distention of the colon. Percutaneous gastrostomy tube is noted on the left. Pneumoperitoneum is difficult to exclude on upright view. Followup lateral decubitus view is recommended as a precaution. Vital signs have been stable. Afebrile. Oral intake 510, clear liquids. Urine output 800. Gastrostomy tube output 1675. LABORATORY DATA: Labs this morning, hemoglobin 9.6, WBC 9.8, potassium 4.2, glucose 191, AST decreased to 57, ALT decreased to 168, alkaline phosphatase decreased to 148. REVIEW OF SYSTEMS: GENERAL: Hiccups have improved with Thorazine. Denies any headache or dizziness. CHEST: No chest pain, shortness of breath, fast or irregular heartbeat. LUNGS: No cough. ABDOMEN: Denies pain at the site of the gastrostomy tube, and that is improving. GENITOURINARY: Negative. EXTREMITIES: Negative. NEUROLOGIC: Negative for any neurological symptoms. SKIN: Without rash. Remainder of review of systems negative for any pertinent positives and negatives. OBJECTIVE: GENERAL: Walter Cohen is a pleasant 84-year-old male. He looks like he is feeling better, sitting in the chair. Voice is stronger. VITAL SIGNS: TPR at 0212, 97.2, 92, 18, blood pressure 141/75. HEENT: Negative. NECK: Supple. HEART: Regular rate and rhythm. LUNGS: Clear. ABDOMEN: Nondistended, soft, nontender. Gastrostomy tube in place. EXTREMITIES: Without peripheral edema. ASSESSMENT: 1. Ileus. 2. Upper GI with percutaneous endoscopy and gastrostomy tube placement with flexible sigmoidoscopy for persistent ileus with intolerance of G-tube, esophageal thrush, and widely patent ileorectal anastomosis. Date of surgery, 03/31/2020. Surgeon, Otilio Cantrell MD. 3. 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 4. Total parenteral nutrition therapy. 5. Hiccups. 6. Left brachiocephalic deep venous thrombosis related to catheter placement. 7. Situational depression. PLAN: 1. Continue same TPN rate and content. Check CBC, CMP, mag, phos, and BNP in a.m. 2. Continue Zofran scheduled to avoid any nausea. Continue Lomotil as scheduled. Add an abdominal lateral decubitus view to be done now. Per Radiology report, we will evaluate p.r.n. or in a.m. Michelle Casanova PA-C /[id number]
--- NOTE | 2020-04-04 10:56 | CRLCT ---
INDICATION: Bowel distention and perforation. TECHNIQUE: CT abdomen and pelvis acquired with 128 cc Isovue-300 IV contrast. COMPARISON: March 28, 2020. FINDINGS: Lower chest: Trace pleural effusions present. Liver: Stable metastatic nodules. Gallbladder and bile ducts: Multiple small gallbladder stones present. No inflammation no biliary dilatation. Pancreas: Unremarkable. No mass or inflammation. Spleen: Unremarkable. Normal in size. No masses. Adrenal glands: Unremarkable, no nodules. Kidneys: Stable benign-appearing cysts. Otherwise unremarkable kidneys. GI tract: Percutaneous gastrostomy tube is in satisfactory position. There is persisting gaseous distention involving much of the small bowel. Vasculature: Unremarkable. Mesenteric arteries are patent. Lymph nodes: No lymphadenopathy. Omentum/Peritoneum/Abdominal Wall: Relatively large amount of free air is present. Perisplenic free fluid is present. Pelvis: Mild prostatomegaly. Unremarkable urinary bladder. Bones: Unremarkable for age. IMPRESSION: 1. There is a relatively large amount of free intraperitoneal air with a background of bowel distension. Percutaneous gastrostomy to is also present. The free air could be benign and secondary to the presence of the gastrostomy tube. However, bowel perforation remains a distinct possibility. There are no specific findings to suggest a source or location of bowel perforation. 2. Stable hepatic metastasis. 3. Trace bilateral pleural effusions. Please note that all CT scans at this facility use dose modulation, iterative reconstruction, and/or weight-based dosing when appropriate to reduce radiation dose to as low as reasonably achievable. Dictated by Gui Schneider MD @ Apr 04 2020 10:42AM Signed by Dr. Gui Schneider @ Apr 04 2020 10:54AM
[2020-04-04] MEDS: Azithromycin 125 MG in Sodium Chloride 0.9% 100 ML IV SCH ×2 (11:36→23:21)
[2020-04-04] MEDS: Calcium Carbonate 500 MG Tab.Chew PO PRN ×3 (12:38→21:28)
[2020-04-04] MEDS: HYDROmorphone 2 MG Tab PO PRN ×2 (12:39→14:56)
[2020-04-04] MEDS: LORazepam 2 MG/ML SDV IVPUSH PRN ×2 (12:52→22:21)
--- NOTE | 2020-04-04 15:13 | PCM.CONSN ---
- General Info Date of Service: 04/04/20 Subjective Update: Mr. Cohen feels somewhat more fatigued today, he did quite a bit of walking yesterday. X-ray this morning showed evidence of more free air, CT scan also showed free air. This is been reviewed by Dr. Reynolds and felt to be secondary from his PEG tube. He has not had a significant increase in abdominal pain and white blood cell count remains within normal range. Plan is to repeat CT scan of the abdomen again in a.m. or sooner if he experiences increased pain or decompensation. Functional Status: Reports: Tolerating Diet, Ambulating, Urinating - Review of Systems General: Reports: Weakness. Denies: Fever, Chills Pulmonary: Reports: No Symptoms Cardiovascular: Reports: No Symptoms Gastrointestinal: Reports: Abdominal Pain, Decreased Appetite. Denies: Difficulty Swallowing, Nausea, Vomiting - Patient Data Vitals - Most Recent: Last Vital Signs Temp 97.3 F 04/04/20 15:07 Pulse 87 04/04/20 15:07 Resp 14 04/04/20 15:07 BP 123/64 04/04/20 15:07 Pulse Ox 95 04/04/20 15:07 Weight - Most Recent: 187 lb I&O - Last 24 Hours: Intake & Output 04/04/20 04/04/20 04/04/20 06:59 14:59 22:59 Intake Total 1104 Output Total 825 Balance 279 Lab Results Last 24 Hours: Laboratory Results - last 24 hr 04/04/20 04/04/20 Range/Units 04:10 04:10 WBC 9.8 (4.5-11.0) K/uL RBC 3.48 L (4.30-5.90) M/uL Hgb 9.6 L (12.0-15.0) g/dL Hct 30.3 L (40.0-54.0) % MCV 91 (80-98) fL MCH 27 (27-31) pg MCHC 32 (32-36) % Plt Count 310 (150-400) K/uL Sodium 138 L (140-148) mmol/L Potassium 4.2 (3.6-5.2) mmol/L Chloride 105 (100-108) mmol/L Carbon Dioxide 27 (21-32) mmol/L Anion Gap 10.2 (5.0-14.0) mmol/L BUN 28 H (7-18) mg/dL Creatinine 1.0 (0.8-1.3) mg/dL Est Cr Clr Drug Dosing 54.35 mL/min Estimated GFR (MDRD) > 60 (>60) Glucose 191 H (74-106) mg/dL Calcium 8.9 (8.5-10.1) mg/dL Phosphorus 4.0 (2.5-4.9) mg/dL Magnesium 2.1 (1.8-2.4) mg/dL Total Bilirubin 0.4 (0.2-1.0) mg/dL AST 57 H (15-37) U/L ALT 168 H (12-78) U/L Alkaline Phosphatase 148 H (46-116) U/L Total Protein 5.7 L (6.4-8.2) g/dL Albumin 2.0 L (3.4-5.0) g/dL Globulin 3.7 H (2.3-3.5) g/dL Albumin/Globulin Ratio 0.5 L (1.2-2.2) Med Orders - Current: Current Medications Acetaminophen (Tylenol) 650 mg PO Q4H PRN PRN Reason: Fever Last Admin: 04/02/20 13:25 Dose: 650 mg Documented by: Albuterol (Ventolin Hfa) 0 gm INH Q4H PRN PRN Reason: BREATHING Aspirin (Halfprin) 81 mg PO DAILY [facility] Last Admin: 04/04/20 09:41 Dose: 81 mg Documented by: Calcium Carbonate/Glycine (Tums) 1,000 mg PO Q2H PRN PRN Reason: Indigestion Last Admin: 04/04/20 14:57 Dose: 1,000 mg Documented by: Chlorpromazine HCl (Thorazine) 25 mg PO TID [facility] Last Admin: 04/04/20 14:59 Dose: 25 mg Documented by: Diphenhydramine HCl (Benadryl) 25 - 50 mg PO BEDTIME PRN PRN Reason: Insomnia Last Admin: 04/02/20 21:25 Dose: 50 mg Documented by: Diphenhydramine HCl (Benadryl) 25 - 50 mg IVPUSH Q6H PRN PRN Reason: sleep Last Admin: 03/30/20 21:32 Dose: 25 mg Documented by: Diphenoxylate HCl/Atropine (Lomotil 0.025-2.5 Mg) 2 tab PO QID [facility] Last Admin: 04/04/20 11:35 Dose: 2 tab Documented by: Docusate Sodium (Colace) 100 mg PO BID [facility] Last Admin: 04/04/20 09:41 Dose: 100 mg Documented by: Doxazosin Mesylate (Cardura) 8 mg PO DAILY [facility] Last Admin: 04/04/20 09:40 Dose: 8 mg Documented by: Enoxaparin Sodium (Lovenox) 120 mg SUBCUT Q24H [facility] Last Admin: 04/03/20 15:42 Dose: 120 mg Documented by: Finasteride (Proscar) 5 mg PO DAILY [facility] Last Admin: 04/04/20 09:41 Dose: 5 mg Documented by: Heparin Sodium (Porcine) (Heparin Lock Flush 100 Units/Ml) 500 units FLUSH ASDIRECTED PRN PRN Reason: Other Last Admin: 04/01/20 04:13 Dose: 500 units Documented by: Hydromorphone HCl (Dilaudid) 2 - 4 mg PO Q4H PRN PRN Reason: Pain Last Admin: 04/04/20 14:56 Dose: 2 mg Documented by: Fat Emulsion Intravenous (Intralipid 20%) 100 mls @ 8.3 mls/hr IV Q24H [facility] Last Admin: 04/03/20 15:42 Dose: 8.3 mls/hr Documented by: Azithromycin 125 mg/ Sodium (Chloride) 100 mls @ 100 mls/hr IV Q12H [facility] Last Admin: 04/04/20 11:36 Dose: 100 mls/hr Documented by: Meropenem 1 gm/ Sodium (Chloride) 100 mls @ 200 mls/hr IV Q8H [facility] Last Admin: 04/04/20 14:58 Dose: 200 mls/hr Documented by: Multivitamins/Minerals 10 ml/Chromium/Copper/Manganese/Seleni/Zn 1 ml/ Amino Ac/Electrol/Dextrose/Calcium 1,011 mls @ 100 mls/hr IV .BY DURATION [facility] Last Admin: 04/04/20 04:48 Dose: 100 mls/hr Documented by: Amino Ac/Electrol/Dextrose/Calcium (Clinimix E 02/07) 1,000 mls @ 100 mls/hr IV .BY DURATION [facility] Last Admin: 04/04/20 14:59 Dose: 100 mls/hr Documented by: Sodium Chloride (Normal Saline) 1,000 mls @ 25 mls/hr IV ASDIRECTED [facility] Ibuprofen (Motrin) 600 mg PO Q6H PRN PRN Reason: Pain/Fever Last Admin: 04/03/20 15:49 Dose: 600 mg Documented by: Levothyroxine Sodium 100 mcg/ (Levothyroxine Sodium 25 mcg) 125 mcg PO ACBREAKFAST [facility] Last Admin: 04/04/20 09:39 Dose: 125 mcg Documented by: Loperamide HCl (Imodium) 4 mg PO Q6H PRN PRN Reason: Diarrhea Lorazepam (Ativan) 0.5 - 1 mg IVPUSH Q4H PRN PRN Reason: Nausea Last Admin: 04/04/20 12:52 Dose: 1 mg Documented by: Megestrol Acetate (Megace 40 Mg/Ml Susp) 625 mg PO DAILY@0800 [facility] Last Admin: 04/04/20 09:40 Dose: 625 mg Documented by: Metoclopramide HCl (Reglan) 5 mg IVPUSH Q6H [facility] Last Admin: 04/04/20 09:43 Dose: 5 mg Documented by: Non-Formulary Medication (Total Parenteral Nutrition, Central) 1,000 ml .XX .Continue Order [facility] Stop: 04/04/20 18:00 Nystatin (Mycostatin) 5 ml PO QID [facility] Stop: 04/05/20 10:01 Last Admin: 04/04/20 09:42 Dose: 5 ml Documented by: Ondansetron HCl (Zofran) 4 mg IVPUSH Q4H PRN PRN Reason: Nausea Last Admin: 03/28/20 20:50 Dose: 4 mg Documented by: Ondansetron HCl (Zofran) 4 mg IVPUSH TIDAC [facility] Last Admin: 04/04/20 11:36 Dose: 4 mg Documented by: Fluticasone/Salmeterol (Fluticasone-Salmeterol 113-14 Mcg Powder Inh) 1 puff INH BIDRT [facility] Last Admin: 04/04/20 07:30 Dose: 1 puff Documented by: Discontinued Medications Diphenoxylate HCl/Atropine (Lomotil 0.025-2.5 Mg) 2 tab PO QID [facility] Last Admin: 04/02/20 05:51 Dose: Not Given Documented by: Diphenoxylate HCl/Atropine (Lomotil 0.025-2.5 Mg) 2 tab PO QID PRN PRN Reason: Diarrhea Diphenoxylate HCl/Atropine (Lomotil 0.025-2.5 Mg) 2 tab PO QID PRN PRN Reason: Diarrhea Doxazosin Mesylate (Cardura) 8 mg PO DAILY [facility] Last Admin: 03/28/20 09:42 Dose: 8 mg Documented by: Fentanyl (Sublimaze) Confirm Administered Dose 100 mcg .ROUTE .STK-MED ONE Stop: 03/31/20 10:32 Fentanyl (Sublimaze) 50 mcg IVPUSH ONETIME ONE Stop: 03/31/20 11:31 Last Admin: 03/31/20 11:34 Dose: 50 mcg Documented by: Finasteride (Proscar) 5 mg PO DAILY [facility] Last Admin: 03/28/20 09:43 Dose: 5 mg Documented by: Hydromorphone HCl (Dilaudid) 0.5 mg IVPUSH Q2H PRN PRN Reason: MODERATE PAIN Last Admin: 04/01/20 00:33 Dose: 0.5 mg Documented by: Hydromorphone HCl (Dilaudid) 1 mg IV Q2H PRN PRN Reason: SEVERE PAIN Lactated Ringer's (Ringers, Lactated) 1,000 mls @ 250 mls/hr IV ONETIME ONE Stop: 03/26/20 16:29 Last Admin: 03/26/20 13:05 Dose: 250 mls/hr Documented by: Dextrose/Lactated Ringer's (Dextrose 5%-Lactated Ringers) 1,000 mls @ 25 mls/hr IV ASDIRECTED [facility] Last Admin: 03/26/20 22:23 Dose: 25 mls/hr Documented by: Multivitamins/Minerals 10 ml/Chromium/Copper/Manganese/Seleni/Zn 1 ml/ Amino Ac/Electrol/Dextrose/Calcium 1,011 mls @ 100 mls/hr IV .BY DURATION [facility] Stop: 03/29/20 14:15 Last Admin: 03/29/20 07:58 Dose: 100 mls/hr Documented by: Amino Ac/Electrol/Dextrose/Calcium (Clinimix E 02/07) 1,000 mls @ 100 mls/hr IV .BY DURATION [facility] Stop: 03/29/20 14:15 Last Admin: 03/28/20 22:23 Dose: 100 mls/hr Documented by: Linezolid 600 mg/ Premix 300 mls @ 300 mls/hr IV Q12H [facility] Last Admin: 03/29/20 02:46 Dose: 300 mls/hr Documented by: Piperacillin/Tazobactam/ (Dextrose 3.375 gm/ Premix) 50 mls @ 100 mls/hr IV Q6H [facility] Last Admin: 03/29/20 07:50 Dose: 100 mls/hr Documented by: Sodium Chloride (Normal Saline) 100 mls @ 3 mls/sec IV ASDIRECTED [facility] Stop: 03/28/20 12:00 Sodium Chloride (Normal Saline) 79 mls @ 3 mls/sec IV ASDIRECTED [facility] Stop: 03/28/20 12:00 Last Admin: 03/28/20 08:32 Dose: 3 mls/sec Documented by: Albumin Human (Albumin 25%) 25 gm in 100 mls @ 25 mls/hr IV Q24H [facility] Stop: 03/31/20 13:59 Last Admin: 03/31/20 09:59 Dose: 25 mls/hr Documented by: Multivitamins/Minerals 10 ml/Chromium/Copper/Manganese/Seleni/Zn 1 ml/ Amino Ac/Electrol/Dextrose/Calcium 1,011 mls @ 100 mls/hr IV .BY DURATION [facility] Stop: 03/30/20 14:00 Last Admin: 03/30/20 04:23 Dose: 100 mls/hr Documented by: Amino Ac/Electrol/Dextrose/Calcium (Clinimix E 5/15) 1,000 mls @ 100 mls/hr IV .BY DURATION [facility] Stop: 03/30/20 14:00 Last Admin: 03/29/20 18:06 Dose: 100 mls/hr Documented by: Potassium Phosphate 20 mmole/ (Sodium Chloride) 106.6667 mls @ 35 mls/hr IV Q3H [facility] Stop: 03/29/20 20:59 Last Admin: 03/29/20 19:34 Dose: 35 mls/hr Documented by: Sodium Chloride (Normal Saline) Confirm Administered Dose 10 mls @ as directed .ROUTE .[facility]-MED ONE Stop: 03/31/20 10:52 Sodium Chloride (Normal Saline) 79 mls @ 3.5 mls/sec IV ASDIRECTED [facility] Stop: 04/04/20 09:16 Last Admin: 04/04/20 10:07 Dose: 3.5 mls/sec Documented by: Ibuprofen (Motrin) 600 mg PO ONETIME ONE Stop: 03/27/20 20:33 Last Admin: 03/27/20 20:50 Dose: 600 mg Documented by: Iopamidol (Isovue-300 (61%)) 100 ml IV . DIRECTED [facility] Last Admin: 03/28/20 08:34 Dose: 100 ml Documented by: Iopamidol (Isovue-300 (61%)) 100 ml IV . DIRECTED [facility] Iopamidol (Isovue-300 (61%)) 128 ml IV ONETIME ONE Stop: 04/04/20 09:11 Last Admin: 04/04/20 10:08 Dose: 128 ml Documented by: Levothyroxine Sodium (Synthroid) 150 mcg PO ACBREAKFAST [facility] Last Admin: 03/27/20 07:07 Dose: 150 mcg Documented by: Levothyroxine Sodium (Synthroid) 125 mcg PO ACBREAKFAST [facility] Levothyroxine Sodium 100 mcg/ (Levothyroxine Sodium 25 mcg) 125 mcg PO ACBREAKFAST [facility] Last Admin: 03/28/20 07:29 Dose: 125 mcg Documented by: Lidocaine HCl (Xylocaine-Mpf 1%) 5 ml INJECT ONETIME ONE Stop: 03/27/20 13:01 Last Admin: 03/27/20 14:06 Dose: 5 ml Documented by: Lidocaine HCl (Xylocaine 2% Viscous) 15 ml PO ASDIRECTED ONE Stop: 03/29/20 03:53 Last Admin: 03/29/20 04:19 Dose: 15 ml Documented by: Megestrol Acetate (Megace 40 Mg/Ml Susp) 625 mg PO DAILY@0800 [facility] Last Admin: 03/29/20 10:21 Dose: Not Given Documented by: Midazolam HCl (Versed 1 Mg/Ml) Confirm Administered Dose 2 mg .ROUTE .STK-MED ONE Stop: 03/31/20 10:32 Non-Formulary Medication (Total Parenteral Nutrition, Central) 1,000 ml .XX .Continue Order [facility] Stop: 03/31/20 10:00 Non-Formulary Medication (Total Parenteral Nutrition, Central) 1,000 ml .XX .Continue Order [facility] Stop: 04/01/20 10:00 Non-Formulary Medication (Total Parenteral Nutrition, Central) 1,000 ml .XX .Continue Order [facility] Stop: 04/02/20 18:00 Non-Formulary Medication (Total Parenteral Nutrition, Central) 1,000 ml .XX .Continue Order [facility] Stop: 04/03/20 12:00 Propofol (Diprivan 20 Ml) Confirm Administered Dose 200 mg .ROUTE .STK-MED ONE Stop: 03/31/20 10:32 Sodium Chloride (Saline Flush) 10 ml FLUSH ONETIME ONE Stop: 03/28/20 07:58 Last Admin: 03/28/20 08:32 Dose: 10 ml Documented by: Sodium Chloride (Saline Flush) 10 ml FLUSH ONETIME ONE Stop: 03/28/20 08:05 Last Admin: 03/28/20 09:47 Dose: 10 ml Documented by: Sodium Chloride (Saline Flush) 10 ml FLUSH ONETIME ONE Stop: 04/04/20 09:11 Last Admin: 04/04/20 10:07 Dose: 10 ml Documented by: Tamsulosin HCl (Flomax) 0.4 mg PO BEDTIME [facility] Last Admin: 03/27/20 20:56 Dose: Not Given Documented by: Warfarin Sodium (Coumadin) 5 mg PO DAILY@1300 [facility] Warfarin Sodium (Coumadin) 5 mg PO ONETIME ONE Stop: 03/28/20 15:01 Last Admin: 03/28/20 14:58 Dose: 5 mg Documented by: - Exam Quality Assessment: Central Line/PICC, DVT Prophylaxis General: Alert, Oriented, Cooperative, No Acute Distress Lungs: Clear to Auscultation, Normal Respiratory Effort Cardiovascular: Regular Rate, Regular Rhythm, No Murmurs GI/Abdominal Exam: Soft, No Organomegaly, Tender. No: Distended, Guarding, Rigid, Rebound Back Exam: Normal Inspection, Full Range of Motion Extremities: Non-Tender, No Pedal Edema Sepsis Event Note - Evaluation Sepsis Screening Result: No Definite Risk - Focused Exam Vital Signs: Vital Signs Temp Pulse Resp BP BP Pulse Ox 04/04/20 15:07 97.3 F 87 14 123/64 95 04/04/20 11:44 97.7 F 75 16 136/67 93 L 04/04/20 09:40 136/65 04/04/20 08:01 96.4 F L 83 14 136/65 96 Date Exam was Performed: 04/04/20 Time Exam was Performed: 15:10 Consult PN Assessment/Plan Procedures: Procedures AIRWAY INHALATION TREATMENT (02/13/20) ASSAY OF MAGNESIUM (03/04/20) ASSAY OF NATRIURETIC PEPTIDE (03/04/20) ASSAY OF PHOSPHORUS (03/04/20) ASSAY OF TROPONIN QUANT (03/04/20) ASSAY THYROID STIM HORMONE (02/13/20) BLOOD TYPING SEROLOGIC ABO (02/13/20) BLOOD TYPING SEROLOGIC RH(D) (02/13/20) C-REACTIVE PROTEIN (02/13/20) CARCINOEMBRYONIC ANTIGEN (02/13/20) COMPATIBILITY TEST ANTIGLOB (02/13/20) COMPATIBILITY TEST SPIN (02/13/20) COMPLETE CBC AUTOMATED (03/04/20) COMPLETE CBC W/AUTO DIFF WBC (03/04/20) COMPREHEN METABOLIC PANEL (03/04/20) CT ABD & PELV W/CONTRAST (03/04/20) CT ABD & PELVIS W/O CONTRAST (02/13/20) CULTR BACTERIA EXCEPT BLOOD (02/13/20) CULTURE OTHR SPECIMN AEROBIC (02/13/20) ELECTROCARDIOGRAM REPORT (03/04/20) ELECTROCARDIOGRAM TRACING (03/04/20) EMERGENCY DEPT VISIT (03/13/20) EMERGENCY DEPT VISIT (03/02/20) EMERGENCY DEPT VISIT (02/13/20) EMERGENCY DEPT VISIT (05/30/16) HOT OR COLD PACKS THERAPY (11/29/19) HYDRATE IV INFUSION ADD-ON (03/04/20) HYDRATION IV INFUSION INIT (02/28/20) IMMUNOHISTO ANTB 1ST STAIN (02/13/20) IMMUNOHISTO ANTB ADDL SLIDE (02/13/20) INSERT TEMP BLADDER CATH (02/13/20) INSERT TUNNELED CV CATH (03/04/20) MANUAL THERAPY 1/> REGIONS (11/29/19) MEASURE BLOOD OXYGEN LEVEL (03/04/20) METABOLIC PANEL TOTAL CA (03/04/20) MRI LUMBAR SPINE W/O DYE (05/09/19) NASAL/OROGASTRIC W/TUBE PLMT (02/13/20) OT EVALUATION (11/16/13) PT EVAL LOW COMPLEX 20 MIN (11/29/19) PT EVALUATION (03/25/16) RBC ANTIBODY SCREEN (02/13/20) ROUTINE VENIPUNCTURE (03/04/20) SMEAR GRAM STAIN (02/13/20) THER/DIAG CONCURRENT INF (03/04/20) THER/PROPH/DIAG INJ IV PUSH (02/13/20) THER/PROPH/DIAG IV INF ADDON (03/04/20) THER/PROPH/DIAG IV INF INIT (03/04/20) THERAPEUTIC EXERCISES (11/29/19) TISSUE EXAM BY PATHOLOGIST (02/13/20) TISSUE EXAM BY PATHOLOGIST (02/13/20) TISSUE EXAM BY PATHOLOGIST (02/13/20) TX/PRO/DX INJ NEW DRUG ADDON (03/04/20) TX/PROPH/DG ADDL SEQ IV INF (03/04/20) ULTRASOUND THERAPY (03/25/16) URINALYSIS AUTO W/SCOPE (03/02/20) US URINE CAPACITY MEASURE (03/04/20) X-RAY EXAM ABDOMEN 1 VIEW (02/13/20) X-RAY EXAM ABDOMEN 2 VIEWS (02/13/20) X-RAY EXAM COMPLETE ABDOMEN (02/13/20) X-RAY EXAM HIP UNI 2-3 VIEWS (03/13/20) Problem List Initiated/Reviewed/Updated: Yes Plan: ASSESSMENT AND PLAN - 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 Probably had some level of endothelial injury when the catheter was placed and has developed a DVT in his hypercoagulable state with active cancer. Tolerating anticoagulation so far. -Enoxaparin 1.5 mg/kg daily until INR therapeutic -Hold warfarin until taking pills again -Anticipate 3 months of treatment Ileus versus small bowel obstruction-stable but not much improvement. PEG tube placed 03/31. Question of increased free free air noted on x-ray and CT scan, felt to be secondary to gastrostomy tube. -Follow-up CT scan in a.m. -Care as per surgical team Fever-no obvious source and all of his cultures have been negative. Slowly feeling better -Follow-up cultures -Continue meropenem Metastatic colon cancer-metastases to the liver visible on CT scan. Oncology appointment is coming up soon. He does continue to suffer from weakness and malnutrition following his colon surgery. He is on TPN. AST and ALT are mildly elevated and I suspect this is related to the TPN. -Management per surgical team Hiccups -Thorazine 25 mg p.o. 3 times daily Situational depression-patient reports feeling down since his diagnosis of cancer. He feels that he has good family support at this time.
[2020-04-04] MEDS: Fat Emulsion 100 ML IV SCH (17:32)
[2020-04-04] MEDS: Enoxaparin 120 MG/0.8 ML Syringe SUBCUT SCH (17:36)
[2020-04-04] MEDS: diphenhydrAMINE 25 MG Cap PO PRN (22:27)
[2020-04-05] MEDS: 1: AA 5%/Calcium/D15W/Lytes 1,000 ML with MVI, Adult with Vitamin K 10 ML, Chromium/Copp IV SCH ×9 (01:46→22:50)
[2020-04-05] MEDS ORDERED: Iopamidol 612 MG/ML 50 ML SDV ONE (03:44)
[2020-04-05] MEDS ORDERED: Iohexol 647 MG/ML 50 ML SDV PO SCH ×2 (04:00)
[2020-04-05] MEDS ORDERED: Iopamidol 612 MG/ML 30 ML SDV PO ONE (04:11)
[2020-04-05] MEDS: Metoclopramide 10 MG/2 ML SDV IVPUSH SCH ×4 (04:18→21:56)
[2020-04-05] MEDS ORDERED: Iopamidol 612 MG/ML 500 ML Multipack Bottle IV ONE (05:00)
[2020-04-05] MEDS: Atropine/Diphenoxylate 0.025-2.5 MG Tab PO SCH ×4 (05:38→21:54)
[2020-04-05] MEDS: Nystatin Susp 100,000 Unit/ML 5 ML UD Cup PO SCH ×2 (05:38→10:59)
[2020-04-05] MEDS: Meropenem 1 GM in Sodium Chloride 0.9% 100 ML IV SCH ×3 (05:41→22:00)
--- NOTE | 2020-04-05 06:10 | CRLCT ---
Indication: Pneumoperitoneum, possible bowel perforation, history of colon cancer Technique: Contrast enhanced axial CT imaging through the abdomen and pelvis. 128 mL Isovue-300 contrast agent was administered intravenously. Sagittal and coronal reconstructions are provided. 900 mL oral contrast was also administered through G-tube. Comparison: CT abdomen pelvis with contrast 04/04/2020 Findings: Again demonstrated is near diffuse distention of the small bowel with loops of measuring up to 6.5 cm. Degree of distention is not significantly changed from one day prior. Pneumoperitoneum is not significantly changed. Percutaneous gastrostomy is in appropriate position. Oral contrast transits to right lower quadrant loops. No extravasation of contrast is demonstrated. Subtotal colectomy changes are again noted. No significant abnormality seen at the bowel anastomosis site. Cholelithiasis is again noted. Multiple heterogeneously hypoattenuating lesions in the liver, compatible with known metastases, are unchanged. The spleen pancreas, adrenal glands, and kidneys are unremarkable. No lymphadenopathy is appreciated. Impression: Persistent small-bowel distention and pneumoperitoneum. No extravasation of oral contrast demonstrated, although the contrast material has not significantly progressed in the small-bowel. Consider follow-up examination in 2-4 hours. Please note that all CT scans at this facility use dose modulation, iterative reconstruction, and/or weight-based dosing when appropriate to reduce radiation dose to as low as reasonably achievable. Dictated by Den Mars MD @ Apr 05 2020 5:56AM Signed by Dr. Den Mars @ Apr 05 2020 6:08AM
[2020-04-05] MEDS ORDERED: Central Total Parenteral Nutrition Bag SCH (07:15)
[2020-04-05] MEDS: Fluticasone-Salmeterol 113-14 MCG Powder Inhalant INH SCH ×2 (07:23→21:51)
[2020-04-05] MEDS: Levothyroxine 100 MCG, Levothyroxine 25 MCG PO SCH ×2 (07:38)
[2020-04-05] MEDS: Ondansetron 4 MG/2 ML SDV IVPUSH SCH ×3 (07:38→17:03)
[2020-04-05] MEDS: Megestrol Susp 40 MG/ML ML (240 ML Bottle) PO SCH (07:39)
[2020-04-05] MEDS: Calcium Carbonate 500 MG Tab.Chew PO PRN (08:50)
[2020-04-05] MEDS: Aspirin 81 MG Tab.EC PO SCH (08:51)
[2020-04-05] MEDS: chlorproMAZINE 25 MG Tab PO SCH ×3 (08:51→21:53)
[2020-04-05] MEDS: Doxazosin 4 MG Tab PO SCH (08:51)
[2020-04-05] MEDS: Docusate Sodium 100 MG Cap PO SCH ×2 (08:52→21:53)
[2020-04-05] MEDS: Finasteride 5 MG Tab PO SCH (08:52)
[2020-04-05] MEDS: HYDROmorphone 2 MG Tab PO PRN ×2 (09:13→21:54)
--- NOTE | 2020-04-05 09:27 | CRLCT ---
HISTORY: Persistent small bowel distention and pneumoperitoneum. TECHNIQUE: Non intravenous contrast enhanced CT of the abdomen and pelvis. COMPARISON: 04/05/2020. FINDINGS: A g tube terminates within the stomach. There is persistent dilatation of small bowel loops with contrast progressing more distally within small bowel. There is a small bowel colonic anastomosis within the left abdomen. Contrast has not reached the distal most small bowel nor residual colon. The degree of pneumoperitoneum is unchanged. Small amount of ascites as before. - The liver metastases are less well seen on this noncontrast CT though appear unchanged. There are postsurgical changes involving the left lobe of liver. Small stones layer within the gallbladder. Spleen size is within normal limits. Adrenal glands are normal. Right renal cortical cyst and bilateral parapelvic cysts as before. No hydronephrosis. Prostate is enlarged as before. - Small bilateral pleural effusions with areas of mild atelectasis or scarring within the lung bases. Within left lower lobe there is honeycombing indicating fibrosis. - Degenerative changes of the spine. No acute fractures. IMPRESSION: 1. Persistent generalized distention of small bowel loops. The enteric contrast has progressed more distally though not to the distal most small bowel or colon as of yet. 2. No significant change in amount of pneumoperitoneum. 3. Small amount of ascites as before. 4. Hepatic metastases are unchanged. 5. Gallstones. 6. Small bilateral pleural effusions as before. Dictated by Raphael Knapp MD @ 04/05/2020 9:26:01 AM Please note that all CT scans at this facility use dose modulation, iterative reconstruction, and/or weight-based dosing when appropriate to reduce radiation dose to as low as reasonably achievable. Dictated by: Raphael Knapp MD @ 04/05/2020 09:26:15 (Electronically Signed)
[2020-04-05] MEDS: Azithromycin 125 MG in Sodium Chloride 0.9% 100 ML IV SCH ×2 (11:00→23:47)
--- NOTE | 2020-04-05 11:24 | PCM.CONSN ---
- General Info Date of Service: 04/05/20 Subjective Update: Mr. Cohen continues to show evidence of pneumoperitoneum on CT scan. Second scan today was done with oral contrast showing no obvious extravasation. This is being monitored very closely by the surgical service. Vital signs have remained stable, he is afebrile, and white blood cell count remains within normal range. Functional Status: Reports: Tolerating Diet, Ambulating, Urinating - Review of Systems General: Reports: Weakness, Fatigue. Denies: Fever, Chills Pulmonary: Reports: No Symptoms Cardiovascular: Reports: No Symptoms Gastrointestinal: Reports: Abdominal Pain, Decreased Appetite, Diarrhea. Denies: Difficulty Swallowing, Hematochezia, Melena, Nausea, Vomiting Genitourinary: Reports: No Symptoms - Patient Data Vitals - Most Recent: Last Vital Signs Temp 96.7 F L 04/05/20 11:00 Pulse 83 04/05/20 11:00 Resp 18 04/05/20 11:00 BP 112/66 04/05/20 11:00 Pulse Ox 100 04/05/20 11:00 Weight - Most Recent: 186 lb I&O - Last 24 Hours: Intake & Output 04/04/20 04/05/20 04/05/20 22:59 06:59 14:59 Intake Total 1790 1851 100 Output Total 900 425 Balance 890 1426 100 Lab Results Last 24 Hours: Laboratory Results - last 24 hr 04/01/20 04/05/20 04/05/20 Range/Units 04:35 04:12 04:12 WBC 9.8 (4.5-11.0) K/uL RBC 3.42 L (4.30-5.90) M/uL Hgb 9.3 L (12.0-15.0) g/dL Hct 30.1 L (40.0-54.0) % MCV 88 (80-98) fL MCH 27 (27-31) pg MCHC 31 L (32-36) % Plt Count 315 (150-400) K/uL Sodium 139 L (140-148) mmol/L Potassium 4.3 (3.6-5.2) mmol/L Chloride 106 (100-108) mmol/L Carbon Dioxide 29 (21-32) mmol/L Anion Gap 8.3 (5.0-14.0) mmol/L BUN 26 H (7-18) mg/dL Creatinine 1.0 (0.8-1.3) mg/dL Est Cr Clr Drug Dosing 54.35 mL/min Estimated GFR (MDRD) > 60 (>60) Glucose 102 (74-106) mg/dL Calcium 8.8 (8.5-10.1) mg/dL Phosphorus 3.3 (2.5-4.9) mg/dL Magnesium 2.1 (1.8-2.4) mg/dL Total Bilirubin 0.4 (0.2-1.0) mg/dL AST 48 H (15-37) U/L ALT 137 H (12-78) U/L Alkaline Phosphatase 135 H (46-116) U/L NT-Pro-B Natriuret Pep 32 (5-450) pg/mL Total Protein 5.7 L (6.4-8.2) g/dL Albumin 2.0 L (3.4-5.0) g/dL Globulin 3.7 H (2.3-3.5) g/dL Albumin/Globulin Ratio 0.5 L (1.2-2.2) Crossmatch See Detail Med Orders - Current: Current Medications Acetaminophen (Tylenol) 650 mg PO Q4H PRN PRN Reason: Fever Last Admin: 04/02/20 13:25 Dose: 650 mg Documented by: Albuterol (Ventolin Hfa) 0 gm INH Q4H PRN PRN Reason: BREATHING Aspirin (Halfprin) 81 mg PO DAILY [facility] Last Admin: 04/05/20 08:51 Dose: 81 mg Documented by: Calcium Carbonate/Glycine (Tums) 1,000 mg PO Q2H PRN PRN Reason: Indigestion Last Admin: 04/05/20 08:50 Dose: 1,000 mg Documented by: Chlorpromazine HCl (Thorazine) 25 mg PO TID [facility] Last Admin: 04/05/20 08:51 Dose: 25 mg Documented by: Diphenhydramine HCl (Benadryl) 25 - 50 mg PO BEDTIME PRN PRN Reason: Insomnia Last Admin: 04/04/20 22:27 Dose: 25 mg Documented by: Diphenhydramine HCl (Benadryl) 25 - 50 mg IVPUSH Q6H PRN PRN Reason: sleep Last Admin: 07/05/20 21:32 Dose: 25 mg Documented by: Diphenoxylate HCl/Atropine (Lomotil 0.025-2.5 Mg) 2 tab PO QID [facility] Last Admin: 04/05/20 10:59 Dose: 2 tab Documented by: Docusate Sodium (Colace) 100 mg PO BID [facility] Last Admin: 04/05/20 08:52 Dose: Not Given Documented by: Doxazosin Mesylate (Cardura) 8 mg PO DAILY [facility] Last Admin: 04/05/20 08:51 Dose: 8 mg Documented by: Enoxaparin Sodium (Lovenox) 120 mg SUBCUT Q24H [facility] Last Admin: 04/04/20 17:36 Dose: 120 mg Documented by: Finasteride (Proscar) 5 mg PO DAILY [facility] Last Admin: 04/05/20 08:52 Dose: 5 mg Documented by: Heparin Sodium (Porcine) (Heparin Lock Flush 100 Units/Ml) 500 units FLUSH ASDIRECTED PRN PRN Reason: Other Last Admin: 04/01/20 04:13 Dose: 500 units Documented by: Hydromorphone HCl (Dilaudid) 2 - 4 mg PO Q4H PRN PRN Reason: Pain Last Admin: 04/05/20 09:13 Dose: 2 mg Documented by: Fat Emulsion Intravenous (Intralipid 20%) 100 mls @ 8.3 mls/hr IV Q24H [facility] Last Admin: 04/04/20 17:32 Dose: 8.3 mls/hr Documented by: Azithromycin 125 mg/ Sodium (Chloride) 100 mls @ 100 mls/hr IV Q12H [facility] Last Admin: 04/05/20 11:00 Dose: 100 mls/hr Documented by: Meropenem 1 gm/ Sodium (Chloride) 100 mls @ 200 mls/hr IV Q8H [facility] Last Admin: 04/05/20 05:41 Dose: 200 mls/hr Documented by: Multivitamins/Minerals 10 ml/Chromium/Copper/Manganese/Seleni/Zn 1 ml/ Amino Ac/Electrol/Dextrose/Calcium 1,011 mls @ 100 mls/hr IV .BY DURATION [facility] Last Admin: 04/05/20 01:46 Dose: 100 mls/hr Documented by: Amino Ac/Electrol/Dextrose/Calcium (Clinimix E 02/07) 1,000 mls @ 100 mls/hr IV .BY DURATION [facility] Last Admin: 04/04/20 14:59 Dose: 100 mls/hr Documented by: Sodium Chloride (Normal Saline) 1,000 mls @ 25 mls/hr IV ASDIRECTED [facility] Sodium Chloride (Normal Saline) 79 mls @ 3.5 mls/sec IV ASDIRECTED [facility] Last Admin: 04/05/20 05:15 Dose: 3.5 mls/sec Documented by: Ibuprofen (Motrin) 600 mg PO Q6H PRN PRN Reason: Pain/Fever Last Admin: 04/03/20 15:49 Dose: 600 mg Documented by: Levothyroxine Sodium 100 mcg/ (Levothyroxine Sodium 25 mcg) 125 mcg PO ACBREAKFAST [facility] Last Admin: 04/05/20 07:38 Dose: 125 mcg Documented by: Loperamide HCl (Imodium) 4 mg PO Q6H PRN PRN Reason: Diarrhea Lorazepam (Ativan) 0.5 - 1 mg IVPUSH Q4H PRN PRN Reason: Nausea Last Admin: 04/04/20 22:21 Dose: 0.5 mg Documented by: Megestrol Acetate (Megace 40 Mg/Ml Susp) 625 mg PO DAILY@0800 [facility] Last Admin: 04/05/20 07:39 Dose: 625 mg Documented by: Metoclopramide HCl (Reglan) 5 mg IVPUSH Q6H [facility] Last Admin: 04/05/20 10:59 Dose: 5 mg Documented by: Ondansetron HCl (Zofran) 4 mg IVPUSH Q4H PRN PRN Reason: Nausea Last Admin: 03/28/20 20:50 Dose: 4 mg Documented by: Ondansetron HCl (Zofran) 4 mg IVPUSH TIDAC [facility] Last Admin: 04/05/20 11:00 Dose: 4 mg Documented by: Fluticasone/Salmeterol (Fluticasone-Salmeterol 113-14 Mcg Powder Inh) 1 puff INH BIDRT [facility] Last Admin: 04/05/20 07:23 Dose: 1 puff Documented by: Discontinued Medications Diphenoxylate HCl/Atropine (Lomotil 0.025-2.5 Mg) 2 tab PO QID [facility] Last Admin: 04/02/20 05:51 Dose: Not Given Documented by: Diphenoxylate HCl/Atropine (Lomotil 0.025-2.5 Mg) 2 tab PO QID PRN PRN Reason: Diarrhea Diphenoxylate HCl/Atropine (Lomotil 0.025-2.5 Mg) 2 tab PO QID PRN PRN Reason: Diarrhea Doxazosin Mesylate (Cardura) 8 mg PO DAILY [facility] Last Admin: 03/28/20 09:42 Dose: 8 mg Documented by: Fentanyl (Sublimaze) Confirm Administered Dose 100 mcg .ROUTE .STK-MED ONE Stop: 03/31/20 10:32 Fentanyl (Sublimaze) 50 mcg IVPUSH ONETIME ONE Stop: 03/31/20 11:31 Last Admin: 03/31/20 11:34 Dose: 50 mcg Documented by: Finasteride (Proscar) 5 mg PO DAILY [facility] Last Admin: 03/28/20 09:43 Dose: 5 mg Documented by: Hydromorphone HCl (Dilaudid) 0.5 mg IVPUSH Q2H PRN PRN Reason: MODERATE PAIN Last Admin: 04/01/20 00:33 Dose: 0.5 mg Documented by: Hydromorphone HCl (Dilaudid) 1 mg IV Q2H PRN PRN Reason: SEVERE PAIN Lactated Ringer's (Ringers, Lactated) 1,000 mls @ 250 mls/hr IV ONETIME ONE Stop: 03/26/20 16:29 Last Admin: 03/26/20 13:05 Dose: 250 mls/hr Documented by: Dextrose/Lactated Ringer's (Dextrose 5%-Lactated Ringers) 1,000 mls @ 25 mls/hr IV ASDIRECTED [facility] Last Admin: 03/26/20 22:23 Dose: 25 mls/hr Documented by: Multivitamins/Minerals 10 ml/Chromium/Copper/Manganese/Seleni/Zn 1 ml/ Amino Ac/Electrol/Dextrose/Calcium 1,011 mls @ 100 mls/hr IV .BY DURATION [facility] Stop: 03/29/20 14:15 Last Admin: 03/29/20 07:58 Dose: 100 mls/hr Documented by: Amino Ac/Electrol/Dextrose/Calcium (Clinimix E 5/15) 1,000 mls @ 100 mls/hr IV .BY DURATION [facility] Stop: 03/29/20 14:15 Last Admin: 03/28/20 22:23 Dose: 100 mls/hr Documented by: Linezolid 600 mg/ Premix 300 mls @ 300 mls/hr IV Q12H [facility] Last Admin: 03/29/20 02:46 Dose: 300 mls/hr Documented by: Piperacillin/Tazobactam/ (Dextrose 3.375 gm/ Premix) 50 mls @ 100 mls/hr IV Q6H [facility] Last Admin: 03/29/20 07:50 Dose: 100 mls/hr Documented by: Sodium Chloride (Normal Saline) 100 mls @ 3 mls/sec IV ASDIRECTED [facility] Stop: 03/28/20 12:00 Sodium Chloride (Normal Saline) 79 mls @ 3 mls/sec IV ASDIRECTED [facility] Stop: 03/28/20 12:00 Last Admin: 03/28/20 08:32 Dose: 3 mls/sec Documented by: Albumin Human (Albumin 25%) 25 gm in 100 mls @ 25 mls/hr IV Q24H [facility] Stop: 03/31/20 13:59 Last Admin: 03/31/20 09:59 Dose: 25 mls/hr Documented by: Multivitamins/Minerals 10 ml/Chromium/Copper/Manganese/Seleni/Zn 1 ml/ Amino Ac/Electrol/Dextrose/Calcium 1,011 mls @ 100 mls/hr IV .BY DURATION [facility] Stop: 03/30/20 14:00 Last Admin: 03/30/20 04:23 Dose: 100 mls/hr Documented by: Amino Ac/Electrol/Dextrose/Calcium (Clinimix E 15) 1,000 mls @ 100 mls/hr IV .BY DURATION [facility] Stop: 03/30/20 14:00 Last Admin: 03/29/20 18:06 Dose: 100 mls/hr Documented by: Potassium Phosphate 20 mmole/ (Sodium Chloride) 106.6667 mls @ 35 mls/hr IV Q3H [facility] Stop: 03/29/20 20:59 Last Admin: 03/29/20 19:34 Dose: 35 mls/hr Documented by: Sodium Chloride (Normal Saline) Confirm Administered Dose 10 mls @ as directed .ROUTE .[facility]-MED ONE Stop: 03/31/20 10:52 Sodium Chloride (Normal Saline) 79 mls @ 3.5 mls/sec IV ASDIRECTED [facility] Stop: 04/04/20 09:16 Last Admin: 04/04/20 10:07 Dose: 3.5 mls/sec Documented by: Ibuprofen (Motrin) 600 mg PO ONETIME ONE Stop: 03/27/20 20:33 Last Admin: 03/27/20 20:50 Dose: 600 mg Documented by: Iohexol (Omnipaque-300) 50 ml PO .ASDIRECTED [facility] Iopamidol (Isovue-300 (61%)) 100 ml IV . DIRECTED [facility] Last Admin: 03/28/20 08:34 Dose: 100 ml Documented by: Iopamidol (Isovue-300 (61%)) 100 ml IV . DIRECTED [facility] Iopamidol (Isovue-300 (61%)) 128 ml IV ONETIME ONE Stop: 04/04/20 09:11 Last Admin: 04/04/20 10:08 Dose: 128 ml Documented by: Iopamidol (Isovue-300 (61%)) 128 ml IV ONETIME ONE Stop: 04/05/20 05:01 Last Admin: 04/05/20 05:18 Dose: 128 ml Documented by: Iopamidol (Isovue-300 (61%)) Confirm Administered Dose 50 ml .ROUTE .STK-MED ONE Stop: 04/05/20 03:45 Last Admin: 04/05/20 04:13 Dose: Not Given Documented by: Iopamidol (Isovue-300 (61%)) 30 ml PO ASDIRECTED ONE Stop: 04/05/20 04:12 Last Admin: 04/05/20 04:27 Dose: 30 ml Documented by: Levothyroxine Sodium (Synthroid) 150 mcg PO ACBREAKFAST [facility] Last Admin: 03/27/20 07:07 Dose: 150 mcg Documented by: Levothyroxine Sodium (Synthroid) 125 mcg PO ACBREAKFAST [facility] Levothyroxine Sodium 100 mcg/ (Levothyroxine Sodium 25 mcg) 125 mcg PO ACBREAKFAST [facility] Last Admin: 03/28/20 07:29 Dose: 125 mcg Documented by: Lidocaine HCl (Xylocaine-Mpf 1%) 5 ml INJECT ONETIME ONE Stop: 03/27/20 13:01 Last Admin: 03/27/20 14:06 Dose: 5 ml Documented by: Lidocaine HCl (Xylocaine 2% Viscous) 15 ml PO ASDIRECTED ONE Stop: 03/29/20 03:53 Last Admin: 03/29/20 04:19 Dose: 15 ml Documented by: Megestrol Acetate (Megace 40 Mg/Ml Susp) 625 mg PO DAILY@0800 [facility] Last Admin: 03/29/20 10:21 Dose: Not Given Documented by: Midazolam HCl (Versed 1 Mg/Ml) Confirm Administered Dose 2 mg .ROUTE .STK-MED ONE Stop: 03/31/20 10:32 Non-Formulary Medication (Total Parenteral Nutrition, Central) 1,000 ml .XX .Continue Order [facility] Stop: 03/31/20 10:00 Non-Formulary Medication (Total Parenteral Nutrition, Central) 1,000 ml .XX .Continue Order [facility] Stop: 04/01/20 10:00 Non-Formulary Medication (Total Parenteral Nutrition, Central) 1,000 ml .XX .Continue Order [facility] Stop: 04/02/20 18:00 Non-Formulary Medication (Total Parenteral Nutrition, Central) 1,000 ml .XX .Continue Order [facility] Stop: 04/03/20 12:00 Non-Formulary Medication (Total Parenteral Nutrition, Central) 1,000 ml .XX .Continue Order [facility] Stop: 04/04/20 18:00 Non-Formulary Medication (Total Parenteral Nutrition, Central) 1,000 ml .XX .Continue Order [facility] Stop: 04/05/20 07:16 Nystatin (Mycostatin) 5 ml PO QID [facility] Stop: 04/05/20 10:01 Last Admin: 04/05/20 10:59 Dose: 5 ml Documented by: Propofol (Diprivan 20 Ml) Confirm Administered Dose 200 mg .ROUTE .STK-MED ONE Stop: 03/31/20 10:32 Sodium Chloride (Saline Flush) 10 ml FLUSH ONETIME ONE Stop: 03/28/20 07:58 Last Admin: 03/28/20 08:32 Dose: 10 ml Documented by: Sodium Chloride (Saline Flush) 10 ml FLUSH ONETIME ONE Stop: 03/28/20 08:05 Last Admin: 03/28/20 09:47 Dose: 10 ml Documented by: Sodium Chloride (Saline Flush) 10 ml FLUSH ONETIME ONE Stop: 04/04/20 09:11 Last Admin: 04/04/20 10:07 Dose: 10 ml Documented by: Tamsulosin HCl (Flomax) 0.4 mg PO BEDTIME [facility] Last Admin: 03/27/20 20:56 Dose: Not Given Documented by: Warfarin Sodium (Coumadin) 5 mg PO DAILY@1300 [facility] Warfarin Sodium (Coumadin) 5 mg PO ONETIME ONE Stop: 03/28/20 15:01 Last Admin: 03/28/20 14:58 Dose: 5 mg Documented by: - Exam Quality Assessment: DVT Prophylaxis General: Alert, Oriented, Cooperative, Mild Distress Lungs: Clear to Auscultation, Normal Respiratory Effort Cardiovascular: Regular Rate, Regular Rhythm, No Murmurs GI/Abdominal Exam: Soft, No Organomegaly, No Distention, Tender. No: Distended, Guarding, Rigid, Rebound Extremities: Non-Tender, No Pedal Edema Sepsis Event Note - Evaluation Sepsis Screening Result: No Definite Risk - Focused Exam Vital Signs: Vital Signs Temp Pulse Resp BP BP Pulse Ox 04/05/20 11:00 96.7 F L 83 18 112/66 100 04/05/20 08:51 150/75 H 04/05/20 07:00 97.0 F 109 H 18 150/75 H 96 04/05/20 04:00 97.3 F 72 16 125/61 94 L Date Exam was Performed: 04/05/20 Time Exam was Performed: 11:22 Consult PN Assessment/Plan Procedures: Procedures AIRWAY INHALATION TREATMENT (02/13/20) ASSAY OF MAGNESIUM (03/04/20) ASSAY OF NATRIURETIC PEPTIDE (03/04/20) ASSAY OF PHOSPHORUS (03/04/20) ASSAY OF TROPONIN QUANT (03/04/20) ASSAY THYROID STIM HORMONE (02/13/20) BLOOD TYPING SEROLOGIC ABO (02/13/20) BLOOD TYPING SEROLOGIC RH(D) (02/13/20) C-REACTIVE PROTEIN (02/13/20) CARCINOEMBRYONIC ANTIGEN (02/13/20) COMPATIBILITY TEST ANTIGLOB (02/13/20) COMPATIBILITY TEST SPIN (02/13/20) COMPLETE CBC AUTOMATED (03/04/20) COMPLETE CBC W/AUTO DIFF WBC (03/04/20) COMPREHEN METABOLIC PANEL (03/04/20) CT ABD & PELV W/CONTRAST (03/04/20) CT ABD & PELVIS W/O CONTRAST (02/13/20) CULTR BACTERIA EXCEPT BLOOD (02/13/20) CULTURE OTHR SPECIMN AEROBIC (02/13/20) ELECTROCARDIOGRAM REPORT (03/04/20) ELECTROCARDIOGRAM TRACING (03/04/20) EMERGENCY DEPT VISIT (03/13/20) EMERGENCY DEPT VISIT (03/02/20) EMERGENCY DEPT VISIT (02/13/20) EMERGENCY DEPT VISIT (05/30/16) HOT OR COLD PACKS THERAPY (11/29/19) HYDRATE IV INFUSION ADD-ON (03/04/20) HYDRATION IV INFUSION INIT (02/28/20) IMMUNOHISTO ANTB 1ST STAIN (02/13/20) IMMUNOHISTO ANTB ADDL SLIDE (02/13/20) INSERT TEMP BLADDER CATH (02/13/20) INSERT TUNNELED CV CATH (03/04/20) MANUAL THERAPY 1/> REGIONS (11/29/19) MEASURE BLOOD OXYGEN LEVEL (03/04/20) METABOLIC PANEL TOTAL CA (03/04/20) MRI LUMBAR SPINE W/O DYE (05/09/19) NASAL/OROGASTRIC W/TUBE PLMT (02/13/20) OT EVALUATION (11/16/13) PT EVAL LOW COMPLEX 20 MIN (11/29/19) PT EVALUATION (03/25/16) RBC ANTIBODY SCREEN (02/13/20) ROUTINE VENIPUNCTURE (03/04/20) SMEAR GRAM STAIN (02/13/20) THER/DIAG CONCURRENT INF (03/04/20) THER/PROPH/DIAG INJ IV PUSH (02/13/20) THER/PROPH/DIAG IV INF ADDON (03/04/20) THER/PROPH/DIAG IV INF INIT (03/04/20) THERAPEUTIC EXERCISES (11/29/19) TISSUE EXAM BY PATHOLOGIST (02/13/20) TISSUE EXAM BY PATHOLOGIST (02/13/20) TISSUE EXAM BY PATHOLOGIST (02/13/20) TX/PRO/DX INJ NEW DRUG ADDON (03/04/20) TX/PROPH/DG ADDL SEQ IV INF (03/04/20) ULTRASOUND THERAPY (03/25/16) URINALYSIS AUTO W/SCOPE (03/02/20) US URINE CAPACITY MEASURE (03/04/20) X-RAY EXAM ABDOMEN 1 VIEW (02/13/20) X-RAY EXAM ABDOMEN 2 VIEWS (02/13/20) X-RAY EXAM COMPLETE ABDOMEN (02/13/20) X-RAY EXAM HIP UNI 2-3 VIEWS (03/13/20) Problem List Initiated/Reviewed/Updated: Yes Plan: ASSESSMENT AND PLAN - 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 Probably had some level of endothelial injury when the catheter was placed and has developed a DVT in his hypercoagulable state with active cancer. Tolerating anticoagulation so far. -Enoxaparin 1.5 mg/kg daily until INR therapeutic -Hold warfarin until taking pills again -Anticipate 3 months of treatment Ileus versus small bowel obstruction-stable but not much improvement. PEG tube placed 03/31. Question of increased free free air noted on x-ray and CT scan, felt to be secondary to gastrostomy tube. -Care as per surgical team Fever-no obvious source and all of his cultures have been negative. Slowly feeling better, remains afebrile with stable vital signs and normal white blood cell count -Follow-up cultures -Continue meropenem Metastatic colon cancer-metastases to the liver visible on CT scan. Oncology appointment is coming up soon. He does continue to suffer from weakness and malnutrition following his colon surgery. He is on TPN. AST and ALT are mildly elevated and I suspect this is related to the TPN. -Management per surgical team Hiccups -Thorazine 25 mg p.o. 3 times daily Situational depression-patient reports feeling down since his diagnosis of cancer. He feels that he has good family support at this time.
--- NOTE | 2020-04-05 11:40 | PN ---
DATE OF SERVICE: 04/05/2020 SUBJECTIVE: Walter had a good morning. Yesterday, he had his son visiting early a.m. and his was with him until around noon. He had 100 mL emesis of a brown liquid around 1400. He was nauseated and did not drink much fluid after that. Vital signs remained stable. Denies any pain. He has been up ambulating, remains to have hiccups. He is receiving Thorazine 25 mg 3 times a day. He states it helps when he takes it, but he is hoping that he could take it more often. Continues to be on scheduled Reglan and Zofran for nausea, and Ativan was given twice yesterday for nausea. Oral intake 350. Urine output, 11 voids. He removes the hat when he is urinating in fear of having a bowel movement. Two loose bowel movements yesterday. Gastrostomy tube put out 1325. The color is difficult to report because it is open when he is drinking oral liquids and assumes the color of what he is drinking. This morning, he is quite talkative. States he feels better than he did yesterday afternoon and evening. He did report some nausea after the contrast through the G- tube that was put in. Otherwise, he reports it is going to be a good day. Abdominal and pelvis CT, impression; persistent small bowel distention and pneumoperitoneum. No extravasation of oral contrast demonstrated although the contrast material has not significantly progressed into the small bowel. They recommend to consider followup in 2 to 4 hours. OBJECTIVE: GENERAL: Walter Cohen is a pleasant 84-year-old male. He is alert, orientated. As stated, quite talkative. VITAL SIGNS: TPR at 0400; 97.3, 72, 16. Blood pressure 125/61. HEENT: Mouth is dry, otherwise negative. NECK: Supple. HEART: Regular rate and rhythm. LUNGS: Clear to auscultation in all 4 sarmiento. ABDOMEN: Soft, nontender. G-tube in place. EXTREMITIES: Without peripheral edema. ASSESSMENT: 1. Ileus. 2. Upper GI with percutaneous endoscopy and gastrostomy tube placement with flexible sigmoidoscopy for persistent ileus and intolerance of NG tube, for esophageal thrush, widely patent ileorectal anastomosis. Date of procedure 03/31/2020. Surgeon: Otilio Cantrell MD. 3. 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 4. Total parenteral nutrition therapy. 5. Hiccups, treated with Thorazine 25 mg scheduled t.i.d. 6. Left brachiocephalic deep venous thrombosis related to catheter placement. 7. Situational depression. PLAN: 1. Repeat CT scan in 3 to 4 hours around 0830 per Radiology request to see the progression of the contrast. 2. Continue same TPN rate and content. 3. Check CBC, CMP, mag, and phos in a.m. 4. May go outside with family. 5. We will evaluate p.r.n. or in a.m. 6. To call with CT scan result. 7. Otilio Cantrell MD will be consulted via phone call. Michelle Casanova PA-C /[phone]
[2020-04-05] MEDS: LORazepam 2 MG/ML SDV IVPUSH PRN (12:14)
[2020-04-05] MEDS ORDERED: Morphine 2 MG/ML SYRINGE IVPUSH ONE (16:25)
[2020-04-05] MEDS: Fat Emulsion 100 ML IV SCH (16:58)
[2020-04-05] MEDS: Enoxaparin 120 MG/0.8 ML Syringe SUBCUT SCH (16:59)
[2020-04-05] MEDS ORDERED: Sodium Chloride 0.9% 10 ML Syringe FLUSH ONE (17:56)
[2020-04-05] MEDS ORDERED: Sodium Chloride 0.9% 100 ML IV SCH (18:00)
[2020-04-05] MEDS ORDERED: Iopamidol 755 Mg/ML 100 ML Bottle IV SCH (18:00)
--- NOTE | 2020-04-05 18:59 | CRLCT ---
INDICATION: Chest pain and shortness of breath COMPARISON: I have reviewed portions of the abdomen and pelvis CT from earlier the same day and portions of a chest abdomen and pelvis CT from March 28, 2020 TECHNIQUE: : CT examination of the chest was performed with the uneventful intravenous administration of 100 cc of Isovue 3 7 while thin axial sections were obtained from above the apices of the lungs to the lung bases. Please note that all CT scans at this facility use dose modulation, iterative reconstruction, and/or weight-based dosing when appropriate to reduce radiation dose to as low as reasonably achievable. FINDINGS: : HEART and MEDIASTINUM: Heart size top normal. No mediastinal or hilar adenopathy or mass. Atherosclerotic vascular calcifications. No significant pericardial fluid PULMONARY ARTERIAL CIRCULATION: There is no visible intraluminal filling defect to suggest pulmonary embolus. LUNGS: Linear bibasilar parenchymal opacity is probably atelectatic and fibrotic. Honeycombing posteriorly at the bases, left greater than right has noted March 28, 2020. There is minimal atelectasis at the right base and a small right effusion which is new. There is a very small left effusion which is now PLEURAL SPACES: Small right effusion which is new. Very small left effusion which is new VISUALIZED UPPER ABDOMEN: The limited visualized upper abdominal structures appear normal. Findings suggesting hepatic metastatic disease. Cholelithiasis. Dilated small bowel. Pneumoperitoneum. EG tube. All these findings were observed earlier today and the appearance is unchanged OSSEOUS STRUCTURES: Age-appropriate appearance. No acute fracture or destructive process. TUBES and LINES: Left PICC line ending in the SVC IMPRESSION: 1. There is no evidence of pulmonary embolus. 2. Bibasilar atelectasis and scarring/fibrosis. 3. Small effusions, right greater than left which are new. 4. Upper abdominal findings are unchanged since earlier the same day. These findings include hepatic metastatic disease, cholelithiasis, pneumoperitoneum, a properly placed G-tube and dilated small bowel Please note that all CT scans at this facility use dose modulation, iterative reconstruction, and/or weight-based dosing when appropriate to reduce radiation dose to as low as reasonably achievable. Dictated by Otilio Chew MD @ Apr 05 2020 6:50PM Signed by Dr. Otilio Chew @ Apr 05 2020 6:59PM
[2020-04-05] MEDS: diphenhydrAMINE 25 MG Cap PO PRN (21:54)
[2020-04-06] MEDS: Metoclopramide 10 MG/2 ML SDV IVPUSH SCH ×4 (04:08→21:50)
[2020-04-06] MEDS: Atropine/Diphenoxylate 0.025-2.5 MG Tab PO SCH ×4 (05:59→21:45)
[2020-04-06] MEDS: Meropenem 1 GM in Sodium Chloride 0.9% 100 ML IV SCH ×3 (06:04→21:51)
[2020-04-06] MEDS: Fluticasone-Salmeterol 113-14 MCG Powder Inhalant INH SCH ×2 (07:01→21:43)
[2020-04-06] MEDS ORDERED: Central Total Parenteral Nutrition Bag SCH (07:15)
[2020-04-06] MEDS: Levothyroxine 100 MCG, Levothyroxine 25 MCG PO SCH ×2 (07:53)
[2020-04-06] MEDS: Ondansetron 4 MG/2 ML SDV IVPUSH SCH ×3 (07:53→15:24)
[2020-04-06] MEDS: Docusate Sodium 100 MG Cap PO SCH ×2 (08:00→21:45)
[2020-04-06] MEDS: Doxazosin 4 MG Tab PO SCH (08:00)
[2020-04-06] MEDS: chlorproMAZINE 25 MG Tab PO SCH ×3 (08:01→21:46)
[2020-04-06] MEDS: Finasteride 5 MG Tab PO SCH (08:01)
[2020-04-06] MEDS: Aspirin 81 MG Tab.EC PO SCH (08:01)
[2020-04-06] MEDS: 1: AA 5%/Calcium/D15W/Lytes 1,000 ML with MVI, Adult with Vitamin K 10 ML, Chromium/Copp IV SCH ×6 (08:07→17:51)
[2020-04-06] MEDS: Calcium Carbonate 500 MG Tab.Chew PO PRN (09:09)
[2020-04-06] MEDS: Azithromycin 125 MG in Sodium Chloride 0.9% 100 ML IV SCH ×2 (10:44→22:55)
[2020-04-06] MEDS: Acetaminophen 325 MG Tab PO PRN (12:57)
--- NOTE | 2020-04-06 12:59 | PCM.CONSN ---
- General Info Date of Service: 04/06/20 Subjective Update: Mr. Cohen, unfortunately had difficulty with chest pain yesterday, lasting 30 to 40 minutes. EKG was obtained which showed no significant change, serial troponin levels were obtained and found to be normal. CT scan of the chest with IV contrast showed no evidence of pulmonary emboli or other significant abnormalities. Pain has not reoccurred since then and he has otherwise been stable and afebrile. Functional Status: Reports: Tolerating Diet, Ambulating, Urinating - Review of Systems General: Reports: Weakness. Denies: Fever, Chills Pulmonary: Reports: No Symptoms Cardiovascular: Reports: No Symptoms Gastrointestinal: Reports: Abdominal Pain, Diarrhea. Denies: Difficulty Swallowing, Hematochezia, Melena, Nausea, Vomiting Genitourinary: Reports: No Symptoms - Patient Data Vitals - Most Recent: Last Vital Signs Temp 96.4 F L 04/06/20 10:40 Pulse 85 04/06/20 10:40 Resp 18 04/06/20 10:40 BP 137/71 04/06/20 10:40 Pulse Ox 96 04/06/20 10:40 Weight - Most Recent: 186 lb 12.8 oz I&O - Last 24 Hours: Intake & Output 04/05/20 04/06/20 04/06/20 22:59 06:59 14:59 Intake Total 1714 2209 460 Output Total 775 250 650 Balance 939 1959 -190 Lab Results Last 24 Hours: Laboratory Results - last 24 hr 04/05/20 04/05/20 04/06/20 Range/Units 17:15 23:11 04:15 WBC 10.0 (4.5-11.0) K/uL RBC 3.57 L (4.30-5.90) M/uL Hgb 9.6 L (12.0-15.0) g/dL Hct 31.5 L (40.0-54.0) % MCV 88 (80-98) fL MCH 27 (27-31) pg MCHC 31 L (32-36) % Plt Count 358 (150-400) K/uL Sodium (140-148) mmol/L Potassium (3.6-5.2) mmol/L Chloride (100-108) mmol/L Carbon Dioxide (21-32) mmol/L Anion Gap (5.0-14.0) mmol/L BUN (7-18) mg/dL Creatinine (0.8-1.3) mg/dL Est Cr Clr Drug Dosing mL/min Estimated GFR (MDRD) (>60) Glucose (74-106) mg/dL Calcium (8.5-10.1) mg/dL Phosphorus (2.5-4.9) mg/dL Magnesium (1.8-2.4) mg/dL Total Bilirubin (0.2-1.0) mg/dL AST (15-37) U/L ALT (12-78) U/L Alkaline Phosphatase (46-116) U/L Troponin I < 0.017 < 0.017 (0.000-0.056) ng/mL Total Protein (6.4-8.2) g/dL Albumin (3.4-5.0) g/dL Globulin (2.3-3.5) g/dL Albumin/Globulin Ratio (1.2-2.2) 04/06/20 Range/Units 04:15 WBC (4.5-11.0) K/uL RBC (4.30-5.90) M/uL Hgb (12.0-15.0) g/dL Hct (40.0-54.0) % MCV (80-98) fL MCH (27-31) pg MCHC (32-36) % Plt Count (150-400) K/uL Sodium 137 L (140-148) mmol/L Potassium 4.2 (3.6-5.2) mmol/L Chloride 105 (100-108) mmol/L Carbon Dioxide 29 (21-32) mmol/L Anion Gap 7.2 (5.0-14.0) mmol/L BUN 27 H (7-18) mg/dL Creatinine 1.1 (0.8-1.3) mg/dL Est Cr Clr Drug Dosing 49.41 mL/min Estimated GFR (MDRD) > 60 (>60) Glucose 101 (74-106) mg/dL Calcium 8.8 (8.5-10.1) mg/dL Phosphorus 3.5 (2.5-4.9) mg/dL Magnesium 2.0 (1.8-2.4) mg/dL Total Bilirubin 0.4 (0.2-1.0) mg/dL AST 33 (15-37) U/L ALT 105 H (12-78) U/L Alkaline Phosphatase 139 H (46-116) U/L Troponin I (0.000-0.056) ng/mL Total Protein 5.8 L (6.4-8.2) g/dL Albumin 2.1 L (3.4-5.0) g/dL Globulin 3.7 H (2.3-3.5) g/dL Albumin/Globulin Ratio 0.6 L (1.2-2.2) Med Orders - Current: Current Medications Acetaminophen (Tylenol) 650 mg PO Q4H PRN PRN Reason: Fever Last Admin: 04/02/20 13:25 Dose: 650 mg Documented by: Albuterol (Ventolin Hfa) 0 gm INH Q4H PRN PRN Reason: BREATHING Aspirin (Halfprin) 81 mg PO DAILY [facility] Last Admin: 04/06/20 08:01 Dose: 81 mg Documented by: Calcium Carbonate/Glycine (Tums) 1,000 mg PO Q2H PRN PRN Reason: Indigestion Last Admin: 04/06/20 09:09 Dose: 1,000 mg Documented by: Chlorpromazine HCl (Thorazine) 50 mg PO TID [facility] Diphenhydramine HCl (Benadryl) 25 - 50 mg PO BEDTIME PRN PRN Reason: Insomnia Last Admin: 04/05/20 21:54 Dose: 25 mg Documented by: Diphenhydramine HCl (Benadryl) 25 - 50 mg IVPUSH Q6H PRN PRN Reason: sleep Last Admin: 03/30/20 21:32 Dose: 25 mg Documented by: Diphenoxylate HCl/Atropine (Lomotil 0.025-2.5 Mg) 2 tab PO QID [facility] Last Admin: 04/06/20 10:43 Dose: 2 tab Documented by: Docusate Sodium (Colace) 100 mg PO BID [facility] Last Admin: 04/06/20 08:00 Dose: 100 mg Documented by: Doxazosin Mesylate (Cardura) 8 mg PO DAILY [facility] Last Admin: 04/06/20 08:00 Dose: 8 mg Documented by: Enoxaparin Sodium (Lovenox) 120 mg SUBCUT Q24H [facility] Last Admin: 04/05/20 16:59 Dose: 120 mg Documented by: Finasteride (Proscar) 5 mg PO DAILY [facility] Last Admin: 04/06/20 08:01 Dose: 5 mg Documented by: Heparin Sodium (Porcine) (Heparin Lock Flush 100 Units/Ml) 500 units FLUSH ASDIRECTED PRN PRN Reason: Other Last Admin: 04/01/20 04:13 Dose: 500 units Documented by: Hydromorphone HCl (Dilaudid) 2 - 4 mg PO Q4H PRN PRN Reason: Pain Last Admin: 04/05/20 21:54 Dose: 2 mg Documented by: Fat Emulsion Intravenous (Intralipid 20%) 100 mls @ 8.3 mls/hr IV Q24H [facility] Last Admin: 04/05/20 16:58 Dose: 8.3 mls/hr Documented by: Azithromycin 125 mg/ Sodium (Chloride) 100 mls @ 100 mls/hr IV Q12H [facility] Last Admin: 04/06/20 10:44 Dose: 100 mls/hr Documented by: Meropenem 1 gm/ Sodium (Chloride) 100 mls @ 200 mls/hr IV Q8H [facility] Last Admin: 04/06/20 06:04 Dose: 200 mls/hr Documented by: Multivitamins/Minerals 10 ml/Chromium/Copper/Manganese/Seleni/Zn 1 ml/ Amino Ac/Electrol/Dextrose/Calcium 1,011 mls @ 100 mls/hr IV .BY DURATION [facility] Last Admin: 04/05/20 22:50 Dose: 100 mls/hr Documented by: Amino Ac/Electrol/Dextrose/Calcium (Clinimix E 5/15) 1,000 mls @ 100 mls/hr IV .BY DURATION [facility] Last Admin: 04/06/20 08:07 Dose: 100 mls/hr Documented by: Sodium Chloride (Normal Saline) 1,000 mls @ 25 mls/hr IV ASDIRECTED [facility] Sodium Chloride (Normal Saline) 79 mls @ 3.5 mls/sec IV ASDIRECTED [facility] Last Admin: 04/05/20 05:15 Dose: 3.5 mls/sec Documented by: Sodium Chloride (Normal Saline) 100 mls @ 3.5 mls/sec IV ASDIRECTED [facility] Last Admin: 04/05/20 19:53 Dose: 4 mls/sec Documented by: Ibuprofen (Motrin) 600 mg PO Q6H PRN PRN Reason: Pain/Fever Last Admin: 04/03/20 15:49 Dose: 600 mg Documented by: Iopamidol (Isovue-370 (76%)) 100 ml IV . DIRECTED [facility] Last Admin: 04/05/20 19:53 Dose: 100 ml Documented by: Levothyroxine Sodium 100 mcg/ (Levothyroxine Sodium 25 mcg) 125 mcg PO ACBREAKFAST [facility] Last Admin: 04/06/20 07:53 Dose: 125 mcg Documented by: Loperamide HCl (Imodium) 4 mg PO Q6H PRN PRN Reason: Diarrhea Lorazepam (Ativan) 0.5 - 1 mg IVPUSH Q4H PRN PRN Reason: Nausea Last Admin: 04/05/20 12:14 Dose: 1 mg Documented by: Megestrol Acetate (Megace 40 Mg/Ml Susp) 625 mg PO DAILY@0800 [facility] Last Admin: 04/05/20 07:39 Dose: 625 mg Documented by: Metoclopramide HCl (Reglan) 5 mg IVPUSH Q6H [facility] Last Admin: 04/06/20 10:44 Dose: 5 mg Documented by: Ondansetron HCl (Zofran) 4 mg IVPUSH Q4H PRN PRN Reason: Nausea Last Admin: 03/28/20 20:50 Dose: 4 mg Documented by: Ondansetron HCl (Zofran) 4 mg IVPUSH TIDAC [facility] Last Admin: 04/06/20 10:46 Dose: 4 mg Documented by: Fluticasone/Salmeterol (Fluticasone-Salmeterol 113-14 Mcg Powder Inh) 1 puff INH BIDRT [facility] Last Admin: 04/06/20 07:01 Dose: 1 puff Documented by: Discontinued Medications Chlorpromazine HCl (Thorazine) 25 mg PO TID [facility] Last Admin: 04/06/20 08:01 Dose: 25 mg Documented by: Diphenoxylate HCl/Atropine (Lomotil 0.025-2.5 Mg) 2 tab PO QID [facility] Last Admin: 04/02/20 05:51 Dose: Not Given Documented by: Diphenoxylate HCl/Atropine (Lomotil 0.025-2.5 Mg) 2 tab PO QID PRN PRN Reason: Diarrhea Diphenoxylate HCl/Atropine (Lomotil 0.025-2.5 Mg) 2 tab PO QID PRN PRN Reason: Diarrhea Doxazosin Mesylate (Cardura) 8 mg PO DAILY [facility] Last Admin: 03/28/20 09:42 Dose: 8 mg Documented by: Fentanyl (Sublimaze) Confirm Administered Dose 100 mcg .ROUTE .STK-MED ONE Stop: 03/31/20 10:32 Fentanyl (Sublimaze) 50 mcg IVPUSH ONETIME ONE Stop: 03/31/20 11:31 Last Admin: 03/31/20 11:34 Dose: 50 mcg Documented by: Finasteride (Proscar) 5 mg PO DAILY [facility] Last Admin: 03/28/20 09:43 Dose: 5 mg Documented by: Hydromorphone HCl (Dilaudid) 0.5 mg IVPUSH Q2H PRN PRN Reason: MODERATE PAIN Last Admin: 04/01/20 00:33 Dose: 0.5 mg Documented by: Hydromorphone HCl (Dilaudid) 1 mg IV Q2H PRN PRN Reason: SEVERE PAIN Lactated Ringer's (Ringers, Lactated) 1,000 mls @ 250 mls/hr IV ONETIME ONE Stop: 03/26/20 16:29 Last Admin: 03/26/20 13:05 Dose: 250 mls/hr Documented by: Dextrose/Lactated Ringer's (Dextrose 5%-Lactated Ringers) 1,000 mls @ 25 mls/hr IV ASDIRECTED [facility] Last Admin: 03/26/20 22:23 Dose: 25 mls/hr Documented by: Multivitamins/Minerals 10 ml/Chromium/Copper/Manganese/Seleni/Zn 1 ml/ Amino Ac/Electrol/Dextrose/Calcium 1,011 mls @ 100 mls/hr IV .BY DURATION [facility] Stop: 03/29/20 14:15 Last Admin: 03/29/20 07:58 Dose: 100 mls/hr Documented by: Amino Ac/Electrol/Dextrose/Calcium (Clinimix E 02/07) 1,000 mls @ 100 mls/hr IV .BY DURATION [facility] Stop: 03/29/20 14:15 Last Admin: 03/28/20 22:23 Dose: 100 mls/hr Documented by: Linezolid 600 mg/ Premix 300 mls @ 300 mls/hr IV Q12H [facility] Last Admin: 03/29/20 02:46 Dose: 300 mls/hr Documented by: Piperacillin/Tazobactam/ (Dextrose 3.375 gm/ Premix) 50 mls @ 100 mls/hr IV Q6H [facility] Last Admin: 03/29/20 07:50 Dose: 100 mls/hr Documented by: Sodium Chloride (Normal Saline) 100 mls @ 3 mls/sec IV ASDIRECTED [facility] Stop: 03/28/20 12:00 Sodium Chloride (Normal Saline) 79 mls @ 3 mls/sec IV ASDIRECTED [facility] Stop: 03/28/20 12:00 Last Admin: 03/28/20 08:32 Dose: 3 mls/sec Documented by: Albumin Human (Albumin 25%) 25 gm in 100 mls @ 25 mls/hr IV Q24H [facility] Stop: 03/31/20 13:59 Last Admin: 03/31/20 09:59 Dose: 25 mls/hr Documented by: Multivitamins/Minerals 10 ml/Chromium/Copper/Manganese/Seleni/Zn 1 ml/ Amino Ac/Electrol/Dextrose/Calcium 1,011 mls @ 100 mls/hr IV .BY DURATION [facility] Stop: 03/30/20 14:00 Last Admin: 03/30/20 04:23 Dose: 100 mls/hr Documented by: Amino Ac/Electrol/Dextrose/Calcium (Clinimix E 02/07) 1,000 mls @ 100 mls/hr IV .BY DURATION [facility] Stop: 03/30/20 14:00 Last Admin: 03/29/20 18:06 Dose: 100 mls/hr Documented by: Potassium Phosphate 20 mmole/ (Sodium Chloride) 106.6667 mls @ 35 mls/hr IV Q3H [facility] Stop: 03/29/20 20:59 Last Admin: 03/29/20 19:34 Dose: 35 mls/hr Documented by: Sodium Chloride (Normal Saline) Confirm Administered Dose 10 mls @ as directed .ROUTE .STK-MED ONE Stop: 03/31/20 10:52 Sodium Chloride (Normal Saline) 79 mls @ 3.5 mls/sec IV ASDIRECTED [facility] Stop: 04/04/20 09:16 Last Admin: 04/04/20 10:07 Dose: 3.5 mls/sec Documented by: Ibuprofen (Motrin) 600 mg PO ONETIME ONE Stop: 03/27/20 20:33 Last Admin: 03/27/20 20:50 Dose: 600 mg Documented by: Iohexol (Omnipaque-300) 50 ml PO .ASDIRECTED [facility] Iopamidol (Isovue-300 (61%)) 100 ml IV . DIRECTED [facility] Last Admin: 03/28/20 08:34 Dose: 100 ml Documented by: Iopamidol (Isovue-300 (61%)) 100 ml IV . DIRECTED [facility] Iopamidol (Isovue-300 (61%)) 128 ml IV ONETIME ONE Stop: 04/04/20 09:11 Last Admin: 04/04/20 10:08 Dose: 128 ml Documented by: Iopamidol (Isovue-300 (61%)) 128 ml IV ONETIME ONE Stop: 04/05/20 05:01 Last Admin: 04/05/20 05:18 Dose: 128 ml Documented by: Iopamidol (Isovue-300 (61%)) Confirm Administered Dose 50 ml .ROUTE .STK-MED ONE Stop: 04/05/20 03:45 Last Admin: 04/05/20 04:13 Dose: Not Given Documented by: Iopamidol (Isovue-300 (61%)) 30 ml PO ASDIRECTED ONE Stop: 04/05/20 04:12 Last Admin: 04/05/20 04:27 Dose: 30 ml Documented by: Levothyroxine Sodium (Synthroid) 150 mcg PO ACBREAKFAST [facility] Last Admin: 03/27/20 07:07 Dose: 150 mcg Documented by: Levothyroxine Sodium (Synthroid) 125 mcg PO ACBREAKFAST [facility] Levothyroxine Sodium 100 mcg/ (Levothyroxine Sodium 25 mcg) 125 mcg PO ACBREAKFAST [facility] Last Admin: 03/28/20 07:29 Dose: 125 mcg Documented by: Lidocaine HCl (Xylocaine-Mpf 1%) 5 ml INJECT ONETIME ONE Stop: 03/27/20 13:01 Last Admin: 03/27/20 14:06 Dose: 5 ml Documented by: Lidocaine HCl (Xylocaine 2% Viscous) 15 ml PO ASDIRECTED ONE Stop: 03/29/20 03:53 Last Admin: 03/29/20 04:19 Dose: 15 ml Documented by: Megestrol Acetate (Megace 40 Mg/Ml Susp) 625 mg PO DAILY@0800 [facility] Last Admin: 03/29/20 10:21 Dose: Not Given Documented by: Midazolam HCl (Versed 1 Mg/Ml) Confirm Administered Dose 2 mg .ROUTE .STK-MED ONE Stop: 03/31/20 10:32 Morphine Sulfate (Morphine) 2 mg IVPUSH ONETIME ONE Stop: 04/05/20 16:26 Last Admin: 04/05/20 16:45 Dose: 2 mg Documented by: Non-Formulary Medication (Total Parenteral Nutrition, Central) 1,000 ml .XX .Continue Order [facility] Stop: 03/31/20 10:00 Non-Formulary Medication (Total Parenteral Nutrition, Central) 1,000 ml .XX .Continue Order [facility] Stop: 04/01/20 10:00 Non-Formulary Medication (Total Parenteral Nutrition, Central) 1,000 ml .XX .Continue Order [facility] Stop: 04/02/20 18:00 Non-Formulary Medication (Total Parenteral Nutrition, Central) 1,000 ml .XX .Continue Order [facility] Stop: 04/03/20 12:00 Non-Formulary Medication (Total Parenteral Nutrition, Central) 1,000 ml .XX .Continue Order [facility] Stop: 04/04/20 18:00 Non-Formulary Medication (Total Parenteral Nutrition, Central) 1,000 ml .XX .Continue Order [facility] Stop: 04/05/20 07:16 Non-Formulary Medication (Total Parenteral Nutrition, Central) 1,000 ml .XX .Continue Order [facility] Stop: 04/06/20 07:16 Nystatin (Mycostatin) 5 ml PO QID [facility] Stop: 04/05/20 10:01 Last Admin: 04/05/20 10:59 Dose: 5 ml Documented by: Propofol (Diprivan 20 Ml) Confirm Administered Dose 200 mg .ROUTE .STK-MED ONE Stop: 03/31/20 10:32 Sodium Chloride (Saline Flush) 10 ml FLUSH ONETIME ONE Stop: 03/28/20 07:58 Last Admin: 03/28/20 08:32 Dose: 10 ml Documented by: Sodium Chloride (Saline Flush) 10 ml FLUSH ONETIME ONE Stop: 03/28/20 08:05 Last Admin: 03/28/20 09:47 Dose: 10 ml Documented by: Sodium Chloride (Saline Flush) 10 ml FLUSH ONETIME ONE Stop: 04/04/20 09:11 Last Admin: 04/04/20 10:07 Dose: 10 ml Documented by: Sodium Chloride (Saline Flush) 10 ml FLUSH ONETIME ONE Stop: 04/05/20 17:57 Last Admin: 04/05/20 19:53 Dose: 10 ml Documented by: Tamsulosin HCl (Flomax) 0.4 mg PO BEDTIME [facility] Last Admin: 03/27/20 20:56 Dose: Not Given Documented by: Warfarin Sodium (Coumadin) 5 mg PO DAILY@1300 [facility] Warfarin Sodium (Coumadin) 5 mg PO ONETIME ONE Stop: 03/28/20 15:01 Last Admin: 03/28/20 14:58 Dose: 5 mg Documented by: - Exam Quality Assessment: DVT Prophylaxis General: Alert, Oriented, Cooperative, Mild Distress Lungs: Clear to Auscultation, Normal Respiratory Effort Cardiovascular: Regular Rate, Regular Rhythm, No Murmurs GI/Abdominal Exam: Soft, No Organomegaly, Tender. No: Distended, Guarding, Rigid, Rebound Extremities: Non-Tender, No Pedal Edema Sepsis Event Note - Evaluation Sepsis Screening Result: No Definite Risk - Focused Exam Vital Signs: Vital Signs Temp Pulse Resp BP BP Pulse Ox 04/06/20 10:40 96.4 F L 85 18 137/71 96 04/06/20 08:00 125/55 L 04/06/20 07:00 98.2 F 75 18 125/55 L 92 L 04/06/20 04:00 97.6 F 86 16 144/70 H 94 L Date Exam was Performed: 04/06/20 Time Exam was Performed: 12:55 Consult PN Assessment/Plan Procedures: Procedures AIRWAY INHALATION TREATMENT (02/13/20) ASSAY OF MAGNESIUM (03/04/20) ASSAY OF NATRIURETIC PEPTIDE (03/04/20) ASSAY OF PHOSPHORUS (03/04/20) ASSAY OF TROPONIN QUANT (03/04/20) ASSAY THYROID STIM HORMONE (02/13/20) BLOOD TYPING SEROLOGIC ABO (02/13/20) BLOOD TYPING SEROLOGIC RH(D) (02/13/20) C-REACTIVE PROTEIN (02/13/20) CARCINOEMBRYONIC ANTIGEN (02/13/20) COMPATIBILITY TEST ANTIGLOB (02/13/20) COMPATIBILITY TEST SPIN (02/13/20) COMPLETE CBC AUTOMATED (03/04/20) COMPLETE CBC W/AUTO DIFF WBC (03/04/20) COMPREHEN METABOLIC PANEL (03/04/20) CT ABD & PELV W/CONTRAST (03/04/20) CT ABD & PELVIS W/O CONTRAST (02/13/20) CULTR BACTERIA EXCEPT BLOOD (02/13/20) CULTURE OTHR SPECIMN AEROBIC (02/13/20) ELECTROCARDIOGRAM REPORT (03/04/20) ELECTROCARDIOGRAM TRACING (03/04/20) EMERGENCY DEPT VISIT (03/13/20) EMERGENCY DEPT VISIT (03/02/20) EMERGENCY DEPT VISIT (02/13/20) EMERGENCY DEPT VISIT (05/30/16) HOT OR COLD PACKS THERAPY (11/29/19) HYDRATE IV INFUSION ADD-ON (03/04/20) HYDRATION IV INFUSION INIT (02/28/20) IMMUNOHISTO ANTB 1ST STAIN (02/13/20) IMMUNOHISTO ANTB ADDL SLIDE (02/13/20) INSERT TEMP BLADDER CATH (02/13/20) INSERT TUNNELED CV CATH (03/04/20) MANUAL THERAPY 1/> REGIONS (11/29/19) MEASURE BLOOD OXYGEN LEVEL (03/04/20) METABOLIC PANEL TOTAL CA (03/04/20) MRI LUMBAR SPINE W/O DYE (05/09/19) NASAL/OROGASTRIC W/TUBE PLMT (02/13/20) OT EVALUATION (11/16/13) PT EVAL LOW COMPLEX 20 MIN (11/29/19) PT EVALUATION (03/25/16) RBC ANTIBODY SCREEN (02/13/20) ROUTINE VENIPUNCTURE (03/04/20) SMEAR GRAM STAIN (02/13/20) THER/DIAG CONCURRENT INF (03/04/20) THER/PROPH/DIAG INJ IV PUSH (02/13/20) THER/PROPH/DIAG IV INF ADDON (03/04/20) THER/PROPH/DIAG IV INF INIT (03/04/20) THERAPEUTIC EXERCISES (11/29/19) TISSUE EXAM BY PATHOLOGIST (02/13/20) TISSUE EXAM BY PATHOLOGIST (02/13/20) TISSUE EXAM BY PATHOLOGIST (02/13/20) TX/PRO/DX INJ NEW DRUG ADDON (03/04/20) TX/PROPH/DG ADDL SEQ IV INF (03/04/20) ULTRASOUND THERAPY (03/25/16) URINALYSIS AUTO W/SCOPE (03/02/20) US URINE CAPACITY MEASURE (03/04/20) X-RAY EXAM ABDOMEN 1 VIEW (02/13/20) X-RAY EXAM ABDOMEN 2 VIEWS (02/13/20) X-RAY EXAM COMPLETE ABDOMEN (02/13/20) X-RAY EXAM HIP UNI 2-3 VIEWS (03/13/20) Problem List Initiated/Reviewed/Updated: Yes My Orders Last 24 Hours: My Active Orders 04/05/20 16:25 EKG Documentation Completion [RC] ASDIRECTED EKG 12 Lead [EK] Routine 04/06/20 14:00 chlorproMAZINE [Thorazine] 50 mg PO TID Plan: ASSESSMENT AND PLAN - 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 Probably had some level of endothelial injury when the catheter was placed and has developed a DVT in his hypercoagulable state with active cancer. Tolerating anticoagulation so far. -Enoxaparin 1.5 mg/kg daily until INR therapeutic -Hold warfarin until taking pills again -Anticipate 3 months of treatment Chest pain-episode which occurred yesterday, evaluation negative for PE, myocardial infarct or ischemia. Pain is likely secondary to his pneumoperitoneum Ileus versus small bowel obstruction-stable but not much improvement. PEG tube placed 03/31. Question of increased free free air noted on x-ray and CT scan, felt to be secondary to gastrostomy tube. -Care as per surgical team Fever-no obvious source and all of his cultures have been negative. Slowly feeling better, remains afebrile with stable vital signs and normal white blood cell count -Follow-up cultures -Continue meropenem Metastatic colon cancer-metastases to the liver visible on CT scan. Oncology appointment is coming up soon. He does continue to suffer from weakness and malnutrition following his colon surgery. He is on TPN. AST and ALT are mildly elevated and I suspect this is related to the TPN. -Management per surgical team Hiccups -Thorazine 25 mg p.o. 3 times daily Situational depression-patient reports feeling down since his diagnosis of cancer. He feels that he has good family support at this time.
--- NOTE | 2020-04-06 13:07 | PN ---
DATE OF SERVICE: 04/06/2020 SUBJECTIVE: Walter has been afebrile. Oral intake 1030. Urine output not able to be obtained; patient takes out measuring hat. Gastrostomy tube put out 2575. Bowel movements 2. Labs today; white count 10,000, hemoglobin 9.6. Liver function tests have decreased; AST 33, ALT 105, alkaline phosphatase 139. Abdominal x-ray has not been over read yet by radiologist. Walter reports that he feels real good in the morning, but by afternoon he does not feel as well, more nauseated and weak. Nursing staff is stating that with the way his medications are scheduled now, his tube is clamped more than it is unclamped. REVIEW OF SYSTEMS: Remainder of review of systems negative for any pertinent positives and negatives. OBJECTIVE: GENERAL: Walter Cohen is a pleasant 84-year-old male. He is alert, orientated. VITAL SIGNS: TPR at 0700; 98.2, 75, 18. Blood pressure 125/55. HEENT: Negative. NECK: Supple. HEART: Regular rate and rhythm. LUNGS: Clear. ABDOMEN: Soft, nontender. EXTREMITIES: Without peripheral edema. ASSESSMENT: 1. Ileus. 2. Upper GI with percutaneous endoscopy and gastrostomy tube placement with flexible sigmoidoscopy for persistent ileus, intolerance of NG, for esophageal thrush, widely patent ileorectal anastomosis. Date of procedure 03/31/2020. Surgeon: Otilio Cantrell MD. 3. 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 4. Total parenteral nutrition. 5. Hiccups, treated with Thorazine 25 mg t.i.d. 6. Left brachiocephalic deep venous thrombosis related to catheter placement. 7. Situational depression. PLAN: 1. Continue same TPN rate and content. 2. Check CBC, CMP, mag, and phos in a.m. 3. Nursing staff to reschedule medications to where he is getting the medications that are compatible with each other together to avoid unclamping and clamping that tube. 4. Megace, we will put on hold until 04/08/2020. Walter is thinking that medication is making him nauseated. Dr. Otilio Cantrell was consulted yesterday via phone. Dr. Cantrell stated that the ileus could possibly take up to 3 weeks to resolve and he will be discharged with TPN and TPN will be 24 hours per day. Elise Cohen was called yesterday and discussed discharge and referred to Nissa for discharge planning. We will evaluate p.r.n. or in a.m. Michelle Casanova PA-C /[phone]
[2020-04-06] MEDS: Enoxaparin 120 MG/0.8 ML Syringe SUBCUT SCH (15:22)
[2020-04-06] MEDS: Fat Emulsion 100 ML IV SCH (15:22)
[2020-04-06] MEDS: HYDROmorphone 2 MG Tab PO PRN (18:02)
[2020-04-06] MEDS: diphenhydrAMINE 25 MG Cap PO PRN (21:45)
[2020-04-07] MEDS: Calcium Carbonate 500 MG Tab.Chew PO PRN ×2 (00:33→06:04)
[2020-04-07] MEDS: 1: AA 5%/Calcium/D15W/Lytes 1,000 ML with MVI, Adult with Vitamin K 10 ML, Chromium/Copp IV SCH ×6 (04:00→14:14)
[2020-04-07] MEDS: Metoclopramide 10 MG/2 ML SDV IVPUSH SCH ×4 (04:04→21:44)
[2020-04-07] MEDS: Meropenem 1 GM in Sodium Chloride 0.9% 100 ML IV SCH (05:55)
[2020-04-07] MEDS: Atropine/Diphenoxylate 0.025-2.5 MG Tab PO SCH (06:08)
[2020-04-07] MEDS ORDERED: Atropine/Diphenoxylate 0.025-2.5 MG Tab PO PRN (06:50)
[2020-04-07] MEDS: Fluticasone-Salmeterol 113-14 MCG Powder Inhalant INH SCH ×2 (06:56→20:14)
[2020-04-07] MEDS ORDERED: Central Total Parenteral Nutrition Bag SCH (07:00)
[2020-04-07] MEDS: Levothyroxine 100 MCG, Levothyroxine 25 MCG PO SCH ×4 (07:12→09:20)
[2020-04-07] MEDS: Ondansetron 4 MG/2 ML SDV IVPUSH SCH ×3 (07:13→16:48)
--- NOTE | 2020-04-07 08:06 | PN ---
DATE OF SERVICE: 04/07/2020 SUBJECTIVE: Walter has been afebrile. Vital signs stable. Oral intake 860. No bowel movements yesterday, and gastrostomy tube put out 1999. He voided 11 times, unable to collect for output. Denies pain. Continues to have mild hiccups on and off. He is on Thorazine 3 times a day. 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 LABORATORY DATA: Hemoglobin 9.8, ALT 102, alkaline phosphatase is 146, total protein increased to 6.1, albumin increased to 2.2, and globulin increased to 3.9. REVIEW OF SYSTEMS: Remainder of review of systems negative for any pertinent positives and negatives. OBJECTIVE: GENERAL: Walter Cohen is a pleasant 84-year-old male, color pale. Alert and orientated. VITAL SIGNS: TPR at 0236 is 96.9, 85, 16, blood pressure 127/70. HEENT: Negative. NECK: Supple. HEART: Regular rate and rhythm. LUNGS: Clear. ABDOMEN: Soft, nontender. G-tube intact. EXTREMITIES: Without peripheral edema. ASSESSMENT: 1. Ileus. 2. Upper GI with percutaneous endoscopy and gastrostomy tube placement with flexible sigmoidoscopy for persistent ileus, intolerance of NG for esophageal thrush, widely patent ileorectal anastomosis. Date of procedure 03/31/2020. Surgeon: Otilio Cantrell MD. 3. 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 4. Total parenteral nutrition. 5. Hiccups, treated with Thorazine 25 mg t.i.d. 6. Left brachiocephalic deep venous thrombosis related to catheter placement. 7. Situational depression. PLAN: 1. Lomotil. Continue same dose, but change from scheduled to p.r.n. 2. Continue same TPN rate and content. 3. Check CBC, CMP, mag, phos in a.m. 4. Continue abdominal flat and upright series. 5. Discharge Planning to be notified of the patient not wanting jail. 6. Ask regarding Megace, which was put on hold until tomorrow. We will evaluate p.r.n. or in a.m. Michelle Casanova PA-C /[id number]
[2020-04-07] MEDS: Clotrimazole 10 MG Troche PO SCH ×4 (09:17→21:44)
[2020-04-07] MEDS: Doxazosin 4 MG Tab PO SCH (09:18)
[2020-04-07] MEDS: Docusate Sodium 100 MG Cap PO SCH ×2 (09:18→20:14)
[2020-04-07] MEDS: Aspirin 81 MG Tab.EC PO SCH (09:20)
[2020-04-07] MEDS: Finasteride 5 MG Tab PO SCH (09:20)
[2020-04-07] MEDS: chlorproMAZINE 25 MG Tab PO SCH ×3 (09:21→20:14)
--- NOTE | 2020-04-07 10:30 | PCM.CONSN ---
- General Info Date of Service: 04/07/20 Subjective Update: Mr. Cohen has been stable since yesterday, good vital signs and no significant temperature elevation. Somewhat depressed concerning his current situation. He has been ambulating in the hallways and getting out of his room which does seem to help. Functional Status: Reports: Tolerating Diet, Ambulating, Urinating - Review of Systems General: Reports: Weakness, Fatigue. Denies: Fever, Chills Pulmonary: Reports: No Symptoms Cardiovascular: Reports: No Symptoms Gastrointestinal: Reports: Abdominal Pain, Diarrhea. Denies: Difficulty Swallowing, Hematochezia, Melena, Nausea, Vomiting - Patient Data Vitals - Most Recent: Last Vital Signs Temp 97.5 F 04/07/20 07:23 Pulse 88 04/07/20 07:23 Resp 18 04/07/20 07:23 BP 140/65 04/07/20 09:18 Pulse Ox 97 04/07/20 07:23 Weight - Most Recent: 184 lb 3.2 oz I&O - Last 24 Hours: Intake & Output 04/06/20 04/07/20 04/07/20 22:59 06:59 14:59 Intake Total 1950 1962 Output Total 250 1100 Balance 1700 862 Lab Results Last 24 Hours: Laboratory Results - last 24 hr 04/07/20 04/07/20 Range/Units 04:05 04:05 WBC 10.7 (4.5-11.0) K/uL RBC 3.71 L (4.30-5.90) M/uL Hgb 9.8 L (12.0-15.0) g/dL Hct 32.9 L (40.0-54.0) % MCV 89 (80-98) fL MCH 26 L (27-31) pg MCHC 30 L (32-36) % Plt Count 349 (150-400) K/uL Sodium 141 (140-148) mmol/L Potassium 4.4 (3.6-5.2) mmol/L Chloride 106 (100-108) mmol/L Carbon Dioxide 29 (21-32) mmol/L Anion Gap 6.1 (5.0-14.0) mmol/L BUN 28 H (7-18) mg/dL Creatinine 1.1 (0.8-1.3) mg/dL Est Cr Clr Drug Dosing 49.41 mL/min Estimated GFR (MDRD) > 60 (>60) Glucose 95 (74-106) mg/dL Calcium 9.1 (8.5-10.1) mg/dL Phosphorus 3.6 (2.5-4.9) mg/dL Magnesium 2.2 (1.8-2.4) mg/dL Total Bilirubin 0.4 (0.2-1.0) mg/dL AST 36 (15-37) U/L ALT 102 H (12-78) U/L Alkaline Phosphatase 146 H (46-116) U/L Total Protein 6.1 L (6.4-8.2) g/dL Albumin 2.2 L (3.4-5.0) g/dL Globulin 3.9 H (2.3-3.5) g/dL Albumin/Globulin Ratio 0.6 L (1.2-2.2) Med Orders - Current: Current Medications Acetaminophen (Tylenol) 650 mg PO Q4H PRN PRN Reason: Fever Last Admin: 04/06/20 12:57 Dose: 650 mg Documented by: Albuterol (Ventolin Hfa) 0 gm INH Q4H PRN PRN Reason: BREATHING Aspirin (Halfprin) 81 mg PO DAILY [facility] Last Admin: 04/07/20 09:20 Dose: 81 mg Documented by: Calcium Carbonate/Glycine (Tums) 1,000 mg PO Q2H PRN PRN Reason: Indigestion Last Admin: 04/07/20 06:04 Dose: 1,000 mg Documented by: Chlorpromazine HCl (Thorazine) 50 mg PO TID [facility] Last Admin: 04/07/20 09:21 Dose: 50 mg Documented by: Clotrimazole (Mycelex) 10 mg PO 5XDAY [facility] Last Admin: 04/07/20 09:17 Dose: 10 mg Documented by: Diphenhydramine HCl (Benadryl) 25 - 50 mg PO BEDTIME PRN PRN Reason: Insomnia Last Admin: 04/06/20 21:45 Dose: 25 mg Documented by: Diphenhydramine HCl (Benadryl) 25 - 50 mg IVPUSH Q6H PRN PRN Reason: sleep Last Admin: 03/30/20 21:32 Dose: 25 mg Documented by: Diphenoxylate HCl/Atropine (Lomotil 0.025-2.5 Mg) 2 tab PO QID PRN PRN Reason: Diarrhea Docusate Sodium (Colace) 100 mg PO BID [facility] Last Admin: 04/07/20 09:18 Dose: 100 mg Documented by: Doxazosin Mesylate (Cardura) 8 mg PO DAILY [facility] Last Admin: 04/07/20 09:18 Dose: 8 mg Documented by: Enoxaparin Sodium (Lovenox) 120 mg SUBCUT Q24H [facility] Last Admin: 04/06/20 15:22 Dose: 120 mg Documented by: Finasteride (Proscar) 5 mg PO DAILY [facility] Last Admin: 04/07/20 09:20 Dose: 5 mg Documented by: Heparin Sodium (Porcine) (Heparin Lock Flush 100 Units/Ml) 500 units FLUSH ASDIRECTED PRN PRN Reason: Other Last Admin: 04/01/20 04:13 Dose: 500 units Documented by: Hydromorphone HCl (Dilaudid) 2 - 4 mg PO Q4H PRN PRN Reason: Pain Last Admin: 04/06/20 18:02 Dose: 4 mg Documented by: Fat Emulsion Intravenous (Intralipid 20%) 100 mls @ 8.3 mls/hr IV Q24H [facility] Last Admin: 04/06/20 15:22 Dose: 8.3 mls/hr Documented by: Azithromycin 125 mg/ Sodium (Chloride) 100 mls @ 100 mls/hr IV Q12H [facility] Last Admin: 04/06/20 22:55 Dose: 100 mls/hr Documented by: Multivitamins/Minerals 10 ml/Chromium/Copper/Manganese/Seleni/Zn 1 ml/ Amino Ac/Electrol/Dextrose/Calcium 1,011 mls @ 100 mls/hr IV .BY DURATION [facility] Last Admin: 04/06/20 17:51 Dose: 100 mls/hr Documented by: Amino Ac/Electrol/Dextrose/Calcium (Clinimix E 15) 1,000 mls @ 100 mls/hr IV .BY DURATION [facility] Last Admin: 04/07/20 04:00 Dose: 100 mls/hr Documented by: Sodium Chloride (Normal Saline) 1,000 mls @ 25 mls/hr IV ASDIRECTED [facility] Ibuprofen (Motrin) 600 mg PO Q6H PRN PRN Reason: Pain/Fever Last Admin: 04/03/20 15:49 Dose: 600 mg Documented by: Levothyroxine Sodium 100 mcg/ (Levothyroxine Sodium 25 mcg) 125 mcg PO DAILY [facility] Last Admin: 04/07/20 09:20 Dose: Not Given Documented by: Loperamide HCl (Imodium) 4 mg PO Q6H PRN PRN Reason: Diarrhea Lorazepam (Ativan) 0.5 - 1 mg IVPUSH Q4H PRN PRN Reason: Nausea Last Admin: 04/05/20 12:14 Dose: 1 mg Documented by: Megestrol Acetate (Megace 40 Mg/Ml Susp) 625 mg PO DAILY@0800 [facility] Last Admin: 04/05/20 07:39 Dose: 625 mg Documented by: Metoclopramide HCl (Reglan) 5 mg IVPUSH Q6H [facility] Last Admin: 04/07/20 09:22 Dose: 5 mg Documented by: Ondansetron HCl (Zofran) 4 mg IVPUSH Q4H PRN PRN Reason: Nausea Last Admin: 03/28/20 20:50 Dose: 4 mg Documented by: Ondansetron HCl (Zofran) 4 mg IVPUSH TIDAC [facility] Last Admin: 04/07/20 07:13 Dose: 4 mg Documented by: Fluticasone/Salmeterol (Fluticasone-Salmeterol 113-14 Mcg Powder Inh) 1 puff INH BIDRT [facility] Last Admin: 04/07/20 06:56 Dose: 1 puff Documented by: Discontinued Medications Chlorpromazine HCl (Thorazine) 25 mg PO TID [facility] Last Admin: 04/06/20 08:01 Dose: 25 mg Documented by: Diphenoxylate HCl/Atropine (Lomotil 0.025-2.5 Mg) 2 tab PO QID [facility] Last Admin: 04/02/20 05:51 Dose: Not Given Documented by: Diphenoxylate HCl/Atropine (Lomotil 0.025-2.5 Mg) 2 tab PO QID PRN PRN Reason: Diarrhea Diphenoxylate HCl/Atropine (Lomotil 0.025-2.5 Mg) 2 tab PO QID PRN PRN Reason: Diarrhea Diphenoxylate HCl/Atropine (Lomotil 0.025-2.5 Mg) 2 tab PO QID [facility] Last Admin: 04/07/20 06:08 Dose: Not Given Documented by: Doxazosin Mesylate (Cardura) 8 mg PO DAILY [facility] Last Admin: 03/28/20 09:42 Dose: 8 mg Documented by: Fentanyl (Sublimaze) Confirm Administered Dose 100 mcg .ROUTE .STK-MED ONE Stop: 03/31/20 10:32 Fentanyl (Sublimaze) 50 mcg IVPUSH ONETIME ONE Stop: 03/31/20 11:31 Last Admin: 03/31/20 11:34 Dose: 50 mcg Documented by: Finasteride (Proscar) 5 mg PO DAILY [facility] Last Admin: 03/28/20 09:43 Dose: 5 mg Documented by: Hydromorphone HCl (Dilaudid) 0.5 mg IVPUSH Q2H PRN PRN Reason: MODERATE PAIN Last Admin: 04/01/20 00:33 Dose: 0.5 mg Documented by: Hydromorphone HCl (Dilaudid) 1 mg IV Q2H PRN PRN Reason: SEVERE PAIN Lactated Ringer's (Ringers, Lactated) 1,000 mls @ 250 mls/hr IV ONETIME ONE Stop: 03/26/20 16:29 Last Admin: 03/26/20 13:05 Dose: 250 mls/hr Documented by: Dextrose/Lactated Ringer's (Dextrose 5%-Lactated Ringers) 1,000 mls @ 25 mls/hr IV ASDIRECTED [facility] Last Admin: 03/26/20 22:23 Dose: 25 mls/hr Documented by: Multivitamins/Minerals 10 ml/Chromium/Copper/Manganese/Seleni/Zn 1 ml/ Amino Ac/Electrol/Dextrose/Calcium 1,011 mls @ 100 mls/hr IV .BY DURATION [facility] Stop: 03/29/20 14:15 Last Admin: 03/29/20 07:58 Dose: 100 mls/hr Documented by: Amino Ac/Electrol/Dextrose/Calcium (Clinimix E 15) 1,000 mls @ 100 mls/hr IV .BY DURATION [facility] Stop: 03/29/20 14:15 Last Admin: 03/28/20 22:23 Dose: 100 mls/hr Documented by: Linezolid 600 mg/ Premix 300 mls @ 300 mls/hr IV Q12H [facility] Last Admin: 03/29/20 02:46 Dose: 300 mls/hr Documented by: Piperacillin/Tazobactam/ (Dextrose 3.375 gm/ Premix) 50 mls @ 100 mls/hr IV Q6H [facility] Last Admin: 03/29/20 07:50 Dose: 100 mls/hr Documented by: Sodium Chloride (Normal Saline) 100 mls @ 3 mls/sec IV ASDIRECTED [facility] Stop: 03/28/20 12:00 Sodium Chloride (Normal Saline) 79 mls @ 3 mls/sec IV ASDIRECTED [facility] Stop: 03/28/20 12:00 Last Admin: 03/28/20 08:32 Dose: 3 mls/sec Documented by: Albumin Human (Albumin 25%) 25 gm in 100 mls @ 25 mls/hr IV Q24H [facility] Stop: 03/31/20 13:59 Last Admin: 03/31/20 09:59 Dose: 25 mls/hr Documented by: Multivitamins/Minerals 10 ml/Chromium/Copper/Manganese/Seleni/Zn 1 ml/ Amino Ac/Electrol/Dextrose/Calcium 1,011 mls @ 100 mls/hr IV .BY DURATION [facility] Stop: 03/30/20 14:00 Last Admin: 03/30/20 04:23 Dose: 100 mls/hr Documented by: Amino Ac/Electrol/Dextrose/Calcium (Clinimix E 5/15) 1,000 mls @ 100 mls/hr IV .BY DURATION [facility] Stop: 03/30/20 14:00 Last Admin: 03/29/20 18:06 Dose: 100 mls/hr Documented by: Potassium Phosphate 20 mmole/ (Sodium Chloride) 106.6667 mls @ 35 mls/hr IV Q3H [facility] Stop: 03/29/20 20:59 Last Admin: 03/29/20 19:34 Dose: 35 mls/hr Documented by: Meropenem 1 gm/ Sodium (Chloride) 100 mls @ 200 mls/hr IV Q8H [facility] Last Admin: 04/07/20 05:55 Dose: 200 mls/hr Documented by: Sodium Chloride (Normal Saline) Confirm Administered Dose 10 mls @ as directed .ROUTE .ST-MED ONE Stop: 03/31/20 10:52 Sodium Chloride (Normal Saline) 79 mls @ 3.5 mls/sec IV ASDIRECTED [facility] Stop: 04/04/20 09:16 Last Admin: 04/04/20 10:07 Dose: 3.5 mls/sec Documented by: Sodium Chloride (Normal Saline) 79 mls @ 3.5 mls/sec IV ASDIRECTED [facility] Last Admin: 04/05/20 05:15 Dose: 3.5 mls/sec Documented by: Sodium Chloride (Normal Saline) 100 mls @ 3.5 mls/sec IV ASDIRECTED [facility] Last Admin: 04/05/20 19:53 Dose: 4 mls/sec Documented by: Ibuprofen (Motrin) 600 mg PO ONETIME ONE Stop: 03/27/20 20:33 Last Admin: 03/27/20 20:50 Dose: 600 mg Documented by: Iohexol (Omnipaque-300) 50 ml PO .ASDIRECTED [facility] Iopamidol (Isovue-300 (61%)) 100 ml IV . DIRECTED [facility] Last Admin: 03/28/20 08:34 Dose: 100 ml Documented by: Iopamidol (Isovue-300 (61%)) 100 ml IV . DIRECTED [facility] Iopamidol (Isovue-300 (61%)) 128 ml IV ONETIME ONE Stop: 04/04/20 09:11 Last Admin: 04/04/20 10:08 Dose: 128 ml Documented by: Iopamidol (Isovue-300 (61%)) 128 ml IV ONETIME ONE Stop: 04/05/20 05:01 Last Admin: 04/05/20 05:18 Dose: 128 ml Documented by: Iopamidol (Isovue-300 (61%)) Confirm Administered Dose 50 ml .ROUTE .STK-MED ONE Stop: 04/05/20 03:45 Last Admin: 04/05/20 04:13 Dose: Not Given Documented by: Iopamidol (Isovue-300 (61%)) 30 ml PO ASDIRECTED ONE Stop: 04/05/20 04:12 Last Admin: 04/05/20 04:27 Dose: 30 ml Documented by: Iopamidol (Isovue-370 (76%)) 100 ml IV . DIRECTED [facility] Last Admin: 04/05/20 19:53 Dose: 100 ml Documented by: Levothyroxine Sodium (Synthroid) 150 mcg PO ACBREAKFAST [facility] Last Admin: 03/27/20 07:07 Dose: 150 mcg Documented by: Levothyroxine Sodium (Synthroid) 125 mcg PO ACBREAKFAST [facility] Levothyroxine Sodium 100 mcg/ (Levothyroxine Sodium 25 mcg) 125 mcg PO ACBREAKFAST [facility] Last Admin: 03/28/20 07:29 Dose: 125 mcg Documented by: Levothyroxine Sodium 100 mcg/ (Levothyroxine Sodium 25 mcg) 125 mcg PO ACB REAKFAST [facility] Last Admin: 04/07/20 07:12 Dose: 125 mcg Documented by: Lidocaine HCl (Xylocaine-Mpf 1%) 5 ml INJECT ONETIME ONE Stop: 03/27/20 13:01 Last Admin: 03/27/20 14:06 Dose: 5 ml Documented by: Lidocaine HCl (Xylocaine 2% Viscous) 15 ml PO ASDIRECTED ONE Stop: 03/29/20 03:53 Last Admin: 03/29/20 04:19 Dose: 15 ml Documented by: Megestrol Acetate (Megace 40 Mg/Ml Susp) 625 mg PO DAILY@0800 [facility] Last Admin: 03/29/20 10:21 Dose: Not Given Documented by: Midazolam HCl (Versed 1 Mg/Ml) Confirm Administered Dose 2 mg .ROUTE .STK-MED ONE Stop: 03/31/20 10:32 Morphine Sulfate (Morphine) 2 mg IVPUSH ONETIME ONE Stop: 04/05/20 16:26 Last Admin: 04/05/20 16:45 Dose: 2 mg Documented by: Non-Formulary Medication (Total Parenteral Nutrition, Central) 1,000 ml .XX .Continue Order [facility] Stop: 03/31/20 10:00 Non-Formulary Medication (Total Parenteral Nutrition, Central) 1,000 ml .XX .Continue Order [facility] Stop: 04/01/20 10:00 Non-Formulary Medication (Total Parenteral Nutrition, Central) 1,000 ml .XX .Continue Order [facility] Stop: 04/02/20 18:00 Non-Formulary Medication (Total Parenteral Nutrition, Central) 1,000 ml .XX .Continue Order [facility] Stop: 04/03/20 12:00 Non-Formulary Medication (Total Parenteral Nutrition, Central) 1,000 ml .XX .Continue Order [facility] Stop: 04/04/20 18:00 Non-Formulary Medication (Total Parenteral Nutrition, Central) 1,000 ml .XX .Continue Order [facility] Stop: 04/05/20 07:16 Non-Formulary Medication (Total Parenteral Nutrition, Central) 1,000 ml .XX .Continue Order [facility] Stop: 04/06/20 07:16 Non-Formulary Medication (Total Parenteral Nutrition, Central) 1,000 ml .XX .Continue Order [facility] Stop: 04/07/20 10:00 Nystatin (Mycostatin) 5 ml PO QID [facility] Stop: 04/05/20 10:01 Last Admin: 04/05/20 10:59 Dose: 5 ml Documented by: Propofol (Diprivan 20 Ml) Confirm Administered Dose 200 mg .ROUTE .STK-MED ONE Stop: 03/31/20 10:32 Sodium Chloride (Saline Flush) 10 ml FLUSH ONETIME ONE Stop: 03/28/20 07:58 Last Admin: 03/28/20 08:32 Dose: 10 ml Documented by: Sodium Chloride (Saline Flush) 10 ml FLUSH ONETIME ONE Stop: 03/28/20 08:05 Last Admin: 03/28/20 09:47 Dose: 10 ml Documented by: Sodium Chloride (Saline Flush) 10 ml FLUSH ONETIME ONE Stop: 04/04/20 09:11 Last Admin: 04/04/20 10:07 Dose: 10 ml Documented by: Sodium Chloride (Saline Flush) 10 ml FLUSH ONETIME ONE Stop: 04/05/20 17:57 Last Admin: 04/05/20 19:53 Dose: 10 ml Documented by: Tamsulosin HCl (Flomax) 0.4 mg PO BEDTIME [facility] Last Admin: 03/27/20 20:56 Dose: Not Given Documented by: Warfarin Sodium (Coumadin) 5 mg PO DAILY@1300 [facility] Warfarin Sodium (Coumadin) 5 mg PO ONETIME ONE Stop: 03/28/20 15:01 Last Admin: 03/28/20 14:58 Dose: 5 mg Documented by: - Exam Quality Assessment: DVT Prophylaxis General: Alert, Oriented, Cooperative, Mild Distress Lungs: Clear to Auscultation, Normal Respiratory Effort Cardiovascular: Regular Rate, Regular Rhythm, No Murmurs GI/Abdominal Exam: Soft, No Organomegaly, Tender. No: Distended, Guarding, Rigid, Rebound Extremities: Non-Tender, No Pedal Edema Sepsis Event Note - Evaluation Sepsis Screening Result: No Definite Risk - Focused Exam Vital Signs: Vital Signs Temp Pulse Resp BP BP Pulse Ox 04/07/20 09:18 140/65 04/07/20 07:23 97.5 F 88 18 140/65 97 04/07/20 02:36 96.9 F 85 16 127/70 97 04/06/20 22:52 97.3 F 88 16 128/74 94 L Date Exam was Performed: 04/07/20 Time Exam was Performed: 10:27 Consult PN Assessment/Plan Procedures: Procedures AIRWAY INHALATION TREATMENT (02/13/20) ASSAY OF MAGNESIUM (03/04/20) ASSAY OF NATRIURETIC PEPTIDE (03/04/20) ASSAY OF PHOSPHORUS (03/04/20) ASSAY OF TROPONIN QUANT (03/04/20) ASSAY THYROID STIM HORMONE (02/13/20) BLOOD TYPING SEROLOGIC ABO (02/13/20) BLOOD TYPING SEROLOGIC RH(D) (02/13/20) C-REACTIVE PROTEIN (02/13/20) CARCINOEMBRYONIC ANTIGEN (02/13/20) COMPATIBILITY TEST ANTIGLOB (02/13/20) COMPATIBILITY TEST SPIN (02/13/20) COMPLETE CBC AUTOMATED (03/04/20) COMPLETE CBC W/AUTO DIFF WBC (03/04/20) COMPREHEN METABOLIC PANEL (03/04/20) CT ABD & PELV W/CONTRAST (03/04/20) CT ABD & PELVIS W/O CONTRAST (02/13/20) CULTR BACTERIA EXCEPT BLOOD (02/13/20) CULTURE OTHR SPECIMN AEROBIC (02/13/20) ELECTROCARDIOGRAM REPORT (03/04/20) ELECTROCARDIOGRAM TRACING (03/04/20) EMERGENCY DEPT VISIT (03/13/20) EMERGENCY DEPT VISIT (03/02/20) EMERGENCY DEPT VISIT (02/13/20) EMERGENCY DEPT VISIT (05/30/16) HOT OR COLD PACKS THERAPY (11/29/19) HYDRATE IV INFUSION ADD-ON (03/04/20) HYDRATION IV INFUSION INIT (02/28/20) IMMUNOHISTO ANTB 1ST STAIN (02/13/20) IMMUNOHISTO ANTB ADDL SLIDE (02/13/20) INSERT TEMP BLADDER CATH (02/13/20) INSERT TUNNELED CV CATH (03/04/20) MANUAL THERAPY 1/> REGIONS (11/29/19) MEASURE BLOOD OXYGEN LEVEL (03/04/20) METABOLIC PANEL TOTAL CA (03/04/20) MRI LUMBAR SPINE W/O DYE (05/09/19) NASAL/OROGASTRIC W/TUBE PLMT (02/13/20) OT EVALUATION (11/16/13) PT EVAL LOW COMPLEX 20 MIN (11/29/19) PT EVALUATION (03/25/16) RBC ANTIBODY SCREEN (02/13/20) ROUTINE VENIPUNCTURE (03/04/20) SMEAR GRAM STAIN (02/13/20) THER/DIAG CONCURRENT INF (03/04/20) THER/PROPH/DIAG INJ IV PUSH (02/13/20) THER/PROPH/DIAG IV INF ADDON (03/04/20) THER/PROPH/DIAG IV INF INIT (03/04/20) THERAPEUTIC EXERCISES (11/29/19) TISSUE EXAM BY PATHOLOGIST (02/13/20) TISSUE EXAM BY PATHOLOGIST (02/13/20) TISSUE EXAM BY PATHOLOGIST (02/13/20) TX/PRO/DX INJ NEW DRUG ADDON (03/04/20) TX/PROPH/DG ADDL SEQ IV INF (03/04/20) ULTRASOUND THERAPY (03/25/16) URINALYSIS AUTO W/SCOPE (03/02/20) US URINE CAPACITY MEASURE (03/04/20) X-RAY EXAM ABDOMEN 1 VIEW (02/13/20) X-RAY EXAM ABDOMEN 2 VIEWS (02/13/20) X-RAY EXAM COMPLETE ABDOMEN (02/13/20) X-RAY EXAM HIP UNI 2-3 VIEWS (03/13/20) Problem List Initiated/Reviewed/Updated: Yes My Orders Last 24 Hours: My Active Orders 04/06/20 14:00 chlorproMAZINE [Thorazine] 50 mg PO TID 04/08/20 05:00 COMPREHENSIVE METABOLIC PN,CMP [CHEM] Timed Plan: ASSESSMENT AND PLAN - 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 Probably had some level of endothelial injury when the catheter was placed and has developed a DVT in his hypercoagulable state with active cancer. Tolerating anticoagulation so far . -Enoxaparin 1.5 mg/kg daily until INR therapeutic -Hold warfarin until taking pills again -Anticipate 3 months of treatment Chest pain-episode which occurred yesterday, evaluation negative for PE, myocardial infarct or ischemia. Pain is likely secondary to his pneumoperitoneum Ileus versus small bowel obstruction-stable Question of increased free free air noted on x-ray and CT scan, felt to be secondary to gastrostomy tube. -Care as per surgical team Fever-no obvious source and all of his cultures have been negative. Slowly feeling better, remains afebrile with stable vital signs and normal white blood cell count -Follow-up cultures -Discontinue meropenem Metastatic colon cancer-metastases to the liver visible on CT scan. Oncology appointment is coming up soon. He does continue to suffer from weakness and malnutrition following his colon surgery. He is on TPN. AST and ALT are mildly elevated and I suspect this is related to the TPN. -Management per surgical team Hiccups-improved with increased dose of Thorazine -Thorazine 50 mg p.o. 3 times daily Situational depression-patient reports feeling down since his diagnosis of cancer. He feels that he has good family support at this time.
--- NOTE | 2020-04-07 10:51 | CR ---
Abdomen 2V AP Flat Upright CLINICAL HISTORY: Ileus FINDINGS: There is persistent moderate diffuse small bowel distention. There is also distention of colon. The there appears to be persistent free intraperitoneal air. Patient has a gastrostomy tube in place IMPRESSION: Persistent dilated air-filled small bowel and colon similar to prior study. This likely represents ileus. Persistent free intraperitoneal air. There could be some leakage around the gastrostomy tube
[2020-04-07] MEDS: Azithromycin 125 MG in Sodium Chloride 0.9% 100 ML IV SCH ×2 (11:14→22:57)
--- NOTE | 2020-04-07 11:53 | PN ---
DATE OF SERVICE: 04/07/2020 SUBJECTIVE: After dictation, Walter wanted me to talk to him again. He reports between 3:00 p.m. and 4:00 p.m. each day, he gets a severe sore throat, and he has finished his prescription of nystatin and has concerns why this would recur at the same time every day. He has no areas of tenderness or sores in his mouth. Prescription of clotrimazole/Mycelex 10 mg p.o. lozenges 5 times a day prescribed. He is also to use mouthwash at least twice a day with oral cares, which will help in adjunct to his inhaler, which has a steroid in it. We will evaluate lillie Casanova PA-C /[id number]
--- NOTE | 2020-04-07 13:35 | CR ---
Abdomen 2V AP Flat Upright CLINICAL HISTORY: Ileus FINDINGS: Ileus IMPRESSION: There is persistent moderate diffuse small bowel and colonic distention similar to prior study.. There is still some free air. Impression: No significant change in small bowel and colonic distention Persistent small amount of free intraperitoneal air may be from some leakage around the gastrostomy tube
[2020-04-07] MEDS: Enoxaparin 120 MG/0.8 ML Syringe SUBCUT SCH (15:01)
[2020-04-07] MEDS: Fat Emulsion 100 ML IV SCH (15:03)
[2020-04-07] MEDS: diphenhydrAMINE 50 MG/ML SDV IVPUSH PRN (21:46)
[2020-04-08] MEDS: Ondansetron 4 MG/2 ML SDV IVPUSH PRN (00:59)
[2020-04-08] MEDS: Calcium Carbonate 500 MG Tab.Chew PO PRN (01:05)
[2020-04-08] MEDS: Metoclopramide 10 MG/2 ML SDV IVPUSH SCH ×4 (04:05→21:23)
[2020-04-08] MEDS ORDERED: Central Total Parenteral Nutrition Bag SCH (07:15)
[2020-04-08] MEDS: Doxazosin 4 MG Tab PO SCH (08:04)
[2020-04-08] MEDS: Ondansetron 4 MG/2 ML SDV IVPUSH SCH ×3 (08:04→16:15)
[2020-04-08] MEDS: Fluticasone-Salmeterol 113-14 MCG Powder Inhalant INH SCH (08:04)
[2020-04-08] MEDS: Docusate Sodium 100 MG Cap PO SCH ×2 (08:05→21:22)
[2020-04-08] MEDS: Levothyroxine 100 MCG, Levothyroxine 25 MCG PO SCH ×2 (08:07)
[2020-04-08] MEDS: chlorproMAZINE 25 MG Tab PO SCH ×3 (08:07→21:22)
[2020-04-08] MEDS: Finasteride 5 MG Tab PO SCH (08:08)
--- NOTE | 2020-04-08 09:00 | CR ---
Abdomen 2V AP Flat Upright CLINICAL HISTORY: Ileus FINDINGS: There is moderate diffuse distention of small bowel and colon. This may be increased slightly since prior study. There is some persistent free intraperitoneal air likely via the gastrostomy tube. IMPRESSION: There appears to be a increase in significant small bowel and colonic distention since prior study Persistent intraperitoneal air which may be related to gastrostomy tube.
[2020-04-08] MEDS: Nystatin Susp 100,000 Unit/ML 5 ML UD Cup PO SCH ×3 (09:32→21:22)
--- NOTE | 2020-04-08 09:51 | PN ---
DATE OF SERVICE: 04/08/2020 SUBJECTIVE: Walter denies pain. Temperature max 99.1. Oral intake 470. Urine output, voiding without using the hat, counted voids 7. No bowel movements. States that he is passing flatus. Gastrostomy tube in the past 24 hours put out 925, and it is to dependent drainage, but clamped 1 hour after medications. Family is present for the meeting. LABORATORY DATA: Hemoglobin 9.4, glucose 114. AST, ALT, total bilirubin within normal limits. Alkaline phosphatase is 132. REVIEW OF SYSTEMS: Remainder of review of systems negative for any pertinent positives and negatives. OBJECTIVE: GENERAL: Walter Cohen is an 84-year-old male. He is alert, orientated, sitting in the chair, color pale. VITAL SIGNS: TPR at 0238; 98.8, 109, 20. Blood pressure 150/83. O2 saturation by pulse oximetry is 95% on room air. HEENT: Negative. NECK: Supple. HEART: Regular rate and rhythm. LUNGS: Clear. ABDOMEN: Soft, nontender. EXTREMITIES: Without peripheral edema. ASSESSMENT: 1. Ileus. 2. Upper GI with percutaneous endoscopy and gastrostomy tube placement, with flexible sigmoidoscopy for persistent ileus, intolerance of NG, esophageal thrush, widely patent ileorectal anastomosis. Date of procedure: 03/31/2020. Surgeon: Otilio Cantrell MD. 3. Adenocarcinoma of colon with metastasis to the liver. 4. TPN. 5. Hiccups treated with Thorazine 25 mg t.i.d. 6. Left brachiocephalic deep venous thrombosis related to catheter placement. 7. Situational depression. 8. Thrush. PLAN: 1. Continue same TPN rate and content. 2. Check CBC, CMP, mag, phos in a.m. 3. Check TSH on blood already drawn. Call Dr. Cantrell with results. 4. Continue abdominal flat and upright x-rays at 0400, series ordered. 5. Duplex ultrasound of left subclavian vein. Call Dr. Cantrell with results. 6. Discontinue fluticasone-salmeterol 113/14 mcg powder inhaler. 7. Discontinue aspirin. 8. Discontinue Zithromax. 9. Discontinue Megace. 10.Continue to keep G-tube unclamped and clamp only 30 minutes after medications. 11.Nystatin swish and swallow. The patient prefers that over the lozenges. He is to get 5 mL p.o. q.i.d. Resume family conference. 1. Discussed 12 hours of daytime TPN. 2. Obtaining IV pole. 3. Look into living at home for more help. Family suggested getting help from [facility]. 4. We will continue liquid diet in the hospital and when going home, due to not plugging up the gastrostomy tube. 5. Home health care discussed. Continue Virgie Klein for now. 6. Questions were asked in regard to how often he would have clinic appointments and for now once a week. 7. Discussion regarding time of when the bowel possibly could wake up, metastasis of cancer, or the significance of how soon chemotherapy would start, and possible course this type of cancer could progress. Questions were answered by family. 8. We will evaluate p.r.n. or in a.m. Michelle Casanova PA-C /[phone]
[2020-04-08] MEDS: 1: AA 5%/Calcium/D15W/Lytes 1,000 ML with MVI, Adult with Vitamin K 10 ML, Chromium/Copp IV SCH ×9 (09:53→20:05)
--- NOTE | 2020-04-08 10:15 | PCM.CONSN ---
- General Info Date of Service: 04/08/20 Subjective Update: Mr. Cohen has been stable over the last 24 hours. Vital signs have been good and he has remained afebrile. Currently denies any abdominal pain and has not had any recurrence of his chest pain. Continues to experience hiccups on a regular basis although these are improved with current dose of Thorazine. Functional Status: Reports: Pain Controlled, Ambulating, Urinating - Review of Systems General: Reports: Weakness, Fatigue. Denies: Fever, Chills Pulmonary: Reports: No Symptoms Cardiovascular: Reports: No Symptoms Gastrointestinal: Reports: No Symptoms - Patient Data Vitals - Most Recent: Last Vital Signs Temp 98.6 F 04/08/20 08:00 Pulse 97 04/08/20 08:00 Resp 18 04/08/20 08:00 BP 128/64 04/08/20 08:04 Pulse Ox 95 04/08/20 08:00 Weight - Most Recent: 185 lb 12.8 oz I&O - Last 24 Hours: Intake & Output 04/07/20 04/08/20 04/08/20 22:59 06:59 14:59 Intake Total 1697 1818 395 Output Total 750 175 450 Balance 947 1643 -55 Lab Results Last 24 Hours: Laboratory Results - last 24 hr 04/08/20 04/08/20 04/08/20 Range/Units 04:49 04:49 07:10 WBC 9.6 (4.5-11.0) K/uL RBC 3.51 L (4.30-5.90) M/uL Hgb 9.4 L (12.0-15.0) g/dL Hct 31.1 L (40.0-54.0) % MCV 89 (80-98) fL MCH 27 (27-31) pg MCHC 30 L (32-36) % Plt Count 350 (150-400) K/uL Sodium 142 (140-148) mmol/L Potassium 4.1 (3.6-5.2) mmol/L Chloride 106 (100-108) mmol/L Carbon Dioxide 30 (21-32) mmol/L Anion Gap 5.8 (5.0-14.0) mmol/L BUN 31 H (7-18) mg/dL Creatinine 1.1 (0.8-1.3) mg/dL Est Cr Clr Drug Dosing 49.41 mL/min Estimated GFR (MDRD) > 60 (>60) Glucose 114 H (74-106) mg/dL Calcium 9.2 (8.5-10.1) mg/dL Phosphorus 3.6 (2.5-4.9) mg/dL Magnesium 2.1 (1.8-2.4) mg/dL Total Bilirubin 0.4 (0.2-1.0) mg/dL AST 28 (15-37) U/L ALT 78 (12-78) U/L Alkaline Phosphatase 132 H (46-116) U/L Total Protein 6.0 L (6.4-8.2) g/dL Albumin 2.1 L (3.4-5.0) g/dL Globulin 3.9 H (2.3-3.5) g/dL Albumin/Globulin Ratio 0.5 L (1.2-2.2) TSH, Ultra Sensitive 5.499 H (0.358-3.740) uIU/mL Med Orders - Current: Current Medications Acetaminophen (Tylenol) 650 mg PO Q4H PRN PRN Reason: Fever Last Admin: 04/06/20 12:57 Dose: 650 mg Documented by: Albuterol (Ventolin Hfa) 0 gm INH Q4H PRN PRN Reason: BREATHING Calcium Carbonate/Glycine (Tums) 1,000 mg PO Q2H PRN PRN Reason: Indigestion Last Admin: 04/08/20 01:05 Dose: 1,000 mg Documented by: Chlorpromazine HCl (Thorazine) 50 mg PO TID [facility] Last Admin: 04/08/20 08:07 Dose: 50 mg Documented by: Diphenhydramine HCl (Benadryl) 25 - 50 mg PO BEDTIME PRN PRN Reason: Insomnia Last Admin: 04/06/20 21:45 Dose: 25 mg Documented by: Diphenhydramine HCl (Benadryl) 25 - 50 mg IVPUSH Q6H PRN PRN Reason: sleep Last Admin: 04/07/20 21:46 Dose: 50 mg Documented by: Diphenoxylate HCl/Atropine (Lomotil 0.025-2.5 Mg) 2 tab PO QID PRN PRN Reason: Diarrhea Docusate Sodium (Colace) 100 mg PO BID [facility] Last Admin: 04/08/20 08:05 Dose: 100 mg Documented by: Doxazosin Mesylate (Cardura) 8 mg PO DAILY [facility] Last Admin: 04/08/20 08:04 Dose: 8 mg Documented by: Enoxaparin Sodium (Lovenox) 120 mg SUBCUT Q24H [facility] Last Admin: 04/07/20 15:01 Dose: 120 mg Documented by: Finasteride (Proscar) 5 mg PO DAILY [facility] Last Admin: 04/08/20 08:08 Dose: 5 mg Documented by: Heparin Sodium (Porcine) (Heparin Lock Flush 100 Units/Ml) 500 units FLUSH ASDIRECTED PRN PRN Reason: Other Last Admin: 04/01/20 04:13 Dose: 500 units Documented by: Hydromorphone HCl (Dilaudid) 2 - 4 mg PO Q4H PRN PRN Reason: Pain Last Admin: 04/06/20 18:02 Dose: 4 mg Documented by: Fat Emulsion Intravenous (Intralipid 20%) 100 mls @ 8.3 mls/hr IV Q24H [facility] Last Admin: 04/07/20 15:03 Dose: 8.3 mls/hr Documented by: Multivitamins/Minerals 10 ml/Chromium/Copper/Manganese/Seleni/Zn 1 ml/ Amino Ac/Electrol/Dextrose/Calcium 1,011 mls @ 100 mls/hr IV .BY DURATION [facility] Last Admin: 04/08/20 09:53 Dose: 100 mls/hr Documented by: Amino Ac/Electrol/Dextrose/Calcium (Clinimix E 5/15) 1,000 mls @ 100 mls/hr IV .BY DURATION [facility] Last Admin: 04/08/20 00:00 Dose: 100 mls/hr Documented by: Sodium Chloride (Normal Saline) 1,000 mls @ 25 mls/hr IV ASDIRECTED [facility] Ibuprofen (Motrin) 600 mg PO Q6H PRN PRN Reason: Pain/Fever Last Admin: 04/03/20 15:49 Dose: 600 mg Documented by: Levothyroxine Sodium 100 mcg/ (Levothyroxine Sodium 25 mcg) 125 mcg PO DAILY [facility] Last Admin: 04/08/20 08:07 Dose: 125 mcg Documented by: Loperamide HCl (Imodium) 4 mg PO Q6H PRN PRN Reason: Diarrhea Lorazepam (Ativan) 0.5 - 1 mg IVPUSH Q4H PRN PRN Reason: Nausea Last Admin: 04/05/20 12:14 Dose: 1 mg Documented by: Metoclopramide HCl (Reglan) 5 mg IVPUSH Q6H [facility] Last Admin: 04/08/20 09:31 Dose: 5 mg Documented by: Nystatin (Mycostatin) 5 ml PO QID [facility] Last Admin: 04/08/20 09:32 Dose: 5 ml Documented by: Ondansetron HCl (Zofran) 4 mg IVPUSH Q4H PRN PRN Reason: Nausea Last Admin: 04/08/20 00:59 Dose: 4 mg Documented by: Ondansetron HCl (Zofran) 4 mg IVPUSH TIDAC [facility] Last Admin: 04/08/20 08:04 Dose: 4 mg Documented by: Discontinued Medications Aspirin (Halfprin) 81 mg PO DAILY [facility] Last Admin: 04/07/20 09:20 Dose: 81 mg Documented by: Chlorpromazine HCl (Thorazine) 25 mg PO TID [facility] Last Admin: 04/06/20 08:01 Dose: 25 mg Documented by: Clotrimazole (Mycelex) 10 mg PO 5XDAY [facility] Last Admin: 04/07/20 21:44 Dose: 10 mg Documented by: Diphenoxylate HCl/Atropine (Lomotil 0.025-2.5 Mg) 2 tab PO QID [facility] Last Admin: 04/02/20 05:51 Dose: Not Given Documented by: Diphenoxylate HCl/Atropine (Lomotil 0.025-2.5 Mg) 2 tab PO QID PRN PRN Reason: Diarrhea Diphenoxylate HCl/Atropine (Lomotil 0.025-2.5 Mg) 2 tab PO QID PRN PRN Reason: Diarrhea Diphenoxylate HCl/Atropine (Lomotil 0.025-2.5 Mg) 2 tab PO QID [facility] Last Admin: 04/07/20 06:08 Dose: Not Given Documented by: Doxazosin Mesylate (Cardura) 8 mg PO DAILY [facility] Last Admin: 03/28/20 09:42 Dose: 8 mg Documented by: Fentanyl (Sublimaze) Confirm Administered Dose 100 mcg .ROUTE .[facility] ONE Stop: 03/31/20 10:32 Fentanyl (Sublimaze) 50 mcg IVPUSH ONETIME ONE Stop: 03/31/20 11:31 Last Admin: 03/31/20 11:34 Dose: 50 mcg Documented by: Finasteride (Proscar) 5 mg PO DAILY [facility] Last Admin: 03/28/20 09:43 Dose: 5 mg Documented by: Hydromorphone HCl (Dilaudid) 0.5 mg IVPUSH Q2H PRN PRN Reason: MODERATE PAIN Last Admin: 04/01/20 00:33 Dose: 0.5 mg Documented by: Hydromorphone HCl (Dilaudid) 1 mg IV Q2H PRN PRN Reason: SEVERE PAIN Lactated Ringer's (Ringers, Lactated) 1,000 mls @ 250 mls/hr IV ONETIME ONE Stop: 03/26/20 16:29 Last Admin: 03/26/20 13:05 Dose: 250 mls/hr Documented by: Dextrose/Lactated Ringer's (Dextrose 5%-Lactated Ringers) 1,000 mls @ 25 mls/hr IV ASDIRECTED [facility] Last Admin: 03/26/20 22:23 Dose: 25 mls/hr Documented by: Multivitamins/Minerals 10 ml/Chromium/Copper/Manganese/Seleni/Zn 1 ml/ Amino Ac/Electrol/Dextrose/Calcium 1,011 mls @ 100 mls/hr IV .BY DURATION [facility] Stop: 03/29/20 14:15 Last Admin: 03/29/20 07:58 Dose: 100 mls/hr Documented by: Amino Ac/Electrol/Dextrose/Calcium (Clinimix E 15) 1,000 mls @ 100 mls/hr IV .BY DURATION [facility] Stop: 03/29/20 14:15 Last Admin: 03/28/20 22:23 Dose: 100 mls/hr Documented by: Linezolid 600 mg/ Premix 300 mls @ 300 mls/hr IV Q12H [facility] Last Admin: 03/29/20 02:46 Dose: 300 mls/hr Documented by: Piperacillin/Tazobactam/ (Dextrose 3.375 gm/ Premix) 50 mls @ 100 mls/hr IV Q6H [facility] Last Admin: 03/29/20 07:50 Dose: 100 mls/hr Documented by: Sodium Chloride (Normal Saline) 100 mls @ 3 mls/sec IV ASDIRECTED [facility] Stop: 03/28/20 12:00 Sodium Chloride (Normal Saline) 79 mls @ 3 mls/sec IV ASDIRECTED [facility] Stop: 03/28/20 12:00 Last Admin: 03/28/20 08:32 Dose: 3 mls/sec Documented by: Albumin Human (Albumin 25%) 25 gm in 100 mls @ 25 mls/hr IV Q24H [facility] Stop: 03/31/20 13:59 Last Admin: 03/31/20 09:59 Dose: 25 mls/hr Documented by: Azithromycin 125 mg/ Sodium (Chloride) 100 mls @ 100 mls/hr IV Q12H [facility] Last Admin: 04/07/20 22:57 Dose: 100 mls/hr Documented by: Multivitamins/Minerals 10 ml/Chromium/Copper/Manganese/Seleni/Zn 1 ml/ Amino Ac/Electrol/Dextrose/Calcium 1,011 mls @ 100 mls/hr IV .BY DURATION [facility] Stop: 03/30/20 14:00 Last Admin: 03/30/20 04:23 Dose: 100 mls/hr Documented by: Amino Ac/Electrol/Dextrose/Calcium (Clinimix E 5/15) 1,000 mls @ 100 mls/hr IV .BY DURATION [facility] Stop: 03/30/20 14:00 Last Admin: 03/29/20 18:06 Dose: 100 mls/hr Documented by: Potassium Phosphate 20 mmole/ (Sodium Chloride) 106.6667 mls @ 35 mls/hr IV Q3H [facility] Stop: 03/29/20 20:59 Last Admin: 03/29/20 19:34 Dose: 35 mls/hr Documented by: Meropenem 1 gm/ Sodium (Chloride) 100 mls @ 200 mls/hr IV Q8H [facility] Last Admin: 04/07/20 05:55 Dose: 200 mls/hr Documented by: Sodium Chloride (Normal Saline) Confirm Administered Dose 10 mls @ as directed .ROUTE .[facility] ONE Stop: 03/31/20 10:52 Sodium Chloride (Normal Saline) 79 mls @ 3.5 mls/sec IV ASDIRECTED [facility] Stop: 04/04/20 09:16 Last Admin: 04/04/20 10:07 Dose: 3.5 mls/sec Documented by: Sodium Chloride (Normal Saline) 79 mls @ 3.5 mls/sec IV ASDIRECTED [facility] Last Admin: 04/05/20 05:15 Dose: 3.5 mls/sec Documented by: Sodium Chloride (Normal Saline) 100 mls @ 3.5 mls/sec IV ASDIRECTED [facility] Last Admin: 04/05/20 19:53 Dose: 4 mls/sec Documented by: Ibuprofen (Motrin) 600 mg PO ONETIME ONE Stop: 03/27/20 20:33 Last Admin: 03/27/20 20:50 Dose: 600 mg Documented by: Iohexol (Omnipaque-300) 50 ml PO .ASDIRECTED [facility] Iopamidol (Isovue-300 (61%)) 100 ml IV . DIRECTED [facility] Last Admin: 03/28/20 08:34 Dose: 100 ml Documented by: Iopamidol (Isovue-300 (61%)) 100 ml IV . DIRECTED [facility] Iopamidol (Isovue-300 (61%)) 128 ml IV ONETIME ONE Stop: 04/04/20 09:11 Last Admin: 04/04/20 10:08 Dose: 128 ml Documented by: Iopamidol (Isovue-300 (61%)) 128 ml IV ONETIME ONE Stop: 04/05/20 05:01 Last Admin: 04/05/20 05:18 Dose: 128 ml Documented by: Iopamidol (Isovue-300 (61%)) Confirm Administered Dose 50 ml .ROUTE .STK-[facility] ONE Stop: 04/05/20 03:45 Last Admin: 04/05/20 04:13 Dose: Not Given Documented by: Iopamidol (Isovue-300 (61%)) 30 ml PO ASDIRECTED ONE Stop: 04/05/20 04:12 Last Admin: 04/05/20 04:27 Dose: 30 ml Documented by: Iopamidol (Isovue-370 (76%)) 100 ml IV . DIRECTED [facility] Last Admin: 04/05/20 19:53 Dose: 100 ml Documented by: Levothyroxine Sodium (Synthroid) 150 mcg PO ACBREAKFAST [facility] Last Admin: 03/27/20 07:07 Dose: 150 mcg Documented by: Levothyroxine Sodium (Synthroid) 125 mcg PO ACBREAKFAST [facility] Levothyroxine Sodium 100 mcg/ (Levothyroxine Sodium 25 mcg) 125 mcg PO ACBREAKFAST [facility] Last Admin: 03/28/20 07:29 Dose: 125 mcg Documented by: Levothyroxine Sodium 100 mcg/ (Levothyroxine Sodium 25 mcg) 125 mcg PO ACBREAKFAST [facility] Last Admin: 04/07/20 07:12 Dose: 125 mcg Documented by: Lidocaine HCl (Xylocaine-Mpf 1%) 5 ml INJECT ONETIME ONE Stop: 03/27/20 13:01 Last Admin: 03/27/20 14:06 Dose: 5 ml Documented by: Lidocaine HCl (Xylocaine 2% Viscous) 15 ml PO ASDIRECTED ONE Stop: 03/29/20 03:53 Last Admin: 03/29/20 04:19 Dose: 15 ml Documented by: Megestrol Acetate (Megace 40 Mg/Ml Susp) 625 mg PO DAILY@0800 [facility] Last Admin: 03/29/20 10:21 Dose: Not Given Documented by: Megestrol Acetate (Megace 40 Mg/Ml Susp) 625 mg PO DAILY@0800 [facility] Last Admin: 04/05/20 07:39 Dose: 625 mg Documented by: Midazolam HCl (Versed 1 Mg/Ml) Confirm Administered Dose 2 mg .ROUTE .STK-[facility] ONE Stop: 03/31/20 10:32 Morphine Sulfate (Morphine) 2 mg IVPUSH ONETIME ONE Stop: 04/05/20 16:26 Last Admin: 04/05/20 16:45 Dose: 2 mg Documented by: Non-Formulary Medication (Total Parenteral Nutrition, Central) 1,000 ml .XX .Continue Order [facility] Stop: 03/31/20 10:00 Non-Formulary Medication (Total Parenteral Nutrition, Central) 1,000 ml .XX .Continue Order [facility] Stop: 04/01/20 10:00 Non-Formulary Medication (Total Parenteral Nutrition, Central) 1,000 ml .XX .Continue Order [facility] Stop: 04/02/20 18:00 Non-Formulary Medication (Total Parenteral Nutrition, Central) 1,000 ml .XX .Continue Order [facility] Stop: 04/03/20 12:00 Non-Formulary Medication (Total Parenteral Nutrition, Central) 1,000 ml .XX .Continue Order [facility] Stop: 04/04/20 18:00 Non-Formulary Medication (Total Parenteral Nutrition, Central) 1,000 ml .XX .Continue Order [facility] Stop: 04/05/20 07:16 Non-Formulary Medication (Total Parenteral Nutrition, Central) 1,000 ml .XX .Continue Order [facility] Stop: 04/06/20 07:16 Non-Formulary Medication (Total Parenteral Nutrition, Central) 1,000 ml .XX .Continue Order [facility] Stop: 04/07/20 10:00 Non-Formulary Medication (Total Parenteral Nutrition, Central) 1,000 ml .XX .Continue Order [facility] Stop: 04/08/20 10:00 Nystatin (Mycostatin) 5 ml PO QID [facility] Stop: 04/05/20 10:01 Last Admin: 04/05/20 10:59 Dose: 5 ml Documented by: Propofol (Diprivan 20 Ml) Confirm Administered Dose 200 mg .ROUTE .STK-[facility] ONE Stop: 03/31/20 10:32 Fluticasone/Salmeterol (Fluticasone-Salmeterol 113-14 Mcg Powder Inh) 1 puff INH BIDRT [facility] Last Admin: 04/08/20 08:04 Dose: 1 puff Documented by: Sodium Chloride (Saline Flush) 10 ml FLUSH ONETIME ONE Stop: 03/28/20 07:58 Last Admin: 03/28/20 08:32 Dose: 10 ml Documented by: Sodium Chloride (Saline Flush) 10 ml FLUSH ONETIME ONE Stop: 03/28/20 08:05 Last Admin: 03/28/20 09:47 Dose: 10 ml Documented by: Sodium Chloride (Saline Flush) 10 ml FLUSH ONETIME ONE Stop: 04/04/20 09:11 Last Admin: 04/04/20 10:07 Dose: 10 ml Documented by: Sodium Chloride (Saline Flush) 10 ml FLUSH ONETIME ONE Stop: 04/05/20 17:57 Last Admin: 04/05/20 19:53 Dose: 10 ml Documented by: Tamsulosin HCl (Flomax) 0.4 mg PO BEDTIME [facility] Last Admin: 03/27/20 20:56 Dose: Not Given Documented by: Warfarin Sodium (Coumadin) 5 mg PO DAILY@1300 [facility] Warfarin Sodium (Coumadin) 5 mg PO ONETIME ONE Stop: 03/28/20 15:01 Last Admin: 03/28/20 14:58 Dose: 5 mg Documented by: - Exam Quality Assessment: DVT Prophylaxis General: Alert, Oriented, Cooperative, Mild Distress Lungs: Clear to Auscultation, Normal Respiratory Effort Cardiovascular: Regular Rate, Regular Rhythm, No Murmurs GI/Abdominal Exam: Soft, Non-Tender, No Organomegaly, No Distention Extremities: Non-Tender, No Pedal Edema Sepsis Event Note - Evaluation Sepsis Screening Result: No Definite Risk - Focused Exam Vital Signs: Vital Signs Temp Pulse Resp BP BP Pulse Ox 04/08/20 08:04 128/64 04/08/20 08:00 98.6 F 97 18 128/64 95 04/08/20 02:38 98.8 F 109 H 20 150/83 H 95 04/08/20 00:00 99.1 F 109 H 18 151/72 H 95 Date Exam was Performed: 04/08/20 Time Exam was Performed: 10:08 Consult PN Assessment/Plan Procedures: Procedures AIRWAY INHALATION TREATMENT (02/13/20) ASSAY OF MAGNESIUM (03/04/20) ASSAY OF NATRIURETIC PEPTIDE (03/04/20) ASSAY OF PHOSPHORUS (03/04/20) ASSAY OF TROPONIN QUANT (03/04/20) ASSAY THYROID STIM HORMONE (02/13/20) BLOOD TYPING SEROLOGIC ABO (02/13/20) BLOOD TYPING SEROLOGIC RH(D) (02/13/20) C-REACTIVE PROTEIN (02/13/20) CARCINOEMBRYONIC ANTIGEN (02/13/20) COMPATIBILITY TEST ANTIGLOB (02/13/20) COMPATIBILITY TEST SPIN (02/13/20) COMPLETE CBC AUTOMATED (03/04/20) COMPLETE CBC W/AUTO DIFF WBC (03/04/20) COMPREHEN METABOLIC PANEL (03/04/20) CT ABD & PELV W/CONTRAST (03/04/20) CT ABD & PELVIS W/O CONTRAST (02/13/20) CULTR BACTERIA EXCEPT BLOOD (02/13/20) CULTURE OTHR SPECIMN AEROBIC (02/13/20) ELECTROCARDIOGRAM REPORT (03/04/20) ELECTROCARDIOGRAM TRACING (03/04/20) EMERGENCY DEPT VISIT (03/13/20) EMERGENCY DEPT VISIT (03/02/20) EMERGENCY DEPT VISIT (02/13/20) EMERGENCY DEPT VISIT (05/30/16) HOT OR COLD PACKS THERAPY (11/29/19) HYDRATE IV INFUSION ADD-ON (03/04/20) HYDRATION IV INFUSION INIT (02/28/20) IMMUNOHISTO ANTB 1ST STAIN (02/13/20) IMMUNOHISTO ANTB ADDL SLIDE (02/13/20) INSERT TEMP BLADDER CATH (02/13/20) INSERT TUNNELED CV CATH (03/04/20) MANUAL THERAPY 1/> REGIONS (11/29/19) MEASURE BLOOD OXYGEN LEVEL (03/04/20) METABOLIC PANEL TOTAL CA (03/04/20) MRI LUMBAR SPINE W/O DYE (05/09/19) NASAL/OROGASTRIC W/TUBE PLMT (02/13/20) OT EVALUATION (11/16/13) PT EVAL LOW COMPLEX 20 MIN (11/29/19) PT EVALUATION (03/25/16) RBC ANTIBODY SCREEN (02/13/20) ROUTINE VENIPUNCTURE (03/04/20) SMEAR GRAM STAIN (02/13/20) THER/DIAG CONCURRENT INF (03/04/20) THER/PROPH/DIAG INJ IV PUSH (02/13/20) THER/PROPH/DIAG IV INF ADDON (03/04/20) THER/PROPH/DIAG IV INF INIT (03/04/20) THERAPEUTIC EXERCISES (11/29/19) TISSUE EXAM BY PATHOLOGIST (02/13/20) TISSUE EXAM BY PATHOLOGIST (02/13/20) TISSUE EXAM BY PATHOLOGIST (02/13/20) TX/PRO/DX INJ NEW DRUG ADDON (03/04/20) TX/PROPH/DG ADDL SEQ IV INF (03/04/20) ULTRASOUND THERAPY (03/25/16) URINALYSIS AUTO W/SCOPE (03/02/20) US URINE CAPACITY MEASURE (03/04/20) X-RAY EXAM ABDOMEN 1 VIEW (02/13/20) X-RAY EXAM ABDOMEN 2 VIEWS (02/13/20) X-RAY EXAM COMPLETE ABDOMEN (02/13/20) X-RAY EXAM HIP UNI 2-3 VIEWS (03/13/20) Problem List Initiated/Reviewed/Updated: Yes Plan: ASSESSMENT AND PLAN - 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 Probably had some level of endothelial injury when the catheter was placed and has developed a DVT in his hypercoagulable state with active cancer. Tolerating anticoagulation so far. Not yet ready to take oral medications. -Enoxaparin 1.5 mg/kg daily until INR therapeutic -Hold warfarin until taking pills again -Anticipate 3 months of treatment Chest pain-episode which occurred over the weekend, evaluation negative for PE, myocardial infarct or ischemia. Pain is likely secondary to his pneumoperitoneum Ileus versus small bowel obstruction-stable Question of increased free free air noted on x-ray and CT scan, felt to be secondary to gastrostomy tube. -Care as per surgical team Fever-no obvious source and all of his cultures have been negative. Slowly feeling better, remains afebrile with stable vital signs and normal white blood cell count -Follow-up cultures -Discontinue meropenem Metastatic colon cancer-metastases to the liver visible on CT scan. Oncology appointment is coming up soon. He does continue to suffer from weakness and malnutrition following his colon surgery. He is on TPN. AST and ALT are mildly elevated and I suspect this is related to the TPN. -Management per surgical team Hiccups-suspect that these are secondary to current pneumoperitoneum, improved with increased dose of Thorazine -Thorazine 50 mg p.o. 3 times daily Situational depression-patient reports feeling down since his diagnosis of cancer. He feels that he has good family support at this time.
--- NOTE | 2020-04-08 10:53 | US ---
VL Duplex Upr Ext Veins Ltd Lt INDICATION: SP Left Subclavian Vein Blood Clot on Lovenox FINDINGS: The left internal jugular, innominate, subclavian veins are noncompressible and lacking phasic flow. There is flow and compressibility in the axillary and brachial veins. The cephalic vein is not seen. There is flow compressibility and the basilic vein. IMPRESSION: Deep venous thrombosis involving the left jugular brachiocephalic and subclavian veins. Findings were called to Dr. Martinez at the time of the procedure at 8:50 AM
[2020-04-08] MEDS: Acetaminophen 325 MG Tab PO PRN ×2 (13:42→21:27)
[2020-04-08] MEDS: Enoxaparin 120 MG/0.8 ML Syringe SUBCUT SCH (14:14)
[2020-04-08] MEDS: Fat Emulsion 100 ML IV SCH (16:16)
[2020-04-08] MEDS: Clotrimazole 10 MG Troche PO SCH (20:00)
[2020-04-08] MEDS: diphenhydrAMINE 25 MG Cap PO PRN (21:43)
[2020-04-09] MEDS: Metoclopramide 10 MG/2 ML SDV IVPUSH SCH ×4 (04:29→23:16)
[2020-04-09] MEDS: Nystatin Susp 100,000 Unit/ML 5 ML UD Cup PO SCH ×4 (04:33→15:08)
[2020-04-09] MEDS: 1: AA 5%/Calcium/D15W/Lytes 1,000 ML with MVI, Adult with Vitamin K 10 ML, Chromium/Copp IV SCH ×3 (05:48)
[2020-04-09] MEDS ORDERED: Central Total Parenteral Nutrition Bag SCH (07:00)
[2020-04-09] MEDS ORDERED: MVI, Adult with Vitamin K 10 ML, Chromium/Copper/Mang/Selen/Zn 1 ML in AA 5%/Calcium/D1... IV SCH ×3 (08:00)
[2020-04-09] MEDS ORDERED: Fat Emulsion 100 ML IV SCH (08:00)
[2020-04-09] MEDS: Ondansetron 4 MG/2 ML SDV IVPUSH SCH ×3 (08:02→15:07)
[2020-04-09] MEDS: Doxazosin 4 MG Tab PO SCH (08:03)
[2020-04-09] MEDS: Levothyroxine 100 MCG, Levothyroxine 25 MCG PO SCH ×2 (08:03)
[2020-04-09] MEDS: chlorproMAZINE 25 MG Tab PO SCH ×3 (08:03→21:57)
[2020-04-09] MEDS: Finasteride 5 MG Tab PO SCH (08:03)
[2020-04-09] MEDS: Docusate Sodium 100 MG Cap PO SCH ×2 (08:03→21:56)
--- NOTE | 2020-04-09 08:15 | PN ---
DATE OF SERVICE: 04/09/2020 SUBJECTIVE: Walter has been afebrile. Denies pain. Vital signs have been stable. Oral intake 440. He has had 3 loose stools. Urine output, voids independently and 24-hour gastric tube is 1950 output. He reports the nystatin liquid works better than the lozenges. Has been up, ambulating. REVIEW OF SYSTEMS: Remainder of review of systems negative for any pertinent positives and negatives. OBJECTIVE: GENERAL: Walter Cohen is a pleasant 84-year-old male. VITAL SIGNS: TPR is 97.7, 90, 16, blood pressure 164/78. HEENT: Negative. NECK: Supple. HEART: Regular rate and rhythm. LUNGS: Clear. ABDOMEN: Soft, nontender. G-tube in place. EXTREMITIES: Without peripheral edema. ASSESSMENT: 1. Ileus. 2. Upper GI with percutaneous endoscopy and gastrostomy tube placement with flexible sigmoidoscopy for persistent ileus, intolerance of NG, esophageal thrush, widely patent ileorectal anastomosis. Date of procedure: 03/31/2020. Surgeon: Otilio Cantrell MD. 3. Adenocarcinoma of colon with mets to the liver. 4. TPN nutrition. 5. Hiccups, treated with Thorazine 25 mg t.i.d. 6. Left brachiocephalic deep vein thrombosis related to catheter placement. 7. Situational depression. 8. Thrush. PLAN: 1. Increase TPN at 0800 to 200 mL per hour for 9-1/2 hours, then decrease TPN rate to 100 mL per hour for 1 hour, then decrease TPN rate to 40 mL for 1 hour, then stop. In 30 minutes after TPN is off, approximately 2100, check Accu-Chek at bedside. Continue same TPN content with lipids. 2. Check CBC, CMP, mag, phos in a.m. at 0400. 3. Plan discharge in a.m. around 0900 with home health care and home TPN. 4. We will evaluate p.r.n. or in a.m. Michelle Casanova PA-C /[id number]
--- NOTE | 2020-04-09 09:40 | CR ---
Abdomen 2V AP Flat Upright CLINICAL HISTORY: Ileus FINDINGS: There is persistent significant small bowel and colonic gaseous distention. There is persistent free intraperitoneal air. Gastrostomy tube remains in place IMPRESSION: No significant change in small bowel and colonic distention Persistent free air
--- NOTE | 2020-04-09 10:57 | PCM.CONSN ---
- General Info Date of Service: 04/09/20 Subjective Update: No acute events overnight. He does report an increase in his abdominal pain on the right side today that did get better after his abdomen was massaged. Tolerating diet but not eating very much. No fevers. No shortness of breath. Excited to be going home tomorrow. - Patient Data Vitals - Most Recent: Last Vital Signs Temp 36.5 C 04/09/20 07:02 Pulse 90 04/09/20 07:02 Resp 16 04/09/20 07:02 BP 164/78 H 04/09/20 08:03 Pulse Ox 96 04/09/20 07:02 Weight - Most Recent: 82.463 kg I&O - Last 24 Hours: Intake & Output 04/08/20 04/09/20 04/09/20 22:59 06:59 14:59 Intake Total 440 1574 Output Total 800 700 Balance -360 874 Lab Results Last 24 Hours: Laboratory Results - last 24 hr 04/09/20 04/09/20 04/09/20 Range/Units 04:00 04:00 04:00 WBC 10.9 (4.5-11.0) K/uL RBC 3.64 L (4.30-5.90) M/uL Hgb 9.8 L (12.0-15.0) g/dL Hct 32.3 L (40.0-54.0) % MCV 89 (80-98) fL MCH 27 (27-31) pg MCHC 30 L (32-36) % Plt Count 381 (150-400) K/uL Sodium 143 (140-148) mmol/L Potassium 4.0 (3.6-5.2) mmol/L Chloride 108 (100-108) mmol/L Carbon Dioxide 28 (21-32) mmol/L Anion Gap 6.6 (5.0-14.0) mmol/L BUN 32 H (7-18) mg/dL Creatinine 1.1 (0.8-1.3) mg/dL Est Cr Clr Drug Dosing 49.41 mL/min Estimated GFR (MDRD) > 60 (>60) Glucose 111 H (74-106) mg/dL Calcium 9.6 (8.5-10.1) mg/dL Phosphorus 3.8 (2.5-4.9) mg/dL Magnesium 2.2 (1.8-2.4) mg/dL Total Bilirubin 0.4 (0.2-1.0) mg/dL AST 38 H (15-37) U/L ALT 93 H (12-78) U/L Alkaline Phosphatase 137 H (46-116) U/L Total Protein 6.2 L (6.4-8.2) g/dL Albumin 2.2 L (3.4-5.0) g/dL Globulin 4.0 H (2.3-3.5) g/dL Albumin/Globulin Ratio 0.6 L (1.2-2.2) Triglycerides 130 (15-150) mg/dL Med Orders - Current: Current Medications Acetaminophen (Tylenol) 650 mg PO Q4H PRN PRN Reason: Fever Last Admin: 04/08/20 21:27 Dose: 650 mg Documented by: Albuterol (Ventolin Hfa) 0 gm INH Q4H PRN PRN Reason: BREATHING Calcium Carbonate/Glycine (Tums) 1,000 mg PO Q2H PRN PRN Reason: Indigestion Last Admin: 04/08/20 01:05 Dose: 1,000 mg Documented by: Chlorpromazine HCl (Thorazine) 50 mg PO TID REPLACED BY [facility] Last Admin: 04/09/20 08:03 Dose: 50 mg Documented by: Diphenhydramine HCl (Benadryl) 25 - 50 mg PO BEDTIME PRN PRN Reason: Insomnia Last Admin: 04/08/20 21:43 Dose: 50 mg Documented by: Diphenhydramine HCl (Benadryl) 25 - 50 mg IVPUSH Q6H PRN PRN Reason: sleep Last Admin: 04/07/20 21:46 Dose: 50 mg Documented by: Diphenoxylate HCl/Atropine (Lomotil 0.025-2.5 Mg) 2 tab PO QID PRN PRN Reason: Diarrhea Docusate Sodium (Colace) 100 mg PO BID REPLACED BY [facility] Last Admin: 04/09/20 08:03 Dose: 100 mg Documented by: Doxazosin Mesylate (Cardura) 8 mg PO DAILY REPLACED BY [facility] Last Admin: 04/09/20 08:03 Dose: 8 mg Documented by: Enoxaparin Sodium (Lovenox) 120 mg SUBCUT Q24H REPLACED BY [facility] Last Admin: 04/08/20 14:14 Dose: 120 mg Documented by: Finasteride (Proscar) 5 mg PO DAILY REPLACED BY [facility] Last Admin: 04/09/20 08:03 Dose: 5 mg Documented by: Heparin Sodium (Porcine) (Heparin Lock Flush 100 Units/Ml) 500 units FLUSH ASDIRECTED PRN PRN Reason: Other Last Admin: 04/01/20 04:13 Dose: 500 units Documented by: Hydromorphone HCl (Dilaudid) 2 - 4 mg PO Q4H PRN PRN Reason: Pain Last Admin: 04/06/20 18:02 Dose: 4 mg Documented by: Sodium Chloride (Normal Saline) 1,000 mls @ 25 mls/hr IV ASDIRECTED REPLACED BY [facility] Multivitamins/Minerals 10 ml/Chromium/Copper/Manganese/Seleni/Zn 1 ml/ Amino Ac/Electrol/Dextrose/Calcium 2,011 mls @ 200 mls/hr IV Q24H REPLACED BY [facility] Last Admin: 04/09/20 08:10 Dose: 200 mls/hr Documented by: Fat Emulsion Intravenous (Intralipid 20%) 100 mls @ 8.4 mls/hr IV Q24H REPLACED BY [facility] Last Admin: 04/09/20 08:48 Dose: 8.4 mls/hr Documented by: Ibuprofen (Motrin) 600 mg PO Q6H PRN PRN Reason: Pain/Fever Last Admin: 04/03/20 15:49 Dose: 600 mg Documented by: Levothyroxine Sodium 100 mcg/ (Levothyroxine Sodium 25 mcg) 125 mcg PO DAILY REPLACED BY [facility] Last Admin: 04/09/20 08:03 Dose: 125 mcg Documented by: Loperamide HCl (Imodium) 4 mg PO Q6H PRN PRN Reason: Diarrhea Lorazepam (Ativan) 0.5 - 1 mg IVPUSH Q4H PRN PRN Reason: Nausea Last Admin: 04/05/20 12:14 Dose: 1 mg Documented by: Metoclopramide HCl (Reglan) 5 mg IVPUSH Q6H REPLACED BY [facility] Last Admin: 04/09/20 04:29 Dose: 5 mg Documented by: Non-Formulary Medication (Total Parenteral Nutrition, Central) 1,000 ml .XX .Continue Order REPLACED BY [facility] Stop: 04/09/20 12:00 Decrease Tpn Rate To (100ml/Hr) 1 each IV Q24H REPLACED BY [facility] Decrease Tpn Rate To (40ml/Hr) 1 each IV Q24H REPLACED BY [facility] Nystatin (Mycostatin) 5 ml PO QID REPLACED BY [facility] Last Admin: 04/09/20 07:08 Dose: Not Given Documented by: Ondansetron HCl (Zofran) 4 mg IVPUSH Q4H PRN PRN Reason: Nausea Last Admin: 04/08/20 00:59 Dose: 4 mg Documented by: Ondansetron HCl (Zofran) 4 mg IVPUSH TIDAC REPLACED BY [facility] Last Admin: 04/09/20 08:02 Dose: 4 mg Documented by: Discontinued Medications Aspirin (Halfprin) 81 mg PO DAILY REPLACED BY [facility] Last Admin: 04/07/20 09:20 Dose: 81 mg Documented by: Chlorpromazine HCl (Thorazine) 25 mg PO TID REPLACED BY [facility] Last Admin: 04/06/20 08:01 Dose: 25 mg Documented by: Clotrimazole (Mycelex) 10 mg PO 5XDAY REPLACED BY [facility] Last Admin: 04/08/20 20:00 Dose: Not Given Documented by: Diphenoxylate HCl/Atropine (Lomotil 0.025-2.5 Mg) 2 tab PO QID REPLACED BY [facility] Last Admin: 04/02/20 05:51 Dose: Not Given Documented by: Diphenoxylate HCl/Atropine (Lomotil 0.025-2.5 Mg) 2 tab PO QID PRN PRN Reason: Diarrhea Diphenoxylate HCl/Atropine (Lomotil 0.025-2.5 Mg) 2 tab PO QID PRN PRN Reason: Diarrhea Diphenoxylate HCl/Atropine (Lomotil 0.025-2.5 Mg) 2 tab PO QID REPLACED BY [facility] Last Admin: 04/07/20 06:08 Dose: Not Given Documented by: Doxazosin Mesylate (Cardura) 8 mg PO DAILY REPLACED BY [facility] Last Admin: 03/28/20 09:42 Dose: 8 mg Documented by: Fentanyl (Sublimaze) Confirm Administered Dose 100 mcg .ROUTE .STK-MED ONE Stop: 03/31/20 10:32 Fentanyl (Sublimaze) 50 mcg IVPUSH ONETIME ONE Stop: 03/31/20 11:31 Last Admin: 03/31/20 11:34 Dose: 50 mcg Documented by: Finasteride (Proscar) 5 mg PO DAILY REPLACED BY [facility] Last Admin: 03/28/20 09:43 Dose: 5 mg Documented by: Hydromorphone HCl (Dilaudid) 0.5 mg IVPUSH Q2H PRN PRN Reason: MODERATE PAIN Last Admin: 04/01/20 00:33 Dose: 0.5 mg Documented by: Hydromorphone HCl (Dilaudid) 1 mg IV Q2H PRN PRN Reason: SEVERE PAIN Lactated Ringer's (Ringers, Lactated) 1,000 mls @ 250 mls/hr IV ONETIME ONE Stop: 03/26/20 16:29 Last Admin: 03/26/20 13:05 Dose: 250 mls/hr Documented by: Dextrose/Lactated Ringer's (Dextrose 5%-Lactated Ringers) 1,000 mls @ 25 mls/hr IV ASDIRECTED REPLACED BY [facility] Last Admin: 03/26/20 22:23 Dose: 25 mls/hr Documented by: Fat Emulsion Intravenous (Intralipid 20%) 100 mls @ 8.3 mls/hr IV Q24H REPLACED BY [facility] Last Admin: 04/08/20 16:16 Dose: 8.3 mls/hr Documented by: Multivitamins/Minerals 10 ml/Chromium/Copper/Manganese/Seleni/Zn 1 ml/ Amino Ac/Electrol/Dextrose/Calcium 1,011 mls @ 100 mls/hr IV .BY DURATION REPLACED BY [facility] Stop: 03/29/20 14:15 Last Admin: 03/29/20 07:58 Dose: 100 mls/hr Documented by: Amino Ac/Electrol/Dextrose/Calcium (Clinimix E 5/15) 1,000 mls @ 100 mls/hr IV .BY DURATION REPLACED BY [facility] Stop: 03/29/20 14:15 Last Admin: 03/28/20 22:23 Dose: 100 mls/hr Documented by: Linezolid 600 mg/ Premix 300 mls @ 300 mls/hr IV Q12H REPLACED BY [facility] Last Admin: 03/29/20 02:46 Dose: 300 mls/hr Documented by: Piperacillin/Tazobactam/ (Dextrose 3.375 gm/ Premix) 50 mls @ 100 mls/hr IV Q6H REPLACED BY [facility] Last Admin: 03/29/20 07:50 Dose: 100 mls/hr Documented by: Sodium Chloride (Normal Saline) 100 mls @ 3 mls/sec IV ASDIRECTED REPLACED BY [facility] Stop: 03/28/20 12:00 Sodium Chloride (Normal Saline) 79 mls @ 3 mls/sec IV ASDIRECTED REPLACED BY [facility] Stop: 03/28/20 12:00 Last Admin: 03/28/20 08:32 Dose: 3 mls/sec Documented by: Albumin Human (Albumin 25%) 25 gm in 100 mls @ 25 mls/hr IV Q24H REPLACED BY [facility] Stop: 03/31/20 13:59 Last Admin: 03/31/20 09:59 Dose: 25 mls/hr Documented by: Azithromycin 125 mg/ Sodium (Chloride) 100 mls @ 100 mls/hr IV Q12H REPLACED BY [facility] Last Admin: 04/07/20 22:57 Dose: 100 mls/hr Documented by: Multivitamins/Minerals 10 ml/Chromium/Copper/Manganese/Seleni/Zn 1 ml/ Amino Ac/Electrol/Dextrose/Calcium 1,011 mls @ 100 mls/hr IV .BY DURATION REPLACED BY [facility] Stop: 03/30/20 14:00 Last Admin: 03/30/20 04:23 Dose: 100 mls/hr Documented by: Amino Ac/Electrol/Dextrose/Calcium (Clinimix E 5/15) 1,000 mls @ 100 mls/hr IV .BY DURATION REPLACED BY [facility] Stop: 03/30/20 14:00 Last Admin: 03/29/20 18:06 Dose: 100 mls/hr Documented by: Potassium Phosphate 20 mmole/ (Sodium Chloride) 106.6667 mls @ 35 mls/hr IV Q3H REPLACED BY [facility] Stop: 03/29/20 20:59 Last Admin: 03/29/20 19:34 Dose: 35 mls/hr Documented by: Meropenem 1 gm/ Sodium (Chloride) 100 mls @ 200 mls/hr IV Q8H REPLACED BY [facility] Last Admin: 04/07/20 05:55 Dose: 200 mls/hr Documented by: Multivitamins/Minerals 10 ml/Chromium/Copper/Manganese/Seleni/Zn 1 ml/ Amino Ac/Electrol/Dextrose/Calcium 1,011 mls @ 100 mls/hr IV .BY DURATION REPLACED BY [facility] Stop: 04/09/20 08:00 Last Admin: 04/09/20 05:48 Dose: 100 mls/hr Documented by: Amino Ac/Electrol/Dextrose/Calcium (Clinimix E 5/15) 1,000 mls @ 100 mls/hr IV .BY DURATION [facility] Stop: 04/09/20 08:00 Last Admin: 04/08/20 20:05 Dose: 100 mls/hr Documented by: Sodium Chloride (Normal Saline) Confirm Administered Dose 10 mls @ as directed .ROUTE .STK-MED ONE Stop: 03/31/20 10:52 Sodium Chloride (Normal Saline) 79 mls @ 3.5 mls/sec IV ASDIRECTED [facility] Stop: 04/04/20 09:16 Last Admin: 04/04/20 10:07 Dose: 3.5 mls/sec Documented by: Sodium Chloride (Normal Saline) 79 mls @ 3.5 mls/sec IV ASDIRECTED [facility] Last Admin: 04/05/20 05:15 Dose: 3.5 mls/sec Documented by: Sodium Chloride (Normal Saline) 100 mls @ 3.5 mls/sec IV ASDIRECTED REPLACED BY [facility] Last Admin: 04/05/20 19:53 Dose: 4 mls/sec Documented by: Ibuprofen (Motrin) 600 mg PO ONETIME ONE Stop: 03/27/20 20:33 Last Admin: 03/27/20 20:50 Dose: 600 mg Documented by: Iohexol (Omnipaque-300) 50 ml PO .ASDIRECTED [facility] Iopamidol (Isovue-300 (61%)) 100 ml IV . DIRECTED REPLACED BY [facility] Last Admin: 03/28/20 08:34 Dose: 100 ml Documented by: Iopamidol (Isovue-300 (61%)) 100 ml IV . DIRECTED [facility] Iopamidol (Isovue-300 (61%)) 128 ml IV ONETIME ONE Stop: 04/04/20 09:11 Last Admin: 04/04/20 10:08 Dose: 128 ml Documented by: Iopamidol (Isovue-300 (61%)) 128 ml IV ONETIME ONE Stop: 04/05/20 05:01 Last Admin: 04/05/20 05:18 Dose: 128 ml Documented by: Iopamidol (Isovue-300 (61%)) Confirm Administered Dose 50 ml .ROUTE .STK-MED ONE Stop: 04/05/20 03:45 Last Admin: 04/05/20 04:13 Dose: Not Given Documented by: Iopamidol (Isovue-300 (61%)) 30 ml PO ASDIRECTED ONE Stop: 04/05/20 04:12 Last Admin: 04/05/20 04:27 Dose: 30 ml Documented by: Iopamidol (Isovue-370 (76%)) 100 ml IV . DIRECTED REPLACED BY [facility] Last Admin: 04/05/20 19:53 Dose: 100 ml Documented by: Levothyroxine Sodium (Synthroid) 150 mcg PO ACBREAKFAST REPLACED BY [facility] Last Admin: 03/27/20 07:07 Dose: 150 mcg Documented by: Levothyroxine Sodium (Synthroid) 125 mcg PO ACBREAKFAST REPLACED BY [facility] Levothyroxine Sodium 100 mcg/ (Levothyroxine Sodium 25 mcg) 125 mcg PO ACBREAKFAST REPLACED BY [facility] Last Admin: 03/28/20 07:29 Dose: 125 mcg Documented by: Levothyroxine Sodium 100 mcg/ (Levothyroxine Sodium 25 mcg) 125 mcg PO ACBREAKFAST REPLACED BY [facility] Last Admin: 04/07/20 07:12 Dose: 125 mcg Documented by: Lidocaine HCl (Xylocaine-Mpf 1%) 5 ml INJECT ONETIME ONE Stop: 03/27/20 13:01 Last Admin: 03/27/20 14:06 Dose: 5 ml Documented by: Lidocaine HCl (Xylocaine 2% Viscous) 15 ml PO ASDIRECTED ONE Stop: 03/29/20 03:53 Last Admin: 03/29/20 04:19 Dose: 15 ml Documented by: Megestrol Acetate (Megace 40 Mg/Ml Susp) 625 mg PO DAILY@0800 REPLACED BY [facility] Last Admin: 03/29/20 10:21 Dose: Not Given Documented by: Megestrol Acetate (Megace 40 Mg/Ml Susp) 625 mg PO DAILY@0800 REPLACED BY [facility] Last Admin: 04/05/20 07:39 Dose: 625 mg Documented by: Midazolam HCl (Versed 1 Mg/Ml) Confirm Administered Dose 2 mg .ROUTE .STK-MED ONE Stop: 03/31/20 10:32 Morphine Sulfate (Morphine) 2 mg IVPUSH ONETIME ONE Stop: 04/05/20 16:26 Last Admin: 04/05/20 16:45 Dose: 2 mg Documented by: Non-Formulary Medication (Total Parenteral Nutrition, Central) 1,000 ml .XX .Continue Order REPLACED BY [facility] Stop: 03/31/20 10:00 Non-Formulary Medication (Total Parenteral Nutrition, Central) 1,000 ml .XX .Continue Order [facility] Stop: 04/01/20 10:00 Non-Formulary Medication (Total Parenteral Nutrition, Central) 1,000 ml .XX .Continue Order [facility] Stop: 04/02/20 18:00 Non-Formulary Medication (Total Parenteral Nutrition, Central) 1,000 ml .XX .Continue Order [facility] Stop: 04/03/20 12:00 Non-Formulary Medication (Total Parenteral Nutrition, Central) 1,000 ml .XX .Continue Order [facility] Stop: 04/04/20 18:00 Non-Formulary Medication (Total Parenteral Nutrition, Central) 1,000 ml .XX .Continue Order [facility] Stop: 04/05/20 07:16 Non-Formulary Medication (Total Parenteral Nutrition, Central) 1,000 ml .XX .Continue Order [facility] Stop: 04/06/20 07:16 Non-Formulary Medication (Total Parenteral Nutrition, Central) 1,000 ml .XX .Continue Order [facility] Stop: 04/07/20 10:00 Non-Formulary Medication (Total Parenteral Nutrition, Central) 1,000 ml .XX .Continue Order [facility] Stop: 04/08/20 10:00 Nystatin (Mycostatin) 5 ml PO QID [facility] Stop: 04/05/20 10:01 Last Admin: 04/05/20 10:59 Dose: 5 ml Documented by: Propofol (Diprivan 20 Ml) Confirm Administered Dose 200 mg .ROUTE .STK-MED ONE Stop: 03/31/20 10:32 Fluticasone/Salmeterol (Fluticasone-Salmeterol 113-14 Mcg Powder Inh) 1 puff INH BIDRT REPLACED BY [facility] Last Admin: 04/08/20 08:04 Dose: 1 puff Documented by: Sodium Chloride (Saline Flush) 10 ml FLUSH ONETIME ONE Stop: 03/28/20 07:58 Last Admin: 03/28/20 08:32 Dose: 10 ml Documented by: Sodium Chloride (Saline Flush) 10 ml FLUSH ONETIME ONE Stop: 03/28/20 08:05 Last Admin: 03/28/20 09:47 Dose: 10 ml Documented by: Sodium Chloride (Saline Flush) 10 ml FLUSH ONETIME ONE Stop: 04/04/20 09:11 Last Admin: 04/04/20 10:07 Dose: 10 ml Documented by: Sodium Chloride (Saline Flush) 10 ml FLUSH ONETIME ONE Stop: 04/05/20 17:57 Last Admin: 04/05/20 19:53 Dose: 10 ml Documented by: Tamsulosin HCl (Flomax) 0.4 mg PO BEDTIME [facility] Last Admin: 03/27/20 20:56 Dose: Not Given Documented by: Warfarin Sodium (Coumadin) 5 mg PO DAILY@1300 [facility] Warfarin Sodium (Coumadin) 5 mg PO ONETIME ONE Stop: 03/28/20 15:01 Last Admin: 03/28/20 14:58 Dose: 5 mg Documented by: - Exam Quality Assessment: No: Supplemental Oxygen General: Alert, Oriented, Cooperative, No Acute Distress Lungs: Normal Respiratory Effort Cardiovascular: Regular Rate, Regular Rhythm GI/Abdominal Exam: Distended (Mild) Extremities: No Pedal Edema Skin: Warm, Dry Psy/Mental Status: Alert, Normal Affect Sepsis Event Note - Evaluation Sepsis Screening Result: No Definite Risk - Focused Exam Vital Signs: Vital Signs Temp Pulse Resp BP BP Pulse Ox 04/09/20 08:03 164/78 H 04/09/20 07:02 36.5 C 90 16 164/78 H 96 04/09/20 02:33 37.0 C 88 16 136/57 L 95 Date Exam was Performed: 04/09/20 Time Exam was Performed: 13:15 Consult PN Assessment/Plan Procedures: Procedures AIRWAY INHALATION TREATMENT (02/13/20) ASSAY OF MAGNESIUM (03/04/20) ASSAY OF NATRIURETIC PEPTIDE (03/04/20) ASSAY OF PHOSPHORUS (03/04/20) ASSAY OF TROPONIN QUANT (03/04/20) ASSAY THYROID STIM HORMONE (02/13/20) BLOOD TYPING SEROLOGIC ABO (02/13/20) BLOOD TYPING SEROLOGIC RH(D) (02/13/20) C-REACTIVE PROTEIN (02/13/20) CARCINOEMBRYONIC ANTIGEN (02/13/20) COMPATIBILITY TEST ANTIGLOB (02/13/20) COMPATIBILITY TEST SPIN (02/13/20) COMPLETE CBC AUTOMATED (03/04/20) COMPLETE CBC W/AUTO DIFF WBC (03/04/20) COMPREHEN METABOLIC PANEL (03/04/20) CT ABD & PELV W/CONTRAST (03/04/20) CT ABD & PELVIS W/O CONTRAST (02/13/20) CULTR BACTERIA EXCEPT BLOOD (02/13/20) CULTURE OTHR SPECIMN AEROBIC (02/13/20) ELECTROCARDIOGRAM REPORT (03/04/20) ELECTROCARDIOGRAM TRACING (03/04/20) EMERGENCY DEPT VISIT (03/13/20) EMERGENCY DEPT VISIT (03/02/20) EMERGENCY DEPT VISIT (02/13/20) EMERGENCY DEPT VISIT (05/30/16) HOT OR COLD PACKS THERAPY (11/29/19) HYDRATE IV INFUSION ADD-ON (03/04/20) HYDRATION IV INFUSION INIT (02/28/20) IMMUNOHISTO ANTB 1ST STAIN (02/13/20) IMMUNOHISTO ANTB ADDL SLIDE (02/13/20) INSERT TEMP BLADDER CATH (02/13/20) INSERT TUNNELED CV CATH (03/04/20) MANUAL THERAPY 1/> REGIONS (11/29/19) MEASURE BLOOD OXYGEN LEVEL (03/04/20) METABOLIC PANEL TOTAL CA (03/04/20) MRI LUMBAR SPINE W/O DYE (05/09/19) NASAL/OROGASTRIC W/TUBE PLMT (02/13/20) OT EVALUATION (11/16/13) PT EVAL LOW COMPLEX 20 MIN (11/29/19) PT EVALUATION (03/25/16) RBC ANTIBODY SCREEN (02/13/20) ROUTINE VENIPUNCTURE (03/04/20) SMEAR GRAM STAIN (02/13/20) THER/DIAG CONCURRENT INF (03/04/20) THER/PROPH/DIAG INJ IV PUSH (02/13/20) THER/PROPH/DIAG IV INF ADDON (03/04/20) THER/PROPH/DIAG IV INF INIT (03/04/20) THERAPEUTIC EXERCISES (11/29/19) TISSUE EXAM BY PATHOLOGIST (02/13/20) TISSUE EXAM BY PATHOLOGIST (02/13/20) TISSUE EXAM BY PATHOLOGIST (02/13/20) TX/PRO/DX INJ NEW DRUG ADDON (03/04/20) TX/PROPH/DG ADDL SEQ IV INF (03/04/20) ULTRASOUND THERAPY (03/25/16) URINALYSIS AUTO W/SCOPE (03/02/20) US URINE CAPACITY MEASURE (03/04/20) X-RAY EXAM ABDOMEN 1 VIEW (02/13/20) X-RAY EXAM ABDOMEN 2 VIEWS (02/13/20) X-RAY EXAM COMPLETE ABDOMEN (02/13/20) X-RAY EXAM HIP UNI 2-3 VIEWS (03/13/20) Problem List Initiated/Reviewed/Updated: Yes Plan: ASSESSMENT AND PLAN - 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 The plan is for him to continue subcutaneous injections after hospital discharge because of concern he may not be absorbing oral medication such as warfarin. -Enoxaparin 1.5 mg/kg daily -Anticipate total of 3 months of treatment Ileus versus small bowel obstruction-stable. Receiving TPN. -Care as per surgical team Fever-no obvious source and all of his cultures have been negative. Slowly feeling better, no fevers. White count normal. Metastatic colon cancer-metastases to the liver visible on CT scan. Oncology appointment is coming up soon. He does continue to suffer from weakness and malnutrition following his colon surgery. He is on TPN. AST and ALT were mildly elevated but slowly trending down. -Management per surgical team Hiccups-suspect that these are secondary to current pneumoperitoneum, improved with increased dose of Thorazine -Thorazine 50 mg p.o. 3 times daily Situational depression-patient reports feeling down since his diagnosis of cancer. He feels that he has good family support at this time. Prashant Jansen MD
[2020-04-09] MEDS: HYDROmorphone 2 MG Tab PO PRN (11:22)
[2020-04-09] MEDS: Enoxaparin 120 MG/0.8 ML Syringe SUBCUT SCH (15:00)
[2020-04-09] MEDS: Acetaminophen 325 MG Tab PO PRN (15:04)
[2020-04-09] MEDS ORDERED: [UNRECOGNIZED DRUG - REMARK] IV SCH (17:30)
[2020-04-09] MEDS ORDERED: [UNRECOGNIZED DRUG - REMARK] IV SCH (18:30)
--- NOTE | 2020-04-09 19:43 | CRLCR ---
INDICATION: Fever and weakness. COMPARISON: CT chest 05 April 2020. FINDINGS: Chronic elevation left hemidiaphragm. Lungs are clear. PICC line tip from the left is inferior superior vena cava. Ridge volume of presumed peritoneal free air under both hemidiaphragms. Query recent surgery. Impression : Large volume of pneumoperitoneum. Results called to and discussed with Dr. Jansen the on-call doctor at 19:41 09 April 2020. Dictated by Leonid Collazo MD @ Apr 09 2020 7:38PM Signed by Dr. Leonid Collazo @ Apr 09 2020 7:42PM
[2020-04-09] MEDS ORDERED: Meropenem 1 GM in Sodium Chloride 0.9% 100 ML IV SCH (20:00)
[2020-04-09] MEDS ORDERED: Lidocaine 2% Jelly 10 ML Urojet MUCMEM ONE (21:16)
[2020-04-09] MEDS ORDERED: HYDROmorphone/Normal Saline 15 MG/30 ML PCA IV PRN (21:26)
[2020-04-09] MEDS ORDERED: LORazepam 2 MG/ML SDV IVPUSH PRN (21:36)
[2020-04-09] MEDS ORDERED: Naloxone 0.4 MG/ML SDV IV PRN (22:00)
[2020-04-09] MEDS: Dextrose 5%-Lactated Ringers 1,000 ML IV SCH (23:15)
[2020-04-10] MEDS: diphenhydrAMINE 50 MG/ML SDV IVPUSH PRN ×2 (01:36→22:47)
[2020-04-10] MEDS: Metoclopramide 10 MG/2 ML SDV IVPUSH SCH (05:40)
[2020-04-10] MEDS ORDERED: HYDROmorphone 0.5 MG/0.5 ML Syringe IVPUSH PRN (07:17)
[2020-04-10] MEDS: Ondansetron 4 MG/2 ML SDV IVPUSH SCH ×3 (07:28→16:32)
--- NOTE | 2020-04-10 08:30 | PN ---
DATE OF SERVICE: 04/10/2020 SUBJECTIVE: Walter is currently with his family, and last evening he became weak, increased abdominal pain, and Dr. Cantrell consulted with the patient and family, and the patient and family would like to talk to hospice. Temp max in the past 24 hours was 101.5. Intake 120. Urine output, urinated independently. Bowel movements, 3. Out of the NG, he had 650. He is reporting abdominal pain this morning. REVIEW OF SYSTEMS: Remainder of review of systems negative for any pertinent positives and negatives. OBJECTIVE: GENERAL: Walter Cohen is a very pleasant 84-year-old male. He is alert and oriented. VITAL SIGNS: TPR at 0735, 98.2, 87, 14, blood pressure 104/54, O2 oximetry on room air 89%. Exam deferred. ASSESSMENT: 1. Bowel perforation. 2. Upper GI with percutaneous endoscopy and gastrostomy tube placement with flexible sigmoidoscopy for persistent ileus, intolerance of NG, esophageal thrush, widely patent ileorectal anastomosis. Date of procedure 03/31/2020. Surgeon: Otilio Cantrell MD. 3. 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 4. Left brachiocephalic deep vein thrombosis related to catheter placement. PLAN: 1. Comfort cares were initiated last evening. 2. Refer to hospice for consultation. 3. Dilaudid 0.5 mg IV push q.2 hours p.r.n. pain. Continue IV fluids and Ativan as already ordered. TPN discontinued. 4. We will evaluate p.r.n. or discharge per the patient request. Michelle Casanova PA-C /[id number]
--- NOTE | 2020-04-10 13:03 | PCM.CONSN ---
- General Info Date of Service: 04/10/20 Subjective Update: Patient is unable to participate in conversation today because of significant lethargy. Overnight he spiked a fever. A chest x-ray was obtained and showed a very large amount of free air inside the abdomen. Dr. Cantrell met with the family and expressed concern about bowel perforation. Was offered emergent surgery with a high risk of morbidity and mortality versus comfort cares and the patient and family have elected to transition to comfort cares. He appears comfortable this morning. Family seems to be coping well with multiple family members present. - Patient Data Vitals - Most Recent: Last Vital Signs Temp 36.8 C 04/10/20 07:35 Pulse 87 04/10/20 07:35 Resp 14 04/10/20 07:35 BP 104/54 L 04/10/20 07:35 Pulse Ox 89 L 04/10/20 07:35 Weight - Most Recent: 82.463 kg I&O - Last 24 Hours: Intake & Output 04/09/20 04/10/20 04/10/20 22:59 06:59 14:59 Intake Total 2028 835 Output Total 400 1150 Balance 1628 -315 Lab Results Last 24 Hours: Laboratory Results - last 24 hr 04/09/20 Range/Units 18:47 Urine Color Yellow (YELLOW) Urine Appearance Clear (CLEAR) Urine pH 7.0 (5.0-8.0) Ur Specific [place] 1.020 (1.008-1.030) Urine Protein Trace H (NEGATIVE) mg/dL Urine Glucose (UA) Negative (NEGATIVE) mg/dL Urine Ketones Negative (NEGATIVE) mg/dL Urine Occult Blood Moderate H (NEGATIVE) Urine Nitrite Negative (NEGATIVE) Urine Bilirubin Negative (NEGATIVE) Urine Urobilinogen 0.2 (0.2-1.0) EU/dL Ur Leukocyte Esterase Negative (NEGATIVE) Urine RBC 20-30 H (0-5) Urine WBC 0-5 (0-5) Ur Epithelial Cells Rare Amorphous Sediment Not seen Urine Bacteria Few Urine Mucus Few Med Orders - Current: Current Medications Albuterol (Ventolin Hfa) 0 gm INH Q4H PRN PRN Reason: BREATHING Diphenhydramine HCl (Benadryl) 25 - 50 mg IVPUSH Q6H PRN PRN Reason: sleep Last Admin: 04/10/20 01:36 Dose: 50 mg Documented by: Hydromorphone HCl (Dilaudid [employer] 15 Mg In Ns 30 Ml) 0 mg IV ASDIRECTED PRN; Protocol PRN Reason: CHAIN MENDER PAIN CONTROL Last Admin: 04/10/20 08:10 Dose: 15 mg Documented by: Hydromorphone HCl (Dilaudid) 0.5 mg IVPUSH Q2H PRN PRN Reason: Pain Last Admin: 04/10/20 07:22 Dose: 0.5 mg Documented by: Dextrose/Lactated Ringer's (Dextrose 5%-Lactated Ringers) 1,000 mls @ 50 mls/hr IV ASDIRECTED [facility] Last Admin: 04/09/20 23:15 Dose: 50 mls/hr Documented by: Lorazepam (Ativan) 0.5 - 1 mg IVPUSH Q2H PRN PRN Reason: ANXIETY Naloxone HCl (Narcan) 0.1 mg IV ASDIRECTED PRN PRN Reason: decreased respiratory rate Ondansetron HCl (Zofran) 4 mg IVPUSH Q4H PRN PRN Reason: Nausea Last Admin: 04/08/20 00:59 Dose: 4 mg Documented by: Ondansetron HCl (Zofran) 4 mg IVPUSH TIDAC [facility] Last Admin: 04/10/20 11:22 Dose: Not Given Documented by: Discontinued Medications Acetaminophen (Tylenol) 650 mg PO Q4H PRN PRN Reason: Fever Last Admin: 04/09/20 15:04 Dose: 650 mg Documented by: Aspirin (Halfprin) 81 mg PO DAILY [facility] Last Admin: 04/07/20 09:20 Dose: 81 mg Documented by: Calcium Carbonate/Glycine (Tums) 1,000 mg PO Q2H PRN PRN Reason: Indigestion Last Admin: 04/08/20 01:05 Dose: 1,000 mg Documented by: Chlorpromazine HCl (Thorazine) 25 mg PO TID [facility] Last Admin: 04/06/20 08:01 Dose: 25 mg Documented by: Chlorpromazine HCl (Thorazine) 50 mg PO TID [facility] Last Admin: 04/09/20 21:57 Dose: Not Given Documented by: Clotrimazole (Mycelex) 10 mg PO 5XDAY [facility] Last Admin: 04/08/20 20:00 Dose: Not Given Documented by: Diphenhydramine HCl (Benadryl) 25 - 50 mg PO BEDTIME PRN PRN Reason: Insomnia Last Admin: 04/08/20 21:43 Dose: 50 mg Documented by: Diphenoxylate HCl/Atropine (Lomotil 0.025-2.5 Mg) 2 tab PO QID [facility] Last Admin: 04/02/20 05:51 Dose: Not Given Documented by: Diphenoxylate HCl/Atropine (Lomotil 0.025-2.5 Mg) 2 tab PO QID PRN PRN Reason: Diarrhea Diphenoxylate HCl/Atropine (Lomotil 0.025-2.5 Mg) 2 tab PO QID PRN PRN Reason: Diarrhea Diphenoxylate HCl/Atropine (Lomotil 0.025-2.5 Mg) 2 tab PO QID [facility] Last Admin: 04/07/20 06:08 Dose: Not Given Documented by: Diphenoxylate HCl/Atropine (Lomotil 0.025-2.5 Mg) 2 tab PO QID PRN PRN Reason: Diarrhea Docusate Sodium (Colace) 100 mg PO BID [facility] Last Admin: 04/09/20 21:56 Dose: Not Given Documented by: Doxazosin Mesylate (Cardura) 8 mg PO DAILY [facility] Last Admin: 03/28/20 09:42 Dose: 8 mg Documented by: Doxazosin Mesylate (Cardura) 8 mg PO DAILY [facility] Last Admin: 04/09/20 08:03 Dose: 8 mg Documented by: Enoxaparin Sodium (Lovenox) 120 mg SUBCUT Q24H [facility] Last Admin: 04/09/20 15:00 Dose: 120 mg Documented by: Fentanyl (Sublimaze) Confirm Administered Dose 100 mcg .ROUTE .STK-MED ONE Stop: 03/31/20 10:32 Fentanyl (Sublimaze) 50 mcg IVPUSH ONETIME ONE Stop: 03/31/20 11:31 Last Admin: 03/31/20 11:34 Dose: 50 mcg Documented by: Finasteride (Proscar) 5 mg PO DAILY [facility] Last Admin: 03/28/20 09:43 Dose: 5 mg Documented by: Finasteride (Proscar) 5 mg PO DAILY [facility] Last Admin: 04/09/20 08:03 Dose: 5 mg Documented by: Heparin Sodium (Porcine) (Heparin Lock Flush 100 Units/Ml) 500 units FLUSH ASDIRECTED PRN PRN Reason: Other Last Admin: 04/01/20 04:13 Dose: 500 units Documented by: Hydromorphone HCl (Dilaudid) 0.5 mg IVPUSH Q2H PRN PRN Reason: MODERATE PAIN Last Admin: 04/01/20 00:33 Dose: 0.5 mg Documented by: Hydromorphone HCl (Dilaudid) 1 mg IV Q2H PRN PRN Reason: SEVERE PAIN Hydromorphone HCl (Dilaudid) 2 - 4 mg PO Q4H PRN PRN Reason: Pain Last Admin: 04/09/20 11:22 Dose: 2 mg Documented by: Lactated Ringer's (Ringers, Lactated) 1,000 mls @ 250 mls/hr IV ONETIME ONE Stop: 03/26/20 16:29 Last Admin: 03/26/20 13:05 Dose: 250 mls/hr Documented by: Dextrose/Lactated Ringer's (Dextrose 5%-Lactated Ringers) 1,000 mls @ 25 mls/hr IV ASDIRECTED [facility] Last Admin: 03/26/20 22:23 Dose: 25 mls/hr Documented by: Fat Emulsion Intravenous (Intralipid 20%) 100 mls @ 8.3 mls/hr IV Q24H [facility] Last Admin: 04/08/20 16:16 Dose: 8.3 mls/hr Documented by: Multivitamins/Minerals 10 ml/Chromium/Copper/Manganese/Seleni/Zn 1 ml/ Amino Ac/Electrol/Dextrose/Calcium 1,011 mls @ 100 mls/hr IV .BY DURATION [facility] Stop: 03/29/20 14:15 Last Admin: 03/29/20 07:58 Dose: 100 mls/hr Documented by: Amino Ac/Electrol/Dextrose/Calcium (Clinimix E /15) 1,000 mls @ 100 mls/hr IV .BY DURATION [facility] Stop: 03/29/20 14:15 Last Admin: 03/28/20 22:23 Dose: 100 mls/hr Documented by: Linezolid 600 mg/ Premix 300 mls @ 300 mls/hr IV Q12H [facility] Last Admin: 03/29/20 02:46 Dose: 300 mls/hr Documented by: Piperacillin/Tazobactam/ (Dextrose 3.375 gm/ Premix) 50 mls @ 100 mls/hr IV Q6H [facility] Last Admin: 03/29/20 07:50 Dose: 100 mls/hr Documented by: Sodium Chloride (Normal Saline) 100 mls @ 3 mls/sec IV ASDIRECTED [facility] Stop: 03/28/20 12:00 Sodium Chloride (Normal Saline) 79 mls @ 3 mls/sec IV ASDIRECTED [facility] Stop: 03/28/20 12:00 Last Admin: 03/28/20 08:32 Dose: 3 mls/sec Documented by: Albumin Human (Albumin 25%) 25 gm in 100 mls @ 25 mls/hr IV Q24H [facility] Stop: 03/31/20 13:59 Last Admin: 03/31/20 09:59 Dose: 25 mls/hr Documented by: Azithromycin 125 mg/ Sodium (Chloride) 100 mls @ 100 mls/hr IV Q12H [facility] Last Admin: 04/07/20 22:57 Dose: 100 mls/hr Documented by: Multivitamins/Minerals 10 ml/Chromium/Copper/Manganese/Seleni/Zn 1 ml/ Amino Ac/Electrol/Dextrose/Calcium 1,011 mls @ 100 mls/hr IV .BY DURATION [facility] Stop: 03/30/20 14:00 Last Admin: 03/30/20 04:23 Dose: 100 mls/hr Documented by: Amino Ac/Electrol/Dextrose/Calcium (Clinimix E 5/15) 1,000 mls @ 100 mls/hr IV .BY DURATION [facility] Stop: 03/30/20 14:00 Last Admin: 03/29/20 18:06 Dose: 100 mls/hr Documented by: Potassium Phosphate 20 mmole/ (Sodium Chloride) 106.6667 mls @ 35 mls/hr IV Q3H [facility] Stop: 03/29/20 20:59 Last Admin: 03/29/20 19:34 Dose: 35 mls/hr Documented by: Meropenem 1 gm/ Sodium (Chloride) 100 mls @ 200 mls/hr IV Q8H [facility] Last Admin: 04/07/20 05:55 Dose: 200 mls/hr Documented by: Multivitamins/Minerals 10 ml/Chromium/Copper/Manganese/Seleni/Zn 1 ml/ Amino Ac/Electrol/Dextrose/Calcium 1,011 mls @ 100 mls/hr IV .BY DURATION [facility] Stop: 04/09/20 08:00 Last Admin: 04/09/20 05:48 Dose: 100 mls/hr Documented by: Amino Ac/Electrol/Dextrose/Calcium (Clinimix E 02/07) 1,000 mls @ 100 mls/hr IV .BY DURATION [facility] Stop: 04/09/20 08:00 Last Admin: 04/08/20 20:05 Dose: 100 mls/hr Documented by: Sodium Chloride (Normal Saline) Confirm Administered Dose 10 mls @ as directed .ROUTE .STK-MED ONE Stop: 03/31/20 10:52 Sodium Chloride (Normal Saline) 1,000 mls @ 25 mls/hr IV ASDIRECTED [facility] Sodium Chloride (Normal Saline) 79 mls @ 3.5 mls/sec IV ASDIRECTED [facility] Stop: 04/04/20 09:16 Last Admin: 04/04/20 10:07 Dose: 3.5 mls/sec Documented by: Sodium Chloride (Normal Saline) 79 mls @ 3.5 mls/sec IV ASDIRECTED [facility] Last Admin: 04/05/20 05:15 Dose: 3.5 mls/sec Documented by: Sodium Chloride (Normal Saline) 100 mls @ 3.5 mls/sec IV ASDIRECTED [facility] Last Admin: 04/05/20 19:53 Dose: 4 mls/sec Documented by: Multivitamins/Minerals 10 ml/Chromium/Copper/Manganese/Seleni/Zn 1 ml/ Amino Ac/Electrol/Dextrose/Calcium 2,011 mls @ 200 mls/hr IV Q24H [facility] Last Infusion: 04/09/20 17:20 Dose: 100 mls/hr Documented by: Fat Emulsion Intravenous (Intralipid 20%) 100 mls @ 8.4 mls/hr IV Q24H [facility] Last Admin: 04/09/20 08:48 Dose: 8.4 mls/hr Documented by: Meropenem 1 gm/ Sodium (Chloride) 100 mls @ 200 mls/hr IV Q8H [facility] Last Admin: 04/09/20 19:50 Dose: 200 mls/hr Documented by: Ibuprofen (Motrin) 600 mg PO ONETIME ONE Stop: 03/27/20 20:33 Last Admin: 03/27/20 20:50 Dose: 600 mg Documented by: Ibuprofen (Motrin) 600 mg PO Q6H PRN PRN Reason: Pain/Fever Last Admin: 04/03/20 15:49 Dose: 600 mg Documented by: Iohexol (Omnipaque-300) 50 ml PO .ASDIRECTED [facility] Iopamidol (Isovue-300 (61%)) 100 ml IV . DIRECTED [facility] Last Admin: 03/28/20 08:34 Dose: 100 ml Documented by: Iopamidol (Isovue-300 (61%)) 100 ml IV . DIRECTED [facility] Iopamidol (Isovue-300 (61%)) 128 ml IV ONETIME ONE Stop: 04/04/20 09:11 Last Admin: 04/04/20 10:08 Dose: 128 ml Documented by: Iopamidol (Isovue-300 (61%)) 128 ml IV ONETIME ONE Stop: 04/05/20 05:01 Last Admin: 04/05/20 05:18 Dose: 128 ml Documented by: Iopamidol (Isovue-300 (61%)) Confirm Administered Dose 50 ml .ROUTE .STK-MED ONE Stop: 04/05/20 03:45 Last Admin: 04/05/20 04:13 Dose: Not Given Documented by: Iopamidol (Isovue-300 (61%)) 30 ml PO ASDIRECTED ONE Stop: 04/05/20 04:12 Last Admin: 04/05/20 04:27 Dose: 30 ml Documented by: Iopamidol (Isovue-370 (76%)) 100 ml IV . DIRECTED [facility] Last Admin: 04/05/20 19:53 Dose: 100 ml Documented by: Levothyroxine Sodium (Synthroid) 150 mcg PO ACBREAKFAST [facility] Last Admin: 03/27/20 07:07 Dose: 150 mcg Documented by: Levothyroxine Sodium (Synthroid) 125 mcg PO ACBREAKFAST [facility] Levothyroxine Sodium 100 mcg/ (Levothyroxine Sodium 25 mcg) 125 mcg PO ACBREAKFAST [facility] Last Admin: 03/28/20 07:29 Dose: 125 mcg Documented by: Levothyroxine Sodium 100 mcg/ (Levothyroxine Sodium 25 mcg) 125 mcg PO ACBREAKFAST [facility] Last Admin: 04/07/20 07:12 Dose: 125 mcg Documented by: Levothyroxine Sodium 100 mcg/ (Levothyroxine Sodium 25 mcg) 125 mcg PO DAILY [facility] Last Admin: 04/09/20 08:03 Dose: 125 mcg Documented by: Lidocaine HCl (Xylocaine-Mpf 1%) 5 ml INJECT ONETIME ONE Stop: 03/27/20 13:01 Last Admin: 03/27/20 14:06 Dose: 5 ml Documented by: Lidocaine HCl (Xylocaine 2% Viscous) 15 ml PO ASDIRECTED ONE Stop: 03/29/20 03:53 Last Admin: 03/29/20 04:19 Dose: 15 ml Documented by: Lidocaine HCl (Xylocaine 2% Jelly) 10 ml MUCMEM ONETIME ONE Stop: 04/09/20 21:17 Last Admin: 04/09/20 21:10 Dose: 10 ml Documented by: Loperamide HCl (Imodium) 4 mg PO Q6H PRN PRN Reason: Diarrhea Lorazepam (Ativan) 0.5 - 1 mg IVPUSH Q4H PRN PRN Reason: Nausea Last Admin: 04/05/20 12:14 Dose: 1 mg Documented by: Megestrol Acetate (Megace 40 Mg/Ml Susp) 625 mg PO DAILY@0800 [facility] Last Admin: 03/29/20 10:21 Dose: Not Given Documented by: Megestrol Acetate (Megace 40 Mg/Ml Susp) 625 mg PO DAILY@0800 [facility] Last Admin: 04/05/20 07:39 Dose: 625 mg Documented by: Metoclopramide HCl (Reglan) 5 mg IVPUSH Q6H [facility] Last Admin: 04/10/20 05:40 Dose: Not Given Documented by: Midazolam HCl (Versed 1 Mg/Ml) Confirm Administered Dose 2 mg .ROUTE .STK-MED ONE Stop: 03/31/20 10:32 Morphine Sulfate (Morphine) 2 mg IVPUSH ONETIME ONE Stop: 04/05/20 16:26 Last Admin: 04/05/20 16:45 Dose: 2 mg Documented by: Non-Formulary Medication (Total Parenteral Nutrition, Central) 1,000 ml .XX .Continue Order [facility] Stop: 03/31/20 10:00 Non-Formulary Medication (Total Parenteral Nutrition, Central) 1,000 ml .XX .Continue Order [facility] Stop: 04/01/20 10:00 Non-Formulary Medication (Total Parenteral Nutrition, Central) 1,000 ml .XX .Continue Order [facility] Stop: 04/02/20 18:00 Non-Formulary Medication (Total Parenteral Nutrition, Central) 1,000 ml .XX .Continue Order [facility] Stop: 04/03/20 12:00 Non-Formulary Medication (Total Parenteral Nutrition, Central) 1,000 ml .XX .Continue Order [facility] Stop: 04/04/20 18:00 Non-Formulary Medication (Total Parenteral Nutrition, Central) 1,000 ml .XX .Continue Order [facility] Stop: 04/05/20 07:16 Non-Formulary Medication (Total Parenteral Nutrition, Central) 1,000 ml .XX .Continue Order [facility] Stop: 04/06/20 07:16 Non-Formulary Medication (Total Parenteral Nutrition, Central) 1,000 ml .XX .Continue Order [facility] Stop: 04/07/20 10:00 Non-Formulary Medication (Total Parenteral Nutrition, Central) 1,000 ml .XX .Continue Order [facility] Stop: 04/08/20 10:00 Non-Formulary Medication (Total Parenteral Nutrition, Central) 1,000 ml .XX .Continue Order [facility] Stop: 04/09/20 12:00 Decrease Tpn Rate To (100ml/Hr) 1 each IV Q24H [facility] Last Admin: 04/09/20 17:30 Dose: 1 each Documented by: Decrease Tpn Rate To (40ml/Hr) 1 each IV Q24H [facility] Last Admin: 04/09/20 18:13 Dose: 1 each Documented by: Nystatin (Mycostatin) 5 ml PO QID [facility] Stop: 04/05/20 10:01 Last Admin: 04/05/20 10:59 Dose: 5 ml Documented by: Nystatin (Mycostatin) 5 ml PO QID [facility] Last Admin: 04/09/20 15:08 Dose: 5 ml Documented by: Propofol (Diprivan 20 Ml) Confirm Administered Dose 200 mg .ROUTE .STK-MED ONE Stop: 03/31/20 10:32 Fluticasone/Salmeterol (Fluticasone-Salmeterol 113-14 Mcg Powder Inh) 1 puff INH BIDRT [facility] Last Admin: 04/08/20 08:04 Dose: 1 puff Documented by: Sodium Chloride (Saline Flush) 10 ml FLUSH ONETIME ONE Stop: 03/28/20 07:58 Last Admin: 03/28/20 08:32 Dose: 10 ml Documented by: Sodium Chloride (Saline Flush) 10 ml FLUSH ONETIME ONE Stop: 03/28/20 08:05 Last Admin: 03/28/20 09:47 Dose: 10 ml Documented by: Sodium Chloride (Saline Flush) 10 ml FLUSH ONETIME ONE Stop: 04/04/20 09:11 Last Admin: 04/04/20 10:07 Dose: 10 ml Documented by: Sodium Chloride (Saline Flush) 10 ml FLUSH ONETIME ONE Stop: 04/05/20 17:57 Last Admin: 04/05/20 19:53 Dose: 10 ml Documented by: Tamsulosin HCl (Flomax) 0.4 mg PO BEDTIME [facility] Last Admin: 03/27/20 20:56 Dose: Not Given Documented by: Warfarin Sodium (Coumadin) 5 mg PO DAILY@1300 [facility] Warfarin Sodium (Coumadin) 5 mg PO ONETIME ONE Stop: 03/28/20 15:01 Last Admin: 03/28/20 14:58 Dose: 5 mg Documented by: - Exam Quality Assessment: No: Supplemental Oxygen General: No Acute Distress, Sedated. No: Alert Lungs: Normal Respiratory Effort GI/Abdominal Exam: Soft, Distended Extremities: No Pedal Edema Psy/Mental Status: No: Alert Sepsis Event Note - Evaluation Sepsis Screening Result: No Definite Risk - Focused Exam Vital Signs: Vital Signs Temp Pulse Resp BP Pulse Ox 04/10/20 07:35 36.8 C 87 14 104/54 L 89 L 04/10/20 07:00 18 04/10/20 03:00 18 Date Exam was Performed: 04/10/20 Time Exam was Performed: 15:02 Consult PN Assessment/Plan Procedures: Procedures AIRWAY INHALATION TREATMENT (02/13/20) ASSAY OF MAGNESIUM (03/04/20) ASSAY OF NATRIURETIC PEPTIDE (03/04/20) ASSAY OF PHOSPHORUS (03/04/20) ASSAY OF TROPONIN QUANT (03/04/20) ASSAY THYROID STIM HORMONE (02/13/20) BLOOD TYPING SEROLOGIC ABO (02/13/20) BLOOD TYPING SEROLOGIC RH(D) (02/13/20) C-REACTIVE PROTEIN (02/13/20) CARCINOEMBRYONIC ANTIGEN (02/13/20) COMPATIBILITY TEST ANTIGLOB (02/13/20) COMPATIBILITY TEST SPIN (02/13/20) COMPLETE CBC AUTOMATED (03/04/20) COMPLETE CBC W/AUTO DIFF WBC (03/04/20) COMPREHEN METABOLIC PANEL (03/04/20) CT ABD & PELV W/CONTRAST (03/04/20) CT ABD & PELVIS W/O CONTRAST (02/13/20) CULTR BACTERIA EXCEPT BLOOD (02/13/20) CULTURE OTHR SPECIMN AEROBIC (02/13/20) ELECTROCARDIOGRAM REPORT (03/04/20) ELECTROCARDIOGRAM TRACING (03/04/20) EMERGENCY DEPT VISIT (03/13/20) EMERGENCY DEPT VISIT (03/02/20) EMERGENCY DEPT VISIT (02/13/20) EMERGENCY DEPT VISIT (05/30/16) HOT OR COLD PACKS THERAPY (11/29/19) HYDRATE IV INFUSION ADD-ON (03/04/20) HYDRATION IV INFUSION INIT (02/28/20) IMMUNOHISTO ANTB 1ST STAIN (02/13/20) IMMUNOHISTO ANTB ADDL SLIDE (02/13/20) INSERT TEMP BLADDER CATH (02/13/20) INSERT TUNNELED CV CATH (03/04/20) MANUAL THERAPY 1/> REGIONS (11/29/19) MEASURE BLOOD OXYGEN LEVEL (03/04/20) METABOLIC PANEL TOTAL CA (03/04/20) MRI LUMBAR SPINE W/O DYE (05/09/19) NASAL/OROGASTRIC W/TUBE PLMT (02/13/20) OT EVALUATION (11/16/13) PT EVAL LOW COMPLEX 20 MIN (11/29/19) PT EVALUATION (03/25/16) RBC ANTIBODY SCREEN (02/13/20) ROUTINE VENIPUNCTURE (03/04/20) SMEAR GRAM STAIN (02/13/20) THER/DIAG CONCURRENT INF (03/04/20) THER/PROPH/DIAG INJ IV PUSH (02/13/20) THER/PROPH/DIAG IV INF ADDON (03/04/20) THER/PROPH/DIAG IV INF INIT (03/04/20) THERAPEUTIC EXERCISES (11/29/19) TISSUE EXAM BY PATHOLOGIST (02/13/20) TISSUE EXAM BY PATHOLOGIST (02/13/20) TISSUE EXAM BY PATHOLOGIST (02/13/20) TX/PRO/DX INJ NEW DRUG ADDON (03/04/20) TX/PROPH/DG ADDL SEQ IV INF (03/04/20) ULTRASOUND THERAPY (03/25/16) URINALYSIS AUTO W/SCOPE (03/02/20) US URINE CAPACITY MEASURE (03/04/20) X-RAY EXAM ABDOMEN 1 VIEW (02/13/20) X-RAY EXAM ABDOMEN 2 VIEWS (02/13/20) X-RAY EXAM COMPLETE ABDOMEN (02/13/20) X-RAY EXAM HIP UNI 2-3 VIEWS (03/13/20) Problem List Initiated/Reviewed/Updated: Yes Plan: ASSESSMENT AND PLAN - Suspected colon perforation-significant free air noted in the abdomen with increasing in quantity. He is now febrile. He has increasing pain. Last night discussion was held regarding urgent, complicated surgery versus comfort cares. Patient and family decided to move towards comfort cares. 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 -Comfort cares Metastatic colon cancer-metastases to the liver visible on CT scan. -Transitioning to comfort cares Hiccups-suspect that these are secondary to current pneumoperitoneum, improved with increased dose of Thorazine -Thorazine 50 mg p.o. 3 times daily if able to take p.o. Situational depression Prashant Jansen MD
[2020-04-10] MEDS: Dextrose 5%-Lactated Ringers 1,000 ML IV SCH (19:21)
[2020-04-11 07:52] VITALS: BP 113/60; PULSE 99
--- NOTE | 2020-04-11 08:09 | PN ---
DATE OF SERVICE: 04/11/2020 SUBJECTIVE: Walter is in comfort care. He is having some abdominal pain with movement. The pain he states is controlled with [employer]. He has noticed more abdominal distention. He has no other concerns or questions today, will be meeting with a hospice nurse at 9:00 a.m. OBJECTIVE: GENERAL: Walter Cohen is a pleasant 84-year-old male. He is alert, orientated, but weak. VITAL SIGNS: TPR at 0735; 98.2, 87, 14. Blood pressure 104/54. HEART: Regular rate and rhythm. LUNGS: Reveal decreased breath sounds bilaterally. ABDOMEN: More distended and firm. EXTREMITIES: Without peripheral edema. ASSESSMENT: 1. Perforated viscus. 2. 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 3. Left brachiocephalic deep vein thrombosis related to catheter placement. 4. Upper GI with percutaneous endoscopy and gastrostomy tube placement with flexible sigmoidoscopy for persistent ileus, intolerance of NG, esophageal thrush, widely patent ileorectal anastomosis. Date of procedure 03/31/2020. Surgeon: Otilio Cantrell MD. PLAN: Continue comfort cares. To evaluate and treat p.r.n. Michelle Casanova PA-C /[id number]
[2020-04-11] MEDS: Ondansetron 4 MG/2 ML SDV IVPUSH SCH ×2 (08:28→12:55)
--- NOTE | 2020-04-11 12:16 | PCM.DCSUM1 ---
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 He was admitted for management. Diagnosis: Stroke: No - Discharge Data Discharge Date: 04/11/20 Discharge Disposition: DC/Tfer to Hospice - Home 50 Condition: Stable - Referral to Home Health Primary Care Physician: Sharif Cavanaugh MD - Discharge Diagnosis/Problem(s) (1) Perforation of colon SNOMED Code(s): 91907165 ICD Code: K63.1 - PERFORATION OF INTESTINE (NONTRAUMATIC) Status: Acute (2) BPH (benign prostatic hyperplasia) SNOMED Code(s): 988560317 ICD Code: N40.0 - BENIGN PROSTATIC HYPERPLASIA WITHOUT LOWER URINRY TRACT SYMP Status: Chronic Onset Date: Unknown Problem Details: Will hold patient's alpha-blockers as he has a singh catheter present at this time and the medications could be contributing to orthostatic hypotension Qualifiers: Lower urinary tract symptom presence: symptoms present Lower urinary tract symptom detail: urinary retention Qualified Code(s): N40.1 - Benign prostatic hyperplasia with lower urinary tract symptoms; R33.8 - Other retention of urine (3) Adenocarcinoma of colon metastatic to liver SNOMED Code(s): 1856680302381, 7010745065467 ICD Code: C18.9 - MALIGNANT NEOPLASM OF COLON, UNSPECIFIED; C78.7 - SECONDARY MALIG NEOPLASM OF LIVER AND INTRAHEPATIC BILE DUCT Status: Chronic Onset Date: Unknown Problem Details: Patient has active adenocarcinoma of the colon with metastatic disease. Could consider imaging if patient does not improve with fluids and holding of alpha-blockers (4) Deep vein thrombosis (DVT) of left upper extremity SNOMED Code(s): 924321281 ICD Code: I82.622 - ACUTE EMBOLISM AND THROMBOSIS OF DEEP VEINS OF L UP EXTREM Status: Acute Qualifiers: Affected thrombotic vein of extremity: other upper extremity vein - Patient Summary/Data Consults: Consultations 03/28/20 07:50 Consult to Physical Therapy [PT Evaluation and Treatment] [CONS] Routine Please Evaluate and Treat. PT Reason for Consult: weakness This query below is only for informational purposes and is not editable. Admission Diagnosis/Problem: Malnutrition 04/07/20 06:47 Consult to Home Care [Consult to Home Health] [CONS] Routine Comment: will be going home with TPN - unknown date ? 8th Physician Instructions: pt doesn't want NH Special Instructions: states she needs help and Home Health Care not enough 04/10/20 07:31 Consult to Hospice [CONS] Routine Comment: Physician Instructions: Hospital Course: Yuri presented with diarrhea, weakness and dehydration. He was on home TPN after having a large bowel surgery to resect a colon cancer. He was febrile at the time of presentation. Multiple cultures were obtained and he was started on meropenem. He was admitted to the hospital. He received TPN as well as some additional IV fluids. He continued to have fevers so additional cultures were obtained. These all continued to be negative but he continued to have fevers. The nasal lid was added to the antibiotic coverage. There was concerned that potentially his Baez catheter was infected so this was removed and a PICC line was placed. Unfortunately the PICC line led to a DVT in the left brachiocephalic vein. Eventually the fevers resolved but no obvious source was ever found. The patient did seem to be making some progress with his TPN. He had a persistent ileus that likely had been present since his last hospital stay and was not resolving. A venting G-tube was placed on March 31. Things seem to be moving in the right direction for the next couple of days but then an ab dominal x-ray in the morning noted a large amount of free air in the abdomen. No obvious source was identified with a CT scan but a repeat CT scan the next day showed a slight increase in the free air but no obvious source. There was some concern that there may be a bowel perforation at this point but since he was not having there was some concern that there may be a bowel perforation at this point but since he was not having much of an increase in abdominal pain this was felt to be less likely. He remained stable while receiving TPN over the next couple of days. Unfortunately then he started to decline and spiked a fever. He had increasing abdominal pain and distention. He had a rise in his heart rate as well as increase in nausea. At this point the suspicion for a bowel perforation became even greater. Bowel perforation secondary to persistent ileus and dilation of the small intestine was felt to be most likely. This was discussed with the patient and his family. Discussion was held regarding an urgent but very complicated and difficult surgery with a high morbidity and mortality versus a transition to comfort cares. The patient did not feel that he would survive another surgery and wished to proceed with comfort cares. He has been stable since the transition. His pain has been well controlled. Family has made all the necessary arrangements to provide 24-hour care. Hospice has been consulted and will be admitting the patient at home. He will be discharged in stable condition. - Patient Instructions Diet: Clear Liquid Diet Activity: As Tolerated Showering/Bathing: May Shower Notify Provider of: Fever, Increased Pain, Nausea and/or Vomiting Other/Special Instructions: Leave Gastrostomy Tube Open to drainage. You may clamp for 30 minutes after taking your medications. - Discharge Plan *PRESCRIPTION DRUG MONITORING PROGRAM REVIEWED*: Not Applicable *COPY OF PRESCRIPTION DRUG MONITORING REPORT IN PATIENT STEPHY: Not Applicable Prescriptions/Med Rec: HYDROmorphone [Dilaudid 1 MG/ML Soln] 1 mg PO Q1H PRN #60 ml PRN Reason: Pain LORazepam [LORazepam Intensol] 0.5 mg PO Q4H PRN #30 ml PRN Reason: Anxiety/Nausea Ondansetron [Ondansetron ODT] 4 mg PO Q6H PRN #60 tab.rapdis PRN Reason: Nausea Home Medications: Home Meds Simethicone 160 mg PO Q2H PRN tab.chew 02/26/20 [Rx] Levothyroxine Sodium [Euthyrox] 150 mcg PO DAILY 03/02/20 [History] Finasteride 5 mg PO DAILY 03/08/20 [History] HYDROmorphone [Dilaudid 1 MG/ML Soln] 1 mg PO Q1H PRN #60 ml 04/11/20 [Rx] LORazepam [LORazepam Intensol] 0.5 mg PO Q4H PRN #30 ml 04/11/20 [Rx] Ondansetron [Ondansetron ODT] 4 mg PO Q6H PRN #60 tab.rapdis 04/11/20 [Rx] - Discharge Summary/Plan Comment DC Time >30 min.: Yes (45-complex hospice discharge ) - Patient Data Vitals - Most Recent: Last Vital Signs Temp 36.9 C 04/11/20 07:50 Pulse 99 04/11/20 07:50 Resp 16 04/11/20 07:50 BP 113/60 04/11/20 07:50 Pulse Ox 91 L 04/11/20 07:50 Weight - Most Recent: 82.463 kg I&O - Last 24 hours: Intake & Output 04/10/20 04/11/20 04/11/20 22:59 06:59 14:59 Intake Total 813 Output Total 850 450 Balance -850 363 DAYO Results - Last 24 hrs: Microbiology 04/09/20 18:25 Aerobic Blood Culture - Preliminary Blood - Arm, Right NO GROWTH AFTER 1 DAY Anaerobic Blood Culture - Preliminary NO GROWTH AFTER 1 DAY 04/09/20 18:35 Aerobic Blood Culture - Preliminary Blood - Arm, Right NO GROWTH AFTER 1 DAY Anaerobic Blood Culture - Preliminary NO GROWTH AFTER 1 DAY Med Orders - Current: Current Medications Albuterol (Ventolin Hfa) 0 gm INH Q4H PRN PRN Reason: BREATHING Diphenhydramine HCl (Benadryl) 25 - 50 mg IVPUSH Q6H PRN PRN Reason: sleep Last Admin: 04/10/20 22:47 Dose: 50 mg Documented by: Hydromorphone HCl (Dilaudid [employer] 15 Mg In Ns 30 Ml) 0 mg IV ASDIRECTED PRN; Protocol PRN Reason: [employer] PAIN CONTROL Last Admin: 04/10/20 08:10 Dose: 15 mg Documented by: Hydromorphone HCl (Dilaudid) 0.5 mg IVPUSH Q2H PRN PRN Reason: Pain Last Admin: 04/10/20 07:22 Dose: 0.5 mg Documented by: Dextrose/Lactated Ringer's (Dextrose 5%-Lactated Ringers) 1,000 mls @ 50 mls/hr IV ASDIRECTED [facility] Last Admin: 04/10/20 19:21 Dose: 50 mls/hr Documented by: Lorazepam (Ativan) 0.5 - 1 mg IVPUSH Q2H PRN PRN Reason: ANXIETY Naloxone HCl (Narcan) 0.1 mg IV ASDIRECTED PRN PRN Reason: decreased respiratory rate Ondansetron HCl (Zofran) 4 mg IVPUSH Q4H PRN PRN Reason: Nausea Last Admin: 04/08/20 00:59 Dose: 4 mg Documented by: Ondansetron HCl (Zofran) 4 mg IVPUSH TIDAC [facility] Last Admin: 04/11/20 08:28 Dose: Not Given Documented by: Discontinued Medications Acetaminophen (Tylenol) 650 mg PO Q4H PRN PRN Reason: Fever Last Admin: 04/09/20 15:04 Dose: 650 mg Documented by: Aspirin (Halfprin) 81 mg PO DAILY [facility] Last Admin: 04/07/20 09:20 Dose: 81 mg Documented by: Calcium Carbonate/Glycine (Tums) 1,000 mg PO Q2H PRN PRN Reason: Indigestion Last Admin: 04/08/20 01:05 Dose: 1,000 mg Documented by: Chlorpromazine HCl (Thorazine) 25 mg PO TID [facility] Last Admin: 04/06/20 08:01 Dose: 25 mg Documented by: Chlorpromazine HCl (Thorazine) 50 mg PO TID [facility] Last Admin: 04/09/20 21:57 Dose: Not Given Documented by: Clotrimazole (Mycelex) 10 mg PO 5XDAY [facility] Last Admin: 04/08/20 20:00 Dose: Not Given Documented by: Diphenhydramine HCl (Benadryl) 25 - 50 mg PO BEDTIME PRN PRN Reason: Insomnia Last Admin: 04/08/20 21:43 Dose: 50 mg Documented by: Diphenoxylate HCl/Atropine (Lomotil 0.025-2.5 Mg) 2 tab PO QID [facility] Last Admin: 04/02/20 05:51 Dose: Not Given Documented by: Diphenoxylate HCl/Atropine (Lomotil 0.025-2.5 Mg) 2 tab PO QID PRN PRN Reason: Diarrhea Diphenoxylate HCl/Atropine (Lomotil 0.025-2.5 Mg) 2 tab PO QID PRN PRN Reason: Diarrhea Diphenoxylate HCl/Atropine (Lomotil 0.025-2.5 Mg) 2 tab PO QID [facility] Last Admin: 04/07/20 06:08 Dose: Not Given Documented by: Diphenoxylate HCl/Atropine (Lomotil 0.025-2.5 Mg) 2 tab PO QID PRN PRN Reason: Diarrhea Docusate Sodium (Colace) 100 mg PO BID [facility] Last Admin: 04/09/20 21:56 Dose: Not Given Documented by: Doxazosin Mesylate (Cardura) 8 mg PO DAILY [facility] Last Admin: 03/28/20 09:42 Dose: 8 mg Documented by: Doxazosin Mesylate (Cardura) 8 mg PO DAILY [facility] Last Admin: 04/09/20 08:03 Dose: 8 mg Documented by: Enoxaparin Sodium (Lovenox) 120 mg SUBCUT Q24H [facility] Last Admin: 04/09/20 15:00 Dose: 120 mg Documented by: Fentanyl (Sublimaze) Confirm Administered Dose 100 mcg .ROUTE .STK-MED ONE Stop: 03/31/20 10:32 Fentanyl (Sublimaze) 50 mcg IVPUSH ONETIME ONE Stop: 03/31/20 11:31 Last Admin: 03/31/20 11:34 Dose: 50 mcg Documented by: Finasteride (Proscar) 5 mg PO DAILY [facility] Last Admin: 03/28/20 09:43 Dose: 5 mg Documented by: Finasteride (Proscar) 5 mg PO DAILY [facility] Last Admin: 04/09/20 08:03 Dose: 5 mg Documented by: Heparin Sodium (Porcine) (Heparin Lock Flush 100 Units/Ml) 500 units FLUSH ASDIRECTED PRN PRN Reason: Other Last Admin: 04/01/20 04:13 Dose: 500 units Documented by: Hydromorphone HCl (Dilaudid) 0.5 mg IVPUSH Q2H PRN PRN Reason: MODERATE PAIN Last Admin: 04/01/20 00:33 Dose: 0.5 mg Documented by: Hydromorphone HCl (Dilaudid) 1 mg IV Q2H PRN PRN Reason: SEVERE PAIN Hydromorphone HCl (Dilaudid) 2 - 4 mg PO Q4H PRN PRN Reason: Pain Last Admin: 04/09/20 11:22 Dose: 2 mg Documented by: Lactated Ringer's (Ringers, Lactated) 1,000 mls @ 250 mls/hr IV ONETIME ONE Stop: 03/26/20 16:29 Last Admin: 03/26/20 13:05 Dose: 250 mls/hr Documented by: Dextrose/Lactated Ringer's (Dextrose 5%-Lactated Ringers) 1,000 mls @ 25 mls/hr IV ASDIRECTED [facility] Last Admin: 03/26/20 22:23 Dose: 25 mls/hr Documented by: Fat Emulsion Intravenous (Intralipid 20%) 100 mls @ 8.3 mls/hr IV Q24H [facility] Last Admin: 04/08/20 16:16 Dose: 8.3 mls/hr Documented by: Multivitamins/Minerals 10 ml/Chromium/Copper/Manganese/Seleni/Zn 1 ml/ Amino Ac/Electrol/Dextrose/Calcium 1,011 mls @ 100 mls/hr IV .BY DURATION [facility] Stop: 03/29/20 14:15 Last Admin: 03/29/20 07:58 Dose: 100 mls/hr Documented by: Amino Ac/Electrol/Dextrose/Calcium (Clinimix E 02/07) 1,000 mls @ 100 mls/hr IV .BY DURATION [facility] Stop: 03/29/20 14:15 Last Admin: 03/28/20 22:23 Dose: 100 mls/hr Documented by: Linezolid 600 mg/ Premix 300 mls @ 300 mls/hr IV Q12H [facility] Last Admin: 03/29/20 02:46 Dose: 300 mls/hr Documented by: Piperacillin/Tazobactam/ (Dextrose 3.375 gm/ Premix) 50 mls @ 100 mls/hr IV Q6H [facility] Last Admin: 03/29/20 07:50 Dose: 100 mls/hr Documented by: Sodium Chloride (Normal Saline) 100 mls @ 3 mls/sec IV ASDIRECTED [facility] Stop: 03/28/20 12:00 Sodium Chloride (Normal Saline) 79 mls @ 3 mls/sec IV ASDIRECTED [facility] Stop: 03/28/20 12:00 Last Admin: 03/28/20 08:32 Dose: 3 mls/sec Documented by: Albumin Human (Albumin 25%) 25 gm in 100 mls @ 25 mls/hr IV Q24H [facility] Stop: 03/31/20 13:59 Last Admin: 03/31/20 09:59 Dose: 25 mls/hr Documented by: Azithromycin 125 mg/ Sodium (Chloride) 100 mls @ 100 mls/hr IV Q12H [facility] Last Admin: 04/07/20 22:57 Dose: 100 mls/hr Documented by: Multivitamins/Minerals 10 ml/Chromium/Copper/Manganese/Seleni/Zn 1 ml/ Amino Ac/Electrol/Dextrose/Calcium 1,011 mls @ 100 mls/hr IV .BY DURATION [facility] Stop: 03/30/20 14:00 Last Admin: 03/30/20 04:23 Dose: 100 mls/hr Documented by: Amino Ac/Electrol/Dextrose/Calcium (Clinimix E 5/15) 1,000 mls @ 100 mls/hr IV .BY DURATION [facility] Stop: 03/30/20 14:00 Last Admin: 03/29/20 18:06 Dose: 100 mls/hr Documented by: Potassium Phosphate 20 mmole/ (Sodium Chloride) 106.6667 mls @ 35 mls/hr IV Q3H [facility] Stop: 03/29/20 20:59 Last Admin: 03/29/20 19:34 Dose: 35 mls/hr Documented by: Meropenem 1 gm/ Sodium (Chloride) 100 mls @ 200 mls/hr IV Q8H [facility] Last Admin: 04/07/20 05:55 Dose: 200 mls/hr Documented by: Multivitamins/Minerals 10 ml/Chromium/Copper/Manganese/Seleni/Zn 1 ml/ Amino Ac/Electrol/Dextrose/Calcium 1,011 mls @ 100 mls/hr IV .BY DURATION [facility] Stop: 04/09/20 08:00 Last Admin: 04/09/20 05:48 Dose: 100 mls/hr Documented by: Amino Ac/Electrol/Dextrose/Calcium (Clinimix E 5/15) 1,000 mls @ 100 mls/hr IV .BY DURATION [facility] Stop: 04/09/20 08:00 Last Admin: 04/08/20 20:05 Dose: 100 mls/hr Documented by: Sodium Chloride (Normal Saline) Confirm Administered Dose 10 mls @ as directed .ROUTE .[facility]-MED ONE Stop: 03/31/20 10:52 Sodium Chloride (Normal Saline) 1,000 mls @ 25 mls/hr IV ASDIRECTED [facility] Sodium Chloride (Normal Saline) 79 mls @ 3.5 mls/sec IV ASDIRECTED [facility] Stop: 04/04/20 09:16 Last Admin: 04/04/20 10:07 Dose: 3.5 mls/sec Documented by: Sodium Chloride (Normal Saline) 79 mls @ 3.5 mls/sec IV ASDIRECTED [facility] Last Admin: 04/05/20 05:15 Dose: 3.5 mls/sec Documented by: Sodium Chloride (Normal Saline) 100 mls @ 3.5 mls/sec IV ASDIRECTED [facility] Last Admin: 04/05/20 19:53 Dose: 4 mls/sec Documented by: Multivitamins/Minerals 10 ml/Chromium/Copper/Manganese/Seleni/Zn 1 ml/ Amino Ac/Electrol/Dextrose/Calcium 2,011 mls @ 200 mls/hr IV Q24H [facility] Last Infusion: 04/09/20 17:20 Dose: 100 mls/hr Documented by: Fat Emulsion Intravenous (Intralipid 20%) 100 mls @ 8.4 mls/hr IV Q24H [facility] Last Admin: 04/09/20 08:48 Dose: 8.4 mls/hr Documented by: Meropenem 1 gm/ Sodium (Chloride) 100 mls @ 200 mls/hr IV Q8H [facility] Last Admin: 04/09/20 19:50 Dose: 200 mls/hr Documented by: Ibuprofen (Motrin) 600 mg PO ONETIME ONE Stop: 03/27/20 20:33 Last Admin: 03/27/20 20:50 Dose: 600 mg Documented by: Ibuprofen (Motrin) 600 mg PO Q6H PRN PRN Reason: Pain/Fever Last Admin: 04/03/20 15:49 Dose: 600 mg Documented by: Iohexol (Omnipaque-300) 50 ml PO .ASDIRECTED [facility] Iopamidol (Isovue-300 (61%)) 100 ml IV . DIRECTED [facility] Last Admin: 03/28/20 08:34 Dose: 100 ml Documented by: Iopamidol (Isovue-300 (61%)) 100 ml IV . DIRECTED [facility] Iopamidol (Isovue-300 (61%)) 128 ml IV ONETIME ONE Stop: 04/04/20 09:11 Last Admin: 04/04/20 10:08 Dose: 128 ml Documented by: Iopamidol (Isovue-300 (61%)) 128 ml IV ONETIME ONE Stop: 04/05/20 05:01 Last Admin: 04/05/20 05:18 Dose: 128 ml Documented by: Iopamidol (Isovue-300 (61%)) Confirm Administered Dose 50 ml .ROUTE .STK-MED ONE Stop: 04/05/20 03:45 Last Admin: 04/05/20 04:13 Dose: Not Given Documented by: Iopamidol (Isovue-300 (61%)) 30 ml PO ASDIRECTED ONE Stop: 04/05/20 04:12 Last Admin: 04/05/20 04:27 Dose: 30 ml Documented by: Iopamidol (Isovue-370 (76%)) 100 ml IV . DIRECTED [facility] Last Admin: 04/05/20 19:53 Dose: 100 ml Documented by: Levothyroxine Sodium (Synthroid) 150 mcg PO ACBREAKFAST [facility] Last Admin: 03/27/20 07:07 Dose: 150 mcg Documented by: Levothyroxine Sodium (Synthroid) 125 mcg PO ACBREAKFAST [facility] Levothyroxine Sodium 100 mcg/ (Levothyroxine Sodium 25 mcg) 125 mcg PO ACBREAKFAST [facility] Last Admin: 03/28/20 07:29 Dose: 125 mcg Documented by: Levothyroxine Sodium 100 mcg/ (Levothyroxine Sodium 25 mcg) 125 mcg PO ACBREAKFAST [facility] Last Admin: 04/07/20 07:12 Dose: 125 mcg Documented by: Levothyroxine Sodium 100 mcg/ (Levothyroxine Sodium 25 mcg) 125 mcg PO DAILY [facility] Last Admin: 04/09/20 08:03 Dose: 125 mcg Documented by: Lidocaine HCl (Xylocaine-Mpf 1%) 5 ml INJECT ONETIME ONE Stop: 03/27/20 13:01 Last Admin: 03/27/20 14:06 Dose: 5 ml Documented by: Lidocaine HCl (Xylocaine 2% Viscous) 15 ml PO ASDIRECTED ONE Stop: 03/29/20 03:53 Last Admin: 03/29/20 04:19 Dose: 15 ml Documented by: Lidocaine HCl (Xylocaine 2% Jelly) 10 ml MUCMEM ONETIME ONE Stop: 04/09/20 21:17 Last Admin: 04/09/20 21:10 Dose: 10 ml Documented by: Loperamide HCl (Imodium) 4 mg PO Q6H PRN PRN Reason: Diarrhea Lorazepam (Ativan) 0.5 - 1 mg IVPUSH Q4H PRN PRN Reason: Nausea Last Admin: 04/05/20 12:14 Dose: 1 mg Documented by: Megestrol Acetate (Megace 40 Mg/Ml Susp) 625 mg PO DAILY@0800 [facility] Last Admin: 03/29/20 10:21 Dose: Not Given Documented by: Megestrol Acetate (Megace 40 Mg/Ml Susp) 625 mg PO DAILY@0800 [facility] Last Admin: 04/05/20 07:39 Dose: 625 mg Documented by: Metoclopramide HCl (Reglan) 5 mg IVPUSH Q6H [facility] Last Admin: 04/10/20 05:40 Dose: Not Given Documented by: Midazolam HCl (Versed 1 Mg/Ml) Confirm Administered Dose 2 mg .ROUTE .STK-MED ONE Stop: 03/31/20 10:32 Morphine Sulfate (Morphine) 2 mg IVPUSH ONETIME ONE Stop: 04/05/20 16:26 Last Admin: 04/05/20 16:45 Dose: 2 mg Documented by: Non-Formulary Medication (Total Parenteral Nutrition, Central) 1,000 ml .XX .Continue Order [facility] Stop: 03/31/20 10:00 Non-Formulary Medication (Total Parenteral Nutrition, Central) 1,000 ml .XX .Continue Order [facility] Stop: 04/01/20 10:00 Non-Formulary Medication (Total Parenteral Nutrition, Central) 1,000 ml .XX . Continue Order [facility] Stop: 04/02/20 18:00 Non-Formulary Medication (Total Parenteral Nutrition, Central) 1,000 ml .XX .Continue Order [facility] Stop: 04/03/20 12:00 Non-Formulary Medication (Total Parenteral Nutrition, Central) 1,000 ml .XX .Continue Order [facility] Stop: 04/04/20 18:00 Non-Formulary Medication (Total Parenteral Nutrition, Central) 1,000 ml .XX .Continue Order [facility] Stop: 04/05/20 07:16 Non-Formulary Medication (Total Parenteral Nutrition, Central) 1,000 ml .XX .Continue Order [facility] Stop: 04/06/20 07:16 Non-Formulary Medication (Total Parenteral Nutrition, Central) 1,000 ml .XX .Continue Order [facility] Stop: 04/07/20 10:00 Non-Formulary Medication (Total Parenteral Nutrition, Central) 1,000 ml .XX .Continue Order [facility] Stop: 04/08/20 10:00 Non-Formulary Medication (Total Parenteral Nutrition, Central) 1,000 ml .XX .Continue Order [facility] Stop: 04/09/20 12:00 Decrease Tpn Rate To (100ml/Hr) 1 each IV Q24H [facility] Last Admin: 04/09/20 17:30 Dose: 1 each Documented by: Decrease Tpn Rate To (40ml/Hr) 1 each IV Q24H [facility] Last Admin: 04/09/20 18:13 Dose: 1 each Documented by: Nystatin (Mycostatin) 5 ml PO QID [facility] Stop: 04/05/20 10:01 Last Admin: 04/05/20 10:59 Dose: 5 ml Documented by: Nystatin (Mycostatin) 5 ml PO QID [facility] Last Admin: 04/09/20 15:08 Dose: 5 ml Documented by: Propofol (Diprivan 20 Ml) Confirm Administered Dose 200 mg .ROUTE .STK-MED ONE Stop: 03/31/20 10:32 Fluticasone/Salmeterol (Fluticasone-Salmeterol 113-14 Mcg Powder Inh) 1 puff INH BIDRT [facility] Last Admin: 04/08/20 08:04 Dose: 1 puff Documented by: Sodium Chloride (Saline Flush) 10 ml FLUSH ONETIME ONE Stop: 03/28/20 07:58 Last Admin: 03/28/20 08:32 Dose: 10 ml Documented by: Sodium Chloride (Saline Flush) 10 ml FLUSH ONETIME ONE Stop: 03/28/20 08:05 Last Admin: 03/28/20 09:47 Dose: 10 ml Documented by: Sodium Chloride (Saline Flush) 10 ml FLUSH ONETIME ONE Stop: 04/04/20 09:11 Last Admin: 04/04/20 10:07 Dose: 10 ml Documented by: Sodium Chloride (Saline Flush) 10 ml FLUSH ONETIME ONE Stop: 04/05/20 17:57 Last Admin: 04/05/20 19:53 Dose: 10 ml Documented by: Tamsulosin HCl (Flomax) 0.4 mg PO BEDTIME [facility] Last Admin: 03/27/20 20:56 Dose: Not Given Documented by: Warfarin Sodium (Coumadin) 5 mg PO DAILY@1300 [facility] Warfarin Sodium (Coumadin) 5 mg PO ONETIME ONE Stop: 03/28/20 15:01 Last Admin: 03/28/20 14:58 Dose: 5 mg Documented by:
[2020-04-11] MEDS ORDERED: HYDROmorphone ORAL Concentrate 1 MG/ML CONT U/D PO ONE (13:00)
--- NOTE | 2020-04-12 10:18 | PN ---
DATE OF SERVICE: 04/09/2020 The patient was planning to go home tomorrow on home TPN. This afternoon late, he developed some increasing abdominal pain, tachycardia, and fever. An abdominal x-ray was obtained, which showed a large amount of free intraperitoneal air, and at that point, the patient was felt to have an obvious acute abdomen. The family was summoned, and a discussion was held regarding treatment options. After a lengthy discussion with the patient with myself and the family members present and then amongst family members, the patient and family decided to pursue a comfort care approach rather than secondary surgery. At this point, we will get him on more or less a maintenance IV rate and hold on the oral pain medicine and leave the G- tube in place. He will be offered Dilaudid and/or Ativan as needed but at this point is not having much in the way of pain and is very clear-headed, and at this point, we will begin a hospice-type approach in the hospital. One option tomorrow morning might be depending on the clinical state to perhaps have the patient go home on a hospice status as well, and that will be discussed in the morning. Otilio Cantrell MD /[id number]
== END 2020-04-11 14:22 | disposition hospice, home (50) | DRG 394 ==
LOC: JP.MS 12:00
PROVIDERS: ADMIT Surgery; ATTEND Surgery
PROC: 02H633Z Insertion of Infusion Device into Right Atrium, Percutaneous Approach (ICD-10-PCS; 2020-03-27)
PROC: 30233N1 Transfusion of Nonautologous Red Blood Cells into Peripheral Vein, Percutaneous Approach (ICD-10-PCS; 2020-03-30)
PROC: 0DJD8ZZ Inspection of Lower Intestinal Tract, Via Natural or Artificial Opening Endoscopic (ICD-10-PCS; 2020-03-30)
PROC: 0DH64UZ Insertion of Feeding Device into Stomach, Percutaneous Endoscopic Approach (ICD-10-PCS; principal; 2020-03-31)
PROC: 3E0G76Z Introduction of Nutritional Substance into Upper GI, Via Natural or Artificial Opening (ICD-10-PCS; 2020-03-31)
DX: K63.1 Perforation of intestine (nontraumatic) (principal); T82.868A Thrombosis due to vascular prosthetic devices, implants and grafts, initial encounter; I82.622 Acute embolism and thrombosis of deep veins of left upper extremity; C78.7 Secondary malignant neoplasm of liver and intrahepatic bile duct; E46 Unspecified protein-calorie malnutrition; K56.7 Ileus, unspecified; B37.81 Candidal esophagitis; Z51.5 Encounter for palliative care; N40.1 Benign prostatic hyperplasia with lower urinary tract symptoms; R33.8 Other retention of urine; F43.21 Adjustment disorder with depressed mood; R06.6 Hiccough; E03.9 Hypothyroidism, unspecified; R07.9 Chest pain, unspecified; E78.00 Pure hypercholesterolemia, unspecified; J45.20 Mild intermittent asthma, uncomplicated; Z90.49 Acquired absence of other specified parts of digestive tract; Z79.890 Hormone replacement therapy; Z79.899 Other long term (current) drug therapy; Z68.27 Body mass index [BMI] 27.0-27.9, adult
CPT/HCPCS: 36415; 36430; 36569; 51701; 51702; 51798; 71046; 71260; 71275; 74018; 74019; 74019-26; 74176; 74177; 74240; 74248; 80053; 81001; 83735; 83880; 84100; 84443; 84478; 84484; 85025; 85027; 85610; 86850; 86900; 86901; 86920; 86922; 87040; 87077; 87086; 87493; 93005; 93010; 93971-26; 93971-LT; 94640; 97110-GP; 97116-GP; 97161-GP; 97530-GP; 97535-GP; 99222-AI; 99231; 99232; 99239; A9270-GY; C1751; J0456; J1170; J1200; J1642; J1650; J2001; J2020; J2060; J2185; J2250; J2270; J2405; J2543; J2704; J2765; J3010; J3490; J7050; J7120; J7121; P9016; P9047; Q9967